=== PATIENT | male | born 1960 | race Caucasian/White ===

== ENCOUNTER 2017-07-28 17:59 | Inpatient (IN) ==
[2017-07-28] MEDS ORDERED: Naloxone 0.4 MG/ML INJ IVP PRN ×2 (22:04→22:10)
[2017-07-28] MEDS: 0.9 % Sodium Chloride 1,000 ML IVC SCH (22:18)
[2017-07-28] MEDS: Ondansetron 4 MG/2 ML VIAL IVP PRN (22:18)
[2017-07-28] MEDS ORDERED: OXYCODONE Oral CONC 10 MG/0.5 ML ORAL.SYG SL PRN (23:09)
[2017-07-28 23:51] LABS: Basophils # 0.1 K/mcL (0.0-0.2); Basophils % 0.4 %; Eosinophils # 0.2 K/mcL (0.0-0.6); Eosinophils % 0.8 %; Hematocrit 23.8 % (37.5-50.1); Immature Granulocytes % 0.7 % (0-4); Lymphocytes # 2.7 K/mcL (0.6-4.6); Lymphocytes % 12.7 %; Mean Corpuscular Hemoglobin 31.8 pg (28.0-33.3); Mean Corpuscular Volume 93.3 fL (83.0-100.0); Mean Platelet Volume 9.9 fL (9.4-12.4); Monocytes # 1.6 K/mcL (0.0-1.3); Monocytes % 7.7 %; Neutrophils # 16.3 K/mcL (1.6-8.9); Platelet Count 407 K/mcL (140-400); Red Blood Count 2.55 M/mcL (4.19-5.50); Red Cell Distribution Width 13.8 % (11.5-14.5); Segmented Neutrophils % 77.7 %
[2017-07-28 23:54] LABS: Hemoglobin 8.1 g/dL (12.9-16.9)
[2017-07-28 23:59] LABS: INR 1.4; Prothrombin Time 14.8 Seconds (9.4-12.1)
[2017-07-29 00:11] LABS: Alanine Aminotransferase 23 Units/L (7-52); Albumin 2.7 g/dL (3.5-5.7); Albumin/Globulin Ratio 1.1 (1.1-2.2); Alkaline Phosphatase 55 Units/L (34-104); Amylase 23 Units/L (29-103); Aspartate Amino Transferase 24 Units/L (13-39); BUN/Creatinine Ratio 38 (6-26); Bilirubin,Direct 0.1 mg/dL (0.0-0.2); Bilirubin,Indirect 0.2 mg/dL (0.0-1.2); Bilirubin,Total 0.3 mg/dL (0.3-1.0); Blood Urea Nitrogen 45 mg/dL (6-20); Calcium 7.8 mg/dL (8.6-10.3); Carbon Dioxide 24 mEq/L (23-29); Chloride 106 mEq/L (98-107); Globulin 2.4 g/dL (2.4-3.5); Glucose 114 mg/dL (70-105); Lactate Dehydrogenase 88 Units/L (140-271); Lipase 20 Units/L (11-82); Osmolality,Calculated 290 (280-300); Potassium 4.8 mEq/L (3.5-5.1); Sodium 134 mEq/L (136-145); Total Protein 5.1 g/dL (6.4-8.9); Triglycerides 51 mg/dL (< 150); eGFR For African Americans > 60 (> 60); eGFR For Non-African Americans > 60 (> 60)
[2017-07-29] MEDS ORDERED: OXYCODONE Oral CONC 10 MG/0.5 ML ORAL.SYG SL ONE (02:18)
--- NOTE | 2017-07-29 04:09 | Internal Med History&Physical ---
Date of Encounter: 07/28/17 Time of Encounter: 08:00 Assessment and Plan (1) Pancreatitis Current visit: Yes Status: Suspected Please note that there is another duplicate of this admission note that was completed on 07/28 (under the [facility] encounter) Plan: - NPO apart from meds - IVF - CBCD, BMP in AM - Phenergan 12.5 mg IV q 4 hr PRN N/V Or - Zofran (ondansetron) PRN Qualifiers: Qualified Code(s): K85.90 - Acute pancreatitis without necrosis or infection , unspecified (2) Hypertension Current visit: No Status: Chronic We will continue home medication Qualifiers: Qualified Code(s): I10 - Essential (primary) hypertension (3) COPD (chronic obstructive pulmonary disease) Current visit: Yes Status: Chronic No evidence of COPD exacerbation , We will start the patient on DuoNeb. Qualifiers: Qualified Code(s): J44.9 - Chronic obstructive pulmonary disease, unspecified (4) Hyponatremia Current visit: No Status: Acute Hypovolemic hyponatremia most likely secondary to volume depletion, will start the patient isotonic saline (5) DVT prophylaxis Current visit: Yes Status: Acute We will place the patient on SCDs Internal Medicine - H&P: HPI Chief complaint: The initial admission note was completed on 07/28 ([facility] encounter) Admitted From: Home Plans for Post Hospital Care: Home History of present illness: 57-year-old male presents to the emergency room by EMS with with PMH COPD, hyperlipidemia, hypertension, and Recurrent UTI who presented with complain severe abdominal pain at the mid epigastric area and continuous nausea. The patient was evaluated by the ER staff and a CT of abdomen and pelvis without IV contrast shows uncomplicated pancreatitis. The patient was started an IV fluid and treated with antibiotics. EKG shows a sinus tachycardic rhythm, rate of 121 otherwise no acute abnormality and white blood cells was elevated, the ER physician at [facility] has discussed the case with the linoleum installer communications clerk and decision was made that ICU is appropriate sitting for the patient admission and the patient was transferred from [facility], hospitalist group was asked to complete the admission. Reviewing the ER records indicated that several attempts to place a central line placement in the right groin area was unsuccessful. Past Med Surg Social Fam HX - Past Medical History Medical history: COPD, hyperlipidemia, hypertension, other Psychiatric history: anxiety - Past Surgical History Surgical History: appendectomy, orthopedic, other (Left arm surgery) - Social History Smoking Status: Current every day smoker Smokeless Tobacco Status: No Alcohol use: none Drug use: marijuana, other Internal Medicine - H&P: Meds Albuterol Sulfate [Proair Hfa] 1 puff IH Q4-6H PRN 09/06/16 [History] Quetiapine Fumarate [Seroquel] 200 mg PO HS 04/06/17 [History] Ondansetron [Zofran ODT] 8 mg SL Q8HR 07/18/17 [History] Fluticasone/Vilanterol [Breo Ellipta 100-25 Mcg INH] 1 puff IH DAILY 07/29/17 [ History] Ibuprofen [Ibuprofen] 800 mg PO TID 07/29/17 [History] Lisinopril [Zestril] 20 mg PO DAILY 07/29/17 [History] Sertraline [Zoloft] 50 mg PO DAILY 07/29/17 [History] Tamsulosin [Flomax] 0.4 mg PO DAILY 07/29/17 [History] 3 Allergy/AdvReac Type Severity Reaction Status Date / Time prednisone Allergy Swelling Verified 07/29/17 09:40 of the Eye All Systems PM: A 10-system review of systems was performed and is negative for pertinent findings except as documented above in the HPI. - Constitutional Constitutional: no chills, no fever(s), no night sweats - EENT Eyes: no change in vision, no discharge, no pain, no photophobia Ears: no ear discharge, no ear pain, no tinnitus Nose, mouth and throat: no dysphagia, no nasal discharge, no neck pain, no sore throat - Cardiovascular Cardiovascular ROS IM: no chest pain, no diaphoresis, no dyspnea, no lightheadedness, no palpitations, no syncope - Respiratory Respiratory: no cough, no dyspnea, no wheezing, no excessive phlegm production - Gastrointestinal Gastrointestinal: abdominal pain, nausea, no diarrhea, no hematemesis, no hematochezia, no melena, no vomiting - Musculoskeletal Musculoskeletal ROS IM: no numbness, no tingling - Neurological Neurological ROS: no confusion, no convulsions, no focal weakness, no numbness, no tingling, no tremor(s) - Constitutional Vitals: Temp Pulse Resp BP Pulse Ox 98.1 F 89 14 127/70 96 07/29/17 04:00 07/29/17 04:00 07/29/17 04:00 07/29/17 04:00 07/29/17 04:00 General appearance: Present: A&O X 3 - Head Head exam: Present: atraumatic, normocephalic - Respiratory Respiratory exam: Present: CTAB. Absent: accessory muscle use, rales, rhonchi, wheezes - Cardiovascular Cardiovascular exam: Present: RRR, +S1, +S2. Absent: diastolic murmur, gallop, rubs, systolic murmur - GI/Abdominal GI/Abdominal exam: Present: normal bowel sounds, soft, no peritoneal signs. Absent: distended, tenderness - Extremities Exam Extremities exam: Present: warm, radial pulses palpable and symmetrical. Absent : calf tenderness, cyanotic, pedal edema Internal Med - H&P Results - Labs CBC & Chem 7: 07/29/17 12:56 07/29/17 11:25 Labs: Short CBC 07/28/17 Range/Units 22:04 WBC 20.9 H (4.3-11.1) K/mcL Hgb 8.1 L D (12.9-16.9) g/dL Hct 23.8 L (37.5-50.1) % Plt Count 407 H (140-400) K/mcL Neutrophils # 16.3 H (1.6-8.9) K/mcL BMP 07/28/17 22:04 Sodium 134 L Potassium 4.8 Chloride 106 Carbon Dioxide 24 BUN 45 H Creatinine 1.17 Glucose 114 H Calcium 7.8 L Liver Function 07/28/17 Range/Units 22:04 Total Bilirubin 0.3 (0.3-1.0) mg/dL Direct Bilirubin 0.1 (0.0-0.2) mg/dL AST 24 (13-39) Units/L ALT 23 (7-52) Units/L Alkaline Phosphatase 55 (34-104) Units/L Albumin 2.7 L (3.5-5.7) g/dL
[2017-07-29] MEDS: 0.9 % Sodium Chloride 1,000 ML IVC SCH (06:23)
[2017-07-29] MEDS: OXYCODONE Oral CONC 10 MG/0.5 ML ORAL.SYG SL PRN ×3 (06:27→22:20)
[2017-07-29] MEDS ORDERED: [UNRECOGNIZED DRUG - OTHER] IH SCH (09:00)
[2017-07-29] MEDS ORDERED: IPRATROPIUM IH SCH (09:00)
[2017-07-29] MEDS ORDERED: ALBUTEROL IH SCH (09:00)
[2017-07-29] MEDS: Ondansetron 4 MG/2 ML VIAL IVP PRN (10:25)
[2017-07-29 11:09] LABS: Basophils # 0.1 K/mcL (0.0-0.2); Basophils % 0.3 %; Eosinophils # 0.2 K/mcL (0.0-0.6); Eosinophils % 1.3 %; Hematocrit 21.4 % (37.5-50.1); Hemoglobin 7.1 g/dL (12.9-16.9); Immature Granulocytes % 0.5 % (0-4); Lymphocytes # 2.4 K/mcL (0.6-4.6); Lymphocytes % 13.2 %; Mean Corpuscular HGB Conc 33.2 g/dL (31.6-35.5); Mean Corpuscular Hemoglobin 31.3 pg (28.0-33.3); Mean Corpuscular Volume 94.3 fL (83.0-100.0); Mean Platelet Volume 9.9 fL (9.4-12.4); Monocytes # 1.3 K/mcL (0.0-1.3); Monocytes % 7.3 %; Neutrophils # 13.8 K/mcL (1.6-8.9); Platelet Count 403 K/mcL (140-400); Red Blood Count 2.27 M/mcL (4.19-5.50); Segmented Neutrophils % 77.4 %
[2017-07-29 11:23] LABS: ABG Base Excess -11 mEq/L (-2 to 3); ABG HCO3 14 mEq/L (21-27); ABG Oxygen Saturation 96 % (95-98); ABG PCO2 28 mmHg (35-45); ABG PH 7.31 pH Units (7.32-7.45); ABG PO2 86 mmHg (85-104); ABG TCO2 15 mEq/L (20-26)
[2017-07-29 11:42] LABS: Hematocrit 17.7 % (37.5-50.1); Mean Corpuscular HGB Conc 32.2 g/dL (31.6-35.5); Mean Corpuscular Hemoglobin 31.1 pg (28.0-33.3); Mean Corpuscular Volume 96.7 fL (83.0-100.0); Mean Platelet Volume 10.2 fL (9.4-12.4); Platelet Count 423 K/mcL (140-400); Red Blood Count 1.83 M/mcL (4.19-5.50); Red Cell Distribution Width 14.3 % (11.5-14.5)
[2017-07-29] MEDS ORDERED: Dextrose Gel 15 GM/37.5 ML TUBE PO PRN ×4 (11:43→11:54)
[2017-07-29] MEDS ORDERED: *HR* Dextrose 50 % in Water (Syg) 50 ML SYRINGE IVP PRN ×2 (11:43→11:54)
[2017-07-29] MEDS ORDERED: D5% in Water 1,000 ML IVC PRN ×2 (11:43→11:54)
[2017-07-29 11:44] LABS: Hemoglobin 5.7 g/dL (12.9-16.9)
--- NOTE | 2017-07-29 11:44 | Pulmonology Consult Note ---
Date of Encounter: 07/29/17 Time of Encounter: 11:44 Past Med Surg Social Fam HX - Past Medical History Medical history: COPD, hyperlipidemia, hypertension, other Psychiatric history: anxiety - Past Surgical History Surgical History: appendectomy, orthopedic, other (Left arm surgery) - Social History Smoking Status: Current every day smoker Smokeless Tobacco Status: No Alcohol use: none Drug use: marijuana, other Medications and Allergies Albuterol Sulfate [Proair Hfa] 1 puff IH Q4-6H PRN 09/06/16 [History] Quetiapine Fumarate [Seroquel] 200 mg PO HS 04/06/17 [History] Ondansetron [Zofran ODT] 8 mg SL Q8HR 07/18/17 [History] Fluticasone/Vilanterol [Breo Ellipta 100-25 Mcg INH] 1 puff IH DAILY 07/29/17 [ History] Ibuprofen [Ibuprofen] 800 mg PO TID 07/29/17 [History] Lisinopril [Zestril] 20 mg PO DAILY 07/29/17 [History] Sertraline [Zoloft] 50 mg PO DAILY 07/29/17 [History] Tamsulosin [Flomax] 0.4 mg PO DAILY 07/29/17 [History] 3 Allergy/AdvReac Type Severity Reaction Status Date / Time prednisone Allergy Swelling Verified 07/29/17 09:40 of the Eye All Systems: The remainder of the systems were reviewed and are negative Physical Examination Vital Signs: Vital Signs, Last 4 Hours Pulse Resp BP Pulse Ox 07/29/17 09:00 101 12 136/85 100 07/29/17 08:00 101 12 138/79 98 Results - Laboratory Findings CBC and BMP: 07/29/17 10:03 07/28/17 22:04 ABG ABG pH 7.31 pH Units (7.32-7.45) L 07/29/17 11:19 ABG pCO2 28 mmHg (35-45) L 07/29/17 11:19 ABG pO2 86 mmHg (85-104) 07/29/17 11:19 ABG O2 Saturation 96 % (95-98) 07/29/17 11:19 PT/INR, D-dimer PT 14.8 Seconds (9.4-12.1) H 07/28/17 22:04 Abnormal lab findings: Abnormal lab results WBC 17.9 K/mcL (4.3-11.1) H 07/29/17 10:03 RBC 2.27 M/mcL (4.19-5.50) L 07/29/17 10:03 Hgb 7.1 g/dL (12.9-16.9) L 07/29/17 10:03 Hct 21.4 % (37.5-50.1) L 07/29/17 10:03 Plt Count 403 K/mcL (140-400) H 07/29/17 10:03 Neutrophils # 13.8 K/mcL (1.6-8.9) H 07/29/17 10:03 PT 14.8 Seconds (9.4-12.1) H 07/28/17 22:04 ABG pH 7.31 pH Units (7.32-7.45) L 07/29/17 11:19 ABG pCO2 28 mmHg (35-45) L 07/29/17 11:19 ABG HCO3 14 mEq/L (21-27) L 07/29/17 11:19 ABG Total CO2 15 mEq/L (20-26) L 07/29/17 11:19 ABG Base Excess -11 mEq/L (-2 to 3) L 07/29/17 11:19 Lactate 7.0 mmol/L (0.7-2.1) H* 07/29/17 11:19 Sodium 134 mEq/L (136-145) L 07/28/17 22:04 BUN 45 mg/dL (6-20) H 07/28/17 22:04 BUN/Creatinine Ratio 38 (6-26) H 07/28/17 22:04 Glucose 114 mg/dL (70-105) H 07/28/17 22:04 POC Glucose 118 mg/dL (68-89) H 07/28/17 21:06 Calcium 7.8 mg/dL (8.6-10.3) L 07/28/17 22:04 Lactate Dehydrogenase 88 Units/L (140-271) L 07/28/17 22:04 Serum Total Protein 5.1 g/dL (6.4-8.9) L 07/28/17 22:04 Albumin 2.7 g/dL (3.5-5.7) L 07/28/17 22:04 Amylase 23 Units/L (29-103) L 07/28/17 22:04 - Clinical Findings Intake & Output: Intake & Output 07/28/17 07/29/17 07/29/17 23:59 07:59 15:59 Intake Total 0 / 0 1150 / 1150 Output Total 400 / 400 Balance 0 / 0 750 / 750 Weight 68.9 kg 68.9 kg 68 kg Consult Discharge Plan - Plan Referrals: Kyler Loyd, TECHNICAL TRAINING MANAGER [Primary Care Provider] -
[2017-07-29] MEDS ORDERED: Ringers Solution, Lactated 1,000 ML ONE (11:49)
[2017-07-29] MEDS ORDERED: RINGERS LACTATED IVC ONE (11:53)
[2017-07-29] MEDS ORDERED: Fluticasone/Vilanterol [Breo Ellipta 100-25 Mcg Inh IH SCH (11:54)
[2017-07-29] MEDS ORDERED: Ondansetron 4 MG/2 ML VIAL IVP PRN (11:54)
[2017-07-29] MEDS ORDERED: OXYCODONE Oral CONC 10 MG/0.5 ML ORAL.SYG SL PRN (11:54)
[2017-07-29] MEDS ORDERED: Naloxone 0.4 MG/ML INJ IVP PRN (11:54)
[2017-07-29] MEDS ORDERED: 0.9 % Sodium Chloride 1,000 ML IVC SCH (11:54)
[2017-07-29 11:55] LABS: Alanine Aminotransferase 19 Units/L (7-52); Albumin 2.2 g/dL (3.5-5.7); Alkaline Phosphatase 43 Units/L (34-104); Aspartate Amino Transferase 21 Units/L (13-39); BUN/Creatinine Ratio 45 (6-26); Bilirubin,Total 0.2 mg/dL (0.3-1.0); Blood Urea Nitrogen 51 mg/dL (6-20); Calcium 7.4 mg/dL (8.6-10.3); Carbon Dioxide 18 mEq/L (23-29); Chloride 110 mEq/L (98-107); Globulin 2.1 g/dL (2.4-3.5); Glucose 201 mg/dL (70-105); Osmolality,Calculated 305 (280-300); Potassium 4.1 mEq/L (3.5-5.1); Sodium 138 mEq/L (136-145); Total Protein 4.3 g/dL (6.4-8.9); eGFR For African Americans > 60 (> 60); eGFR For Non-African Americans > 60 (> 60)
[2017-07-29] MEDS ORDERED: *HR* Water for inj. (sterile) 10 ML VIAL IV ONE (12:14)
[2017-07-29] MEDS ORDERED: *HR* LORazepam 2 MG/ML VIAL IVP ONE (12:14)
[2017-07-29] MEDS ORDERED: cefTRIAXone 2,000 MG in Water for inj. (sterile) 20 ML 20 ML IVP ONE (12:14)
--- NOTE | 2017-07-29 12:17 | Internal Med Progress Note ---
Date of Encounter: 07/29/17 Time of Encounter: 12:05 - Assessment and plan (1) Septic shock Current Visit: Yes Status: Acute Assessment and plan: Patient was tachycardic, tachypneic, WBC of 20,900 and lactic acid drawn during rapid response was 7.0. Source of infection appears to be UTI as the patient has been having recurrent UTIs with Escherichia coli per medical records. UA from [place] shows moderate leukocyte esterase, many WBC and bacteria. We will initiate sepsis protocol. Blood cultures were ordered during rapid response. Start 30 mL per KG IV fluids. Recheck lactic acid in 3 hours. Sepsis reassessment with an 6 hours. Ceftriaxone 2 g IV ordered once to cover Escherichia coli. The high probability of emergent and significant clinical decompensation with potential impairment of cardiovascular and respiratory function required my full attention and presence at the bedside. I spent 40 minutes of critical care time which involved decision making of high complexity to assess, manipulate, and support vital organ system, in order to prevent further life threatening deterioration of the patient's condition. The critical care time was spent in the patient's room and involved obtaining updated history from the patient and nursing staff, examining the patient, reviewing EKGs, imaging studies and laboratory data, ordering medications and laboratory studies, and reevaluating for clinical response. The time spent teaching or performing any procedures was not included in the critical care time stated above. Patient was transferred to the intensive care unit and carries was handed over to Dr. Lucero. (2) UTI (urinary tract infection) Current Visit: Yes Status: Acute Assessment and plan: IV ceftriaxone 2 g given once. Qualifiers: Urinary tract infection type: acute cystitis Hematuria presence: without hematuria Qualified Code(s): N30.00 - Acute cystitis without hematuria (3) Seizure Current Visit: Yes Status: Acute Assessment and plan: Patient received 2 mg Ativan IV during rapid response. There was no recurrence of seizure. Plan for head CT, EEG and possible neurology consultation. (4) Anemia Current Visit: Yes Status: Acute Assessment and plan: Hemoglobin dropped from 11.1 yesterday at [place] to 7.1 this morning and further dropped to 5.7 drawn during the rapid response. Hemoglobin on 07/18/2017 was normal at 14.3, baseline is around 14. He has no history of anemia. I suspect acute bleed. There is the possibility of a dilutional component however to drop is very significant. We will evaluate for acute blood loss. Qualifiers: Anemia type: unspecified type Qualified Code(s): D64.9 - Anemia, unspecified (5) Lactic acidosis Current Visit: Yes Status: Acute Assessment and plan: Likely in the context of septic shock. We will treat with IV fluids. Check lactate clearance at 3 hours after administration of 30 mL per KG IV fluids. (6) COPD (chronic obstructive pulmonary disease) Current Visit: Yes Status: Acute Assessment and plan: Inhaled bronchodilators. Oxygen by nasal cannula. Qualifiers: COPD type: unspecified COPD Qualified Code(s): J44.9 - Chronic obstructive pulmonary disease, unspecified - Subjective Interval history: A rapid response was called at 1158. Upon arrival the patient was unconscious, posturing, nursing staff reported that he had an episode of generalized tonic-clonic seizure that lasted for 2 minutes. During this he lost bladder continence and was unresponsive. Soon after my arrival he continued to have posturing and right upper extremity clonic movements for about 1 minute. Subsequently he regained consciousness. He appeared extremely anxious and was complaining of shortness of breath. He denied chest pain. - Constitutional Vitals: Temp Pulse Resp BP Pulse Ox 98.0 F 101 22 136/85 91 07/29/17 07:15 07/29/17 09:00 07/29/17 11:46 07/29/17 09:00 07/29/17 11:46 General appearance: Present: A&O X 3, severe distress - Eye Eye exam: Present: PERRL, conjuntiva pink, sclera anicteric Pupils: Present: PERRL - Neck Neck exam general surgery: Present: supple, trachea midline. Absent: lymphadenopathy - Respiratory Respiratory exam: Present: decreased breath sounds, respiratory distress, tachypnea. Absent: accessory muscle use, rales, rhonchi, wheezes - Cardiovascular Cardiovascular exam: Present: +S1, +S2, tachycardia (Regular, tachycardic). Absent: diastolic murmur, gallop, rubs, systolic murmur - GI/Abdominal GI/Abdominal exam: Present: normal bowel sounds, soft, no peritoneal signs. Absent: distended, tenderness - Extremities Exam Extremities exam: Present: warm, radial pulses palpable and symmetrical. Absent : calf tenderness, cyanotic, pedal edema - Neurological Exam Neurological exam: Present: oriented X3. Absent: facial droop, speech deficit Additional comments: Upon arrival he had clonic movements of the right upper and lower extremities that lasted for less than a minute. Subsequently upon regaining consciousness he was moving all 4 extremities. A full neurological assessment could not be completed due to respiratory distress. - Psychiatric Psychiatric exam: Present: agitated, anxious - Skin Skin exam: Present: dry, intact Additional comments: Pale and diaphoretic. Internal Medicine: Result - Labs CBC & Chem 7: 07/29/17 11:25 07/29/17 11:25 Labs: Short CBC 07/28/17 07/29/17 07/29/17 Range/Units 22:04 10:03 11:25 WBC 20.9 H 17.9 H 20.9 H (4.3-11.1) K/mcL Hgb 8.1 L D 7.1 L 5.7 L* (12.9-16.9) g/dL Hct 23.8 L 21.4 L 17.7 L (37.5-50.1) % Plt Count 407 H 403 H 423 H (140-400) K/mcL Neutrophils # 16.3 H 13.8 H (1.6-8.9) K/mcL BMP 07/28/17 07/29/17 22:04 11:25 Sodium 134 L 138 Potassium 4.8 4.1 Chloride 106 110 H Carbon Dioxide 24 18 L BUN 45 H 51 H Creatinine 1.17 1.13 Glucose 114 H 201 H Calcium 7.8 L 7.4 L Cardiac Enzymes 07/29/17 Range/Units 11:25 Troponin I < 0.03 (< 0.04) ng/mL Liver Function 07/28/17 07/29/17 Range/Units 22:04 11:25 Total Bilirubin 0.3 0.2 L (0.3-1.0) mg/dL Direct Bilirubin 0.1 (0.0-0.2) mg/dL AST 24 21 (13-39) Units/L ALT 23 19 (7-52) Units/L Alkaline Phosphatase 55 43 (34-104) Units/L Albumin 2.7 L 2.2 L (3.5-5.7) g/dL According to medical record review his story recall urine cultures reveal Escherichia coli and March 21 04/17/2017, June 2017 in July 18 2017. All isolates are sensitive to cephalosporins and resistant to ampicillin. - ABG Interpretation Interpretation: ABG interpreted by me ABG results: ABG ABG pH 7.31 pH Units (7.32-7.45) L 07/29/17 11:19 ABG pCO2 28 mmHg (35-45) L 07/29/17 11:19 ABG pO2 86 mmHg (85-104) 07/29/17 11:19 ABG O2 Saturation 96 % (95-98) 07/29/17 11:19 PT/INR, D-dimer PT 14.8 Seconds (9.4-12.1) H 07/28/17 22:04 Interpretation: metabolic acidosis (Metabolic acidosis with respiratory compensation) - EKG Interpretation EKG Interpreted by Myself: Yes EKG shows normal: sinus rhythm (Sinus tachycardia 130 bpm, ST depressions in lateral leads.) Rate: tachycardia - Impressions Impressions CT abdomen and pelvis from [facility] revealed in the medical records shows findings suggestive of duodenitis versus pancreatitis versus peptic ulcer. Chest X-Ray 07/29/17 11:13 IMPRESSION: No acute findings. No change. D/ / 07/29/2017 11:48:46 Milton Chambers MD / Susan Mansfield Interpreting Provider: Milton Chambers MD Consult Discharge Plan - Plan Referrals: Kyler Loyd, MOBILE MECHANIC [Primary Care Provider] -
--- NOTE | 2017-07-29 12:57 | Procedure Note ---
<Tk Barfield - Last Filed: 07/29/17 12:55> Date of procedure: 07/29/17 Pre-op diagnosis: hypotension Post-op diagnosis: same Procedure: Right Femoral Central Venous Catheterization Anesthesia: local Was there an distribution center assistant present: No Estimated blood loss (cc): 1 Specimen: none Pathology: none sent Condition: stable Disposition: ICU Procedures - Central Line Placement Right Femoral Central Line Inserted*: Yes Central Line Catheter Replacement*: No Central Line Insertion: emergent Consent Obtained: verbal consent Procedural Pause: verify patient name and date of , timeout performed per policy, checo and assess the site, assemble equipment and verify supplies, perform hand hygiene Patient Placed on Monitor/Pulse Ox: Yes During the Procedure: clinician is wearing sterile gloves, cap, mask,& gown during insertion, sterile field and sterile technique are maintained, patient's face is covered with drape or mask and wearing a cap, everyone in room is wearing a mask Central Line Prep: Chlorhexidine scrub Prep the Procedure Site: apply chloraprep to the skin using a back and forth scrubbing motion, apply chloraprep for 30 seconds (upper body), 1-2 min ( femoral sites), allow prep to dry, drape the patient with a full body drape Local Anesthetic: lidocaine 1% Amount of anesthesia used (mL): 3 Ultrasound Used for Placement: Yes Central Line Lumen Inserted: triple Post Procedure: sutured in place, good blood return, all ports aspirated, flushed, capped, sterile dressing applied, guide wire removed and visualized, dressing is dated Patient Tolerated Procedure: well, no complications Name of Clinician Inserting Central Line: tk barfield Date: 07/29/17 Time: 12:58 Additional Comments: Done under direct supervision of Dr. Mcclain. <Dora Mcclain - Last Filed: 07/29/17 22:34> Procedure: I was present for the entire procedure assisted in the critical portions of the procedure
[2017-07-29] MEDS ORDERED: Ringers Solution, Lactated 1,000 ML IVC ONE (12:59)
[2017-07-29] MEDS ORDERED: Pantoprazole 40 MG VIAL IVP SCH (13:30)
[2017-07-29 13:58] LABS: Hematocrit 16.9 % (37.5-50.1)
--- NOTE | 2017-07-29 14:02 | Pulmonology Consult Note ---
<Tk Barfield - Last Filed: 07/29/17 16:09> Date of Encounter: 07/29/17 Time of Encounter: 14:01 Assessment and Plan (1) Acute upper GI bleed Current Visit: Yes Status: Acute CT demonstrates duodenitis with pneumatosis and NG tube placed recovering grossly bloody gastric contents (~150mL per RN) -- Acute anemia with baseline normally around 14g -- normal 2-3 weeks ago; first noted to be low on 07/28/17 at 11.1g/dL -- dropped to 5.7 today -- supported by character/history of abdominal pain / current clinical course and CT findings (noted below) -- Dr. Chavez consulted on case; appreciate his input -- Pt given 2L IVF boluses and is receiving pRBC infusion -- monitoring Hgb levels vigilantly -- On IV Protonix BID -- Pt did have 2 convulsive episodes, once yesterday and once today, which I suspect are primarily due to acute anemia -- Placed Right Femoral CVC successfully around 1245 for resuscitation needs -- BPs have been soft, but adequate and stable thus far in ICU; continues to be mildly tachycardic CT Abd/Pelvis -- 07/29/[address] Moustapha Springer "1. Progression of inflammatory changes primarily surrounding the duodenum with wall thickening pneumatosis. The findings are either related to a duodenitis or peptic ulcer disease. 2. Mild infiltration of the head and uncinate process of the pancreas, likely secondary to the duodenal inflammation. 3. Moderate gastric distention suggesting either gastroparesis or relative gastric outlet obstruction." (2) Anemia Current Visit: Yes Status: Acute Qualifiers: Anemia type: unspecified type Qualified Code(s): D64.9 - Anemia, unspecified (3) Convulsions Current Visit: Yes Status: Acute Two episodes, once 07/28/17 and once 07/29/17 -- today's episode resolved after administration of Ativan; episode was without clear postictal period -- no history of epilepsy or any known convulsive disorder per patient -- I suspect this is due to anemia and cerebral hypoperfusion -- Dr. Max (neurology) consulted; will obtain MRI-Head and EEG -- await and appreciate input by Dr. Max Qualifiers: Convulsion type: unspecified Qualified Code(s): R56.9 - Unspecified convulsions (4) Caloric malnutrition Current Visit: Yes Status: Acute Apprehensive/scant PO intake due to ongoing pain provoked by eating (5) Septic shock Current Visit: Yes Status: Suspected Pt has UTI and was initially admitted for suspected pancreatitis -- cont Abx for time being including Flagyl, Zosyn, and Vanco -- BP presently adequate and repeat LA was normal -- cont to monitor vitals and WBC Ct qAM -- overall shock picture may be partially or predominantly due to acute hemorrhagic process as above (6) UTI (urinary tract infection) Current Visit: Yes Status: Acute cont Abx as above [septic shock] Qualifiers: Urinary tract infection type: acute cystitis Hematuria presence: without hematuria Qualified Code(s): N30.00 - Acute cystitis without hematuria (7) Pancreatitis Current Visit: Yes Status: Suspected Has had epigastric pain and findings on CT consistent with pancreatitis, but ddx also includes local inflammatory change secondary to PUD -- normal lipase -- Repeat CT supports more likely a primarily a duodenal process with local inflammation -- doubt primary pancreatitis at this point Qualifiers: Chronicity: acute Pancreatitis type: unspecified pancreatitis type Acute pancreatitis complication: unspecified Qualified Code(s): K85.90 - Acute pancreatitis without necrosis or infection, unspecified (8) Azotemia Current Visit: No Status: Resolved Suspect related to peptic ulcer disease which is a possible contributor to acute anemia (9) COPD (chronic obstructive pulmonary disease) Current Visit: Yes Status: Chronic does not appear to have any acute respiratory compromise -- supplement O2 to maintain SpO2 > 88% -- alb nebs as needed Qualifiers: COPD type: unspecified COPD Qualified Code(s): J44.9 - Chronic obstructive pulmonary disease, unspecified (10) DVT prophylaxis Current Visit: Yes Status: Acute SCDs as pharmacologic prophylaxis contraindicated due to high suspicion of acute bleed History of Present Illness Consult date: 07/29/17 Reason for consult: other (Anemia (suspected acute loss), hypotension, possible septic shock, convulsive episodes) Chief complaint: Weakness, seizures History of present illness: Per record review, patient has been feeling generally unwell, weak, fatigued, and has had some epigastric abdominal pain. Has been seen in [facility] ED twice within last 2 months for uncomplicated UTI. Patient admitted to [facility] for pancreatitis, hypotension, UTI. Rapid response was called for convulsive episode which resolved with Ativan. Lactate drawn and elevated at that time. There did not appear to be a post-ictal state per hospitalist. Of note, patient has normal baseline Hgb, but has rapidly downtrended over past 24 hours (11.1 --> 5.7). Lipase was wnl; recent CT showed inflammation around duodenum and pancreatic head. CT repeated today showed worsening duodenal inflammation with pneumatosis, but no overt signs of rupture. Results were called by [facility] radiologist. Per patient, has been having ongoing abdominal pain for 1-2 months. Has been diagnosed with UTI twice and treated with antibiotics. Has had worsening of abdominal pain over last several days describing it as sharp and "all over". Pain is worse after eating, thus, he has avoided adequate PO intake. Pain is severe today and patient feels that he cannot move without making it worse. Pain poorly localizes. States he has felt febrile, has had myalgias, weakness/fatigue, nausea, and vomiting. Denies diarrhea, constipation, dysuria , "coffee ground emesis", hematemesis, melena, hematochezia, and hematuria. Medical history positive only for COPD. Denies history of anemia, PUD, gastritis, GERD, pancreatitis, cholelithiasis/cholecystitis. Has had appendicitis, but no other intra-abdominal surgeries; none recent. Does not take any acid-reducing medications. Past Med Surg Social Fam HX - Past Medical History Source: patient Medical history: COPD, hyperlipidemia, hypertension, other Psychiatric history: anxiety - Past Surgical History Surgical History: appendectomy, orthopedic, other (Left arm surgery) - Social History Smoking Status: Current every day smoker Smokeless Tobacco Status: No Alcohol use: none Drug use: marijuana, other Medications and Allergies Albuterol Sulfate [Proair Hfa] 1 puff IH Q4-6H PRN 09/06/16 [History] Quetiapine Fumarate [Seroquel] 200 mg PO HS 04/06/17 [History] Ondansetron [Zofran ODT] 8 mg SL Q8HR 07/18/17 [History] Fluticasone/Vilanterol [Breo Ellipta 100-25 Mcg INH] 1 puff IH DAILY 07/29/17 [ History] Ibuprofen [Ibuprofen] 800 mg PO TID 07/29/17 [History] Lisinopril [Zestril] 20 mg PO DAILY 07/29/17 [History] Sertraline [Zoloft] 50 mg PO DAILY 07/29/17 [History] Tamsulosin [Flomax] 0.4 mg PO DAILY 07/29/17 [History] 3 Allergy/AdvReac Type Severity Reaction Status Date / Time prednisone Allergy Swelling Verified 07/29/17 09:40 of the Eye All Systems: The remainder of the systems were reviewed and are negative Physical Examination Vital Signs: Vital Signs, Last 4 Hours Pulse Resp BP Pulse Ox 07/29/17 13:00 107 18 105/62 100 07/29/17 12:00 105 18 91/56 100 07/29/17 11:46 22 91 07/29/17 11:30 130 18 96/56 99 General appearance: appears uncomfortable (somnolent, but tearful on abdominal exam and guards throughout; rigid/guarded posturing) Eyes: nonicteric ENT: oropharynx dry, oropharynx pale Neck: supple Effort: normal Inspection: normal Auscultation: bilateral: clear Cardiovascular: other (mildly tachycardic with regular rhythm and no murmurs/ gallops heard) Gastrointestinal: tender, non-distended, guarding, other (exquisitely tender throughout abdomen, guarding throughout with light palpation, tearful on exam, positive heel-jar test, no distention) Integumentary: other (general pallor) Extremities: no cyanosis, no edema, pulses normal, no ischemia or petechiae Musculoskeletal: no deformities Results - Laboratory Findings CBC and BMP: 07/29/17 12:56 07/29/17 11:25 ABG ABG pH 7.31 pH Units (7.32-7.45) L 07/29/17 11:19 ABG pCO2 28 mmHg (35-45) L 07/29/17 11:19 ABG pO2 86 mmHg (85-104) 07/29/17 11:19 ABG O2 Saturation 96 % (95-98) 07/29/17 11:19 PT/INR, D-dimer PT 14.8 Seconds (9.4-12.1) H 07/28/17 22:04 Abnormal lab findings: Abnormal lab results WBC 20.9 K/mcL (4.3-11.1) H 07/29/17 11:25 RBC 1.83 M/mcL (4.19-5.50) L 07/29/17 11:25 Hgb 5.7 g/dL (12.9-16.9) L* 07/29/17 11:25 Hct 17.7 % (37.5-50.1) L 07/29/17 11:25 Plt Count 423 K/mcL (140-400) H 07/29/17 11:25 Neutrophils # 13.8 K/mcL (1.6-8.9) H 07/29/17 10:03 PT 14.8 Seconds (9.4-12.1) H 07/28/17 22:04 ABG pH 7.31 pH Units (7.32-7.45) L 07/29/17 11:19 ABG pCO2 28 mmHg (35-45) L 07/29/17 11:19 ABG HCO3 14 mEq/L (21-27) L 07/29/17 11:19 ABG Total CO2 15 mEq/L (20-26) L 07/29/17 11:19 ABG Base Excess -11 mEq/L (-2 to 3) L 07/29/17 11:19 Lactate 7.0 mmol/L (0.7-2.1) H* 07/29/17 11:19 Chloride 110 mEq/L (98-107) H 07/29/17 11:25 Carbon Dioxide 18 mEq/L (23-29) L 07/29/17 11:25 BUN 51 mg/dL (6-20) H 07/29/17 11:25 BUN/Creatinine Ratio 45 (6-26) H 07/29/17 11:25 Glucose 201 mg/dL (70-105) H 07/29/17 11:25 POC Glucose 118 mg/dL (68-89) H 07/28/17 21:06 Calculated Osmolality 305 (280-300) H 07/29/17 11:25 Calcium 7.4 mg/dL (8.6-10.3) L 07/29/17 11:25 Total Bilirubin 0.2 mg/dL (0.3-1.0) L 07/29/17 11:25 Lactate Dehydrogenase 88 Units/L (140-271) L 07/28/17 22:04 Serum Total Protein 4.3 g/dL (6.4-8.9) L 07/29/17 11:25 Albumin 2.2 g/dL (3.5-5.7) L 07/29/17 11:25 Globulin 2.1 g/dL (2.4-3.5) L 07/29/17 11:25 Albumin/Globulin Ratio 1.0 (1.1-2.2) L 07/29/17 11:25 Amylase 23 Units/L (29-103) L 07/28/17 22:04 - Clinical Findings Intake & Output: Intake & Output 07/28/17 07/29/17 07/29/17 23:59 07:59 15:59 Intake Total 0 / 0 1150 / 1150 Output Total 400 / 400 300 / 300 Balance 0 / 0 750 / 750 -300 / -300 Weight 68.9 kg 68.9 kg 68 kg Consult Discharge Plan - Plan Referrals: Kyler Loyd, VENTILATION WORKER [Primary Care Provider] - <Dora Mcclain - Last Filed: 07/29/17 23:02> Date of Encounter: 07/29/17 All Systems: The remainder of the systems were reviewed and are negative Physical Examination Vital Signs: Vital Signs, Last 4 Hours Temp Pulse Resp BP Pulse Ox 07/29/17 22:00 98 17 109/58 98 07/29/17 21:58 98.4 F 103 17 109/58 97 07/29/17 21:43 98.6 F 98 17 99/65 99 07/29/17 21:00 98 16 120/84 94 07/29/17 20:00 94 16 125/69 99 07/29/17 19:00 98.4 F 94 16 109/69 99 Results - Laboratory Findings CBC and BMP: 07/29/17 18:33 07/29/17 11:25 ABG ABG pH 7.31 pH Units (7.32-7.45) L 07/29/17 11:19 ABG pCO2 28 mmHg (35-45) L 07/29/17 11:19 ABG pO2 86 mmHg (85-104) 07/29/17 11:19 ABG O2 Saturation 96 % (95-98) 07/29/17 11:19 PT/INR, D-dimer PT 14.8 Seconds (9.4-12.1) H 07/28/17 22:04 Abnormal lab findings: Abnormal lab results WBC 20.9 K/mcL (4.3-11.1) H 07/29/17 11:25 RBC 1.83 M/mcL (4.19-5.50) L 07/29/17 11:25 Hgb 6.4 g/dL (12.9-16.9) L 07/29/17 18:33 Hct 19.2 % (37.5-50.1) L 07/29/17 18:33 Plt Count 423 K/mcL (140-400) H 07/29/17 11:25 Neutrophils # 13.8 K/mcL (1.6-8.9) H 07/29/17 10:03 PT 14.8 Seconds (9.4-12.1) H 07/28/17 22:04 ABG pH 7.31 pH Units (7.32-7.45) L 07/29/17 11:19 ABG pCO2 28 mmHg (35-45) L 07/29/17 11:19 ABG HCO3 14 mEq/L (21-27) L 07/29/17 11:19 ABG Total CO2 15 mEq/L (20-26) L 07/29/17 11:19 ABG Base Excess -11 mEq/L (-2 to 3) L 07/29/17 11:19 Lactate 7.0 mmol/L (0.7-2.1) H* 07/29/17 11:19 Chloride 110 mEq/L (98-107) H 07/29/17 11:25 Carbon Dioxide 18 mEq/L (23-29) L 07/29/17 11:25 BUN 51 mg/dL (6-20) H 07/29/17 11:25 BUN/Creatinine Ratio 45 (6-26) H 07/29/17 11:25 Glucose 201 mg/dL (70-105) H 07/29/17 11:25 POC Glucose 108 mg/dL (68-89) H 07/29/17 11:09 Calculated Osmolality 305 (280-300) H 07/29/17 11:25 Calcium 7.4 mg/dL (8.6-10.3) L 07/29/17 11:25 Total Bilirubin 0.2 mg/dL (0.3-1.0) L 07/29/17 11:25 Lactate Dehydrogenase 95 Units/L (140-271) L 07/29/17 13:01 Serum Total Protein 4.3 g/dL (6.4-8.9) L 07/29/17 11:25 Albumin 2.2 g/dL (3.5-5.7) L 07/29/17 11:25 Globulin 2.1 g/dL (2.4-3.5) L 07/29/17 11:25 Albumin/Globulin Ratio 1.0 (1.1-2.2) L 07/29/17 11:25 Amylase 23 Units/L (29-103) L 07/28/17 22:04 Urine Clarity Cloudy (Clear) A 07/29/17 18:22 Urine Nitrite Positive (Negative) A 07/29/17 18:22 Ur Leukocyte Esterase Large (Negative) H 07/29/17 18:22 Urine Microscopic RBC 3-5 per hpf (0-3) H 07/29/17 18:22 Urine Microscopic WBC TNTC per hpf (0-3) H 07/29/17 18:22 Ur Culture Indicated? YES (NO) A 07/29/17 18:22 Urine Opiates Screen Positive ng/mL (Sesmqp=133) H 07/29/17 13:07 U Marijuana (THC) Screen Positive ng/mL (Cutoff = 50) H 07/29/17 13:07 - Clinical Findings Intake & Output: Intake & Output 07/29/17 07/29/17 07/29/17 07:59 15:59 23:59 Intake Total 1150 / 1150 4385 / 4385 880 / 880 Output Total 400 / 400 1600 / 1600 850 / 850 Balance 750 / 750 2785 / 2785 Weight 68.9 kg 68 kg - Attending Attestation I saw and evaluated this patient and my medical decision-making was reviewed with the Resident Physician. I agree with the documented findings, disposition and treatment plan as described except to the extent set forth below. We independently had [id number] contact with the patient. Except the patient is not in septic shock I spent 33 minutes of Critical Care time with this patient. It involved decision making of high complexity to assess, manipulate, and support vital organ system failure and/or to prevent further life threatening deterioration of the patient's condition. The time involved in the performance of separately reportable procedures was not counted toward critical care time. Patient seen and examined at bedside Labs, radiology, chart personally reviewed. HEAT REGULATOR:Patient is conscious oriented little bit sleepy had two episodes of convulsions . CT scan and MRI Head was unremarkable . EEG didnt show any evidence of seizures . Appreciate Neurology recs Pulm: Patient has acceptable oxygenation and adequate gas exchange Cards: Patient blood pressure is borderline most likely due to hypovolemia , no evidence of ST-T changes , no evidence of ischemia FEN-GI: NPO , OG drainage patient is bleeding most likely NSAID induced ulcer bleeding . To continue PPI . CT abdomen shows duodenitis and pneumatosis , surgery was consulted for CT abdomen and findings and GI bleed. Renal: Labs and output reviewed non gap acidosis will give 1000 ml of sodium bicarbonate then reassess with BMP ID:Low suspicion for infection for sepsis like picture , patient is not in shock as MAP > 65 Heme/Onc: Acute blood loss anemia secondary to NSAID ulcer bleed , transfusion trigger should be Hb < 6.4 Endo: Glucose Monitored Integ/MSK: Skin Care per routine ICU Nursing Protocol to prevent ulcers. Lines: All lines examined without evidence of infection : Dispo: Critically ill CODE:Full Code
[2017-07-29 14:06] LABS: Hemoglobin 5.7 g/dL (12.9-16.9)
[2017-07-29] MEDS ORDERED: 0.9 % Sodium Chloride 250 ML ONE ×2 (14:43→21:34)
[2017-07-29] MEDS ORDERED: levETIRAcetam 1,000 MG in 0.9 % Sodium Chloride 100 ML IVPB ONE (16:06)
[2017-07-29] MEDS ORDERED: Sodium Bicarbonate 150 MEQ in D5% in Water 1,000 ML IVC SCH (16:15)
--- NOTE | 2017-07-29 16:27 | General Surgery Consult Note ---
Date of Encounter: 07/29/17 Time of Encounter: 16:27 Assessment and Plan (1) Upper abdominal pain Current Visit: Yes Status: Acute Requested that the patient had a NG tube placed and a Rubio catheter placed. The concern is that this patient may have duodenitis particularly due to his use of NSAIDs for the past 4+ weeks. There has been no reported evidence of hematemesis or rectal bleeding, however he has not had an NG tube placed to identify the material within his distended stomach (the stomach appears to be large and dilated concerning for gastroparesis). Agree with Protonix IV antibiotics at this time. Serial abdominal exam. Will follow with you. Of note; NG tube was placed and dark colored blood was obtained. Continue with NG tube decompression. History of Present Illness Consult date: 07/29/17 Reason for consult: abdominal pain History of present illness: 57 year old male with a past medical history significant for hypertension and anxiety as well as urinary retention presented to [facility] emergency room due to abdominal pain that has been present for approximately several weeks. The patient states that he has been having some upper abdominal pain for about 3-4 weeks. After further questioning he does admit to taking Motrin 800 mg 3 times a day for about 4+ weeks. He has had some nausea and vomiting but denies any hematemesis. He denies any diarrhea or constipation and states that he has a bowel movement once per day. Because of his progressing symptoms he presented to the emergency room and was subsequently transferred to ICU. Workup has included laboratory studies and a CT scan showing a dilated stomach and mild stranding around the head of the fingers approximate duodenum with possible mild proximal duodenal wall thickening. The differential diagnoses included acute uncomplicated pancreatitis with secondary inflammation of the duodenum versus peptic ulcer disease, the latter which I think is the likely diagnosis (the patient has an amylase and lipase value that was normal). The patient was being transferred from the ICU up to the floor when he experienced some lightheadedness/dizziness and the subsequent had a seizure. He was transported back down to the ICU. Repeat CT scan today did show progressive worsening of inflammatory process 101. The patient currently does not into some abdominal pain but no nausea. He has not had an episode of vomiting and has not had any recent bowel movements. Past Med Surg Social Fam HX - Past Medical History Medical history: COPD, hyperlipidemia, hypertension, other Psychiatric history: anxiety - Past Surgical History Surgical History: appendectomy, orthopedic, other (Left arm surgery) - Social History Smoking Status: Current every day smoker Smokeless Tobacco Status: No Alcohol use: none Drug use: marijuana, other Medications and Allergies Albuterol Sulfate [Proair Hfa] 1 puff IH Q4-6H PRN 09/06/16 [History] Quetiapine Fumarate [Seroquel] 200 mg PO HS 04/06/17 [History] Ondansetron [Zofran ODT] 8 mg SL Q8HR 07/18/17 [History] Fluticasone/Vilanterol [Breo Ellipta 100-25 Mcg INH] 1 puff IH DAILY 07/29/17 [ History] Ibuprofen [Ibuprofen] 800 mg PO TID 07/29/17 [History] Lisinopril [Zestril] 20 mg PO DAILY 07/29/17 [History] Sertraline [Zoloft] 50 mg PO DAILY 07/29/17 [History] Tamsulosin [Flomax] 0.4 mg PO DAILY 07/29/17 [History] 3 Allergy/AdvReac Type Severity Reaction Status Date / Time prednisone Allergy Swelling Verified 07/29/17 09:40 of the Eye Review of Systems All systems PM: reviewed and no additional remarkable complaints except as stated All systems PM: The remainder of the systems were reviewed and are negative General Surgery Exam Initial Vital Signs Temp Pulse Resp BP Pulse Ox 98.5 F 97 19 122/78 98 07/28/17 21:07 07/28/17 21:07 07/28/17 21:07 07/28/17 21:07 07/28/17 21:07 - General physical appearance moderate distress - Eyes PERRL, normal ocular movement - Neck no masses, trachea midline, no lymphadectomy - Respiratory normal expansion, normal respiratory effort, clear to auscultation - Cardiovascular Cardiovascular exam: Present: RRR, no murmurs/rubs/gallops - Abdomen Abdomen general surgery: Present: bowel sounds present, soft, tender (upper abdominal pain to palpation, mainly at the epigastrum) - Neurologic Present: CN 2-12 grossly intact - Musculoskeletal Present: other (no clubbing, cyanosis, or edema) - Psychiatric Psychiatric general surgery: Present: oriented to person Exam Initial Vital Signs Temp Pulse Resp BP Pulse Ox 98.5 F 97 19 122/78 98 07/28/17 21:07 07/28/17 21:07 07/28/17 21:07 07/28/17 21:07 07/28/17 21:07 Results - Labs 07/30/17 03:05 07/30/17 03:05 Abnormal lab results WBC 20.9 K/mcL (4.3-11.1) H 07/29/17 11:25 RBC 1.83 M/mcL (4.19-5.50) L 07/29/17 11:25 Hgb 5.7 g/dL (12.9-16.9) L* 07/29/17 12:56 Hct 16.9 % (37.5-50.1) L 07/29/17 12:56 Plt Count 423 K/mcL (140-400) H 07/29/17 11:25 Neutrophils # 13.8 K/mcL (1.6-8.9) H 07/29/17 10:03 PT 14.8 Seconds (9.4-12.1) H 07/28/17 22:04 ABG pH 7.31 pH Units (7.32-7.45) L 07/29/17 11:19 ABG pCO2 28 mmHg (35-45) L 07/29/17 11:19 ABG HCO3 14 mEq/L (21-27) L 07/29/17 11:19 ABG Total CO2 15 mEq/L (20-26) L 07/29/17 11:19 ABG Base Excess -11 mEq/L (-2 to 3) L 07/29/17 11:19 Lactate 7.0 mmol/L (0.7-2.1) H* 07/29/17 11:19 Chloride 110 mEq/L (98-107) H 07/29/17 11:25 Carbon Dioxide 18 mEq/L (23-29) L 07/29/17 11:25 BUN 51 mg/dL (6-20) H 07/29/17 11:25 BUN/Creatinine Ratio 45 (6-26) H 07/29/17 11:25 Glucose 201 mg/dL (70-105) H 07/29/17 11:25 POC Glucose 118 mg/dL (68-89) H 07/28/17 21:06 Calculated Osmolality 305 (280-300) H 07/29/17 11:25 Calcium 7.4 mg/dL (8.6-10.3) L 07/29/17 11:25 Total Bilirubin 0.2 mg/dL (0.3-1.0) L 07/29/17 11:25 Lactate Dehydrogenase 95 Units/L (140-271) L 07/29/17 13:01 Serum Total Protein 4.3 g/dL (6.4-8.9) L 07/29/17 11:25 Albumin 2.2 g/dL (3.5-5.7) L 07/29/17 11:25 Globulin 2.1 g/dL (2.4-3.5) L 07/29/17 11:25 Albumin/Globulin Ratio 1.0 (1.1-2.2) L 07/29/17 11:25 Amylase 23 Units/L (29-103) L 07/28/17 22:04 Diabetes panel 07/28/17 07/29/17 Range/Units 22:04 11:25 Sodium 134 L 138 (136-145) mEq/L Potassium 4.8 4.1 (3.5-5.1) mEq/L Chloride 106 110 H (98-107) mEq/L Carbon Dioxide 24 18 L (23-29) mEq/L BUN 45 H 51 H (6-20) mg/dL Creatinine 1.17 1.13 (0.70-1.30) mg/dL Glucose 114 H 201 H (70-105) mg/dL Calcium 7.8 L 7.4 L (8.6-10.3) mg/dL AST 24 21 (13-39) Units/L ALT 23 19 (7-52) Units/L Alkaline Phosphatase 55 43 (34-104) Units/L Albumin 2.7 L 2.2 L (3.5-5.7) g/dL Triglycerides 51 (< 150) mg/dL Calcium panel 07/28/17 07/29/17 Range/Units 22:04 11:25 Calcium 7.8 L 7.4 L (8.6-10.3) mg/dL Albumin 2.7 L 2.2 L (3.5-5.7) g/dL Pituitary panel 07/28/17 07/29/17 Range/Units 22:04 11:25 Sodium 134 L 138 (136-145) mEq/L Potassium 4.8 4.1 (3.5-5.1) mEq/L Chloride 106 110 H (98-107) mEq/L Carbon Dioxide 24 18 L (23-29) mEq/L BUN 45 H 51 H (6-20) mg/dL Creatinine 1.17 1.13 (0.70-1.30) mg/dL Glucose 114 H 201 H (70-105) mg/dL Calcium 7.8 L 7.4 L (8.6-10.3) mg/dL Adrenal panel 07/28/17 07/29/17 Range/Units 22:04 11:25 Sodium 134 L 138 (136-145) mEq/L Potassium 4.8 4.1 (3.5-5.1) mEq/L Chloride 106 110 H (98-107) mEq/L Carbon Dioxide 24 18 L (23-29) mEq/L BUN 45 H 51 H (6-20) mg/dL Creatinine 1.17 1.13 (0.70-1.30) mg/dL Glucose 114 H 201 H (70-105) mg/dL Calcium 7.8 L 7.4 L (8.6-10.3) mg/dL Total Bilirubin 0.3 0.2 L (0.3-1.0) mg/dL AST 24 21 (13-39) Units/L ALT 23 19 (7-52) Units/L Alkaline Phosphatase 55 43 (34-104) Units/L Albumin 2.7 L 2.2 L (3.5-5.7) g/dL All other labs normal. - Imaging CT scan - abdomen: report reviewed, image reviewed (He does not report reviewed by me both from yesterday and today. Shows worsening of the inflammatory process around the head of the pancreas/duodenum. No free air or free fluid.) Consult Discharge Plan - Plan Referrals: Kyler Loyd, CHRONIC CARE NURSE [Primary Care Provider] -
[2017-07-29] MEDS: Piperacillin/Tazobactam 3.375 GM in 0.9 % Sodium Chloride Mini Bag 100 ML IVPB SCH (17:00)
[2017-07-29] MEDS: MetroNIDAZOLE 500 MG/100 ML 500 MG/100 ML BAG IVPB SCH (17:51)
[2017-07-29] MEDS: Pantoprazole 40 MG in 0.9 % Sodium Chloride Mini Bag 100 ML IVC SCH ×2 (18:10→23:19)
--- NOTE | 2017-07-29 18:18 | EEG/EMG/Oth Biometrics Report ---
EEG Procedure Report Date of procedure: 07/29/17 EEG Procedure: Routine EEG Procedure Note: This is a report of a 21 channel bipolar and referential montage EEG. A posterior dominant rhythm of 8 Hz moderate voltage alpha frequencies identified symmetrically in the posterior head regions. This rhythm attenuates symmetrically with eye opening. Hyperventilation is not performed during the recording. Periods of drowsiness and stage II sleep are identified as referenced by dropout of the posterior dominant rhythm and emergence of vertex activity, K complexes, and sleep spindles. Photic stimulation is performed and does not produce a driving response. The EKG rhythm strip reveals sinus tachycardia at 109 bpm. Impressions: This EEG recording is within normal limits. There is no evidence of epileptiform activity identified during the study. Comment: A normal EEG does not preclude a diagnosis of seizure or epilepsy. If the clinical suspicion for seizure activity is high, serial EEGs or perhaps a prolonged recording may increase the yield. Please correlate clinically.
--- NOTE | 2017-07-29 18:24 | Neurology - Consult Note ---
Date of Encounter: 07/29/17 Time of Encounter: 18:21 Assessment and Plan (1) Rigors Current Visit: Yes Status: Acute I suspect that the intense tremulousness that he experienced earlier was likely secondary to rigors perhaps due to the underlying infectious process. Even now he complains that he is "chilling". I am able to identify some mild shivering. However I believe that the somnolence that he experienced after the event was probably due to the Ativan given. His EEG was normal and did not identify any evidence of seizure activity. I did review the CT scan of the brain which does reveal some cortical atrophy. The radiologist interpretation is not available. His neurologic examination is nonfocal. MRI scan of the brain is yet pending. We will reevaluate him tomorrow. Critical care time spent evaluating this patient reviewing the medical record was 50 minutes. History of Present Illness HPI: Mr. Barrett is a 57 year old male who is being seen for neurologic consultation in the intensive care unit secondary to an intense episode of tremors or today with altered sensorium. This patient was transferred to our facility from [facility] where was suspected that he may have had pancreatitis. His WBCs were elevated and he has been complaining of chills. Apparently he experienced an intense episode of tremors with associated altered sensorium. Initiate was felt that this may have been a seizure and he was given Ativan. He remained unconscious for several hours or so after that. He did lose urinary continence. He did not bite his tongue. Currently he is it is suspected that he may be septic. He is arousable now although somewhat somnolent. However he knows that he is in [facility] he knows that he was having some stomach difficulty today. He currently has an NG tube and is suspected of having a GI bleed. Currently he does feel that he has chills. He denies headache denies nuchal rigidity. He denies any prior history of seizure. It is my suspicion that he experienced rigors as a result of the underlying infectious process. This may have been mistaken for seizure and was subsequently given Ativan which further altered his mental status. Past Med Surg Social Fam HX - Past Medical History Medical history: COPD, hyperlipidemia, hypertension, other Psychiatric history: anxiety - Past Surgical History Surgical History: appendectomy, orthopedic, other (Left arm surgery) - Social History Smoking Status: Current every day smoker Smokeless Tobacco Status: No Alcohol use: none Drug use: marijuana, other Medications and Allergies Albuterol Sulfate [Proair Hfa] 1 puff IH Q4-6H PRN 09/06/16 [History] Quetiapine Fumarate [Seroquel] 200 mg PO HS 04/06/17 [History] Ondansetron [Zofran ODT] 8 mg SL Q8HR 07/18/17 [History] Fluticasone/Vilanterol [Breo Ellipta 100-25 Mcg INH] 1 puff IH DAILY 07/29/17 [ History] Ibuprofen [Ibuprofen] 800 mg PO TID 07/29/17 [History] Lisinopril [Zestril] 20 mg PO DAILY 07/29/17 [History] Sertraline [Zoloft] 50 mg PO DAILY 07/29/17 [History] Tamsulosin [Flomax] 0.4 mg PO DAILY 07/29/17 [History] 3 Allergy/AdvReac Type Severity Reaction Status Date / Time prednisone Allergy Swelling Verified 07/29/17 09:40 of the Eye All Systems: The remainder of the systems were reviewed and are negative Review of Systems: 10 point review of systems is consistent with a history of present illness and otherwise negative. Physical Examination - Vital Signs Vital Signs: Initial Vital Signs Temp Pulse Resp BP Pulse Ox 98.5 F 97 19 122/78 98 07/28/17 21:07 07/28/17 21:07 07/28/17 21:07 07/28/17 21:07 07/28/17 21:07 - Neurologic Detailed motor examination: grossly full strength in all extremities Detailed sensory examination: intact Reflex and gait examination: intact (No long tract signs, no clonus.) Mental Status Examination: awake, oriented to person, oriented to place, oriented to time, follows commands appropriately, answers questions appropriately, no agnosia, no aphasia, no aproxia, drowsy Cranial nerve examination: PERRL, EOMI, visual malagon intact, corneal reflexes brisk symmetrically, sensory to face intact, mastication intact, no facial asymmetry is present, no dysarthria, hearing is intact symmetrically, soft palate elevates bilaterally upon phonation, gag reflex intact, flexes SCM and trapezius muscles symmetrically with full power, tongue protrudes midline, no atrophy or facial fasiculations present Results - Laboratory Findings CBC and BMP: 07/29/17 12:56 07/29/17 11:25 Abnormal lab findings: Abnormal lab results WBC 20.9 K/mcL (4.3-11.1) H 07/29/17 11:25 RBC 1.83 M/mcL (4.19-5.50) L 07/29/17 11:25 Hgb 5.7 g/dL (12.9-16.9) L* 07/29/17 12:56 Hct 16.9 % (37.5-50.1) L 07/29/17 12:56 Plt Count 423 K/mcL (140-400) H 07/29/17 11:25 Neutrophils # 13.8 K/mcL (1.6-8.9) H 07/29/17 10:03 PT 14.8 Seconds (9.4-12.1) H 07/28/17 22:04 ABG pH 7.31 pH Units (7.32-7.45) L 07/29/17 11:19 ABG pCO2 28 mmHg (35-45) L 07/29/17 11:19 ABG HCO3 14 mEq/L (21-27) L 07/29/17 11:19 ABG Total CO2 15 mEq/L (20-26) L 07/29/17 11:19 ABG Base Excess -11 mEq/L (-2 to 3) L 07/29/17 11:19 Lactate 7.0 mmol/L (0.7-2.1) H* 07/29/17 11:19 Chloride 110 mEq/L (98-107) H 07/29/17 11:25 Carbon Dioxide 18 mEq/L (23-29) L 07/29/17 11:25 BUN 51 mg/dL (6-20) H 07/29/17 11:25 BUN/Creatinine Ratio 45 (6-26) H 07/29/17 11:25 Glucose 201 mg/dL (70-105) H 07/29/17 11:25 POC Glucose 118 mg/dL (68-89) H 07/28/17 21:06 Calculated Osmolality 305 (280-300) H 07/29/17 11:25 Calcium 7.4 mg/dL (8.6-10.3) L 07/29/17 11:25 Total Bilirubin 0.2 mg/dL (0.3-1.0) L 07/29/17 11:25 Lactate Dehydrogenase 95 Units/L (140-271) L 07/29/17 13:01 Serum Total Protein 4.3 g/dL (6.4-8.9) L 07/29/17 11:25 Albumin 2.2 g/dL (3.5-5.7) L 07/29/17 11:25 Globulin 2.1 g/dL (2.4-3.5) L 07/29/17 11:25 Albumin/Globulin Ratio 1.0 (1.1-2.2) L 07/29/17 11:25 Amylase 23 Units/L (29-103) L 07/28/17 22:04 Consult Discharge Plan - Plan Referrals: Kyler Loyd, AIRLINE LOUNGE RECEPTIONIST [Primary Care Provider] -
[2017-07-29 18:33] LABS: Bilirubin,Urine Negative (Negative); Blood,Urine Negative (Negative); Clarity,Urine Cloudy (Clear); Color,Urine Yellow (Yellow); Glucose,Urine (UA) Normal (Normal); Ketones,Urine Negative (Negative); Leukocyte Esterase,Urine Large (Negative); Nitrite,Urine Positive (Negative); Protein,Urine Trace mg/dL (Neg-Trace); Specific Gravity,Urine 1.019 (1.010-1.025); Urobilinogen,Urine Normal (Normal)
[2017-07-29 18:37] LABS: Bacteria,Urine None Seen per hpf (None-Few); Hyaline Casts,Urine None Seen per lpf (None-Few); Squamous Epithelial Cell,Urine None Seen per lpf (None-Few); WBC,Urine TNTC per hpf (0-3)
[2017-07-29 18:47] LABS: Hematocrit 19.2 % (37.5-50.1); Hemoglobin 6.4 g/dL (12.9-16.9)
[2017-07-29 18:59] LABS: Amphetamine Screen,Urine Negative ng/mL (Cutoff=1000); Barbiturate Screen,Urine Negative ng/mL (Cutoff=200); Benzodiazepines Screen,Urine Negative ng/mL (Cutoff=200); Cannabinoid Screen,Urine Positive ng/mL (Cutoff = 50); Cocaine Screen,Urine Negative ng/mL (Cutoff= 300); Opiate Screen,Urine Positive ng/mL (Cutoff=300); Phencyclidine Screen,Urine Negative ng/mL (Cutoff=25)
[2017-07-29 22:57] LABS: BUN/Creatinine Ratio 48 (6-26); Blood Urea Nitrogen 45 mg/dL (6-20); Calcium 7.1 mg/dL (8.6-10.3); Carbon Dioxide 26 mEq/L (23-29); Chloride 108 mEq/L (98-107); Glucose 124 mg/dL (70-105); Osmolality,Calculated 301 (280-300); Potassium 3.6 mEq/L (3.5-5.1); Sodium 139 mEq/L (136-145); eGFR For African Americans > 60 (> 60); eGFR For Non-African Americans > 60 (> 60)
[2017-07-30] MEDS: MetroNIDAZOLE 500 MG/100 ML 500 MG/100 ML BAG IVPB SCH ×3 (00:30→16:14)
[2017-07-30] MEDS: Piperacillin/Tazobactam 3.375 GM in 0.9 % Sodium Chloride Mini Bag 100 ML IVPB SCH ×4 (00:31→23:29)
[2017-07-30 03:26] LABS: Basophils # 0.1 K/mcL (0.0-0.2); Basophils % 0.4 %; Eosinophils # 0.2 K/mcL (0.0-0.6); Eosinophils % 1.6 %; Hematocrit 21.2 % (37.5-50.1); Hemoglobin 7.1 g/dL (12.9-16.9); Immature Granulocytes % 0.6 % (0-4); Immature Platelets 1.9 % (1.1-6.1); Lymphocytes # 2.6 K/mcL (0.6-4.6); Lymphocytes % 20.4 %; Mean Corpuscular HGB Conc 33.5 g/dL (31.6-35.5); Mean Corpuscular Hemoglobin 30.3 pg (28.0-33.3); Mean Corpuscular Volume 90.6 fL (83.0-100.0); Mean Platelet Volume 10.2 fL (9.4-12.4); Monocytes # 0.8 K/mcL (0.0-1.3); Monocytes % 6.6 %; Neutrophils # 8.8 K/mcL (1.6-8.9); Platelet Count 228 K/mcL (140-400); Red Blood Count 2.34 M/mcL (4.19-5.50); Red Cell Distribution Width 14.4 % (11.5-14.5); Segmented Neutrophils % 70.4 %
[2017-07-30] MEDS: OXYCODONE Oral CONC 10 MG/0.5 ML ORAL.SYG SL PRN ×3 (05:08→23:28)
[2017-07-30] MEDS: Pantoprazole 40 MG in 0.9 % Sodium Chloride Mini Bag 100 ML IVC SCH ×5 (05:09→21:48)
[2017-07-30 06:06] LABS: BUN/Creatinine Ratio 44 (6-26); Blood Urea Nitrogen 43 mg/dL (6-20); Calcium 7.3 mg/dL (8.6-10.3); Carbon Dioxide 26 mEq/L (23-29); Chloride 111 mEq/L (98-107); Glucose 87 mg/dL (70-105); Osmolality,Calculated 300 (280-300); Potassium 3.8 mEq/L (3.5-5.1); Sodium 140 mEq/L (136-145); eGFR For African Americans > 60 (> 60); eGFR For Non-African Americans > 60 (> 60)
--- NOTE | 2017-07-30 08:46 | Pulmonology Progress Note ---
Date of Encounter: 07/30/17 Time of Encounter: 08:30 Assessment and Plan (1) Acute upper GI bleed Current Visit: Yes Status: Acute Patient had upper GI endoscopy which showed duodenal ulcer with some erythema there was no active bleeding . The bleeding stopped as there is no output form NG . To continue IV PPI and Sucralfate (2) Anemia Current Visit: Yes Status: Acute Hb is stable . Transfusion trigger around Hb of 7 gm/dl Qualifiers: Anemia type: other cause Other causes of anemia: acute posthemorrhagic Qualified Code(s): D62 - Acute posthemorrhagic anemia (3) COPD (chronic obstructive pulmonary disease) Current Visit: Yes Status: Chronic To continue bronchodilators Qualifiers: COPD type: unspecified COPD Qualified Code(s): J44.9 - Chronic obstructive pulmonary disease, unspecified (4) UTI (urinary tract infection) Current Visit: Yes Status: Acute TO continue antibiotics will stop vancomycin tomorrow no signs of sepsis the initial shock like presentation most likely due to hemorrhagic shock . Qualifiers: Urinary tract infection type: acute cystitis Hematuria presence: without hematuria Qualified Code(s): N30.00 - Acute cystitis without hematuria (5) DVT prophylaxis Current Visit: Yes Status: Acute To continue SCD Subjective Principal diagnosis: Acute Upper GI bleed Interval history: Patient doesnt have any active symptoms except for on and off mid abdominal and epigastric pain . Patient might get Upper EGD today , bleeding stopped overnight . Objective PUL Vital signs: Last Vital Signs Temp 98.1 F 07/30/17 07:00 Pulse 100 07/30/17 07:57 Resp 19 07/30/17 07:34 BP 120/69 07/30/17 07:34 Pulse Ox 99 07/30/17 07:34 Auscultation: bilateral: diminished breath sounds (basilar diminished breadth sounds ) Gastrointestinal: tender (mid epigastric tenderness ) Results - Laboratory Findings CBC and BMP: 07/30/17 12:36 07/30/17 03:05 ABG ABG pH 7.31 pH Units (7.32-7.45) L 07/29/17 11:19 ABG pCO2 28 mmHg (35-45) L 07/29/17 11:19 ABG pO2 86 mmHg (85-104) 07/29/17 11:19 ABG O2 Saturation 96 % (95-98) 07/29/17 11:19 PT/INR, D-dimer PT 14.8 Seconds (9.4-12.1) H 07/28/17 22:04 Abnormal lab findings: Abnormal lab results WBC 12.5 K/mcL (4.3-11.1) H 07/30/17 03:05 RBC 2.34 M/mcL (4.19-5.50) L 07/30/17 03:05 Hgb 7.1 g/dL (12.9-16.9) L 07/30/17 03:05 Hct 21.2 % (37.5-50.1) L 07/30/17 03:05 PT 14.8 Seconds (9.4-12.1) H 07/28/17 22:04 ABG pH 7.31 pH Units (7.32-7.45) L 07/29/17 11:19 ABG pCO2 28 mmHg (35-45) L 07/29/17 11:19 ABG HCO3 14 mEq/L (21-27) L 07/29/17 11:19 ABG Total CO2 15 mEq/L (20-26) L 07/29/17 11:19 ABG Base Excess -11 mEq/L (-2 to 3) L 07/29/17 11:19 Lactate 7.0 mmol/L (0.7-2.1) H* 07/29/17 11:19 Chloride 111 mEq/L (98-107) H 07/30/17 03:05 BUN 43 mg/dL (6-20) H 07/30/17 03:05 BUN/Creatinine Ratio 44 (6-26) H 07/30/17 03:05 POC Glucose 93 mg/dL (68-89) H 07/29/17 23:28 Calcium 7.3 mg/dL (8.6-10.3) L 07/30/17 03:05 Total Bilirubin 0.2 mg/dL (0.3-1.0) L 07/29/17 11:25 Lactate Dehydrogenase 95 Units/L (140-271) L 07/29/17 13:01 Serum Total Protein 4.3 g/dL (6.4-8.9) L 07/29/17 11:25 Albumin 2.2 g/dL (3.5-5.7) L 07/29/17 11:25 Globulin 2.1 g/dL (2.4-3.5) L 07/29/17 11:25 Albumin/Globulin Ratio 1.0 (1.1-2.2) L 07/29/17 11:25 Amylase 23 Units/L (29-103) L 07/28/17 22:04 Urine Clarity Cloudy (Clear) A 07/29/17 18:22 Urine Nitrite Positive (Negative) A 07/29/17 18:22 Ur Leukocyte Esterase Large (Negative) H 07/29/17 18:22 Urine Microscopic RBC 3-5 per hpf (0-3) H 07/29/17 18:22 Urine Microscopic WBC TNTC per hpf (0-3) H 07/29/17 18:22 Ur Culture Indicated? YES (NO) A 07/29/17 18:22 Urine Opiates Screen Positive ng/mL (Cyninx=834) H 07/29/17 13:07 U Marijuana (THC) Screen Positive ng/mL (Cutoff = 50) H 07/29/17 13:07 - Clinical Findings Intake & Output: Intake & Output 07/29/17 07/30/17 07/30/17 23:59 07:59 15:59 Intake Total 2130 / 2130 900 / 900 100 / 100 Output Total 1050 / 1050 975 / 975 Balance 1080 / 1080 -75 / -75 100 / 100 Weight 72.6 kg - VTE Documentation of Mechanical Device: Intermittent pneumatic compression device Consult Discharge Plan - Plan Referrals: Kyler Loyd, CARBONATING STONE CLEANER [Primary Care Provider] -
[2017-07-30] MEDS ORDERED: COMBIVENT RESPIMAT IH SCH (09:00)
--- NOTE | 2017-07-30 12:45 | Neurology Progress Note ---
Date of Encounter: 07/30/17 Time of Encounter: 12:42 Assessment and Plan (1) Rigors Current Visit: Yes Status: Acute Patient now seems to be back to his normal neurologic baseline. I see no evidence to suspect a central nervous system vascular, infectious, inflammatory process. No evidence of seizures. Hence, we can discontinue any antiepileptic medications. I will reevaluate him at your request. Subjective Interval history: The chart was reviewed, the patient was seen and examined. Case was discussed with nursing. No further episodes of tremors overnight. Patient is now sitting up in bed alert and oriented talking with his sisters. MRI scan the brain revealed no evidence of acute infarct or other central nervous system process. EEG was normal. He does seem a bit fatigued. Objective - Constitutional Vitals: Temp Pulse Resp BP Pulse Ox 97.9 F 87 12 112/65 100 07/30/17 11:00 07/30/17 12:00 07/30/17 12:00 07/30/17 12:00 07/30/17 12:00 - Neurological Exam Motor Examination: Present: grossly full strength in all extremities Sensation intact: Present: intact Reflex and gait examination: intact (No long tract signs, no clonus.) Mental Status Examination: Present: awake, alert, oriented to person, oriented to place, oriented to time, follows commands appropriately, answers questions appropriately, no agnosia, no aphasia, no aproxia Cranial nerve examination: Present: PERRL, EOMI, visual malagon intact, corneal reflexes brisk symmetrically, sensory to face intact, mastication intact, no facial asymmetry is present, no dysarthria, hearing is intact symmetrically, soft palate elevates bilaterally upon phonation, gag reflex intact, flexes SCM and trapezius muscles symmetrically with full power, tongue protrudes midline, no atrophy or facial fasiculations present - VTE Documentation of Mechanical Device: Intermittent pneumatic compression device Results - Laboratory Findings CBC and BMP: 07/30/17 03:05 07/30/17 03:05 Abnormal lab findings: Abnormal lab results WBC 12.5 K/mcL (4.3-11.1) H 07/30/17 03:05 RBC 2.34 M/mcL (4.19-5.50) L 07/30/17 03:05 Hgb 7.1 g/dL (12.9-16.9) L 07/30/17 03:05 Hct 21.2 % (37.5-50.1) L 07/30/17 03:05 PT 14.8 Seconds (9.4-12.1) H 07/28/17 22:04 ABG pH 7.31 pH Units (7.32-7.45) L 07/29/17 11:19 ABG pCO2 28 mmHg (35-45) L 07/29/17 11:19 ABG HCO3 14 mEq/L (21-27) L 07/29/17 11:19 ABG Total CO2 15 mEq/L (20-26) L 07/29/17 11:19 ABG Base Excess -11 mEq/L (-2 to 3) L 07/29/17 11:19 Lactate 7.0 mmol/L (0.7-2.1) H* 07/29/17 11:19 Chloride 111 mEq/L (98-107) H 07/30/17 03:05 BUN 43 mg/dL (6-20) H 07/30/17 03:05 BUN/Creatinine Ratio 44 (6-26) H 07/30/17 03:05 POC Glucose 93 mg/dL (68-89) H 07/29/17 23:28 Calcium 7.3 mg/dL (8.6-10.3) L 07/30/17 03:05 Total Bilirubin 0.2 mg/dL (0.3-1.0) L 07/29/17 11:25 Lactate Dehydrogenase 95 Units/L (140-271) L 07/29/17 13:01 Serum Total Protein 4.3 g/dL (6.4-8.9) L 07/29/17 11:25 Albumin 2.2 g/dL (3.5-5.7) L 07/29/17 11:25 Globulin 2.1 g/dL (2.4-3.5) L 07/29/17 11:25 Albumin/Globulin Ratio 1.0 (1.1-2.2) L 07/29/17 11:25 Amylase 23 Units/L (29-103) L 07/28/17 22:04 Urine Clarity Cloudy (Clear) A 07/29/17 18:22 Urine Nitrite Positive (Negative) A 07/29/17 18:22 Ur Leukocyte Esterase Large (Negative) H 07/29/17 18:22 Urine Microscopic RBC 3-5 per hpf (0-3) H 07/29/17 18:22 Urine Microscopic WBC TNTC per hpf (0-3) H 07/29/17 18:22 Ur Culture Indicated? YES (NO) A 07/29/17 18:22 Urine Opiates Screen Positive ng/mL (Intmut=009) H 07/29/17 13:07 U Marijuana (THC) Screen Positive ng/mL (Cutoff = 50) H 07/29/17 13:07 Consult Discharge Plan - Plan Referrals: Kyler Loyd, LEAD ENTERPRISE ARCHITECT [Primary Care Provider] -
--- NOTE | 2017-07-30 12:48 | General Surgery Progress Note ---
Date of Encounter: 07/30/17 Time of Encounter: 12:47 - Assessment and Plan (1) Upper abdominal pain Current Visit: Yes Status: Acute On IV pain control. Pain likely due to duodenitis and use of NSAIDs. We will plan for an EGD for assessment and evaluation today. (2) Acute upper GI bleed Current Visit: Yes Status: Acute Noted dark blood after NG tube was placed yesterday. Patient's overall pain seems to have decreased compared to yesterday I think that the GI bleed or blood in the stomach and the CT scan findings are related to possible duodenitis or ulcer. On Protonix. His WBC has also decreased. We will plan for an EGD today. Subjective Patient reports: no new complaints, other (THe patient states that his pain has decreased and he does feel better. NG tube is in place. Drainage is noted to be dark in color.) Objective Vital Signs - Last 8 Hours Temp Pulse Resp BP Pulse Ox 07/30/17 12:00 87 12 112/65 100 07/30/17 11:00 97.9 F 97 14 106/72 99 07/30/17 10:23 101 12 114/70 99 07/30/17 09:00 98 13 114/70 97 07/30/17 07:57 100 07/30/17 07:34 104 19 120/69 99 07/30/17 07:00 98.1 F 07/30/17 06:00 98 16 97/46 99 07/30/17 05:00 105 16 95/53 96 Intake and Output 07/29/17 07/30/17 07/30/17 23:59 07:59 15:59 Intake Total 2130 / 2130 900 / 900 100 / 100 Output Total 1050 / 1050 975 / 975 625 / 625 Balance 1080 / 1080 -75 / -75 -525 / -525 Intake: IV Fluids 1810 / 1810 550 / 550 100 / 100 Protonix 40 MG In 0.9 % Sodium 100 / 100 100 / 100 100 / 100 Chloride (Mini-Bag +) 100 ML @ 20 mls/hr IVC .Q5H [facility] Rx#: [id number] Sodium Bicarbonate 150 MEQ In 1150 / 1150 Dextrose 5% 1,000 ML @ 250 mls/ hr IVC .Q4H36M [facility] Rx#: [id number] Flagyl Premix 500 MG/100 ML 500 100 / 100 100 / 100 mg In 100 ml @ 100 mls/hr IVPB Q8H [facility] Rx#:[id number] Zosyn 3.375 GM In 0.9 % Sodium 100 / 100 100 / 100 Chloride (Mini-Bag +) 100 ML @ 25 mls/hr IVPB Q8HR [facility] Rx#: [id number] Vancocin 1,000 MG In 0.9 % 250 / 250 250 / 250 Sodium Chloride 250 ML @ 167 mls/hr IVPB Q12H [facility] Rx#: [id number] Keppra 1,000 MG In 0.9 % Sodium 110 / 110 Chloride 100 ML @ 400 mls/hr IVPB ONCE ONE Rx#:[id number] Blood Product 320 / 320 350 / 350 Rbcs Leuko Poor As-1 Unit 320 / 320 [id number] Rbcs Leuko Poor As-1 Unit 0 / 0 350 / 350 [id number] Output: Catheter 600 / 600 975 / 975 625 / 625 Gastric Drainage 450 / 450 0 / 0 Other: Weight 72.6 kg 75 kg Blood Glucose* 93 95 91 Patient Weight 07/30/17 23:59 Weight 75 kg - General physical appearance no distress - Abdomen Abdomen: Present: soft (Scant bowel sounds noted), tender (Mild upper abdominal pain noted on exam. Decreased compared to yesterday's exam) - Labs 07/31/17 07:46 07/30/17 03:05 Diabetes panel 07/29/17 07/30/17 Range/Units 22:00 03:05 Sodium 139 140 (136-145) mEq/L Potassium 3.6 3.8 (3.5-5.1) mEq/L Chloride 108 H 111 H (98-107) mEq/L Carbon Dioxide 26 26 (23-29) mEq/L BUN 45 H 43 H (6-20) mg/dL Creatinine 0.94 0.98 (0.70-1.30) mg/dL Glucose 124 H 87 (70-105) mg/dL Calcium 7.1 L 7.3 L (8.6-10.3) mg/dL Calcium panel 07/29/17 07/30/17 Range/Units 22:00 03:05 Calcium 7.1 L 7.3 L (8.6-10.3) mg/dL Pituitary panel 07/29/17 07/30/17 Range/Units 22:00 03:05 Sodium 139 140 (136-145) mEq/L Potassium 3.6 3.8 (3.5-5.1) mEq/L Chloride 108 H 111 H (98-107) mEq/L Carbon Dioxide 26 26 (23-29) mEq/L BUN 45 H 43 H (6-20) mg/dL Creatinine 0.94 0.98 (0.70-1.30) mg/dL Glucose 124 H 87 (70-105) mg/dL Calcium 7.1 L 7.3 L (8.6-10.3) mg/dL Adrenal panel 07/29/17 07/30/17 Range/Units 22:00 03:05 Sodium 139 140 (136-145) mEq/L Potassium 3.6 3.8 (3.5-5.1) mEq/L Chloride 108 H 111 H (98-107) mEq/L Carbon Dioxide 26 26 (23-29) mEq/L BUN 45 H 43 H (6-20) mg/dL Creatinine 0.94 0.98 (0.70-1.30) mg/dL Glucose 124 H 87 (70-105) mg/dL Calcium 7.1 L 7.3 L (8.6-10.3) mg/dL - VTE Documentation of Mechanical Device: Intermittent pneumatic compression device Consult Discharge Plan - Plan Referrals: Kyler Loyd, BAG GRADER [Primary Care Provider] -
[2017-07-30 12:56] LABS: Hemoglobin 7.1 g/dL (12.9-16.9); Mean Corpuscular HGB Conc 33.8 g/dL (31.6-35.5); Mean Corpuscular Hemoglobin 30.7 pg (28.0-33.3); Mean Corpuscular Volume 90.9 fL (83.0-100.0); Platelet Count 210 K/mcL (140-400); Red Blood Count 2.31 M/mcL (4.19-5.50); Red Cell Distribution Width 14.5 % (11.5-14.5)
[2017-07-30] MEDS ORDERED: *HR* FentaNYL (PF) 100 MCG/2 ML VIAL ONE (13:35)
[2017-07-30] MEDS ORDERED: *HR* Midazolam HCl 5 MG/5 ML VIAL IVP ONE (13:36)
--- NOTE | 2017-07-30 14:02 | Event Note ---
Date of Encounter: 07/30/17 Time of Encounter: 14:01 EGD: Noted dark blood within the fundus. No active bleeding. Large duodenal bulb ulcer with erythema. Biopsies obtained. Recommend continue with Protonix IV and start carafate. OK to start sips of clears.
--- NOTE | 2017-07-30 14:03 | Pre-Sedation Evaluation ---
Pre-sedation evaluation - Pre-sedation checklist Date of procedure: 07/29/17 Recent Vitals: Last Vital Signs Temp 97.9 F 07/30/17 11:00 Pulse 87 07/30/17 12:00 Resp 12 07/30/17 12:00 BP 112/65 07/30/17 12:00 Pulse Ox 100 07/30/17 12:00 Airway Assessment: Patient can open mouth completely, TMJ function normal Possible difficult airway: No ASA Classification *see protocol: CLASS III-Severe systemic disease Plan of Care: Pt appropriate candidate for procedure/moderate/conscious sedation
--- NOTE | 2017-07-30 15:50 | Electrocardiograph Report ---
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
[2017-07-30] MEDS: Sucralfate 1 GM TABLET PO SCH ×2 (16:12→21:47)
[2017-07-31] MEDS: Pantoprazole 40 MG in 0.9 % Sodium Chloride Mini Bag 100 ML IVC SCH ×5 (01:39→23:02)
[2017-07-31] MEDS: MetroNIDAZOLE 500 MG/100 ML 500 MG/100 ML BAG IVPB SCH ×3 (01:40→16:35)
[2017-07-31] MEDS: Sucralfate 1 GM TABLET PO SCH ×4 (07:51→23:02)
[2017-07-31 07:54] LABS: Basophils % 0.6 %; Eosinophils # 0.2 K/mcL (0.0-0.6); Hematocrit 19.3 % (37.5-50.1); Hemoglobin 6.3 g/dL (12.9-16.9); Immature Granulocytes % 0.4 % (0-4); Lymphocytes % 28.1 %; Mean Corpuscular HGB Conc 32.6 g/dL (31.6-35.5); Mean Corpuscular Hemoglobin 30.3 pg (28.0-33.3); Mean Corpuscular Volume 92.8 fL (83.0-100.0); Mean Platelet Volume 9.9 fL (9.4-12.4); Monocytes # 0.6 K/mcL (0.0-1.3); Monocytes % 8.3 %; Neutrophils # 4.2 K/mcL (1.6-8.9); Platelet Count 184 K/mcL (140-400); Red Blood Count 2.08 M/mcL (4.19-5.50); Red Cell Distribution Width 14.3 % (11.5-14.5); Segmented Neutrophils % 59.6 %
[2017-07-31 08:10] LABS: BUN/Creatinine Ratio 25 (6-26); Blood Urea Nitrogen 24 mg/dL (6-20); Calcium 7.3 mg/dL (8.6-10.3); Carbon Dioxide 27 mEq/L (23-29); Chloride 109 mEq/L (98-107); Glucose 97 mg/dL (70-105); Osmolality,Calculated 292 (280-300); Potassium 3.6 mEq/L (3.5-5.1); Sodium 139 mEq/L (136-145); eGFR For African Americans > 60 (> 60); eGFR For Non-African Americans > 60 (> 60)
--- NOTE | 2017-07-31 08:28 | Pulmonology Progress Note ---
Date of Encounter: 07/31/17 Time of Encounter: 08:15 Assessment and Plan (1) Acute upper GI bleed Current Visit: Yes Status: Acute Patient had upper GI endoscopy which showed duodenal ulcer with some erythema there was no active bleeding . The bleeding stopped as there is no output form NG . NG was removed after yesterday's endoscopy To continue IV PPI infusion and Sucralfate . (2) Anemia Current Visit: Yes Status: Acute Hb dropped to 6.3 will give 1 unit of blood . Transfusion trigger around Hb of 7 gm/dl Qualifiers: Anemia type: other cause Other causes of anemia: acute posthemorrhagic Qualified Code(s): D62 - Acute posthemorrhagic anemia (3) COPD (chronic obstructive pulmonary disease) Current Visit: Yes Status: Chronic To continue bronchodilators Qualifiers: COPD type: unspecified COPD Qualified Code(s): J44.9 - Chronic obstructive pulmonary disease, unspecified (4) UTI (urinary tract infection) Current Visit: Yes Status: Acute TO continue antibiotics will stop vancomycin tomorrow no signs of sepsis the initial shock like presentation most likely due to hemorrhagic shock . Qualifiers: Urinary tract infection type: acute cystitis Hematuria presence: without hematuria Qualified Code(s): N30.00 - Acute cystitis without hematuria (5) DVT prophylaxis Current Visit: Yes Status: Acute To continue SCD Subjective Principal diagnosis: Acute Upper GI bleed Interval history: Patient doesnt have any active symptoms except for on and off mid abdominal and epigastric pain . Patient might get Upper EGD today , bleeding stopped overnight . 07/31 Patient had EGD yesterday which showed duodenal bulb ulcer denies any abdominal pain no nausea or vomitting Objective PUL Vital signs: Last Vital Signs Temp 98.3 F 07/31/17 07:00 Pulse 75 07/31/17 07:00 Resp 12 07/31/17 07:00 BP 108/63 07/31/17 07:00 Pulse Ox 98 07/31/17 07:00 Auscultation: bilateral: diminished breath sounds (basilar diminished breadth sounds ) Results - Laboratory Findings CBC and BMP: 07/31/17 07:46 07/31/17 07:46 ABG ABG pH 7.31 pH Units (7.32-7.45) L 07/29/17 11:19 ABG pCO2 28 mmHg (35-45) L 07/29/17 11:19 ABG pO2 86 mmHg (85-104) 07/29/17 11:19 ABG O2 Saturation 96 % (95-98) 07/29/17 11:19 PT/INR, D-dimer PT 14.8 Seconds (9.4-12.1) H 07/28/17 22:04 Abnormal lab findings: Abnormal lab results RBC 2.08 M/mcL (4.19-5.50) L 07/31/17 07:46 Hgb 6.3 g/dL (12.9-16.9) L 07/31/17 07:46 Hct 19.3 % (37.5-50.1) L 07/31/17 07:46 PT 14.8 Seconds (9.4-12.1) H 07/28/17 22:04 ABG pH 7.31 pH Units (7.32-7.45) L 07/29/17 11:19 ABG pCO2 28 mmHg (35-45) L 07/29/17 11:19 ABG HCO3 14 mEq/L (21-27) L 07/29/17 11:19 ABG Total CO2 15 mEq/L (20-26) L 07/29/17 11:19 ABG Base Excess -11 mEq/L (-2 to 3) L 07/29/17 11:19 Lactate 7.0 mmol/L (0.7-2.1) H* 07/29/17 11:19 Chloride 109 mEq/L (98-107) H 07/31/17 07:46 BUN 24 mg/dL (6-20) H 07/31/17 07:46 POC Glucose 91 mg/dL (68-89) H 07/30/17 11:13 Calcium 7.3 mg/dL (8.6-10.3) L 07/31/17 07:46 Total Bilirubin 0.2 mg/dL (0.3-1.0) L 07/29/17 11:25 Lactate Dehydrogenase 95 Units/L (140-271) L 07/29/17 13:01 Serum Total Protein 4.3 g/dL (6.4-8.9) L 07/29/17 11:25 Albumin 2.2 g/dL (3.5-5.7) L 07/29/17 11:25 Globulin 2.1 g/dL (2.4-3.5) L 07/29/17 11:25 Albumin/Globulin Ratio 1.0 (1.1-2.2) L 07/29/17 11:25 Amylase 23 Units/L (29-103) L 07/28/17 22:04 Urine Clarity Cloudy (Clear) A 07/29/17 18:22 Urine Nitrite Positive (Negative) A 07/29/17 18:22 Ur Leukocyte Esterase Large (Negative) H 07/29/17 18:22 Urine Microscopic RBC 3-5 per hpf (0-3) H 07/29/17 18:22 Urine Microscopic WBC TNTC per hpf (0-3) H 07/29/17 18:22 Ur Culture Indicated? YES (NO) A 07/29/17 18:22 Urine Opiates Screen Positive ng/mL (Ccqdal=208) H 07/29/17 13:07 U Marijuana (THC) Screen Positive ng/mL (Cutoff = 50) H 07/29/17 13:07 - Microbiology Findings Microbiology Findings: Microbiology, Last 48 Hours 07/29/17 18:22 Urine Culture - Final Urine,Clean Catch No growth. - Clinical Findings Intake & Output: Intake & Output 07/30/17 07/31/17 07/31/17 23:59 07:59 15:59 Intake Total 1310 / 1310 400 / 400 Output Total 600 / 600 1150 / 1150 Balance 710 / 710 -750 / -750 Weight 74.5 kg - VTE Documentation of Mechanical Device: Intermittent pneumatic compression device Consult Discharge Plan - Plan Referrals: Kyler Loyd, WELDER [Primary Care Provider] -
[2017-07-31] MEDS: Piperacillin/Tazobactam 3.375 GM in 0.9 % Sodium Chloride Mini Bag 100 ML IVPB SCH ×2 (09:04→16:33)
--- NOTE | 2017-07-31 14:01 | General Surgery Progress Note ---
Date of Encounter: 07/31/17 Time of Encounter: 08:00 - Assessment and Plan (1) Upper abdominal pain Current Visit: Yes Status: Acute I splayed to the patient that the EGD did show evidence of a duodenal bulb ulcer. Biopsies were obtained. Agree with the continued PPI and Carafate. Okay to further advance his diet. Awaiting results of pathology report. Overall think that his symptoms of abdominal pain in the upper GI bleed related to duodenitis in the duodenal ulcer and not pancreatitis. We will sign off; dplease contact is fair any questions or concerns. Subjective Patient reports: no new complaints (Patient states his abdomen is less painful. No nausea.) Objective Vital Signs - Last 8 Hours Temp Pulse Resp BP Pulse Ox 07/31/17 12:00 80 13 124/69 99 07/31/17 11:14 98.9 F 79 18 87/50 07/31/17 11:00 98.9 F 93 12 113/74 100 07/31/17 10:59 99 F 95 14 97 07/31/17 10:00 74 19 100/62 97 07/31/17 09:00 92 13 105/64 99 07/31/17 08:00 80 17 127/67 97 07/31/17 07:00 98.3 F 75 12 108/63 98 07/31/17 06:00 88 14 106/66 96 Intake and Output 07/30/17 07/31/17 07/31/17 23:59 07:59 15:59 Intake Total 1310 / 1310 400 / 400 460 / 460 Output Total 600 / 600 1150 / 1150 Balance 710 / 710 -750 / -750 460 / 460 Intake: IV Fluids 650 / 650 400 / 400 100 / 100 Protonix 40 MG In 0.9 % Sodium 200 / 200 200 / 200 100 / 100 Chloride (Mini-Bag +) 100 ML @ 20 mls/hr IVC .Q5H [facility] Rx#: [id number] Flagyl Premix 500 MG/100 ML 500 100 / 100 100 / 100 mg In 100 ml @ 100 mls/hr IVPB Q8H [facility] Rx#:[id number] Zosyn 3.375 GM In 0.9 % Sodium 100 / 100 100 / 100 Chloride (Mini-Bag +) 100 ML @ 25 mls/hr IVPB Q8HR [facility] Rx#: [id number] Vancocin 1,000 MG In 0.9 % 250 / 250 Sodium Chloride 250 ML @ 167 mls/hr IVPB Q12H [facility], [facility] Rx#: [id number] Oral 660 / 660 360 / 360 Blood Product 0 / 0 Rbcs Leuko Poor As-1 Unit 0 / 0 [id number] Output: Catheter 600 / 600 1150 / 1150 Other: Meal Breakfast Percent of Meal Consumed 25% Weight 74.5 kg 78.7 kg Patient Weight 07/31/17 23:59 Weight 78.7 kg - General physical appearance no distress - Abdomen Abdomen: Present: bowel sounds present, soft, tender ( mild upper abdominal pain to palpation.) - Labs 07/31/17 07:46 07/31/17 07:46 Diabetes panel 07/31/17 Range/Units 07:46 Sodium 139 (136-145) mEq/L Potassium 3.6 (3.5-5.1) mEq/L Chloride 109 H (98-107) mEq/L Carbon Dioxide 27 (23-29) mEq/L BUN 24 H (6-20) mg/dL Creatinine 0.95 (0.70-1.30) mg/dL Glucose 97 (70-105) mg/dL Calcium 7.3 L (8.6-10.3) mg/dL Calcium panel 07/31/17 Range/Units 07:46 Calcium 7.3 L (8.6-10.3) mg/dL Pituitary panel 07/31/17 Range/Units 07:46 Sodium 139 (136-145) mEq/L Potassium 3.6 (3.5-5.1) mEq/L Chloride 109 H (98-107) mEq/L Carbon Dioxide 27 (23-29) mEq/L BUN 24 H (6-20) mg/dL Creatinine 0.95 (0.70-1.30) mg/dL Glucose 97 (70-105) mg/dL Calcium 7.3 L (8.6-10.3) mg/dL Adrenal panel 07/31/17 Range/Units 07:46 Sodium 139 (136-145) mEq/L Potassium 3.6 (3.5-5.1) mEq/L Chloride 109 H (98-107) mEq/L Carbon Dioxide 27 (23-29) mEq/L BUN 24 H (6-20) mg/dL Creatinine 0.95 (0.70-1.30) mg/dL Glucose 97 (70-105) mg/dL Calcium 7.3 L (8.6-10.3) mg/dL - VTE Documentation of Mechanical Device: Intermittent pneumatic compression device Consult Discharge Plan - Plan Referrals: Kyler Loyd, VIDEO EDITING INTERN [Primary Care Provider] -
[2017-07-31] MEDS: OXYCODONE Oral CONC 10 MG/0.5 ML ORAL.SYG SL PRN ×2 (14:03→19:35)
[2017-07-31 23:19] LABS: Hematocrit 23.4 % (37.5-50.1); Hemoglobin 7.8 g/dL (12.9-16.9)
[2017-08-01] MEDS: Piperacillin/Tazobactam 3.375 GM in 0.9 % Sodium Chloride Mini Bag 100 ML IVPB SCH ×3 (00:23→16:28)
[2017-08-01] MEDS: MetroNIDAZOLE 500 MG/100 ML 500 MG/100 ML BAG IVPB SCH ×2 (00:23→07:43)
--- NOTE | 2017-08-01 00:29 | Event Note ---
Date of Encounter: 07/31/17 Time of Encounter: 22:20 Paged by Bed Management about transferring this pt. from ICU to 3A. Reviewed pts. information and chart and discussed situation w/Dr. Urban. Both of us concurred that pt. should not be moved from ICU at this time.
[2017-08-01] MEDS: OXYCODONE Oral CONC 10 MG/0.5 ML ORAL.SYG SL PRN ×4 (01:29→20:42)
[2017-08-01] MEDS: Pantoprazole 40 MG in 0.9 % Sodium Chloride Mini Bag 100 ML IVC SCH ×2 (03:00→08:47)
[2017-08-01 05:11] LABS: Basophils # 0.1 K/mcL (0.0-0.2); Basophils % 0.9 %; Eosinophils # 0.2 K/mcL (0.0-0.6); Eosinophils % 2.7 %; Hematocrit 24.6 % (37.5-50.1); Hemoglobin 8.1 g/dL (12.9-16.9); Immature Granulocytes % 0.5 % (0-4); Mean Corpuscular HGB Conc 32.9 g/dL (31.6-35.5); Mean Corpuscular Volume 91.1 fL (83.0-100.0); Mean Platelet Volume 9.9 fL (9.4-12.4); Monocytes # 0.7 K/mcL (0.0-1.3); Monocytes % 8.5 %; Neutrophils # 4.7 K/mcL (1.6-8.9); Platelet Count 186 K/mcL (140-400); Red Cell Distribution Width 14.7 % (11.5-14.5); Segmented Neutrophils % 61.4 %
[2017-08-01 05:29] LABS: BUN/Creatinine Ratio 15 (6-26); Blood Urea Nitrogen 13 mg/dL (6-20); Calcium 7.6 mg/dL (8.6-10.3); Carbon Dioxide 25 mEq/L (23-29); Chloride 109 mEq/L (98-107); Glucose 94 mg/dL (70-105); Osmolality,Calculated 286 (280-300); Potassium 3.5 mEq/L (3.5-5.1); Sodium 138 mEq/L (136-145); eGFR For African Americans > 60 (> 60); eGFR For Non-African Americans > 60 (> 60)
--- NOTE | 2017-08-01 07:13 | Pulmonology Progress Note ---
Date of Encounter: 08/01/17 Time of Encounter: 07:13 Assessment and Plan (1) Acute upper GI bleed Current Visit: Yes Status: Acute Patient presented with duodenal ulcer without active bleeding. He is on sucralfate and IV PPI which can be transitioned to twice a day dosing pain is much better controlled surgery has evaluated the patient and signed off (2) Pancreatitis Current Visit: Yes Status: Suspected This is likely mischaracterized abdominal pain as it was more related to duodenal ulcer as opposed to true pancreatitis and inflammation at the head of the pancreas was related to the duodenum not the pancreas Qualifiers: Chronicity: acute Pancreatitis type: unspecified pancreatitis type Acute pancreatitis complication: unspecified Qualified Code(s): K85.90 - Acute pancreatitis without necrosis or infection, unspecified (3) DVT prophylaxis Current Visit: Yes Status: Acute Continue mechanical DVT prophylaxis (4) COPD (chronic obstructive pulmonary disease) Current Visit: Yes Status: Chronic No evidence of exacerbation continue bronchodilators Qualifiers: COPD type: unspecified COPD Qualified Code(s): J44.9 - Chronic obstructive pulmonary disease, unspecified (5) UTI (urinary tract infection) Current Visit: Yes Status: Acute Patient has a elevated white count on admission and was hypotensive which was more likely related to hemorrhage and blood loss then 2 infection he was being treated with a UTI but culture is negative thus far I will de-escalate antibiotic stopping vancomycin and Flagyl I think that is much more likely an intra-abdominal infection if anything and likely can stop all antibiotics with the next 24 hours Qualifiers: Urinary tract infection type: acute cystitis Hematuria presence: without hematuria Qualified Code(s): N30.00 - Acute cystitis without hematuria (6) Anemia Current Visit: Yes Status: Acute Stable hemoglobin over the last 24 hours coal transfusion greater than 7 Qualifiers: Anemia type: other cause Other causes of anemia: acute posthemorrhagic Qualified Code(s): D62 - Acute posthemorrhagic anemia (7) Caloric malnutrition Current Visit: Yes Status: Acute Nutrition has seen the patient and made recommendations which we will follow Patient is stable for transfer to [facility] for ongoing care Subjective Principal diagnosis: Acute Upper GI bleed Interval history: She was hemodynamically stable overnight. States that abdominal pain is decreasing in intensity. He is able to tolerate diet now without issue. No evidence of GI tract bleeding at this time Objective PUL Vital signs: Last Vital Signs Temp 98.7 F 08/01/17 04:59 Pulse 72 08/01/17 06:00 Resp 14 08/01/17 06:00 BP 106/58 08/01/17 06:00 Pulse Ox 94 08/01/17 06:00 General appearance: no acute distress Eyes: nonicteric ENT: other (Poor dentition) Auscultation: bilateral: diminished breath sounds Cardiovascular: regular rate and rhythm Gastrointestinal: normoactive bowel sounds, soft, other (Mild tenderness to deep palpation in the epigastrium) Integumentary: normal Extremities: no edema non-focal exam, pupils equal and round mood appropriate Results - Laboratory Findings CBC and BMP: 08/01/17 04:00 08/01/17 04:00 ABG ABG pH 7.31 pH Units (7.32-7.45) L 07/29/17 11:19 ABG pCO2 28 mmHg (35-45) L 07/29/17 11:19 ABG pO2 86 mmHg (85-104) 07/29/17 11:19 ABG O2 Saturation 96 % (95-98) 07/29/17 11:19 PT/INR, D-dimer PT 14.8 Seconds (9.4-12.1) H 07/28/17 22:04 Abnormal lab findings: Abnormal lab results RBC 2.70 M/mcL (4.19-5.50) L 08/01/17 04:00 Hgb 8.1 g/dL (12.9-16.9) L 08/01/17 04:00 Hct 24.6 % (37.5-50.1) L 08/01/17 04:00 RDW 14.7 % (11.5-14.5) H 08/01/17 04:00 PT 14.8 Seconds (9.4-12.1) H 07/28/17 22:04 ABG pH 7.31 pH Units (7.32-7.45) L 07/29/17 11:19 ABG pCO2 28 mmHg (35-45) L 07/29/17 11:19 ABG HCO3 14 mEq/L (21-27) L 07/29/17 11:19 ABG Total CO2 15 mEq/L (20-26) L 07/29/17 11:19 ABG Base Excess -11 mEq/L (-2 to 3) L 07/29/17 11:19 Lactate 7.0 mmol/L (0.7-2.1) H* 07/29/17 11:19 Chloride 109 mEq/L (98-107) H 08/01/17 04:00 POC Glucose 91 mg/dL (68-89) H 07/30/17 11:13 Calcium 7.6 mg/dL (8.6-10.3) L 08/01/17 04:00 Total Bilirubin 0.2 mg/dL (0.3-1.0) L 07/29/17 11:25 Lactate Dehydrogenase 95 Units/L (140-271) L 07/29/17 13:01 Serum Total Protein 4.3 g/dL (6.4-8.9) L 07/29/17 11:25 Albumin 2.2 g/dL (3.5-5.7) L 07/29/17 11:25 Globulin 2.1 g/dL (2.4-3.5) L 07/29/17 11:25 Albumin/Globulin Ratio 1.0 (1.1-2.2) L 07/29/17 11:25 Amylase 23 Units/L (29-103) L 07/28/17 22:04 Urine Clarity Cloudy (Clear) A 07/29/17 18:22 Urine Nitrite Positive (Negative) A 07/29/17 18:22 Ur Leukocyte Esterase Large (Negative) H 07/29/17 18:22 Urine Microscopic RBC 3-5 per hpf (0-3) H 07/29/17 18:22 Urine Microscopic WBC TNTC per hpf (0-3) H 07/29/17 18:22 Ur Culture Indicated? YES (NO) A 07/29/17 18:22 Vancomycin Trough 24 mcg/mL (5-10) H 08/01/17 04:35 Urine Opiates Screen Positive ng/mL (Ahuhqa=773) H 07/29/17 13:07 U Marijuana (THC) Screen Positive ng/mL (Cutoff = 50) H 07/29/17 13:07 - Microbiology Findings Microbiology Findings: Microbiology, Last 48 Hours 07/29/17 13:43 Blood Culture - Preliminary Peripheral Venipuncture No growth. 07/29/17 13:43 Blood Culture - Preliminary Peripheral Venipuncture No growth. 07/29/17 00:04 Blood Culture - Preliminary Central Venous Catheter No growth. 07/29/17 18:22 Urine Culture - Final Urine,Clean Catch No growth. - Clinical Findings Intake & Output: Intake & Output 07/31/17 07/31/17 08/01/17 15:59 23:59 07:59 Intake Total 1130 / 1130 550 / 550 300 / 300 Output Total 350 / 350 1275 / 1275 600 / 600 Balance 780 / 780 -725 / -725 -300 / -300 Weight 78.7 kg 78.2 kg - VTE Documentation of Mechanical Device: Intermittent pneumatic compression device Consult Discharge Plan - Plan Referrals: Kyler Loyd, PATIENT ACCESS REGISTRAR [Primary Care Provider] -
[2017-08-01] MEDS: Sucralfate 1 GM TABLET PO SCH ×4 (07:42→20:42)
[2017-08-01] MEDS ORDERED: Aminoglycoside Consult 1 EACH MC ONE (07:57)
--- NOTE | 2017-08-01 15:08 | Event Note ---
Date of Encounter: 08/01/17 Time of Encounter: 15:08 Patient accepted for transfer out of intensive care unit by admitting hospitalist, Dr. Dey. Patient assigned to [id number]. Discussed the case, no further questions. Patient remains in stable condition.
[2017-08-01] MEDS ORDERED: Naloxone 0.4 MG/ML INJ IVP PRN (16:02)
[2017-08-01] MEDS ORDERED: Dextrose Gel 15 GM/37.5 ML TUBE PO PRN ×2 (16:02)
[2017-08-01] MEDS ORDERED: D5% in Water 1,000 ML IVC PRN (16:02)
[2017-08-01] MEDS ORDERED: Ondansetron 4 MG/2 ML VIAL IVP PRN (16:02)
[2017-08-01] MEDS ORDERED: *HR* Dextrose 50 % in Water (Syg) 50 ML SYRINGE IVP PRN (16:02)
[2017-08-01] MEDS: Pantoprazole 40 MG VIAL IVP SCH (16:29)
[2017-08-01] MEDS ORDERED: Pantoprazole 40 MG VIAL IVP SCH (18:00)
[2017-08-02] MEDS: Piperacillin/Tazobactam 3.375 GM in 0.9 % Sodium Chloride Mini Bag 100 ML IVPB SCH ×2 (00:37→08:38)
[2017-08-02 05:58] LABS: Basophils % 0.5 %; Eosinophils # 0.2 K/mcL (0.0-0.6); Eosinophils % 5.1 %; Hematocrit 24.2 % (37.5-50.1); Hemoglobin 7.9 g/dL (12.9-16.9); Immature Granulocytes % 0.3 % (0-4); Lymphocytes # 1.5 K/mcL (0.6-4.6); Lymphocytes % 39.7 %; Mean Corpuscular HGB Conc 32.6 g/dL (31.6-35.5); Mean Corpuscular Hemoglobin 29.9 pg (28.0-33.3); Mean Corpuscular Volume 91.7 fL (83.0-100.0); Mean Platelet Volume 10.1 fL (9.4-12.4); Monocytes # 0.5 K/mcL (0.0-1.3); Monocytes % 12.1 %; Neutrophils # 1.6 K/mcL (1.6-8.9); Platelet Count 207 K/mcL (140-400); Red Blood Count 2.64 M/mcL (4.19-5.50); Segmented Neutrophils % 42.3 %
[2017-08-02] MEDS: Pantoprazole 40 MG VIAL IVP SCH ×2 (05:59→16:41)
[2017-08-02] MEDS: OXYCODONE Oral CONC 10 MG/0.5 ML ORAL.SYG SL PRN ×4 (06:04→21:02)
[2017-08-02] MEDS: Sucralfate 1 GM TABLET PO SCH ×4 (06:05→21:01)
[2017-08-02 06:08] LABS: BUN/Creatinine Ratio 12 (6-26); Blood Urea Nitrogen 11 mg/dL (6-20); Calcium 7.8 mg/dL (8.6-10.3); Carbon Dioxide 28 mEq/L (23-29); Chloride 110 mEq/L (98-107); Glucose 91 mg/dL (70-105); Osmolality,Calculated 291 (280-300); Potassium 3.5 mEq/L (3.5-5.1); Sodium 141 mEq/L (136-145); eGFR For African Americans > 60 (> 60); eGFR For Non-African Americans > 60 (> 60)
--- NOTE | 2017-08-02 13:54 | Internal Med Progress Note ---
Date of Encounter: 08/02/17 Time of Encounter: 13:52 - Assessment and plan (1) Hypertension Current Visit: Yes Status: Chronic Assessment and plan: continue current meds Qualifiers: Hypertension type: essential hypertension Qualified Code(s): I10 - Essential (primary) hypertension (2) Pancreatitis Current Visit: Yes Status: Ruled-out Assessment and plan: ruled out Qualifiers: Chronicity: acute Pancreatitis type: unspecified pancreatitis type Acute pancreatitis complication: unspecified Qualified Code(s): K85.90 - Acute pancreatitis without necrosis or infection, unspecified (3) DVT prophylaxis Current Visit: Yes Status: Acute Assessment and plan: SCDs (4) COPD (chronic obstructive pulmonary disease) Current Visit: Yes Status: Chronic Assessment and plan: No evidence of exacerbation continue bronchodilators Qualifiers: COPD type: unspecified COPD Qualified Code(s): J44.9 - Chronic obstructive pulmonary disease, unspecified (5) Hyponatremia Current Visit: Yes Status: Resolved Assessment and plan: resolved (6) Acute upper GI bleed Current Visit: Yes Status: Acute Assessment and plan: Patient presented with duodenal ulcer without active bleeding. He is on sucralfate and IV PPI, continue same (7) Anemia Current Visit: Yes Status: Acute Assessment and plan: acute on chronic due to GIB s/p 3 units RBC H stable between 7.9-8.0 Qualifiers: Anemia type: other cause Other causes of anemia: acute posthemorrhagic Qualified Code(s): D62 - Acute posthemorrhagic anemia (8) Caloric malnutrition Current Visit: Yes Status: Acute Assessment and plan: follow ice carver abdoulaye (9) UTI (urinary tract infection) Current Visit: Yes Status: Acute Assessment and plan: Due to e.coli Discontinue Zosyn, change to augmentin po, for total of 14 days Qualifiers: Urinary tract infection type: acute cystitis Hematuria presence: without hematuria Qualified Code(s): N30.00 - Acute cystitis without hematuria (10) Lactic acidosis Current Visit: Yes Status: Resolved Assessment and plan: resolved due to GIB (11) Seizure Current Visit: Yes Status: Acute Assessment and plan: Two episodes, once 07/28/17 and once 07/29/17 His EEG was normal MRI normal per neurology thought to be rigors and not seizures continue to monitor (12) Septic shock Current Visit: Yes Status: Suspected Assessment and plan: suspected vs hemorrhagic resolved, (13) Duodenal ulcer Current Visit: Yes Status: Acute Assessment and plan: EGD done 07/30 showed duodenal bulb ulcer with evidence of prior bleed possibly due to NSAIDS Continue PPI and carafate Change PPI to po upon discharge follow biopsy report - Time Spent With Patient Total time spent is greater than 50% in coordination of care (as documented) at patient's floor/unit and/or counseling patient: - Subjective Interval history: Seen and evaluated at the bedside No new complains He was admitted to the ICU for management of shock-hemorrhagic/septic, GI bleed , Acute blood loss anemia secondary to GIB from duodenal ulcer he also has a UTI due to E.coli which is blankenship-sensitive He is ambulatory and not deconditioned, no indication for PT as at now - Constitutional Vitals: Temp Pulse Resp BP Pulse Ox 97.9 F 78 16 103/65 97 08/02/17 11:12 08/02/17 11:12 08/02/17 11:12 08/02/17 11:12 08/02/17 11:12 General appearance: Present: A&O X 3, pleasant, no acute distress - Head Head exam: Present: atraumatic, normocephalic - Eye Eye exam: Present: PERRL, conjuntiva pink, sclera anicteric Pupils: Present: PERRL - Neck Neck exam general surgery: Present: supple, trachea midline. Absent: lymphadenopathy - Respiratory Respiratory exam: Present: CTAB. Absent: accessory muscle use, rales, rhonchi, wheezes - Cardiovascular Cardiovascular exam: Present: RRR, +S1, +S2. Absent: diastolic murmur, gallop, rubs, systolic murmur - GI/Abdominal GI/Abdominal exam: Present: normal bowel sounds, soft, no peritoneal signs. Absent: distended, tenderness - Extremities Exam Extremities exam: Present: warm, radial pulses palpable and symmetrical. Absent : calf tenderness, cyanotic, pedal edema - Neurological Exam Neurological exam: Present: alert, CN II-XII intact, oriented X3, no focal deficits. Absent: pronater drift, facial droop, speech deficit - Skin Skin exam: Present: dry, intact Internal Medicine: Result - Labs CBC & Chem 7: 08/02/17 05:14 08/02/17 05:14 Labs: Short CBC 08/02/17 Range/Units 05:14 WBC 3.7 L D (4.3-11.1) K/mcL Hgb 7.9 L (12.9-16.9) g/dL Hct 24.2 L (37.5-50.1) % Plt Count 207 (140-400) K/mcL Neutrophils # 1.6 (1.6-8.9) K/mcL BMP 08/02/17 05:14 Sodium 141 Potassium 3.5 Chloride 110 H Carbon Dioxide 28 BUN 11 Creatinine 0.95 Glucose 91 Calcium 7.8 L - ABG Interpretation ABG results: ABG ABG pH 7.31 pH Units (7.32-7.45) L 07/29/17 11:19 ABG pCO2 28 mmHg (35-45) L 07/29/17 11:19 ABG pO2 86 mmHg (85-104) 07/29/17 11:19 ABG O2 Saturation 96 % (95-98) 07/29/17 11:19 PT/INR, D-dimer PT 14.8 Seconds (9.4-12.1) H 07/28/17 22:04 - VTE Documentation of Mechanical Device: Intermittent pneumatic compression device Consult Discharge Plan - Plan Referrals: Kyler Loyd, MAIL AGENT [Primary Care Provider] -
[2017-08-02] MEDS: Budesonide/Formoterol 80/4.5 MDI IH SCH (19:43)
[2017-08-03] MEDS: Pantoprazole 40 MG VIAL IVP SCH (06:09)
[2017-08-03] MEDS: Sucralfate 1 GM TABLET PO SCH ×2 (06:09→11:55)
[2017-08-03 06:31] LABS: Eosinophils # 0.2 K/mcL (0.0-0.6); Eosinophils % 5.2 %; Hematocrit 23.8 % (37.5-50.1); Hemoglobin 7.8 g/dL (12.9-16.9); Immature Granulocytes % 0.2 % (0-4); Lymphocytes # 1.6 K/mcL (0.6-4.6); Lymphocytes % 37.8 %; Mean Corpuscular HGB Conc 32.8 g/dL (31.6-35.5); Mean Corpuscular Hemoglobin 30.1 pg (28.0-33.3); Mean Corpuscular Volume 91.9 fL (83.0-100.0); Mean Platelet Volume 10.3 fL (9.4-12.4); Monocytes # 0.5 K/mcL (0.0-1.3); Monocytes % 10.7 %; Neutrophils # 1.9 K/mcL (1.6-8.9); Platelet Count 198 K/mcL (140-400); Red Blood Count 2.59 M/mcL (4.19-5.50); Red Cell Distribution Width 15.4 % (11.5-14.5); Segmented Neutrophils % 45.1 %
[2017-08-03 06:52] LABS: BUN/Creatinine Ratio 11 (6-26); Blood Urea Nitrogen 10 mg/dL (6-20); Calcium 7.8 mg/dL (8.6-10.3); Carbon Dioxide 30 mEq/L (23-29); Chloride 110 mEq/L (98-107); Glucose 95 mg/dL (70-105); Osmolality,Calculated 293 (280-300); Potassium 3.8 mEq/L (3.5-5.1); Sodium 142 mEq/L (136-145); eGFR For African Americans > 60 (> 60); eGFR For Non-African Americans > 60 (> 60)
[2017-08-03] MEDS: Budesonide/Formoterol 80/4.5 MDI IH SCH (08:16)
[2017-08-03] MEDS: OXYCODONE Oral CONC 10 MG/0.5 ML ORAL.SYG SL PRN (09:45)
--- NOTE | 2017-08-03 10:28 | Discharge Summary ---
- NOTES TO OUTPATIENT PROVIDER Notes to Outpatient Provider: The patient was admitted to the medical ICU for shock secondary to hemorrhage from a bleeding duodenal ulcer. This is possibly due to use of NSAIDs. The patient has been encouraged to stop NSIADs. He is also discharged on omeprazole 40 mg twice a day and sucralfate. The patient also developed Escherichia coli UTI in the hospital and is discharged on oral antibiotics. Orders not resulted at time of discharge: Pending orders 07/29/17 00:04 Culture,Blood [BC] Stat 07/29/17 13:43 Culture,Blood,Additional [BC] Stat Date of Encounter: 08/03/17 Time of Encounter: 10:27 - Discharge Diagnosis (1) Hypertension Priority: Secondary Status: Chronic Qualifiers: Hypertension type: essential hypertension Qualified Code(s): I10 - Essential (primary) hypertension (2) Pancreatitis Priority: Primary Status: Ruled-out Qualifiers: Chronicity: acute Pancreatitis type: unspecified pancreatitis type Acute pancreatitis complication: unspecified Qualified Code(s): K85.90 - Acute pancreatitis without necrosis or infection, unspecified (3) DVT prophylaxis Priority: Primary Status: Resolved (4) COPD (chronic obstructive pulmonary disease) Priority: Secondary Status: Chronic Qualifiers: COPD type: unspecified COPD Qualified Code(s): J44.9 - Chronic obstructive pulmonary disease, unspecified (5) Hyponatremia Priority: Primary Status: Resolved (6) Acute upper GI bleed Priority: Primary Status: Resolved (7) Anemia Priority: Primary Status: Acute Qualifiers: Anemia type: other cause Other causes of anemia: acute posthemorrhagic Qualified Code(s): D62 - Acute posthemorrhagic anemia (8) Caloric malnutrition Priority: Secondary Status: Chronic (9) UTI (urinary tract infection) Priority: Primary Status: Acute Qualifiers: Urinary tract infection type: acute cystitis Hematuria presence: without hematuria Qualified Code(s): N30.00 - Acute cystitis without hematuria (10) Lactic acidosis Priority: Primary Status: Resolved (11) Seizure Priority: Primary Status: Resolved (12) Septic shock Priority: Primary Status: Resolved (13) Duodenal ulcer Priority: Primary Status: Acute Hospital course: Mr. Barrett is a 57 year old male with medical history of COPD and tobacco abuse, hypertension, chronic pain using NSAIDs at home was admitted to the medical ICU following a presentation seizure-like episodes, shock, urinary tract infection, and acute on chronic anemia suspected to be due to acute upper GI bleeding. The patient also developed urinary tract infection secondary to Escherichia coli. He is seen and examined at the bedside this morning, his hemoglobin has been stable, he is ambulatory and able to without any distress, septic shock since his transfer from the medical ICU, his EEG was normal and MRI was normal. neurology evaluation recommendation stated no indication for antiepileptic medications. Lactic acidosis resolved. The patient received Zosyn in the hospital and is discharged on Augmentin by mouth for a total of 14 days. He is also discharged on PPI BID and Carafate. EGD done 07/30 showed duodenal bulb ulcer with evidence of prior bleed, biopsied and pending Patient received 3 units of RBCs inpatient and is strongly encouraged to not use NSAIDs, and to represent to the hospital with any signs or symptoms of GI bleed 3 mins spent on tobacco cessation counselling Follow up with PCP Discharge discussed with: patient, nurse, case management Time spent discussing smoking cessation with patient: 3 to 10 minutes - Time Spent with Patient Total time spent providing and/or coordinating discharge services: Greater than 30 minutes - Discharge Medications Prescriptions: Amoxicillin/Clavulanate [Augmentin] 875 mg PO BIDWM #16 tablet Omeprazole [PriLOSEC] 40 mg PO BID #60 cap Sucralfate [Carafate] 1 gm PO QIDAC #60 tablet Home Medications: Albuterol Sulfate [Proair Hfa] 1 puff IH Q4-6H PRN 09/06/16 [History] Quetiapine Fumarate [Seroquel] 200 mg PO HS 04/06/17 [History] Ondansetron [Zofran ODT] 8 mg SL Q8HR 07/18/17 [History] Fluticasone/Vilanterol [Breo Ellipta 100-25 Mcg INH] 1 puff IH DAILY 07/29/17 [ History] Lisinopril [Zestril] 20 mg PO DAILY 07/29/17 [History] Sertraline [Zoloft] 50 mg PO DAILY 07/29/17 [History] Tamsulosin [Flomax] 0.4 mg PO DAILY 07/29/17 [History] Amoxicillin/Clavulanate [Augmentin] 875 mg PO BIDWM #16 tablet 08/03/17 [Rx] Omeprazole [PriLOSEC] 40 mg PO BID #60 cap 08/03/17 [Rx] Sucralfate [Carafate] 1 gm PO QIDAC #60 tablet 08/03/17 [Rx] Allergies/Adverse Reactions: 3 Allergy/AdvReac Type Severity Reaction Status Date / Time prednisone Allergy Swelling Verified 07/29/17 09:40 of the Eye Date of admission: 07/29/17 05:53 Primary care physician: Kyler Loyd CNP Consults: 07/29/17 12:11 Consult to Pulmonology [CONS] Routine Consulting Provider: [facility] Reason for Consult: Respiratory distress and seizure, septic shock, hypotensive. Time Notified: 12:11 Call Completed: Yes 07/29/17 15:55 Consult to Neurology [CONS] Stat Consulting Provider: [facility] Reason for Consult: new onset adult seizure Call Completed: Yes 07/29/17 16:07 Consult to Surgery [CONS] Stat Consulting Provider: Kane Chavez Reason for Consult: Clinically acute abdomen with peritoneal signs. CT evidence of gastric obstruction, duodenal inflammation with pneumatosis, but no evidence of perforation Time Notified: 16:08 Call Completed: Yes 07/29/17 17:30 Consult to Interpret Exam [CONS] Routine Consulting Provider: Kenneth Max Consult to Interpret Exam: Interpret EEG Discharging clinician: Ck Kay Anticipated date of discharge: 08/03/17 - Constitutional Vitals: Temp Pulse Resp BP Pulse Ox 97.5 F L 76 17 114/64 97 08/03/17 07:08 08/03/17 07:08 08/03/17 07:08 08/03/17 07:08 08/03/17 07:08 General appearance: Present: disheveled, A&O X 3, pleasant, no acute distress - Head Head exam: Present: atraumatic, normocephalic - Eye Eye exam: Present: PERRL, conjuntiva pink, sclera anicteric Pupils: Present: PERRL - Neck Neck exam general surgery: Present: supple, trachea midline. Absent: lymphadenopathy - Respiratory Respiratory exam: Present: CTAB. Absent: accessory muscle use, rales, rhonchi, wheezes - Cardiovascular Cardiovascular exam: Present: RRR, +S1, +S2. Absent: diastolic murmur, gallop, rubs, systolic murmur - GI/Abdominal GI/Abdominal exam: Present: normal bowel sounds, soft, no peritoneal signs. Absent: distended, tenderness - Extremities Exam Extremities exam: Present: warm, radial pulses palpable and symmetrical. Absent : calf tenderness, cyanotic, pedal edema - Neurological Exam Neurological exam: Present: alert, CN II-XII intact, oriented X3, no focal deficits. Absent: pronater drift, facial droop, speech deficit - Skin Skin exam: Present: dry, intact - Patient Status Disposition: Home, Self-Care Condition: Good Functional capacity at discharge: independent ambulation Overall status at discharge: patient is progressing back to baseline - Discharge Instructions Instructions: Peptic Ulcer (DC) Follow Up With: Kyler Loyd ASSOCIATE MATERIAL HANDLER [Primary Care Provider] - - Diet and Activity Activity: resume usual activities as tolerated Diet: low salt diet - VTE Documentation of Mechanical Device: Intermittent pneumatic compression device
[2017-08-03 10:31] VITALS: BP 106/67
== END 2017-08-03 12:18 | disposition home or self-care (01) | DRG 720 ==
LOC: ICNU → SUATTDRO 07-29 05:53 → 3ANU 08-01 12:29
PROVIDERS: ADMIT Internal Medicine Nephrology; ATTEND Internal Medicine
PROC: ENDOEBX (2017-07-30 14:00)

== ENCOUNTER 2017-08-14 02:45 | Inpatient (IN) ==
[2017-08-14] MEDS ORDERED: Calcium Gluconate 2,000 MG in 0.9 % Sodium Chloride 100 ML IVPB ONE ×2 (05:54→15:59)
[2017-08-14] MEDS ORDERED: Naloxone 0.4 MG/ML INJ IVP PRN ×2 (05:54→13:28)
[2017-08-14] MEDS ORDERED: 0.9 % Sodium Chloride w KCl 20 MEQ/1,000 ML MLS IVC SCH (06:00)
[2017-08-14] MEDS ORDERED: Albuterol 2.5 MG/3 ML NEBULIZER IH PRN (06:01)
--- NOTE | 2017-08-14 06:11 | Internal Med History&Physical ---
Date of Encounter: 08/14/17 Time of Encounter: 05:45 Internal Medicine - H&P: HPI Chief complaint: GI bleed Admitted From: Hospital to Hospital Transfer Plans for Post Hospital Care: Home History of present illness: Mr. Barrett is a 57 year old male who presents in transfer from [facility] emergency department for hemorrhagic shock. He presented to the ER there with significant GI bleeding, hypotension, and lactic acidosis secondary to hemorrhagic shock. He was fluid resuscitated and then he started receiving blood products. I received a call from [facility] about 2:30 this morning requesting transfer to our ICU. I reviewed his recent records and recent EGD just roughly 12 days ago noting that he had a cratered duodenal ulcer. I spoke with Dr. Tanja Baca in the ER and requested STAT imaging to rule out free air in the diaphragm and a perforated viscus. I also asked bed management to contact surgery correspondence analyst as this patient may need emergency surgery. Dr. Smallwood was ready and available should there be a need for emergency surgery. I then received a call back from [facility] stating the CT scan did not show any free air or any blood in the peritoneum. Blood transfusion was initiated and then patient was transferred to our ICU. Upon arrival to the ICU, I was present at bedside and assessed the patient right away along with nursing staff. He is quite pale, weak, and short of breath. Presently, his blood pressure has stabilized and remains over 100 systolic. Heart rate is borderline tachycardic in the 90s and low 100s. He is alert, oriented, and mentating well and able to protect his airway. Patient states that he has had profound hematemesis since yesterday. He also developed significant epigastric pain since yesterday. All the symptoms worsened immensely tonight, prompting him to come to the ER. He denies any fevers, but he's had some chills and night sweats. He denies any alcohol intake or excessive NSAID use. He used to use NSAIDs frequently up until 2 weeks ago when he had his initial GI bleed and the finding of duodenal ulcer. Since then , he has not used any NSAIDs whatsoever. He does not take blood thinners. Compared to his presentation in the ER in [facility] 3 hours ago, he feels much better. He has had no further hematemesis since about 11:30 this evening. I informed patient that Dr. Smallwood and the endoscopy team will be at the bedside within the next couple hours and perform EGD early this morning. Past Med Surg Social Fam HX - Past Medical History Attestation: Yes The following information was validated with the patient. Source: patient, old records reviewed, other (discussions with [facility] staff) Medical history: COPD, GERD, GI bleed (12 days ago), hyperlipidemia, hypertension Psychiatric history: anxiety - Past Surgical History Surgical History: appendectomy, orthopedic, other - Social History Smoking Status: Current every day smoker Smokeless Tobacco Status: No Alcohol use: none Drug use: marijuana Current living situation: Home Activity Level: Independent ambulation Recent Out of Country Travel Within the Last 8 Weeks: No - Family History Mother Hx Family GI Disorders: No Father Hx Family GI Disorders: No Internal Medicine - H&P: Meds Albuterol Sulfate [Proair Hfa] 1 puff IH Q4-6H PRN 09/06/16 [History] Quetiapine Fumarate [Seroquel] 200 mg PO HS 04/06/17 [History] Ondansetron [Zofran ODT] 8 mg SL Q8HR 07/18/17 [History] Fluticasone/Vilanterol [Breo Ellipta 100-25 Mcg INH] 1 puff IH DAILY 07/29/17 [ History] Lisinopril [Zestril] 20 mg PO DAILY 07/29/17 [History] Sertraline [Zoloft] 50 mg PO DAILY 07/29/17 [History] Tamsulosin [Flomax] 0.4 mg PO DAILY 07/29/17 [History] Amoxicillin/Clavulanate [Augmentin] 875 mg PO BIDWM #16 tablet 08/03/17 [Rx] Omeprazole [PriLOSEC] 40 mg PO BID #60 cap 08/03/17 [Rx] Sucralfate [Carafate] 1 gm PO QIDAC #60 tablet 08/03/17 [Rx] 3 Allergy/AdvReac Type Severity Reaction Status Date / Time prednisone Allergy Swelling Verified 07/29/17 09:40 of the Eye - Constitutional Constitutional: chills, malaise, weakness, no fever(s), no night sweats - EENT Eyes: no blurry vision, no change in vision Ears: no ear pain, no tinnitus Nose, mouth and throat: no nasal congestion, no sinus pain, no sinus pressure, no sore throat - Cardiovascular Cardiovascular ROS IM: dyspnea, dyspnea on exertion, no chest pain, no edema, no orthopnea, no palpitations, no paroxysmal nocturnal dyspnea - Respiratory Respiratory: dyspnea, dyspnea on exertion, no cough, no hemoptysis, no wheezing , no chest congestion, no excessive phlegm production, no change in phlegm color , no pain with cough - Gastrointestinal Gastrointestinal: abdominal pain (epigastric), hematemesis, melena, nausea, vomiting, no constipation, no diarrhea, no hematochezia - Genitourinary Genitourinary ROS male: no dysuria, no flank pain, no hematuria - Musculoskeletal Musculoskeletal ROS IM: muscle weakness, no arthralgias, no muscle cramps - Integumentary Integumentary IM: no rash, no jaundice - Neurological Neurological ROS: no dizziness, no focal weakness, no frequent falls, no headache(s) - Psychiatric Psychiatric: no anxiety, no depression - Endocrine Endocrine IM: no polydipsia, no polyuria - Hematologic/Lymphatic Hematologic/Lymphatic: easy bruising, no lymphadenopathy - Allergic/Immunologic Allergic/Immunologic: GI upset with certain foods, no wheezing - Constitutional Vitals: Temp Pulse Resp BP Pulse Ox 97.7 F 87 18 113/76 99 08/14/17 05:49 08/14/17 05:49 08/14/17 05:49 08/14/17 05:49 08/14/17 05:49 General appearance: Present: cooperative, mild distress, A&O X 3, pleasant, answers questions appropriately Exam: pale, weak, SOB mildly - Head Head exam: Present: atraumatic, normal inspection - Eye Eye exam: Present: EOMI, normal appearance, PERRL. Absent: scleral icterus Pupils: Present: normal accommodation - ENT ENT exam: Present: mucous membranes dry, normal exam, normal oropharynx - Neck Neck exam general surgery: Present: full ROM, supple. Absent: lymphadenopathy, tenderness, nuchal rigidity, thyromegaly - Respiratory Respiratory exam: Present: CTAB. Absent: chest wall tenderness, rales, rhonchi , wheezes - Cardiovascular Cardiovascular exam: Present: RRR, +S1, +S2, tachycardia. Absent: diastolic murmur, JVD, systolic murmur - GI/Abdominal GI/Abdominal exam: Present: soft, tenderness (epigastric), no peritoneal signs. Absent: guarding, hepatomegaly, mass, rebound, splenomegaly - Extremities Exam Extremities exam: Present: full ROM, warm, radial pulses palpable and symmetrical. Absent: calf tenderness, normal capillary refill (delayed, roughly 5 seconds), pedal edema, tenderness - Back Exam Back exam: Present: normal inspection. Absent: CVA tenderness (L), CVA tenderness (R) - Neurological Exam Neurological exam: Present: alert, CN II-XII intact, oriented X3, no focal deficits - Psychiatric Psychiatric exam: Present: normal affect, normal mood - Skin Skin exam: Present: dry, rash, warm Internal Med - H&P Results - Labs Labs: I reviewed labs from [facility] and they include the following: WBC 12.2 Hemoglobin 5.0 Hematocrit 16.2 Platelet 352 PT 13.4 INR 1.2 PTT 27.7 Sodium 140 Potassium 3.9 Chloride 110 Carbon dioxide 21 BUN 39 Creatinine 1.[address] scan of abdomen and pelvis was read as no acute findings, specifically no free air - Assessment and plan (1) Hemorrhagic shock Current Visit: Yes Status: Acute Assessment and plan: 1. S/P fluid resuscitation at [facility]. 2. Pt received one unit PRBC en route to [place]. 3. Will proceed with further PRBC transfusion and follow serial H/H. 4. Continue IVF for hemodynamic support. 5. If he becomes hemodynamically unstable, he will need CVC and pressor support. Thus far, however, he is maintaining hemodynamic stability. 6. Consult [employer] for ICU management. 7. Monitor and correct coags as needed. 45 minutes critical care time thus far with patient since his arrival. (2) Acute blood loss anemia Current Visit: Yes Status: Acute Assessment and plan: 1. Will transfuse 2 units now, in addition to initial unit PRBC from [facility]. 2. Monitor H/H closely and clinically. 3. Source is most likely cratered ulcer in duodenum as noted by Dr. Chavez on last EGD 12 days ago. 4. Protonix drip. (3) Lactic acidosis Current Visit: No Status: Resolved Assessment and plan: 1. Likely from hemorrhagic shock. 2. Blood cultures drawn at [facility]. 3. Continue IV antibiotics for GI source (Flagyl and Cipro). 4. Trend lactate levels. 5. Fluid resuscitation done at [facility]. 6. Continue MIV and PRBC transfusion. (4) DVT prophylaxis Current Visit: Yes Status: Acute Assessment and plan: 1. EPCD's. 2. No anticoagulation due hemorrhagic shock.
[2017-08-14 06:23] LABS: Basophils % 0.2 %; Eosinophils % 0.3 %; Hematocrit 16.8 % (37.5-50.1); Immature Granulocytes % 0.4 % (0-4); Immature Platelets 1.8 % (1.1-6.1); Lymphocytes # 3.1 K/mcL (0.6-4.6); Mean Corpuscular HGB Conc 32.7 g/dL (31.6-35.5); Mean Corpuscular Hemoglobin 30.6 pg (28.0-33.3); Mean Corpuscular Volume 93.3 fL (83.0-100.0); Mean Platelet Volume 10.5 fL (9.4-12.4); Monocytes # 0.7 K/mcL (0.0-1.3); Monocytes % 7.6 %; Neutrophils # 5.7 K/mcL (1.6-8.9); Platelet Count 240 K/mcL (140-400); Red Cell Distribution Width 14.5 % (11.5-14.5); Segmented Neutrophils % 59.5 %
[2017-08-14 06:27] LABS: Hemoglobin 5.5 g/dL (12.9-16.9)
[2017-08-14 06:29] LABS: INR 1.3; Prothrombin Time 13.8 Seconds (9.4-12.1)
[2017-08-14] MEDS ORDERED: Ondansetron 4 MG/2 ML VIAL IVP PRN ×2 (06:39→13:28)
[2017-08-14 06:45] LABS: Alanine Aminotransferase 12 Units/L (7-52); Albumin 2.2 g/dL (3.5-5.7); Albumin/Globulin Ratio 1.2 (1.1-2.2); Alkaline Phosphatase 51 Units/L (34-104); Aspartate Amino Transferase 14 Units/L (13-39); BUN/Creatinine Ratio 40 (6-26); Bilirubin,Direct 0.1 mg/dL (0.0-0.2); Bilirubin,Indirect 0.2 mg/dL (0.0-1.2); Bilirubin,Total 0.3 mg/dL (0.3-1.0); Blood Urea Nitrogen 36 mg/dL (6-20); Calcium 6.8 mg/dL (8.6-10.3); Carbon Dioxide 21 mEq/L (23-29); Chloride 116 mEq/L (98-107); Globulin 1.9 g/dL (2.4-3.5); Glucose 108 mg/dL (70-105); Magnesium 1.6 mg/dL (1.6-2.6); Osmolality,Calculated 299 (280-300); Potassium 4.2 mEq/L (3.5-5.1); Sodium 140 mEq/L (136-145); Total Protein 4.1 g/dL (6.4-8.9); eGFR For African Americans > 60 (> 60); eGFR For Non-African Americans > 60 (> 60)
[2017-08-14 06:46] LABS: Platelet Estimate Normal (Normal)
[2017-08-14] MEDS: Pantoprazole 40 MG in 0.9 % Sodium Chloride Mini Bag 100 ML IVC SCH ×4 (06:46→20:08)
[2017-08-14 06:47] LABS: Anisocytosis 1+ (Not Present)
--- NOTE | 2017-08-14 07:06 | Pulmonology Consult Note ---
<Cali Johnson - Last Filed: 08/14/17 09:26> Date of Encounter: 08/14/17 Time of Encounter: 09:26 Assessment and Plan (1) Acute upper GI bleed Current Visit: No Status: Acute History of duodenal ulcer as per EGD on 08/01/17. Presented on 08/14/17 with 2 episodes of hematemesis. Initial hemoglobin of 5.0. No anticoagulant use. CT scan abdomen and pelvis: No acute findings Transfused 1 unit prior to arrival with an additional 2 units ordered. Surgery consulted, anticipate EGD today. Continue Protonix infusion. Add octreotide infusion. Remain NPO at this time. Serial H&H every 6 hours. (2) Acute blood loss anemia Current Visit: Yes Status: Acute Presenting hemoglobin of 5.0 with comparison roughly 2 weeks ago of 7.8. Suspect secondary to prior history of duodenal ulcer. Multiple episodes of hematemesis prior to arrival. Anticipate EGD today. Continue serial H&H every 6 hours. (3) Duodenal ulcer Current Visit: No Status: Acute EGD 08/01/17 with evidence of a cratered duodenal ulcer in the duodenal bulb. General surgery consultation. Plan to perform EGD today. CT abdomen and pelvis: No acute findings. Continue PPI infusion. (4) Hypertension Current Visit: No Status: Chronic Hold antihypertensives in the setting of acute GI bleed Qualifiers: Hypertension type: essential hypertension Qualified Code(s): I10 - Essential (primary) hypertension (5) COPD (chronic obstructive pulmonary disease) Current Visit: No Status: Chronic Mental/DuoNeb treatments as needed Qualifiers: COPD type: unspecified COPD Qualified Code(s): J44.9 - Chronic obstructive pulmonary disease, unspecified (6) DVT prophylaxis Current Visit: No Status: Resolved SCDs. Hold heparin in the setting of GI bleed History of Present Illness Consult date: 08/14/17 Requesting physician: Shawn Monzon Reason for consult: other (GI bleed) Chief complaint: GI bleed History of present illness: Gopal Barrett is a 57-year-old male with a past medical history of hypertension, COPD, GI bleed, duodenal ulcer who initially presented to [facility] emergency department with a chief complaint of hematemesis. Reports this patient had one episode of hematemesis the day prior to evaluation and then one episode just prior to showing up to the emergency department. There the patient was noted to be anemic with a hemoglobin of 5.0. No anticoagulant use. Previously was using NSAIDs but stopped a few weeks ago. Of note he was admitted in the ICU for duodenal ulcer found on EGD on 08/01/17. He was started on a PPI and Carafate at that time. No surgical intervention necessary. The patient was IV fluid resuscitated at the outside facility and transfusion was started with 1 unit. He had a [address] scan of the abdomen and pelvis to rule out perforated ulcer which was reported as no acute findings. As per documentation surgery was consulted with plans to do an endoscopy this morning. Repeat hemoglobin here of 5.5. An additional 2 units of red blood cells were ordered with plans to transfuse. The patient remarks some upper abdominal/epigastric pain. No melena or hematochezia or diarrhea. No other complaints. Past Med Surg Social Fam HX - Past Medical History Attestation: Yes The following information was validated with the patient. Source: patient Medical history: COPD, GERD, GI bleed (12 days ago), hyperlipidemia, hypertension Psychiatric history: anxiety - Past Surgical History Surgical History: appendectomy, orthopedic, other - Social History Smoking Status: Current every day smoker Smokeless Tobacco Status: No Alcohol use: none Drug use: marijuana - Family History Mother Hx Family GI Disorders: No Father Hx Family GI Disorders: No Medications and Allergies Albuterol Sulfate [Proair Hfa] 1 puff IH Q4-6H PRN 09/06/16 [History] Quetiapine Fumarate [Seroquel] 200 mg PO HS 04/06/17 [History] Ondansetron [Zofran ODT] 8 mg SL Q8HR PRN 07/18/17 [History] Fluticasone/Vilanterol [Breo Ellipta 100-25 Mcg INH] 1 puff IH DAILY 07/29/17 [ History] Lisinopril [Zestril] 20 mg PO DAILY 07/29/17 [History] Sertraline [Zoloft] 50 mg PO DAILY 07/29/17 [History] Tamsulosin [Flomax] 0.4 mg PO DAILY 07/29/17 [History] Omeprazole [PriLOSEC] 40 mg PO BID #60 cap 08/03/17 [Rx] Sucralfate [Carafate] 1 gm PO QIDAC #60 tablet 08/03/17 [Rx] Ferrous Sulfate [Iron] 325 mg PO DAILY 08/14/17 [History] 3 Allergy/AdvReac Type Severity Reaction Status Date / Time prednisone Allergy Swelling Verified 07/29/17 09:40 of the Eye All Systems: The remainder of the systems were reviewed and are negative - Constitutional Constitutional: as per HPI - EENT Eyes: as per HPI Ears: as per HPI Nose, mouth and throat: as per HPI - Cardiovascular Cardiovascular: as per HPI - Respiratory Respiratory: as per HPI - Gastrointestinal Gastrointestinal: as per HPI, abdominal pain, hematemesis, vomiting, no diarrhea , no hematochezia, no melena - Genitourinary Genitourinary: as per HPI - Integumentary Integumentary: as per HPI - Psychiatric Psychiatric: as per HPI - Endocrine Endocrine: as per HPI - Hematologic/Lymphatic Hematologic/Lymphatic: as per HPI - Allergic/Immunologic Allergic/Immunologic: as per HPI Physical Examination Vital Signs: Vital Signs, Last 4 Hours Temp Pulse Resp BP Pulse Ox 08/14/17 06:19 112 24 101/56 100 08/14/17 05:49 97.7 F 87 18 113/76 99 General appearance: no acute distress, other (Pale) Eyes: nonicteric Effort: normal Inspection: normal Auscultation: bilateral: clear Cardiovascular: regular rate and rhythm Gastrointestinal: soft, tender (Epigastric tenderness), non-distended Integumentary: normal Extremities: no cyanosis, no edema Musculoskeletal: no deformities normal mental status Results - Laboratory Findings CBC and BMP: 08/14/17 08:45 08/14/17 06:12 PT/INR, D-dimer PT 13.8 Seconds (9.4-12.1) H 08/14/17 06:12 Abnormal lab findings: Abnormal lab results RBC 1.80 M/mcL (4.19-5.50) L 08/14/17 06:12 Hgb 5.5 g/dL (12.9-16.9) L* 08/14/17 06:12 Hct 16.8 % (37.5-50.1) L 08/14/17 06:12 Anisocytosis 1+ (Not Present) A 08/14/17 06:12 PT 13.8 Seconds (9.4-12.1) H 08/14/17 06:12 Chloride 116 mEq/L (98-107) H 08/14/17 06:12 Carbon Dioxide 21 mEq/L (23-29) L 08/14/17 06:12 BUN 36 mg/dL (6-20) H 08/14/17 06:12 BUN/Creatinine Ratio 40 (6-26) H 08/14/17 06:12 Glucose 108 mg/dL (70-105) H 08/14/17 06:12 Calcium 6.8 mg/dL (8.6-10.3) L 08/14/17 06:12 Serum Total Protein 4.1 g/dL (6.4-8.9) L 08/14/17 06:12 Albumin 2.2 g/dL (3.5-5.7) L 08/14/17 06:12 Globulin 1.9 g/dL (2.4-3.5) L 08/14/17 06:12 - Diagnostic Findings CT scan - chest: report reviewed - Clinical Findings Intake & Output: Intake & Output 08/13/17 08/13/17 08/14/17 15:59 23:59 07:59 Intake Total 0 / 0 Balance 0 / 0 Weight 68.7 kg Pulmonary Procedures - Arterial Line Consent obtained: written consent Time out performed: Yes Technique used: guide wire technique Post-Procedure: line sutured into place Patient tolerated procedure: well Complications: none Site: right, femoral Additional comments: Attending Dr. Davis present throughout the procedure - Central Line Placement Right Femoral Consent obtained: written consent Time out performed: Yes Patient placed on monitor/pulse ox: Yes MD prep: mask, gown, gloves Central line prep: Chlorhexidine scrub Ultrasound used for placement: Yes Central line lumen inserted: single Post procedure: sutured in place, good blood return, all ports aspirated, flushed, capped, sterile dressing applied Patient tolerated procedure: well Complications: none Additional comments: Single-lumen Cordis placed in the right femoral vein. Attending Dr. Davis present throughout the procedure Consult Discharge Plan - Plan Referrals: Kyler Loyd, ENGRAVER SET UP OPERATOR [Primary Care Provider] - <Griffin Davis - Last Filed: 08/14/17 11:31> Date of Encounter: 08/14/17 All Systems: The remainder of the systems were reviewed and are negative Physical Examination Vital Signs: Vital Signs, Last 4 Hours Temp Pulse Resp BP Pulse Ox 08/14/17 10:00 113 18 134/66 100 08/14/17 09:19 18 101/56 100 08/14/17 09:15 111 20 113/62 100 08/14/17 08:15 111 20 99/70 100 08/14/17 07:58 97.9 F Results - Laboratory Findings CBC and BMP: 08/14/17 08:45 08/14/17 06:12 PT/INR, D-dimer PT 13.8 Seconds (9.4-12.1) H 08/14/17 06:12 Abnormal lab findings: Abnormal lab results RBC 1.80 M/mcL (4.19-5.50) L 08/14/17 06:12 Hgb 6.1 g/dL (12.9-16.9) L 08/14/17 08:45 Hct 19.1 % (37.5-50.1) L 08/14/17 08:45 Anisocytosis 1+ (Not Present) A 08/14/17 06:12 PT 13.8 Seconds (9.4-12.1) H 08/14/17 06:12 Chloride 116 mEq/L (98-107) H 08/14/17 06:12 Carbon Dioxide 21 mEq/L (23-29) L 08/14/17 06:12 BUN 36 mg/dL (6-20) H 08/14/17 06:12 BUN/Creatinine Ratio 40 (6-26) H 08/14/17 06:12 Glucose 108 mg/dL (70-105) H 08/14/17 06:12 Calcium 6.8 mg/dL (8.6-10.3) L 08/14/17 06:12 Serum Total Protein 4.1 g/dL (6.4-8.9) L 08/14/17 06:12 Albumin 2.2 g/dL (3.5-5.7) L 08/14/17 06:12 Globulin 1.9 g/dL (2.4-3.5) L 08/14/17 06:12 - Clinical Findings Intake & Output: Intake & Output 08/13/17 08/14/17 08/14/17 23:59 07:59 15:59 Intake Total 0 / 0 1052 / 1052 Balance 0 / 0 1052 / 1052 Weight 68.7 kg - Attending Attestation I examined this patient and my medical decision-making was reviewed with the Resident Physician. I agree with the documented findings, disposition and treatment plan as described except to the extent set forth below. Patient seen and examined. Labs, radiology, chart personally reviewed. Agree with resident's history and physical, assessment, plan with following comments: [employer]AL: Patient follows commands, patient has episode of change in mental status and questionable seizure but rapidly patient recovered and they suspect Pulmonary: Acceptable oxygenation and ventilation Cardiovascular: Patient with hemorrhagic shock and have significant blood loss. Patient clinically not stable with hypertensive and actively resuscitated with blood product and also had to transfuse him with crystalloid as well as albumin to help his hypotension. I discussed with Dr. Smallwood at the bedside that possibly patient will need a surgical evaluation and possibly surgery in patient with have endoscopy and operating chrome and we discussed with patient possible need for surgery and he agreed. We had to place a large bore trauma for rapid transfusion and arterial line to monitor his blood pressure. I have discussed the case with the hospitalist as well. Another line was placed preferably for more transfusion. GI: Nutrition per dietary and GI prophylaxis per routine. Start patient on octreotide. Continue PPI Heme: DVT prophylaxis per routine ID: Continue antibiotics and plan to de-escalation Renal; urine out put and renal funtion reviewed Endorcine: blood glucose is monitored Lines: all lines checked and no evidence of infections Skin: skin care to prevent pressure ulcers per nursing routine care Patient is critically ill with significant blood loss and surgery is arranging operating chrome availability for patient to go to have endoscopy and possibly surgery due to significant amount of blood loss. I spent 100 min of Critical Care time with this patient. It involved decision making of high complexity to assess, manipulate, and support vital organ system failure and/or to prevent further life threatening deterioration of the patient' s condition. The time involved in the performance of separately reportable procedures was not counted toward critical care time.
[2017-08-14] MEDS ORDERED: 0.9 % Sodium Chloride 1,000 ML ONE (07:40)
[2017-08-14] MEDS ORDERED: Albumin Human 5% 25.0 GM/500 ML VIAL ONE (07:40)
[2017-08-14] MEDS ORDERED: MetroNIDAZOLE 500 MG/100 ML 500 MG/100 ML BAG IVPB SCH (08:00)
[2017-08-14] MEDS ORDERED: Octreotide 50 MCG/ML SYRINGE IVP ONE (08:02)
[2017-08-14] MEDS ORDERED: Octreotide 400 MCG in 0.9 % Sodium Chloride 100 ML IVC SCH (08:15)
[2017-08-14] MEDS ORDERED: *HR* LORazepam 2 MG/ML VIAL ONE (08:18)
[2017-08-14] MEDS ORDERED: 0.9 % Sodium Chloride 2,000 ML ONE (08:19)
[2017-08-14] MEDS ORDERED: 0.9 % Sodium Chloride 500 ML ONE (08:36)
--- NOTE | 2017-08-14 08:57 | Anesthesia Evaluation PreOp ---
Date of Encounter: 08/14/17 Time of Encounter: 09:27 - Past History Planned Operation: EGD Cardiac History: HTN, Hyperlipidemia Pulmonary History: Smoker, COPD [employer] History: Denies Any Significant HX Other Medical History: Other (anxiety, GI bleed transfused with 2 Unints RBC over past 24) Anesthesia History: No Prior Anesthetic Complications, Past Anesthesia ( appendectomy, orthopedic, Left arm surgery) Alcohol Use: none Drug use: marijuana Medications and Allergies Albuterol Sulfate [Proair Hfa] 1 puff IH Q4-6H PRN 09/06/16 [History] Quetiapine Fumarate [Seroquel] 200 mg PO HS 04/06/17 [History] Ondansetron [Zofran ODT] 8 mg SL Q8HR 07/18/17 [History] Fluticasone/Vilanterol [Breo Ellipta 100-25 Mcg INH] 1 puff IH DAILY 07/29/17 [ History] Lisinopril [Zestril] 20 mg PO DAILY 07/29/17 [History] Sertraline [Zoloft] 50 mg PO DAILY 07/29/17 [History] Tamsulosin [Flomax] 0.4 mg PO DAILY 07/29/17 [History] Amoxicillin/Clavulanate [Augmentin] 875 mg PO BIDWM #16 tablet 08/03/17 [Rx] Omeprazole [PriLOSEC] 40 mg PO BID #60 cap 08/03/17 [Rx] Sucralfate [Carafate] 1 gm PO QIDAC #60 tablet 08/03/17 [Rx] 3 Allergy/AdvReac Type Severity Reaction Status Date / Time prednisone Allergy Swelling Verified 07/29/17 09:40 of the Eye - Meds/Allergy Pre-op Review Medications Reviewed: Yes Allergies Reviewed: Yes Beta Blockers on Current Med List: No Anesthesia Results - Labs 08/14/17 08:45 08/14/17 06:12 - Imaging EKG: report reviewed (SINUS TACHYCARDIA MODERATE DIFFUSE ST DEPRESSION) Anesthesia Exam Vital Signs/O2 Sat, Most Current Temp Pulse Resp BP Pulse Ox 97.9 F 112 24 101/56 100 08/14/17 07:58 08/14/17 06:19 08/14/17 06:19 08/14/17 06:19 08/14/17 06:19 - HEENT Pupil (Motor): Pupils equal, EOMI Mallampati: II Teeth: Normal Oral Opening: Greater than 3 - [employer] LOC: Oriented [employer] Motor: Normal RUE, Normal LUE, Normal RLE, Normal LLE, Normal Face [employer] Sensory: Normal: RUE, LUE, RLE, LLE, Face - Cardiac Rhythm: Regular Murmur: None JVD: No Carotid Bruit: No - Pulmonary Breath Sounds: bilateral Clear Respiratory Effort: Symmetrical Anesthesia Assess/Plan ASA Score: 4 Modified Roscoe Scale for Level of Consciousness: Cooperative, oriented, and tranquil Anesthetic Plan: General Autologous Blood: Yes Monitoring Plan: Standard Monitors Recovery Plan: PACU
[2017-08-14 09:04] LABS: Hematocrit 19.1 % (37.5-50.1); Hemoglobin 6.1 g/dL (12.9-16.9)
--- NOTE | 2017-08-14 09:05 | General Surgery Consult Note ---
Date of Encounter: 08/14/17 Time of Encounter: 09:03 Assessment and Plan (1) Acute upper GI bleed Current Visit: No Status: Acute discussed with patient going to OR and performing an EGD to see if we can get the bleeding under control, if unable will need to perform and exploratory laparotomy to stop the bleeding, risks and benefits including , discussed with the patient and he wishes to proceed. npo continue tranfusing trauma blood (will have gotten a total of 4 units), 3 units prbc to hold for OR continue IVF icu placing arterial and central line (2) Upper abdominal pain Current Visit: No Status: Acute (3) Hemorrhagic shock Current Visit: Yes Status: Acute see #1 History of Present Illness Consult date: 08/14/17 Reason for consult: endoscopy Requesting physician: Griffin Davis History of present illness: Patient is a 57-year-old male who was recently scoped and found to have a duodenal bulb ulcer that was not bleeding. He was treated with PPI therapy and Carafate and discharge. Yesterday morning he started having hematemesis which is continued. He complains of having epigastric abdominal pain and has since his first scope. The pain has been getting worse. Patient presented to [place] ED with hematemesis. He received 1 unit of blood and was transferred here to the ICU. He has since become unstable, hypotensive and tachycardic. He is currently receiving 3 units of trauma blood. ICU is placing an art line and a central line. Patient previously had a CT scan within the last 12 hours which demonstrates no free air Past Med Surg Social Fam HX - Past Medical History Source: patient Medical history: COPD, GERD, GI bleed (12 days ago), hyperlipidemia, hypertension, other (duodenal bulb ulcer) Psychiatric history: anxiety - Past Surgical History Surgical History: appendectomy, orthopedic, other, other (EGD) - Social History Smoking Status: Current every day smoker Smokeless Tobacco Status: No Alcohol use: none Drug use: marijuana - Family History Mother Hx Family GI Disorders: No Father Hx Family GI Disorders: No Medications and Allergies Albuterol Sulfate [Proair Hfa] 1 puff IH Q4-6H PRN 09/06/16 [History] Quetiapine Fumarate [Seroquel] 200 mg PO HS 04/06/17 [History] Ondansetron [Zofran ODT] 8 mg SL Q8HR 07/18/17 [History] Fluticasone/Vilanterol [Breo Ellipta 100-25 Mcg INH] 1 puff IH DAILY 07/29/17 [ History] Lisinopril [Zestril] 20 mg PO DAILY 07/29/17 [History] Sertraline [Zoloft] 50 mg PO DAILY 07/29/17 [History] Tamsulosin [Flomax] 0.4 mg PO DAILY 07/29/17 [History] Amoxicillin/Clavulanate [Augmentin] 875 mg PO BIDWM #16 tablet 08/03/17 [Rx] Omeprazole [PriLOSEC] 40 mg PO BID #60 cap 08/03/17 [Rx] Sucralfate [Carafate] 1 gm PO QIDAC #60 tablet 08/03/17 [Rx] 3 Allergy/AdvReac Type Severity Reaction Status Date / Time prednisone Allergy Swelling Verified 07/29/17 09:40 of the Eye Review of Systems All systems PM: reviewed and no additional remarkable complaints except as stated All systems PM: The remainder of the systems were reviewed and are negative General Surgery Exam Initial Vital Signs Temp Pulse Resp BP Pulse Ox 97.7 F 87 18 113/76 99 08/14/17 05:49 08/14/17 05:49 08/14/17 05:49 08/14/17 05:49 08/14/17 05:49 - General physical appearance moderate distress, moderate pain, cachectic, chronically ill - Eyes PERRL, normal ocular movement - ENT normal mucosa - Neck trachea midline - Respiratory normal expansion, clear to auscultation - Cardiovascular Cardiovascular exam: Present: tachycardia - Abdomen Abdomen general surgery: Present: soft, tender. Absent: distended, guarding, rebound Abdominal Tenderness: Present: epigastic - Integumentary Integumentary general surgery: Present: diaphoresis, other (pale) - Neurologic Present: CN 2-12 grossly intact - Musculoskeletal Present: normal posture - Psychiatric Psychiatric general surgery: Present: A&Ox3, oriented to time, speech is normal Exam Initial Vital Signs Temp Pulse Resp BP Pulse Ox 97.7 F 87 18 113/76 99 08/14/17 05:49 08/14/17 05:49 08/14/17 05:49 08/14/17 05:49 08/14/17 05:49 Results - Labs 08/14/17 06:12 08/14/17 06:12 Abnormal lab results RBC 1.80 M/mcL (4.19-5.50) L 08/14/17 06:12 Hgb 5.5 g/dL (12.9-16.9) L* 08/14/17 06:12 Hct 16.8 % (37.5-50.1) L 08/14/17 06:12 Anisocytosis 1+ (Not Present) A 08/14/17 06:12 PT 13.8 Seconds (9.4-12.1) H 08/14/17 06:12 Chloride 116 mEq/L (98-107) H 08/14/17 06:12 Carbon Dioxide 21 mEq/L (23-29) L 08/14/17 06:12 BUN 36 mg/dL (6-20) H 08/14/17 06:12 BUN/Creatinine Ratio 40 (6-26) H 08/14/17 06:12 Glucose 108 mg/dL (70-105) H 08/14/17 06:12 Calcium 6.8 mg/dL (8.6-10.3) L 08/14/17 06:12 Serum Total Protein 4.1 g/dL (6.4-8.9) L 08/14/17 06:12 Albumin 2.2 g/dL (3.5-5.7) L 08/14/17 06:12 Globulin 1.9 g/dL (2.4-3.5) L 08/14/17 06:12 Diabetes panel 08/14/17 Range/Units 06:12 Sodium 140 (136-145) mEq/L Potassium 4.2 (3.5-5.1) mEq/L Chloride 116 H (98-107) mEq/L Carbon Dioxide 21 L (23-29) mEq/L BUN 36 H (6-20) mg/dL Creatinine 0.90 (0.70-1.30) mg/dL Glucose 108 H (70-105) mg/dL Calcium 6.8 L (8.6-10.3) mg/dL AST 14 (13-39) Units/L ALT 12 (7-52) Units/L Alkaline Phosphatase 51 (34-104) Units/L Albumin 2.2 L (3.5-5.7) g/dL Calcium panel 08/14/17 Range/Units 06:12 Calcium 6.8 L (8.6-10.3) mg/dL Albumin 2.2 L (3.5-5.7) g/dL Pituitary panel 08/14/17 Range/Units 06:12 Sodium 140 (136-145) mEq/L Potassium 4.2 (3.5-5.1) mEq/L Chloride 116 H (98-107) mEq/L Carbon Dioxide 21 L (23-29) mEq/L BUN 36 H (6-20) mg/dL Creatinine 0.90 (0.70-1.30) mg/dL Glucose 108 H (70-105) mg/dL Calcium 6.8 L (8.6-10.3) mg/dL Adrenal panel 08/14/17 Range/Units 06:12 Sodium 140 (136-145) mEq/L Potassium 4.2 (3.5-5.1) mEq/L Chloride 116 H (98-107) mEq/L Carbon Dioxide 21 L (23-29) mEq/L BUN 36 H (6-20) mg/dL Creatinine 0.90 (0.70-1.30) mg/dL Glucose 108 H (70-105) mg/dL Calcium 6.8 L (8.6-10.3) mg/dL Total Bilirubin 0.3 (0.3-1.0) mg/dL AST 14 (13-39) Units/L ALT 12 (7-52) Units/L Alkaline Phosphatase 51 (34-104) Units/L Albumin 2.2 L (3.5-5.7) g/dL All other labs normal. - Imaging CT scan - abdomen: report reviewed, image reviewed CT scan - pelvis: report reviewed, image reviewed Consult Discharge Plan - Plan Referrals: Kyler Loyd, MAT WORKER [Primary Care Provider] -
--- NOTE | 2017-08-14 09:31 | Event Note ---
<Cali Johnson - Last Filed: 08/14/17 09:29> Date of Encounter: 08/14/17 Time of Encounter: 09:00 Patient with episode of hematemesis of roughly 300 mL. He then was noted to have concern for seizure like activity. Upon exam he demonstrate purposeful movements. Blood pressure at that time with maps in the 40s and 50s. Suspect hypoperfused state. General surgery aware and at bedside promptly with plans for EGD. Given his hemodynamic instability a right femoral Cordis line and right femoral arterial line were placed prior to going to the OR. Please see procedure note for details. Additional PRBC were ordered as well as an octreotide infusion. Patient to go now for endoscopy. <Griffin Davis - Last Filed: 08/14/17 21:35> Date of Encounter: 08/14/17 I examined this patient and my medical decision-making was reviewed with the Resident Physician. I agree with the documented findings, disposition and treatment plan as described except to the extent set forth below. Patient's condition was getting unstable and general surgery aware and endoscopy /surgery is scheduled. Supervised personally placement of the central lines without immediate complications.
[2017-08-14] MEDS ORDERED: *HR* Etomidate 40 MG/20 ML VIAL IVP ONE (09:35)
[2017-08-14] MEDS ORDERED: *HR* FentaNYL (PF) 100 MCG/2 ML VIAL ONE (09:36)
[2017-08-14] MEDS ORDERED: Dexamethasone 4 MG/ML VIAL ONE (09:42)
[2017-08-14] MEDS ORDERED: *HR* Succinylcholine 200 MG/10 ML VIAL IVP ONE (09:42)
[2017-08-14] MEDS ORDERED: Lidocaine -MPF 2% 2 ML VIAL ONE (09:42)
[2017-08-14] MEDS ORDERED: *HR* Rocuronium Bromide 50 MG/5 ML VIAL ONE (09:42)
[2017-08-14] MEDS ORDERED: Ondansetron 4 MG/2 ML VIAL ONE (09:42)
[2017-08-14] MEDS ORDERED: Ipratropium/Albuterol Neb 3 ML IH SCH (10:00)
[2017-08-14] MEDS ORDERED: *HR* Phenylephrine 10 MG/ML VIAL ONE ×2 (10:27→11:11)
[2017-08-14] MEDS ORDERED: CefOXitin 2,000 MG VIAL ONE (11:00)
[2017-08-14] MEDS ORDERED: Fluconazole 200 MG/100 ML 200 MG/100 ML BAG IVPB SCH (11:15)
--- NOTE | 2017-08-14 11:38 | General Surgery Procedure Note ---
<Cali Johnson - Last Filed: 08/14/17 11:47> Date of procedure: 08/14/17 Pre-op diagnosis: gi bleed Post-op diagnosis: same Procedure: Right femoral arterial line placement: While under sterile technique from the previous trauma line placement the right femoral artery was observed under direct ultrasonography with pulsatile flow. The artery was punctured and pulsatile flow was noted from the needle hub. Guidewire was introduced into the needle and confirmed intraluminal in the femoral artery via ultrasonography. The arterial catheter was placed over the guidewire. The guidewire was removed and transducer unit connected to the arterial catheter. Appropriate waveform visible on the monitor. The arterial line was sutured in place with one 3-0 nylon suture. Sterile dressing applied. Complications: None Anesthesia: none Surgeon: Cali Johnson Estimated blood loss (cc): 10 Pathology: none sent Condition: stable Disposition: ICU (Attending Physician Dr. Davis present throughout the procedure) <Griffin Davis - Last Filed: 08/14/17 21:37> Procedure: I examined this patient and my medical decision-making was reviewed with the Resident Physician. I agree with the documented findings, disposition and treatment plan as described except to the extent set forth below. Personally supervised resident placement of the arterial line without immediate complications.
--- NOTE | 2017-08-14 11:38 | General Surgery Procedure Note ---
<Cali Johnson - Last Filed: 08/14/17 11:47> Date of procedure: 08/14/17 Pre-op diagnosis: GI bleed Post-op diagnosis: same Procedure: Right femoral trauma line procedure: Consent was obtained for femoral central an arterial line placement. A timeout was performed. The patient was prepped and draped in usual sterile fashion. Chlorhexidine was allowed to dry. The area was assessed under direct ultrasonography demonstrating anatomic landmarks of the femoral vein and femoral artery. The right femoral vein was punctured and noted to have dark red blood return under direct ultrasonography. The guidewire was placed through the needle and confirmed with ultrasonography to be intraluminal in the femoral vein. Next the needle was removed and a small cut in the skin was made at the area of insertion. The dilator/catheter unit was introduced over the guidewire and gently twisted with insertion to achieve dilation. The dilator was removed leaving in place the trauma line catheter. Dark red blood expressed from the catheter with aspiration. The catheter was capped. The catheter was sutured in place with 2-0 nylon and sterile dressing applied. Complications: None Anesthesia: none Surgeon: Cali Johnson Estimated blood loss (cc): 10 Pathology: none sent Condition: stable Disposition: ICU (Attending Physician Dr. Davis present throughout the procedure.) <Griffin Davis - Last Filed: 08/14/17 21:36> Procedure: I examined this patient and my medical decision-making was reviewed with the Resident Physician. I agree with the documented findings, disposition and treatment plan as described except to the extent set forth below. Personally supervised resident placement of the central line without immediate complications.
[2017-08-14] MEDS ORDERED: Piperacillin/Tazobactam 3.375 GM in 0.9 % Sodium Chloride Mini Bag 100 ML IVPB SCH (12:00)
--- NOTE | 2017-08-14 12:49 | Operative Note ---
Date of procedure: 08/14/17 Pre-op diagnosis: duodenal bleeding ulcer Post-op diagnosis: same Procedure: Exploratory laparotomy, oversew bleeding duodenal ulcer, Heineke Micklicz pyloroplasty with omental patch Anesthesia: ROGER Surgeon: Ally Smallwood Was there an electrician assistant present: Yes Application Development Team Lead: Dionne Mendoza Estimated blood loss (cc): 20 Specimen: none Condition: stable Disposition: ICU Procedure in Detail: Patient was brought to the operating suite on the transport cart. He is placed on the operating table in supine position. Sign in was performed and everyone was in agreement. Anesthesia was induced and patient was endotracheally intubated by anesthesia without incident. An NG tube was placed by anesthesia without incident. We began by performing an EGD which is dictated separately. EGD with control of duodenal ulcer bleeding was not successful and the decision was made to convert to an operative procedure. The abdomen was prepped and draped in the usual sterile fashion. A timeout had previously been done. A midline incision in the upper abdomen through the skin and the subcutaneous tissue was made with a 15 blade. We dissected through the subcutaneous tissue to the anterior abdominal wall fascia with the Bovie. Mcdonald's are placed on either side of the fascia for retraction and the abdomen was entered with the Bovie. Bookwalter was placed for retraction. We entered into the greater sac via dividing the omentum between the stomach and the transverse colon with the impact LigaSure and Bovie. The duodenum was kocherized with gentle blunt dissection. 2 separate 3-0 silk stay stitches were placed at the area of the palpable pylorus superiorly and inferiorly. The duodenum was opened in a longitudinal fashion with the Bovie down to the ulcer. The clip placed at the bleeding vessel during EGD was located. There continued to be bleeding from the site and it was oversewn with 2 separate 3-0 silk cezxve-ns-fecle stitches. The bleeding appeared to stop. The duodenum was then closed in a Heineke Mikulicz fashion. The proximal and distal ends of the longitudinal opening of the duodenum were reapproximated with 4-0 Vicryl stitch which was then run inferiorly in a running locked fashion taking full-thickness bites. Another 4- 0 Vicryl stitch was placed at the proximal and distal end of the longitudinal opening of the duodenum and run superiorly in a running locked fashion taking full-thickness bites of the duodenum. This was oversewn with 3-0 silk interrupted Lembert stitches. The duodenum was palpably patent. 4 of the 3-0 silk Lembert stitches were not cut, along the length of the duodenal closure. A tongue of omentum was isolated from the transverse colon with the impact LigaSure and Bovie and laid along the duodenal closure and secured with the 4, 3 -0 silk Lembert stitches that were not previously cut. The abdomen was irrigated with sterile saline. Two 19 mm Jason drains were placed through the right abdominal wall, one laying superior to the pyloroplasty closure, the other inferiorly. Both Jason drains were secured to the skin with 2-0 silk stitches. Shelby's are placed on either side of the fascia for retraction. The abdominal wall was reapproximated with 2 separate #1 PDS non-looped running stitches meeting in the middle. The subcutaneous tissue was irrigated with sterile saline. The subcutaneous tissue was reapproximated with 3-0 Vicryl interrupted stitches. The skin was closed with elisa. 4 x 4 gauze and Medipore tape were applied as a midline incision dressing and drain sponges were placed at the Jason drain sites and secured with tape. The G-tube was replaced by anesthesia with an NG tube. Rubio catheter was placed by the circulating nurse. All lap and instrument counts were correct at the end of the case. The patient tolerated the procedure well and was stable after the case without pressors. He was awoken by anesthesia without incident and extubated. He was taken back to ICU in stable condition.
[2017-08-14] MEDS ORDERED: *HR* FentaNYL (PF) 100 MCG/2 ML VIAL IVP PRN (13:23)
[2017-08-14] MEDS ORDERED: OXYCODONE Oral CONC 10 MG/0.5 ML ORAL.SYG SL PRN (13:28)
[2017-08-14] MEDS ORDERED: *HR* FentaNYL PATCH 25 MCG PATCH TD SCH (13:30)
--- NOTE | 2017-08-14 13:38 | Anesthesia Evaluation Post Op ---
Date of Encounter: 08/14/17 Time of Encounter: 13:37 - Vital Signs Vital Signs: Vital Signs/O2 Sat, Most Current Temp Pulse Resp BP Pulse Ox 96.4 F L 111 12 177/93 100 08/14/17 13:31 08/14/17 13:31 08/14/17 13:31 08/14/17 13:31 08/14/17 13:31 - Lungs Lungs: Clear Ascult./Percussion - Airway Airway: Non-obstructed - Cardiovascular Regular Rate - Mental Status Mental Status: Alert & Oriented, Answers Appropriately - Pain Pain Scale: 0 Pain Scale used: Numeric (1 - 10) - Nausea Vomiting Nausea Vomiting: Not Present - Hydration Hydration: NPO, Rubio catheter - Discharge PostOp Status: Transfer Patient to floor
[2017-08-14] MEDS: OXYCODONE Oral CONC 10 MG/0.5 ML ORAL.SYG SL PRN ×2 (13:55→23:28)
[2017-08-14 14:19] LABS: Basophils # 0.1 K/mcL (0.0-0.2); Basophils % 0.3 %; Hematocrit 30.3 % (37.5-50.1); Immature Granulocytes % 1.2 % (0-4); Lymphocytes # 1.4 K/mcL (0.6-4.6); Lymphocytes % 5.6 %; Mean Corpuscular HGB Conc 35.3 g/dL (31.6-35.5); Mean Corpuscular Hemoglobin 30.7 pg (28.0-33.3); Mean Corpuscular Volume 87.1 fL (83.0-100.0); Mean Platelet Volume 10.5 fL (9.4-12.4); Neutrophils # 22.1 K/mcL (1.6-8.9); Platelet Count 176 K/mcL (140-400); Red Blood Count 3.48 M/mcL (4.19-5.50); Red Cell Distribution Width 15.1 % (11.5-14.5); Segmented Neutrophils % 88.9 %
[2017-08-14 14:25] LABS: Hemoglobin 10.7 g/dL (12.9-16.9)
[2017-08-14 14:28] LABS: Platelet Estimate Normal (Normal)
[2017-08-14 14:44] LABS: Alanine Aminotransferase 11 Units/L (7-52); Albumin/Globulin Ratio 1.7 (1.1-2.2); Alkaline Phosphatase 35 Units/L (34-104); Aspartate Amino Transferase 17 Units/L (13-39); BUN/Creatinine Ratio 33 (6-26); Bilirubin,Direct 0.2 mg/dL (0.0-0.2); Bilirubin,Indirect 0.5 mg/dL (0.0-1.2); Bilirubin,Total 0.7 mg/dL (0.3-1.0); Blood Urea Nitrogen 39 mg/dL (6-20); Calcium 6.3 mg/dL (8.6-10.3); Carbon Dioxide 16 mEq/L (23-29); Chloride 121 mEq/L (98-107); Globulin 1.2 g/dL (2.4-3.5); Glucose 204 mg/dL (70-105); Magnesium 1.4 mg/dL (1.6-2.6); Osmolality,Calculated 307 (280-300); Phosphorous 3.4 mg/dL (2.7-4.5); Potassium 5.1 mEq/L (3.5-5.1); Sodium 141 mEq/L (136-145); Total Protein 3.2 g/dL (6.4-8.9); eGFR For African Americans > 60 (> 60); eGFR For Non-African Americans > 60 (> 60)
[2017-08-14] MEDS: Ipratropium/Albuterol Neb 3 ML IH SCH ×2 (15:33→22:21)
[2017-08-14] MEDS: Acetaminophen IV 1,000 MG/100 ML INFUS..BTL IVPB SCH (15:50)
[2017-08-14] MEDS: Piperacillin/Tazobactam 3.375 GM in 0.9 % Sodium Chloride Mini Bag 100 ML IVPB SCH (15:56)
[2017-08-14] MEDS: 0.9 % Sodium Chloride 1,000 ML IVC SCH (16:19)
[2017-08-14] MEDS ORDERED: OXYCODONE Oral CONC 10 MG/0.5 ML ORAL.SYG SL ONE (18:07)
[2017-08-14 18:28] LABS: Hematocrit 30.8 % (37.5-50.1); Hemoglobin 10.8 g/dL (12.9-16.9)
[2017-08-14] MEDS ORDERED: *HR* Labetalol 20 MG/4 ML SYRINGE IVP ONE (18:36)
[2017-08-14] MEDS ORDERED: *HR* EPINEPHrine 1 MG/10 ML SYRINGE ONE (20:52)
[2017-08-15] MEDS: Piperacillin/Tazobactam 3.375 GM in 0.9 % Sodium Chloride Mini Bag 100 ML IVPB SCH ×4 (00:14→23:47)
[2017-08-15] MEDS: Acetaminophen IV 1,000 MG/100 ML INFUS..BTL IVPB SCH ×4 (01:08→23:48)
[2017-08-15] MEDS: Pantoprazole 40 MG in 0.9 % Sodium Chloride Mini Bag 100 ML IVC SCH ×6 (01:08→21:43)
[2017-08-15] MEDS ORDERED: *HR* Metoprolol 5 MG/5 ML VIAL IVP ONE ×2 (03:00→03:03)
[2017-08-15 03:39] LABS: Hematocrit 28.8 % (37.5-50.1); Hemoglobin 9.9 g/dL (12.9-16.9)
[2017-08-15 03:46] LABS: INR 1.3; Prothrombin Time 13.8 Seconds (9.4-12.1)
[2017-08-15 03:58] LABS: Albumin 2.3 g/dL (3.5-5.7); Albumin/Globulin Ratio 1.4 (1.1-2.2); Bilirubin,Direct 0.2 mg/dL (0.0-0.2); Bilirubin,Indirect 0.2 mg/dL (0.0-1.2); Bilirubin,Total 0.4 mg/dL (0.3-1.0); Calcium 7.5 mg/dL (8.6-10.3); Globulin 1.6 g/dL (2.4-3.5); Potassium 5.5 mEq/L (3.5-5.1); Total Protein 3.9 g/dL (6.4-8.9)
[2017-08-15] MEDS: Ipratropium/Albuterol Neb 3 ML IH SCH ×4 (04:12→21:46)
[2017-08-15] MEDS: 0.9 % Sodium Chloride 1,000 ML IVC SCH (05:10)
[2017-08-15] MEDS: OXYCODONE Oral CONC 10 MG/0.5 ML ORAL.SYG SL PRN ×4 (05:31→23:49)
--- NOTE | 2017-08-15 07:07 | Pulmonology Progress Note ---
Date of Encounter: 08/15/17 Time of Encounter: 07:06 Assessment and Plan (1) Acute upper GI bleed Current Visit: No Status: Acute Patient seen and examined at bedside Labs, radiology, chart personally reviewed. Management was reviewed during multidisciplinary critical care rounds. SOLAR SALES CONSULTANT: Fully awake and alert no focal deficits continue to monitor Pulm: History of COPD but he is having excellent saturation on room air he was extubated without issue yesterday postoperatively we have scheduled bronchodilators. He is at risk for atelectasis secondary to surgery we will encourage incentive spirometry out of bed to chair and early ambulation as tolerated Cards: History of hypertension he remains hypertensive now nothing by mouth at this time so we will start IV formulations of metoprolol and hydralazine to control blood pressure FEN-GI: Nothing by mouth for now acute GI hemorrhage secondary to duodenal ulcer postop day 1 status post exploratory laparotomy with oversewing of bleeding duodenal ulcer pyeloplasty and omental patch. No further evidence of hemorrhage general surgery following this patient and managing the postoperative care Renal: Urine output monitored along with daily monitoring of electrolytes and serum creatinine no evidence of acute kidney injury at this time ID: Patient has leukocytosis with concern for infection from intra-abdominal source he is on broad-spectrum antimicrobials for this with plan for de- escalation Heme/Onc: DVT prophylaxis given in the form of SCDs continue to trend H&H over the course of the day Endo: Glucose Monitored Integ/MSK: Skin Care per routine ICU Nursing Protocol to prevent ulcers. Lines: All lines examined without evidence of infection : Dispo: Remain in ICU for monitoring postoperatively can likely be transitioned to floor care later today or tomorrow CODE: Full (2) Hypertension Current Visit: No Status: Chronic Qualifiers: Hypertension type: essential hypertension Qualified Code(s): I10 - Essential (primary) hypertension (3) DVT prophylaxis Current Visit: No Status: Resolved (4) COPD (chronic obstructive pulmonary disease) Current Visit: No Status: Chronic Qualifiers: COPD type: unspecified COPD Qualified Code(s): J44.9 - Chronic obstructive pulmonary disease, unspecified (5) Duodenal ulcer Current Visit: No Status: Acute (6) Acute blood loss anemia Current Visit: Yes Status: Acute (7) DVT prophylaxis Current Visit: Yes Status: Acute Subjective Principal diagnosis: Gastrointestinal hemorrhage Interval history: Mr. Barrett did well overnight after surgery were he had not surgical repair of duodenal ulcer. He has been hypertensive over the course of the evening and has received beta dequan for this otherwise he denies complaints at present except that he feels too hot with a bear hugger on which I have instructed nursing staff to remove Objective PUL Vital signs: Last Vital Signs Temp 96.5 F L 08/15/17 05:08 Pulse 92 08/15/17 06:00 Resp 15 08/15/17 06:00 BP 164/77 08/15/17 06:00 Pulse Ox 99 08/15/17 06:00 General appearance: no acute distress Eyes: nonicteric ENT: oropharynx dry Neck: supple Effort: normal Cardiovascular: regular rate and rhythm Gastrointestinal: hypoactive bowel sounds, soft, non-tender, other (Surgical skin incision midline scar noted to that is dressed and clean dry and intact) Integumentary: normal Extremities: no edema normal mental status, non-focal exam mood appropriate Results - Laboratory Findings CBC and BMP: 08/15/17 03:27 08/15/17 03:27 PT/INR, D-dimer PT 13.8 Seconds (9.4-12.1) H 08/15/17 03:27 Abnormal lab findings: Abnormal lab results WBC 24.9 K/mcL (4.3-11.1) H D 08/14/17 13:28 RBC 3.48 M/mcL (4.19-5.50) L 08/14/17 13:28 Hgb 9.9 g/dL (12.9-16.9) L 08/15/17 03:27 Hct 28.8 % (37.5-50.1) L 08/15/17 03:27 RDW 15.1 % (11.5-14.5) H 08/14/17 13:28 Neutrophils # 22.1 K/mcL (1.6-8.9) H 08/14/17 13:28 Anisocytosis 1+ (Not Present) A 08/14/17 06:12 PT 13.8 Seconds (9.4-12.1) H 08/15/17 03:27 Potassium 5.5 mEq/L (3.5-5.1) H 08/15/17 03:27 Chloride 118 mEq/L (98-107) H 08/15/17 03:27 Carbon Dioxide 13 mEq/L (23-29) L 08/15/17 03:27 BUN 52 mg/dL (6-20) H 08/15/17 03:27 Creatinine 1.74 mg/dL (0.70-1.30) H 08/15/17 03:27 Est GFR ( Amer) 49 (> 60) L 08/15/17 03:27 Est GFR (Non-Af Amer) 41 (> 60) L 08/15/17 03:27 BUN/Creatinine Ratio 30 (6-26) H 08/15/17 03:27 Glucose 182 mg/dL (70-105) H 08/15/17 03:27 POC Glucose 160 mg/dL (70-99) H 08/14/17 13:09 Calculated Osmolality 307 (280-300) H 08/15/17 03:27 Calcium 7.5 mg/dL (8.6-10.3) L 08/15/17 03:27 Magnesium 1.4 mg/dL (1.6-2.6) L 08/14/17 13:28 Serum Total Protein 3.9 g/dL (6.4-8.9) L 08/15/17 03:27 Albumin 2.3 g/dL (3.5-5.7) L 08/15/17 03:27 Globulin 1.6 g/dL (2.4-3.5) L 08/15/17 03:27 - Clinical Findings Intake & Output: Intake & Output 08/14/17 08/14/17 08/15/17 15:59 23:59 07:59 Intake Total 3552 / 3552 1370 / 1370 1100 / 1100 Output Total 930 / 930 345 / 345 315 / 315 Balance 2622 / 2622 1025 / 1025 785 / 785 Weight 75.3 kg - VTE Documentation of Mechanical Device: Intermittent pneumatic compression device Consult Discharge Plan - Plan Referrals: Kyler Loyd, PARAPROFESSIONAL AIDE [Primary Care Provider] -
--- NOTE | 2017-08-15 07:24 | General Surgery Progress Note ---
<SelinAlly Salinas - Last Filed: 08/15/17 10:18> Date of Encounter: 08/15/17 - Assessment and Plan (1) Acute upper GI bleed Current Visit: No Status: Resolved pod 1 ex lap, oversew duodenal bleeding vessel, Heineke Micklicz pyloroplasty and omental patch continue npo x 3 days and as long as REENA drainage serosang/serous will check UGI on day 4, if no extrav will give clears expect patient to have liquid melanotic stools as he passes on the blood that is within his bowels continue prn pain regimen - working well protonix and carafate prn antiemetics ngt to LIWS - no manipulation of tube EPCD's ok OOB to chair and ambulate continue abx lft's wnl continue npo, picc tpn (2) Upper abdominal pain Current Visit: No Status: Acute continue pain control regimen, appears to be working well for patient (3) Hemorrhagic shock Current Visit: Yes Status: Resolved resolved (4) Acute kidney injury Current Visit: Yes Status: Acute uop is inadequate, give 500cc bolus strict I/O's continue oshea monitor Cr (5) Hypertension Current Visit: No Status: Chronic started lopresser scheduled and prn hydralazine, monitor Qualifiers: Hypertension type: essential hypertension Qualified Code(s): I10 - Essential (primary) hypertension (6) DVT prophylaxis Current Visit: No Status: Acute EPCDs (7) Duodenal ulcer Current Visit: No Status: Acute continue protonix and po carafate check fecal H pylori Ag (8) Leukocytosis Current Visit: Yes Status: Acute continue antibiotics, trend Qualifiers: Leukocytosis type: unspecified Qualified Code(s): D72.829 - Elevated white blood cell count, unspecified Subjective Patient reports: feels better, still having pain, pain is less, flatus, no bowel movement, afebrile Objective Vital Signs - Last 8 Hours Temp Pulse Resp BP Pulse Ox 08/15/17 09:00 102 16 153/79 100 08/15/17 08:15 97.5 F L 08/15/17 08:00 98 18 179/88 100 08/15/17 07:00 96 16 162/77 100 08/15/17 06:00 92 15 164/77 99 08/15/17 05:08 96.5 F L 08/15/17 05:00 87 17 183/87 100 08/15/17 04:12 15 100 08/15/17 04:00 98 12 166/82 100 08/15/17 03:00 97 19 183/86 100 Intake and Output 08/14/17 08/15/17 08/15/17 23:59 07:59 15:59 Intake Total 1370 / 1370 1200 / 1200 200 / 200 Output Total 345 / 345 315 / 315 115 / 115 Balance 1025 / 1025 885 / 885 85 / 85 Intake: IV Fluids 1370 / 1370 1200 / 1200 200 / 200 0.9 % Sodium Chloride 1,000 ML 1000 / 1000 @ 80 mls/hr IVC .[id number] [facility] Rx #:[id number] KCl 20 mEq in 0.9% Sodium 1000 / 1000 Chloride 20 meq In 1,000 ml @ 100 mls/hr IVC .Q10H [facility] Rx#: [id number] SandoSTATIN 400 MCG In 0.9 % 0 / 0 Sodium Chloride 100 ML @ 50 MCG /HR 13 mls/hr IVC .Q8H [facility] Rx#: [id number] Protonix 40 MG In 0.9 % Sodium 170 / 170 100 / 100 Chloride (Mini-Bag +) 100 ML @ 20 mls/hr IVC .Q5H [facility] Rx#: [id number] Ofirmev 1,000 mg/100 ml 1,000 100 / 100 100 / 100 mg In 100 ml @ 400 mls/hr IVPB Q8HR [facility] Rx#:[id number] Diflucan Premix 200 MG/100 ML 100 / 100 200 mg In 100 ml @ 100 mls/hr IVPB DAILY [facility] Rx#:[id number] Zosyn 3.375 GM In 0.9 % Sodium 100 / 100 100 / 100 Chloride (Mini-Bag +) 100 ML @ 25 mls/hr IVPB Q8HR [facility] Rx#: [id number] Output: Catheter 45 / 45 100 / 100 50 / 50 Gastric Drainage 75 / 75 150 / 150 Wound Drainage 225 / 225 65 / 65 65 / 65 REENA drain/Jason tube #1 120 / 120 25 / 25 40 / 40 REENA drain/Jason tube #2 105 / 105 40 / 40 25 / 25 Other: Weight 75.3 kg Patient Weight 08/15/17 23:59 Weight 75.3 kg - General physical appearance well developed, well nourished, moderate pain - Eyes PERRL, normal ocular movement - ENT normal mucosa, normocephalic - Neck Neck exam: trachea midline - Respiratory normal expansion, clear to auscultation - Cardiovascular Cardiovascular exam: Present: RRR - Abdomen Abdomen: Present: soft, tender (appropriate post op tenderness). Absent: bowel sounds present, distended, guarding, rebound Additional Comments: REENA above and below duodenum both serosang - Incision Incision: Present: clean and dry, intact - Integumentary no growths - Musculoskeletal normal posture - Psychiatric oriented to time, oriented to person, oriented to place, speech is normal, memory intact - Labs 08/15/17 08:58 08/15/17 03:27 Diabetes panel 08/14/17 08/15/17 08/15/17 Range/Units 13:28 03:27 03:27 Sodium 141 139 (136-145) mEq/L Potassium 5.1 5.5 H (3.5-5.1) mEq/L Chloride 121 H 118 H (98-107) mEq/L Carbon Dioxide 16 L 13 L (23-29) mEq/L BUN 39 H 52 H (6-20) mg/dL Creatinine 1.18 1.74 H (0.70-1.30) mg/dL Glucose 204 H 182 H (70-105) mg/dL Calcium 6.3 L 7.5 L (8.6-10.3) mg/dL AST 17 17 (13-39) Units/L ALT 11 13 (7-52) Units/L Alkaline Phosphatase 35 44 (34-104) Units/L Albumin 2.0 L 2.3 L (3.5-5.7) g/dL Calcium panel 08/14/17 08/15/17 08/15/17 Range/Units 13:28 03:27 03:27 Calcium 6.3 L 7.5 L (8.6-10.3) mg/dL Phosphorus 3.4 (2.7-4.5) mg/dL Albumin 2.0 L 2.3 L (3.5-5.7) g/dL Pituitary panel 08/14/17 08/15/17 Range/Units 13:28 03:27 Sodium 141 139 (136-145) mEq/L Potassium 5.1 5.5 H (3.5-5.1) mEq/L Chloride 121 H 118 H (98-107) mEq/L Carbon Dioxide 16 L 13 L (23-29) mEq/L BUN 39 H 52 H (6-20) mg/dL Creatinine 1.18 1.74 H (0.70-1.30) mg/dL Glucose 204 H 182 H (70-105) mg/dL Calcium 6.3 L 7.5 L (8.6-10.3) mg/dL Adrenal panel 08/14/17 08/15/17 08/15/17 Range/Units 13:28 03:27 03:27 Sodium 141 139 (136-145) mEq/L Potassium 5.1 5.5 H (3.5-5.1) mEq/L Chloride 121 H 118 H (98-107) mEq/L Carbon Dioxide 16 L 13 L (23-29) mEq/L BUN 39 H 52 H (6-20) mg/dL Creatinine 1.18 1.74 H (0.70-1.30) mg/dL Glucose 204 H 182 H (70-105) mg/dL Calcium 6.3 L 7.5 L (8.6-10.3) mg/dL Total Bilirubin 0.7 0.4 (0.3-1.0) mg/dL AST 17 17 (13-39) Units/L ALT 11 13 (7-52) Units/L Alkaline Phosphatase 35 44 (34-104) Units/L Albumin 2.0 L 2.3 L (3.5-5.7) g/dL Vital Signs Temp Pulse Resp BP Pulse Ox 08/15/17 09:00 102 16 153/79 100 08/15/17 08:15 97.5 F L 08/15/17 08:00 98 18 179/88 100 08/15/17 07:00 96 16 162/77 100 08/15/17 06:00 92 15 164/77 99 08/15/17 05:08 96.5 F L 08/15/17 05:00 87 17 183/87 100 08/15/17 04:12 15 100 08/15/17 04:00 98 12 166/82 100 08/15/17 03:00 97 19 183/86 100 08/15/17 02:00 96 12 166/78 99 04/16/18 01:00 101 16 177/88 98 08/15/17 00:00 98 16 170/84 98 08/14/17 23:00 95 17 175/88 100 08/14/17 22:21 18 99 08/14/17 22:00 87 12 153/83 99 08/14/17 21:00 82 15 172/89 100 08/14/17 20:32 97.6 F 08/14/17 20:00 77 16 168/86 100 08/14/17 19:00 111 17 183/92 98 08/14/17 18:12 100 12 200/97 100 08/14/17 17:08 104 12 154/86 100 08/14/17 16:11 96.4 F L 112 12 170/90 100 08/14/17 15:33 16 170/90 100 08/14/17 15:30 96.4 F L 111 12 177/99 100 08/14/17 15:00 111 12 162/93 100 08/14/17 14:31 108 12 156/89 100 08/14/17 14:17 96.6 F L 105 12 166/90 100 08/14/17 14:00 103 12 163/86 100 08/14/17 13:45 109 12 161/88 100 08/14/17 13:33 105 12 166/90 100 08/14/17 13:31 96.4 F L 111 12 177/93 100 Intake and Output 08/14/17 08/15/17 08/15/17 23:59 07:59 15:59 Intake Total 1370 / 1370 1200 / 1200 200 / 200 Output Total 345 / 345 315 / 315 115 / 115 Balance 1025 / 1025 885 / 885 85 / 85 Intake: IV Fluids 1370 / 1370 1200 / 1200 200 / 200 0.9 % Sodium Chloride 1,000 ML 1000 / 1000 @ 80 mls/hr IVC .[id number] [facility] Rx #:[id number] KCl 20 mEq in 0.9% Sodium 1000 / 1000 Chloride 20 meq In 1,000 ml @ 100 mls/hr IVC .Q10H [facility] Rx#: [id number] SandoSTATIN 400 MCG In 0.9 % 0 / 0 Sodium Chloride 100 ML @ 50 MCG /HR 13 mls/hr IVC .Q8H [facility] Rx#: [id number] Protonix 40 MG In 0.9 % Sodium 170 / 170 100 / 100 Chloride (Mini-Bag +) 100 ML @ 20 mls/hr IVC .Q5H [facility] Rx#: [id number] Ofirmev 1,000 mg/100 ml 1,000 100 / 100 100 / 100 mg In 100 ml @ 400 mls/hr IVPB Q8HR [facility] Rx#:[id number] Diflucan Premix 200 MG/100 ML 100 / 100 200 mg In 100 ml @ 100 mls/hr IVPB DAILY [facility] Rx#:[id number] Zosyn 3.375 GM In 0.9 % Sodium 100 / 100 100 / 100 Chloride (Mini-Bag +) 100 ML @ 25 mls/hr IVPB Q8HR [facility] Rx#: [id number] Output: Catheter 45 / 45 100 / 100 50 / 50 Gastric Drainage 75 / 75 150 / 150 Wound Drainage 225 / 225 65 / 65 65 / 65 REENA drain/Jason tube #1 120 / 120 25 / 25 40 / 40 REENA drain/Jason tube #2 105 / 105 40 / 40 25 / 25 Other: Weight 75.3 kg Patient Weight 08/15/17 23:59 Weight 75.3 kg Consult Discharge Plan - Plan Referrals: Kyler Loyd, DIGITAL STRATEGY DIRECTOR [Primary Care Provider] - - Attending Attestation I examined this patient and my medical decision-making was reviewed with the Resident Physician. I agree with the documented findings, disposition and treatment plan as described except to the extent set forth below. <Jovi Meneses - Last Filed: 08/15/17 12:04> Date of Encounter: 08/15/17 Time of Encounter: 09:45 - Assessment and Plan (1) Acute upper GI bleed Current Visit: No Status: Resolved POD #1 S/P Ex Lap, with oversew of bleeding duodenal vessel, Heineke Micklicz Pyloroplasty and omental patch Pt to be kept NPO x 3 days Will check UGI on day 4. If no extravisation of contrast will advnace diet to clears Continue current PRN pain regimen Contine Protonix and Crafate Continue prn antiemetics Keep NG to LIWS continue AbX continue TPN Promote OOB to chair and ambulation (2) Upper abdominal pain Current Visit: No Status: Acute Continue Protonix, Carafate, Oxycodone oral concentrate, Ofirmev, fentanyl patch (3) Hemorrhagic shock Current Visit: Yes Status: Resolved Resolved Pt's HGB 5.5 upon admission Pt transfused 5 units PRBC Hgb today stable at 8.6 (4) Leukocytosis Current Visit: Yes Status: Acute Continue to monitor with daily labs Continue abx management per primary team Qualifiers: Leukocytosis type: unspecified Qualified Code(s): D72.829 - Elevated white blood cell count, unspecified (5) Hypertension Current Visit: No Status: Chronic Plan: Start Lopressor and prn hydralazine continue to monitor Qualifiers: Hypertension type: essential hypertension Qualified Code(s): I10 - Essential (primary) hypertension (6) Duodenal ulcer Current Visit: No Status: Acute Plan: Check Fecal H Pylori Antigen continue protonix and Carafate (7) Acute kidney injury Current Visit: Yes Status: Acute Continue Oshea and strict Is&Os Continue to monitor Cr. Patient has be having inadequate urine out put 500cc bolus LR given Appreciate help from primary in fluid management. (8) DVT prophylaxis Current Visit: No Status: Acute Continue EPCDs in light of GI bleed. Subjective Patient reports: feels better, still having pain, pain is less, flatus, no bowel movement, afebrile Narrative: 57 M POD #1 S/P Ex Lap, with oversew of bleeding duodenal vessel, Heineke Micklicz Pyloroplasty and omental patch. Patient reports improvement in pain. He denies N, V, D, Bowel Movement, Fever, Chills, Dizziness. He endorses flatus, dry mouth. Objective Vital Signs - Last 8 Hours Temp Pulse Resp BP Pulse Ox 08/15/17 06:00 92 15 164/77 99 08/15/17 05:08 96.5 F L 08/15/17 05:00 87 17 183/87 100 08/15/17 04:12 15 100 08/15/17 04:00 98 12 166/82 100 08/15/17 03:00 97 19 183/86 100 08/15/17 02:00 96 12 166/78 99 08/15/17 01:00 101 16 177/88 98 08/15/17 00:00 98 16 170/84 98 Intake and Output 08/14/17 08/14/17 08/15/17 15:59 23:59 07:59 Intake Total 3552 / 3552 1370 / 1370 1100 / 1100 Output Total 930 / 930 345 / 345 315 / 315 Balance 2622 / 2622 1025 / 1025 785 / 785 Intake: IV Fluids 1052 / 1052 1370 / 1370 1100 / 1100 0.9 % Sodium Chloride 1,000 ML 0 / 0 @ 0 mls/hr .ROUTE .STK-MED ONE Rx#:[id number] 0.9 % Sodium Chloride 500 ML @ 100 / 100 0 mls/hr .ROUTE .STK-MED ONE Rx #:[id number] ALBURX 5% 25.0 gm In 500 ml @ 0 500 / 500 mls/hr .ROUTE .STK-MED ONE Rx# :[id number] 0.9 % Sodium Chloride 1,000 ML 1000 / 1000 @ 80 mls/hr IVC .[id number] [facility] Rx #:[id number] KCl 20 mEq in 0.9% Sodium 1000 / 1000 Chloride 20 meq In 1,000 ml @ 100 mls/hr IVC .Q10H [facility] Rx#: [id number] SandoSTATIN 400 MCG In 0.9 % 2 / 2 0 / 0 Sodium Chloride 100 ML @ 50 MCG /HR 13 mls/hr IVC .Q8H [facility] Rx#: [id number] Protonix 40 MG In 0.9 % Sodium 30 / 30 170 / 170 100 / 100 Chloride (Mini-Bag +) 100 ML @ 20 mls/hr IVC .Q5H [facility] Rx#: [id number] Ofirmev 1,000 mg/100 ml 1,000 100 / 100 mg In 100 ml @ 400 mls/hr IVPB Q8HR [facility] Rx#:[id number] Calcium Gluconate 2,000 MG In 0 120 / 120 .9 % Sodium Chloride 100 ML @ 220 mls/hr IVPB ONCE ONE Rx#: [id number] Cipro Premix 400 MG/200 ML 400 200 / 200 mg In 200 ml @ 200 mls/hr IVPB Q12HR [facility] Rx#:[id number] Flagyl Premix 500 MG/100 ML 500 100 / 100 mg In 100 ml @ 100 mls/hr IVPB Q8HR [facility] Rx#:[id number] Zosyn 3.375 GM In 0.9 % Sodium 100 / 100 Chloride (Mini-Bag +) 100 ML @ 25 mls/hr IVPB Q8HR [facility] Rx#: [id number] Other 2500 / 2500 Output: Estimated Blood Loss 20 / 20 Urine Amount (Catheter) 650 / 650 Catheter 45 / 45 100 / 100 Gastric Drainage 75 / 75 150 / 150 Wound Drainage 260 / 260 225 / 225 65 / 65 REENA drain/Jason tube #1 170 / 170 120 / 120 25 / 25 REENA drain/Jason tube #2 90 / 90 105 / 105 40 / 40 Other: Weight 75.3 kg Blood Glucose* 160 Patient Weight 08/15/17 23:59 Weight 75.3 kg - General physical appearance well developed, well nourished, moderate pain - Eyes PERRL, normal ocular movement - ENT normal mucosa, normocephalic - Neck Neck exam: trachea midline - Respiratory normal expansion, clear to auscultation - Cardiovascular Cardiovascular exam: Present: RRR, no murmurs/rubs/gallops - Abdomen Abdomen: Present: soft, tender. Absent: bowel sounds present, distended, guarding, rebound - Incision Incision: Present: clean and dry, intact - Integumentary no rash, no growths - Musculoskeletal normal posture - Psychiatric oriented to time, oriented to person, oriented to place, speech is normal, memory intact - Labs 08/15/17 11:10 08/15/17 03:27 Diabetes panel 08/14/17 08/15/17 08/15/17 Range/Units 13:28 03:27 03:27 Sodium 141 139 (136-145) mEq/L Potassium 5.1 5.5 H (3.5-5.1) mEq/L Chloride 121 H 118 H (98-107) mEq/L Carbon Dioxide 16 L 13 L (23-29) mEq/L BUN 39 H 52 H (6-20) mg/dL Creatinine 1.18 1.74 H (0.70-1.30) mg/dL Glucose 204 H 182 H (70-105) mg/dL Calcium 6.3 L 7.5 L (8.6-10.3) mg/dL AST 17 17 (13-39) Units/L ALT 11 13 (7-52) Units/L Alkaline Phosphatase 35 44 (34-104) Units/L Albumin 2.0 L 2.3 L (3.5-5.7) g/dL Calcium panel 08/14/17 08/15/17 08/15/17 Range/Units 13:28 03:27 03:27 Calcium 6.3 L 7.5 L (8.6-10.3) mg/dL Phosphorus 3.4 (2.7-4.5) mg/dL Albumin 2.0 L 2.3 L (3.5-5.7) g/dL Pituitary panel 08/14/17 08/15/17 Range/Units 13:28 03:27 Sodium 141 139 (136-145) mEq/L Potassium 5.1 5.5 H (3.5-5.1) mEq/L Chloride 121 H 118 H (98-107) mEq/L Carbon Dioxide 16 L 13 L (23-29) mEq/L BUN 39 H 52 H (6-20) mg/dL Creatinine 1.18 1.74 H (0.70-1.30) mg/dL Glucose 204 H 182 H (70-105) mg/dL Calcium 6.3 L 7.5 L (8.6-10.3) mg/dL Adrenal panel 08/14/17 08/15/17 08/15/17 Range/Units 13:28 03:27 03:27 Sodium 141 139 (136-145) mEq/L Potassium 5.1 5.5 H (3.5-5.1) mEq/L Chloride 121 H 118 H (98-107) mEq/L Carbon Dioxide 16 L 13 L (23-29) mEq/L BUN 39 H 52 H (6-20) mg/dL Creatinine 1.18 1.74 H (0.70-1.30) mg/dL Glucose 204 H 182 H (70-105) mg/dL Calcium 6.3 L 7.5 L (8.6-10.3) mg/dL Total Bilirubin 0.7 0.4 (0.3-1.0) mg/dL AST 17 17 (13-39) Units/L ALT 11 13 (7-52) Units/L Alkaline Phosphatase 35 44 (34-104) Units/L Albumin 2.0 L 2.3 L (3.5-5.7) g/dL - VTE Documentation of Mechanical Device: Intermittent pneumatic compression device
[2017-08-15] MEDS: Fluconazole 200 MG/100 ML 200 MG/100 ML BAG IVPB SCH (08:17)
[2017-08-15 09:47] LABS: Basophils % 0.2 %; Hematocrit 25.5 % (37.5-50.1); Hemoglobin 8.6 g/dL (12.9-16.9); Immature Granulocytes % 1.4 % (0-4); Lymphocytes % 8.1 %; Mean Corpuscular HGB Conc 33.7 g/dL (31.6-35.5); Mean Corpuscular Hemoglobin 29.7 pg (28.0-33.3); Mean Corpuscular Volume 87.9 fL (83.0-100.0); Mean Platelet Volume 10.8 fL (9.4-12.4); Monocytes # 1.7 K/mcL (0.0-1.3); Neutrophils # 20.1 K/mcL (1.6-8.9); Nucleated Red Blood Cells 0.1 /100 WBC (0); Platelet Count 180 K/mcL (140-400); Red Cell Distribution Width 16.5 % (11.5-14.5); Segmented Neutrophils % 83.3 %
[2017-08-15] MEDS ORDERED: 0.9 % Sodium Chloride 500 ML IVC ONE (10:14)
[2017-08-15] MEDS ORDERED: Ringers Solution, Lactated 500 ML IVC ONE (11:27)
[2017-08-15 11:31] LABS: Hemoglobin 8.3 g/dL (12.9-16.9)
[2017-08-15] MEDS: *HR* Metoprolol 5 MG/5 ML VIAL IVP SCH ×3 (11:35→23:48)
[2017-08-15 11:51] LABS: Phosphorous 4.9 mg/dL (2.7-4.5)
[2017-08-15] MEDS ORDERED: D10% in Water 500 ML IVC PRN (12:01)
[2017-08-15 12:37] LABS: Calcium 7.4 mg/dL (8.6-10.3)
[2017-08-15] MEDS ORDERED: Ringers Solution, Lactated 1,000 ML IVC SCH (14:00)
[2017-08-15] MEDS ORDERED: Lidocaine -MPF 1% 5 ML AMPUL INFILT ONE (15:46)
[2017-08-15] MEDS ORDERED: VITAMIN K IVC SCH (17:00)
[2017-08-15] MEDS ORDERED: MVI IVC SCH (17:00)
[2017-08-15] MEDS ORDERED: CLINIMIX IVC SCH (17:00)
[2017-08-15] MEDS ORDERED: [UNRECOGNIZED DRUG - OTHER] IVC SCH (17:00)
[2017-08-15 18:09] LABS: Hematocrit 18.2 % (37.5-50.1)
[2017-08-15 18:15] LABS: Hemoglobin 6.1 g/dL (12.9-16.9)
[2017-08-15] MEDS ORDERED: 0.9 % Sodium Chloride 250 ML ONE (18:23)
[2017-08-15 18:36] LABS: Hemoglobin 6.1 g/dL (12.9-16.9)
[2017-08-16 00:34] LABS: Hematocrit 20.9 % (37.5-50.1); Hemoglobin 6.9 g/dL (12.9-16.9)
[2017-08-16 00:59] LABS: Calcium 7.4 mg/dL (8.6-10.3); Potassium 3.8 mEq/L (3.5-5.1)
[2017-08-16] MEDS ORDERED: 0.9 % Sodium Chloride 250 ML ONE (01:27)
[2017-08-16] MEDS: Pantoprazole 40 MG in 0.9 % Sodium Chloride Mini Bag 100 ML IVC SCH ×4 (03:25→20:28)
[2017-08-16] MEDS: Ipratropium/Albuterol Neb 3 ML IH SCH ×4 (04:35→21:16)
[2017-08-16 05:27] LABS: Hematocrit 22.4 % (37.5-50.1); Hemoglobin 7.6 g/dL (12.9-16.9)
[2017-08-16 05:33] LABS: INR 1.3; Prothrombin Time 13.9 Seconds (9.4-12.1)
[2017-08-16 05:44] LABS: Magnesium 1.9 mg/dL (1.6-2.6); Phosphorous 2.5 mg/dL (2.7-4.5)
[2017-08-16 05:45] LABS: BUN/Creatinine Ratio 31 (6-26); Blood Urea Nitrogen 42 mg/dL (6-20); Calcium 7.4 mg/dL (8.6-10.3); Carbon Dioxide 18 mEq/L (23-29); Chloride 116 mEq/L (98-107); Glucose 144 mg/dL (70-105); Osmolality,Calculated 299 (280-300); Potassium 3.5 mEq/L (3.5-5.1); Sodium 138 mEq/L (136-145); eGFR For African Americans > 60 (> 60); eGFR For Non-African Americans 54 (> 60)
--- NOTE | 2017-08-16 07:17 | Pulmonology Progress Note ---
<Marlon Hudson W - Last Filed: 08/16/17 11:32> Date of Encounter: 08/16/17 Assessment and Plan (1) Acute upper GI bleed Current Visit: No Status: Resolved (2) Hypertension Current Visit: No Status: Chronic Qualifiers: Hypertension type: essential hypertension Qualified Code(s): I10 - Essential (primary) hypertension (3) DVT prophylaxis Current Visit: No Status: Acute (4) COPD (chronic obstructive pulmonary disease) Current Visit: No Status: Chronic Qualifiers: COPD type: unspecified COPD Qualified Code(s): J44.9 - Chronic obstructive pulmonary disease, unspecified (5) Duodenal ulcer Current Visit: No Status: Resolved (6) Acute blood loss anemia Current Visit: Yes Status: Resolved (7) DVT prophylaxis Current Visit: Yes Status: Acute Objective PUL Vital signs: Last Vital Signs Temp 97.9 F 08/16/17 05:01 Pulse 86 08/16/17 07:00 Resp 18 08/16/17 07:00 BP 115/63 08/16/17 07:00 Pulse Ox 98 08/16/17 07:00 Results - Laboratory Findings CBC and BMP: 08/16/17 05:00 08/16/17 04:00 PT/INR, D-dimer PT 13.9 Seconds (9.4-12.1) H 08/16/17 04:00 Abnormal lab findings: Abnormal lab results WBC 24.1 K/mcL (4.3-11.1) H 08/15/17 08:58 RBC 2.90 M/mcL (4.19-5.50) L 08/15/17 08:58 Hgb 7.6 g/dL (12.9-16.9) L 08/16/17 05:00 Hct 22.4 % (37.5-50.1) L 08/16/17 05:00 RDW 16.5 % (11.5-14.5) H 08/15/17 08:58 Neutrophils # 20.1 K/mcL (1.6-8.9) H 08/15/17 08:58 Monocytes # 1.7 K/mcL (0.0-1.3) H 08/15/17 08:58 Nucleated RBCs/100 WBC 0.1 /100 WBC (0) H 08/15/17 08:58 Anisocytosis 1+ (Not Present) A 08/14/17 06:12 PT 13.9 Seconds (9.4-12.1) H 08/16/17 04:00 Chloride 116 mEq/L (98-107) H 08/16/17 04:00 Carbon Dioxide 18 mEq/L (23-29) L 08/16/17 04:00 BUN 42 mg/dL (6-20) H 08/16/17 04:00 Creatinine 1.35 mg/dL (0.70-1.30) H 08/16/17 04:00 Est GFR (Non-Af Amer) 54 (> 60) L 08/16/17 04:00 BUN/Creatinine Ratio 31 (6-26) H 08/16/17 04:00 Glucose 144 mg/dL (70-105) H 08/16/17 04:00 POC Glucose 118 mg/dL (70-99) H 08/16/17 07:36 Calcium 7.4 mg/dL (8.6-10.3) L 08/16/17 04:00 Phosphorus 2.5 mg/dL (2.7-4.5) L 08/16/17 04:00 Serum Total Protein 3.9 g/dL (6.4-8.9) L 08/15/17 03:27 Albumin 2.3 g/dL (3.5-5.7) L 08/15/17 03:27 Globulin 1.6 g/dL (2.4-3.5) L 08/15/17 03:27 - Clinical Findings Intake & Output: Intake & Output 08/15/17 08/16/17 08/16/17 23:59 07:59 15:59 Intake Total 1285 / 1285 625 / 625 Output Total 580 / 580 1200 / 1200 60 / 60 Balance 705 / 705 -575 / -575 -60 / -60 Weight 79.7 kg Consult Discharge Plan - Plan Referrals: Kyler Loyd, BISCUIT MACHINE OPERATOR [Primary Care Provider] - - Attending Attestation I examined this patient and my medical decision-making was reviewed with the Resident Physician. I agree with the documented findings, disposition and treatment plan as described except to the extent set forth below. We independently had [id number] contact with the patient Patient seen and examined at bedside Labs, radiology, chart personally reviewed. Management was reviewed during multidisciplinary critical care rounds. JACQUARD LOOM CARD CHANGER: Awake and alert no deficits Pulm: stable oxygenation on room air. Cont Incentive vazquez. Cont BDs Cards: BP monitored and stable. FEN-GI: NPO for now. cont TPN per Nutrition recs Renal: Mild prerenal azotemia s/p ID: Remains on coverage for intabdominal sepsis. Heme/Onc: SCDs for DVT prophylaxis drop in H/H ?dilution as no overt evidence of bleeding Endo: Glucose Monitored Integ/MSK: Skin Care per routine ICU Nursing Protocol to prevent ulcers. Lines: All lines examined without evidence of infection : Dispo: Stable for floor with TELE CODE: Full <Cali Johnson - Last Filed: 08/16/17 12:28> Date of Encounter: 08/16/17 Time of Encounter: 08:22 Assessment and Plan (1) Acute upper GI bleed Current Visit: No Status: Resolved History of duodenal ulcer as per EGD on 08/01/17. Presented on 08/14/17 with 2 episodes of hematemesis. Initial hemoglobin of 5.0. POD #2: Exploratory laparotomy, oversew bleeding duodenal ulcer, Heineke Micklicz pyloroplasty with omental patch Continue Protonix infusion at the recommendation of general surgery as well as Carafate. Continue Zosyn and Diflucan as per surgery. Remain NPO at this time. Received 2U PRBC overnight 08/15/18 Serial H&H every 6 hours. (2) Acute blood loss anemia Current Visit: Yes Status: Resolved Presenting hemoglobin of 5.0 with comparison roughly 2 weeks ago of 7.8. POD #2: Exploratory laparotomy, oversew bleeding duodenal ulcer, Heineke Micklicz pyloroplasty with omental patch Hgb 8.3--> 6.1 overnight given 2U PRBC. Most recent 7.6 Total transfusion 7U PRBC since admission Continue serial H&H Q6H Hold anticoagulants (3) Duodenal ulcer Current Visit: No Status: Resolved POD #2: Exploratory laparotomy, oversew bleeding duodenal ulcer, Heineke Micklicz pyloroplasty with omental patch Remains on Protonix infusion as per general surgery as well as Carafate. (4) Hypertension Current Visit: No Status: Chronic Hold antihypertensives in the setting of acute GI bleed Qualifiers: Hypertension type: essential hypertension Qualified Code(s): I10 - Essential (primary) hypertension (5) COPD (chronic obstructive pulmonary disease) Current Visit: No Status: Chronic Albuterol/DuoNeb treatments as needed Qualifiers: COPD type: unspecified COPD Qualified Code(s): J44.9 - Chronic obstructive pulmonary disease, unspecified (6) DVT prophylaxis Current Visit: No Status: Acute SCDs, Hold heparin in setting of UGIB. Subjective Principal diagnosis: Gastrointestinal hemorrhage Interval history: Patient was noted to have a hemoglobin around 6.1. 2 units of packed RBC transfused with most recent hemoglobin 7.6. Patient awake this morning with no complaints. 08/16/17: Trend hemoglobin again at noon today. If stable can likely go to limiter 4. Also given phosphate rider. Spoke with general surgery who recommends to continue Protonix infusion. Objective PUL Vital signs: Last Vital Signs Temp 97.9 F 08/16/17 05:01 Pulse 86 08/16/17 07:00 Resp 18 08/16/17 07:00 BP 115/63 08/16/17 07:00 Pulse Ox 98 08/16/17 07:00 General appearance: no acute distress Eyes: nonicteric ENT: oropharynx moist Effort: normal Auscultation: bilateral: clear Cardiovascular: regular rate and rhythm Gastrointestinal: soft, non-tender, non-distended, other (Incision clean dry intact as well as 2 REENA drains with serosanguineous output.) Integumentary: normal Extremities: no cyanosis, no edema Musculoskeletal: no deformities normal mental status mood appropriate Results - Laboratory Findings CBC and BMP: 08/16/17 05:00 08/16/17 04:00 PT/INR, D-dimer PT 13.9 Seconds (9.4-12.1) H 08/16/17 04:00 Abnormal lab findings: Abnormal lab results WBC 24.1 K/mcL (4.3-11.1) H 08/15/17 08:58 RBC 2.90 M/mcL (4.19-5.50) L 08/15/17 08:58 Hgb 7.6 g/dL (12.9-16.9) L 08/16/17 05:00 Hct 22.4 % (37.5-50.1) L 08/16/17 05:00 RDW 16.5 % (11.5-14.5) H 08/15/17 08:58 Neutrophils # 20.1 K/mcL (1.6-8.9) H 08/15/17 08:58 Monocytes # 1.7 K/mcL (0.0-1.3) H 08/15/17 08:58 Nucleated RBCs/100 WBC 0.1 /100 WBC (0) H 08/15/17 08:58 Anisocytosis 1+ (Not Present) A 08/14/17 06:12 PT 13.9 Seconds (9.4-12.1) H 08/16/17 04:00 Chloride 116 mEq/L (98-107) H 08/16/17 04:00 Carbon Dioxide 18 mEq/L (23-29) L 08/16/17 04:00 BUN 42 mg/dL (6-20) H 08/16/17 04:00 Creatinine 1.35 mg/dL (0.70-1.30) H 08/16/17 04:00 Est GFR (Non-Af Amer) 54 (> 60) L 08/16/17 04:00 BUN/Creatinine Ratio 31 (6-26) H 08/16/17 04:00 Glucose 144 mg/dL (70-105) H 08/16/17 04:00 POC Glucose 129 mg/dL (70-99) H 08/16/17 04:41 Calcium 7.4 mg/dL (8.6-10.3) L 08/16/17 04:00 Phosphorus 2.5 mg/dL (2.7-4.5) L 08/16/17 04:00 Serum Total Protein 3.9 g/dL (6.4-8.9) L 08/15/17 03:27 Albumin 2.3 g/dL (3.5-5.7) L 08/15/17 03:27 Globulin 1.6 g/dL (2.4-3.5) L 08/15/17 03:27 - Clinical Findings Intake & Output: Intake & Output 08/15/17 08/15/17 08/16/17 15:59 23:59 07:59 Intake Total 2049 / 2049 1285 / 1285 625 / 625 Output Total 815 / 815 580 / 580 1200 / 1200 Balance 1235 / 1235 705 / 705 -575 / -575 Weight 79.7 kg - VTE Documentation of Mechanical Device: Intermittent pneumatic compression device
[2017-08-16] MEDS ORDERED: Potassium Chloride 40 MEQ/200 ML BAG IVPB PRN ×2 (07:23→17:56)
[2017-08-16] MEDS ORDERED: Potassium Chloride 40 MEQ/200 ML BAG IVPB ONE (07:27)
[2017-08-16] MEDS: *HR* Metoprolol 5 MG/5 ML VIAL IVP SCH ×5 (07:37→23:38)
[2017-08-16] MEDS: Piperacillin/Tazobactam 3.375 GM in 0.9 % Sodium Chloride Mini Bag 100 ML IVPB SCH ×2 (07:38→16:53)
[2017-08-16] MEDS: Fluconazole 200 MG/100 ML 200 MG/100 ML BAG IVPB SCH (08:21)
[2017-08-16] MEDS: Acetaminophen IV 1,000 MG/100 ML INFUS..BTL IVPB SCH ×3 (08:21→23:38)
[2017-08-16 09:36] LABS: Eosinophils % 0.1 %; Immature Granulocytes % 0.5 % (0-4)
[2017-08-16 09:38] LABS: Basophils % 0.1 %; Immature Platelets 3.8 % (1.1-6.1); Lymphocytes # 1.3 K/mcL (0.6-4.6); Lymphocytes % 15.6 %; Mean Corpuscular HGB Conc 32.9 g/dL (31.6-35.5); Mean Corpuscular Hemoglobin 30.2 pg (28.0-33.3); Mean Corpuscular Volume 91.9 fL (83.0-100.0); Mean Platelet Volume 11.4 fL (9.4-12.4); Monocytes # 0.6 K/mcL (0.0-1.3); Monocytes % 7.4 %; Neutrophils # 6.4 K/mcL (1.6-8.9); Nucleated Red Blood Cells 0.4 /100 WBC (0); Red Blood Count 2.48 M/mcL (4.19-5.50); Red Cell Distribution Width 16.1 % (11.5-14.5); Segmented Neutrophils % 76.3 %
--- NOTE | 2017-08-16 11:25 | General Surgery Progress Note ---
<Jovi Meneses - Last Filed: 08/16/17 11:20> Date of Encounter: 08/16/17 Time of Encounter: 09:00 - Assessment and Plan (1) Acute upper GI bleed Current Visit: No Status: Resolved POD #2 S/P Ex Lap, with oversew of bleeding duodenal vessel, Heineke Micklicz Pyloroplasty and omental patch Pt to be kept NPO x 3 days( today is day 2 of 3) Will check UGI on day 4(). If no extravisation of contrast will advance diet to clears Continue current PRN pain regimen Contine Protonix and Crafate Continue prn antiemetics Keep NG to LIWS continue AbX continue TPN Promote OOB to chair and ambulation Hgb dropped to 6.1 yesterday evening. Pt got 2 more units of PRBC yesterday. HGb improved to 7.6 this morning. H/H q 6H (2) Upper abdominal pain Current Visit: No Status: Acute Continue Protonix, Carafate, Oxycodone oral concentrate, Ofirmev, fentanyl patch (3) Hemorrhagic shock Current Visit: Yes Status: Resolved Resolved Pt's HGB 5.5 upon admission Pt transfused 5 units PRBC Hgb dropped to 6.1 yesterday evening. Pt got 2 more units of PRBC yesterday. HGb improved to 7.6 this morning. H/H q 6H (4) Leukocytosis Current Visit: Yes Status: Acute Continue to monitor with daily labs Continue abx management per primary team Qualifiers: Leukocytosis type: unspecified Qualified Code(s): D72.829 - Elevated white blood cell count, unspecified (5) Hypertension Current Visit: No Status: Chronic Plan: Continue Lopressor and prn hydralazine continue to monitor Qualifiers: Hypertension type: essential hypertension Qualified Code(s): I10 - Essential (primary) hypertension (6) Duodenal ulcer Current Visit: No Status: Resolved Plan: Check Fecal H Pylori Antigen once patient has a Bowel movement. continue protonix and Carafate (7) Acute kidney injury Current Visit: Yes Status: Acute Continue Oshea and strict Is&Os Continue to monitor Cr. Patient was having inadequate urine out put 500cc bolus LR given UOP improved out 1100 mL yesterday already 1050mL today. Appreciate help from primary in fluid management. (8) DVT prophylaxis Current Visit: No Status: Acute Continue EPCDs in light of GI bleed. Subjective Patient reports: no new complaints, flatus, no bowel movement, afebrile Narrative: Patient seen and examined at bedside by me. Patient's Hgb dropped to 6.1 yesterday evening. He was transfused 2 units PRBC. His hgb has responded to 7.6 this morning. Patient reports minor abd pain at site of incision, but other than that has no complaints, besides wanting to eat or drink, but patient reports understanding the need to be kept NPO. Patient has good urine out put via oshea catheter. Serosanginous REENA drainage, NG draiange appears dark brown to almost black, no gross blood. Patietn denies N, V, D, F, Chills, SOB, CP. Objective Vital Signs - Last 8 Hours Temp Pulse Resp BP Pulse Ox 08/16/17 11:07 16 98 08/16/17 11:00 69 17 126/70 100 08/16/17 10:00 70 16 127/76 99 08/16/17 09:00 73 19 102/65 98 08/16/17 08:00 71 16 116/76 100 08/16/17 07:00 86 18 115/63 98 08/16/17 06:00 91 18 117/65 96 08/16/17 05:01 97.9 F 08/16/17 04:35 16 118/67 98 08/16/17 04:25 97.6 F 96 16 112/57 08/16/17 04:00 96 16 112/57 98 Intake and Output 08/15/17 08/16/17 08/16/17 23:59 07:59 15:59 Intake Total 1285 / 1285 625 / 625 100 / 100 Output Total 580 / 580 1200 / 1200 310 / 310 Balance 705 / 705 -575 / -575 -210 / -210 Intake: IV Fluids 960 / 960 300 / 300 100 / 100 0.9 % Sodium Chloride 250 ML @ 0 / 0 0 mls/hr .ROUTE .STK-MED ONE Rx #:[id number] ALBURX 5% 12.5 gm In 250 ml @ 500 / 500 60 mls/hr IVC .Q4H10M [facility] Rx#: [id number] Protonix 40 MG In 0.9 % Sodium 200 / 200 100 / 100 100 / 100 Chloride (Mini-Bag +) 100 ML @ 20 mls/hr IVC .Q5H [facility] Rx#: [id number] Lactated Ringers 1,000 ML @ 80 160 / 160 mls/hr IVC .[id number] [facility] Rx#: [id number] Ofirmev 1,000 mg/100 ml 1,000 100 / 100 mg In 100 ml @ 400 mls/hr IVPB Q8HR [facility] Rx#:[id number] Zosyn 3.375 GM In 0.9 % Sodium 100 / 100 100 / 100 Chloride (Mini-Bag +) 100 ML @ 25 mls/hr IVPB Q8HR [facility] Rx#: [id number] Blood Product 325 / 325 325 / 325 Rbcs Leuko Poor As-1 Unit 325 / 325 [id number] Rbcs Leuko Poor As-1 Unit 325 / 325 [id number] Output: Catheter 550 / 550 800 / 800 250 / 250 Gastric Drainage 250 / 250 Wound Drainage 30 / 30 150 / 150 60 / 60 REENA drain/Jason tube #1 20 / 20 50 / 50 40 / 40 REENA drain/Jason tube #2 10 / 10 100 / 100 20 / 20 Other: Weight 79.7 kg Blood Glucose* 138 129 Patient Weight 08/16/17 23:59 Weight 79.7 kg - General physical appearance well developed, well nourished, no distress - Eyes normal ocular movement - ENT normal mucosa - Neck Neck exam: trachea midline - Respiratory normal expansion, normal respiratory effort, clear to auscultation - Cardiovascular Cardiovascular exam: Present: RRR, no murmurs/rubs/gallops - Abdomen Abdomen: Present: bowel sounds present (hypoactive), non tender - Incision Incision: Present: clean and dry, intact - Integumentary no rash - Neurologic normal coordination, normal sensation - Musculoskeletal normal posture - Psychiatric oriented to time, oriented to person, oriented to place, speech is normal, memory intact - Labs 08/16/17 05:00 08/16/17 04:00 Diabetes panel 08/15/17 08/15/17 08/16/17 Range/Units 11:10 17:55 00:00 Sodium 138 137 (136-145) mEq/L Potassium 5.0 4.3 3.8 (3.5-5.1) mEq/L Chloride 116 H 115 H (98-107) mEq/L Carbon Dioxide 13 L 17 L (23-29) mEq/L BUN 55 H 46 H (6-20) mg/dL Creatinine 1.88 H 1.51 H (0.70-1.30) mg/dL Glucose 147 H 166 H (70-105) mg/dL Calcium 7.4 L 7.4 L (8.6-10.3) mg/dL Triglycerides (< 150) mg/dL 08/16/17 08/16/17 Range/Units 04:00 04:00 Sodium 138 (136-145) mEq/L Potassium 3.5 (3.5-5.1) mEq/L Chloride 116 H (98-107) mEq/L Carbon Dioxide 18 L (23-29) mEq/L BUN 42 H (6-20) mg/dL Creatinine 1.35 H (0.70-1.30) mg/dL Glucose 144 H (70-105) mg/dL Calcium 7.4 L (8.6-10.3) mg/dL Triglycerides 69 (< 150) mg/dL Calcium panel 08/15/17 08/16/17 08/16/17 Range/Units 11:10 00:00 04:00 Calcium 7.4 L 7.4 L 7.4 L (8.6-10.3) mg/dL Phosphorus 4.9 H (2.7-4.5) mg/dL 08/16/17 Range/Units 04:00 Calcium (8.6-10.3) mg/dL Phosphorus 2.5 L (2.7-4.5) mg/dL Pituitary panel 08/15/17 08/15/17 08/16/17 Range/Units 11:10 17:55 00:00 Sodium 138 137 (136-145) mEq/L Potassium 5.0 4.3 3.8 (3.5-5.1) mEq/L Chloride 116 H 115 H (98-107) mEq/L Carbon Dioxide 13 L 17 L (23-29) mEq/L BUN 55 H 46 H (6-20) mg/dL Creatinine 1.88 H 1.51 H (0.70-1.30) mg/dL Glucose 147 H 166 H (70-105) mg/dL Calcium 7.4 L 7.4 L (8.6-10.3) mg/dL 08/16/17 Range/Units 04:00 Sodium 138 (136-145) mEq/L Potassium 3.5 (3.5-5.1) mEq/L Chloride 116 H (98-107) mEq/L Carbon Dioxide 18 L (23-29) mEq/L BUN 42 H (6-20) mg/dL Creatinine 1.35 H (0.70-1.30) mg/dL Glucose 144 H (70-105) mg/dL Calcium 7.4 L (8.6-10.3) mg/dL Adrenal panel 08/15/17 08/15/17 08/16/17 Range/Units 11:10 17:55 00:00 Sodium 138 137 (136-145) mEq/L Potassium 5.0 4.3 3.8 (3.5-5.1) mEq/L Chloride 116 H 115 H (98-107) mEq/L Carbon Dioxide 13 L 17 L (23-29) mEq/L BUN 55 H 46 H (6-20) mg/dL Creatinine 1.88 H 1.51 H (0.70-1.30) mg/dL Glucose 147 H 166 H (70-105) mg/dL Calcium 7.4 L 7.4 L (8.6-10.3) mg/dL 08/16/17 Range/Units 04:00 Sodium 138 (136-145) mEq/L Potassium 3.5 (3.5-5.1) mEq/L Chloride 116 H (98-107) mEq/L Carbon Dioxide 18 L (23-29) mEq/L BUN 42 H (6-20) mg/dL Creatinine 1.35 H (0.70-1.30) mg/dL Glucose 144 H (70-105) mg/dL Calcium 7.4 L (8.6-10.3) mg/dL - VTE Documentation of Mechanical Device: Intermittent pneumatic compression device Consult Discharge Plan - Plan Referrals: Kyler Loyd, LATCHER [Primary Care Provider] - <Ally Smallwood - Last Filed: 08/17/17 07:44> Date of Encounter: 08/17/17 - Assessment and Plan (1) Acute upper GI bleed Current Visit: No Status: Resolved continue npo, ngt to liws prn pain control OOB to chair/ambulate ok to transfer from ICU to my service ugi (2) Upper abdominal pain Current Visit: No Status: Acute (3) Hemorrhagic shock Current Visit: Yes Status: Resolved vitals stable good uop Hb decreased but is likely due to equilibrium after initial bleed as ngt is bilious REENA's serous (4) Acute kidney injury Current Visit: Yes Status: Acute (5) Hypertension Current Visit: No Status: Chronic Qualifiers: Hypertension type: essential hypertension Qualified Code(s): I10 - Essential (primary) hypertension (6) DVT prophylaxis Current Visit: No Status: Acute (7) Duodenal ulcer Current Visit: No Status: Resolved (8) Leukocytosis Current Visit: Yes Status: Acute resolved, continue abx Qualifiers: Leukocytosis type: unspecified Qualified Code(s): D72.829 - Elevated white blood cell count, unspecified Subjective Patient reports: no new complaints, still having pain, flatus, no bowel movement , afebrile Objective Vital Signs - Last 8 Hours Temp Pulse Resp BP Pulse Ox 08/17/17 04:47 97.6 F 08/17/17 04:00 68 08/17/17 03:32 16 130/80 98 08/17/17 00:12 97.6 F Intake and Output 08/16/17 08/16/17 08/17/17 15:59 23:59 07:59 Intake Total 750 / 750 1084 / 1084 300 / 300 Output Total 1320 / 1320 450 / 450 1040 / 1040 Balance -570 / -570 634 / 634 -740 / -740 Intake: IV Fluids 750 / 750 100 / 100 300 / 300 Protonix 40 MG In 0.9 % Sodium 200 / 200 200 / 200 Chloride (Mini-Bag +) 100 ML @ 20 mls/hr IVC .Q5H [facility] Rx#: [id number] Ofirmev 1,000 mg/100 ml 1,000 100 / 100 100 / 100 100 / 100 mg In 100 ml @ 400 mls/hr IVPB Q8HR [facility] Rx#:[id number] Diflucan Premix 200 MG/100 ML 100 / 100 200 mg In 100 ml @ 100 mls/hr IVPB DAILY [facility] Rx#:[id number] Magnesium Sulfate Premix 2gm/ 50 / 50 50mL 2 gm In 50 ml @ 50 mls/hr IVPB ONCE ONE Rx#:[id number] Zosyn 3.375 GM In 0.9 % Sodium 100 / 100 Chloride (Mini-Bag +) 100 ML @ 25 mls/hr IVPB Q8HR [facility] Rx#: [id number] Potassium Chloride 20 mEq/100 200 / 200 mL 40 meq In 200 ml @ 100 mls/ hr IVPB Q1H [facility] Rx#:[id number] Other 984 / 984 Output: Catheter 850 / 850 300 / 300 750 / 750 Gastric Drainage 250 / 250 50 / 50 150 / 150 Wound Drainage 220 / 220 100 / 100 140 / 140 REENA drain/Jason tube #1 120 / 120 60 / 60 100 / 100 REENA drain/Jason tube #2 100 / 100 40 / 40 40 / 40 Other: Weight 78.9 kg Blood Glucose* 118 123 114 Patient Weight 08/17/17 23:59 Weight 78.9 kg - General physical appearance well developed, well nourished - Eyes normal ocular movement - ENT dry mucosa, normocephalic - Neck Neck exam: trachea midline - Respiratory normal expansion, clear to auscultation - Cardiovascular Cardiovascular exam: Present: RRR - Abdomen Abdomen: Present: bowel sounds present, soft, tender (appropriate post op tenderness) Additional Comments: NGT - bilious REEAN 1/2 serous drainage - Incision Incision: Present: clean and dry, intact - Genitourinary other (oshea with clear yellow urine) - Integumentary no rash - Neurologic normal coordination - Musculoskeletal normal posture - Psychiatric oriented to time, oriented to person, oriented to place, speech is normal, memory intact - Labs 08/17/17 04:00 08/17/17 04:00 Diabetes panel 08/16/17 08/17/17 Range/Units 12:28 04:00 Sodium 139 (136-145) mEq/L Potassium 3.9 3.7 (3.5-5.1) mEq/L Chloride 116 H (98-107) mEq/L Carbon Dioxide 21 L (23-29) mEq/L BUN 30 H (6-20) mg/dL Creatinine 0.96 (0.70-1.30) mg/dL Glucose 124 H (70-105) mg/dL Calcium 7.6 L (8.6-10.3) mg/dL Calcium panel 08/17/17 Range/Units 04:00 Calcium 7.6 L (8.6-10.3) mg/dL Phosphorus 2.8 (2.7-4.5) mg/dL Pituitary panel 08/16/17 08/17/17 Range/Units 12:28 04:00 Sodium 139 (136-145) mEq/L Potassium 3.9 3.7 (3.5-5.1) mEq/L Chloride 116 H (98-107) mEq/L Carbon Dioxide 21 L (23-29) mEq/L BUN 30 H (6-20) mg/dL Creatinine 0.96 (0.70-1.30) mg/dL Glucose 124 H (70-105) mg/dL Calcium 7.6 L (8.6-10.3) mg/dL Adrenal panel 08/16/17 08/17/17 Range/Units 12:28 04:00 Sodium 139 (136-145) mEq/L Potassium 3.9 3.7 (3.5-5.1) mEq/L Chloride 116 H (98-107) mEq/L Carbon Dioxide 21 L (23-29) mEq/L BUN 30 H (6-20) mg/dL Creatinine 0.96 (0.70-1.30) mg/dL Glucose 124 H (70-105) mg/dL Calcium 7.6 L (8.6-10.3) mg/dL - Attending Attestation I examined this patient and my medical decision-making was reviewed with the Resident Physician. I agree with the documented findings, disposition and treatment plan as described except to the extent set forth below.
[2017-08-16 11:50] LABS: Platelet Count 156 K/mcL (140-400)
[2017-08-16] MEDS: OXYCODONE Oral CONC 10 MG/0.5 ML ORAL.SYG SL PRN (12:18)
[2017-08-16 12:44] LABS: Hematocrit 23.7 % (37.5-50.1); Hemoglobin 7.8 g/dL (12.9-16.9)
[2017-08-16 13:06] LABS: Magnesium 2.4 mg/dL (1.6-2.6); Potassium 3.9 mEq/L (3.5-5.1)
--- NOTE | 2017-08-16 13:38 | Event Note ---
Date of Encounter: 08/16/17 Time of Encounter: 13:36 13:36. Repeat labs reviewed. H&H stable 7.8 (7.6). Patient deemed appropriate for transfer to telemetry floor. Case discussed with the hospitalist, Dr. Romero who accepts the patient. Awaiting bed availability.
[2017-08-16] MEDS ORDERED: Clinimix E 5%-15% SOLUTION 2,000 ML with MVI, adult with vitamin K 10 ML IVC SCH ×2 (17:00→17:56)
[2017-08-16] MEDS ORDERED: OXYCODONE Oral CONC 10 MG/0.5 ML ORAL.SYG SL PRN ×3 (17:09→17:56)
[2017-08-16] MEDS ORDERED: Naloxone 0.4 MG/ML INJ IVP PRN (17:56)
[2017-08-16] MEDS ORDERED: Ondansetron 4 MG/2 ML VIAL IVP PRN (17:56)
[2017-08-16] MEDS ORDERED: D10% in Water 500 ML IVC PRN (17:56)
[2017-08-16 20:12] LABS: Hematocrit 23.7 % (37.5-50.1); Hemoglobin 7.9 g/dL (12.9-16.9)
[2017-08-17 00:10] LABS: Hemoglobin 7.9 g/dL (12.9-16.9)
[2017-08-17] MEDS: Pantoprazole 40 MG in 0.9 % Sodium Chloride Mini Bag 100 ML IVC SCH ×6 (00:42→20:44)
[2017-08-17] MEDS: Piperacillin/Tazobactam 3.375 GM in 0.9 % Sodium Chloride Mini Bag 100 ML IVPB SCH ×2 (00:47→08:18)
[2017-08-17] MEDS: OXYCODONE Oral CONC 10 MG/0.5 ML ORAL.SYG SL PRN ×5 (00:50→22:00)
[2017-08-17] MEDS: Ipratropium/Albuterol Neb 3 ML IH SCH ×4 (03:32→22:10)
[2017-08-17 04:26] LABS: Basophils % 0.2 %; Immature Granulocytes % 0.2 % (0-4)
[2017-08-17 04:28] LABS: Eosinophils # 0.1 K/mcL (0.0-0.6); Eosinophils % 1.4 %; Hematocrit 23.3 % (37.5-50.1); Hemoglobin 7.6 g/dL (12.9-16.9); Immature Platelets 4.8 % (1.1-6.1); Lymphocytes # 1.5 K/mcL (0.6-4.6); Lymphocytes % 17.4 %; Mean Corpuscular HGB Conc 32.6 g/dL (31.6-35.5); Mean Corpuscular Hemoglobin 29.8 pg (28.0-33.3); Mean Corpuscular Volume 91.4 fL (83.0-100.0); Mean Platelet Volume 10.8 fL (9.4-12.4); Monocytes # 0.7 K/mcL (0.0-1.3); Monocytes % 8.4 %; Neutrophils # 6.2 K/mcL (1.6-8.9); Red Blood Count 2.55 M/mcL (4.19-5.50); Red Cell Distribution Width 16.5 % (11.5-14.5); Segmented Neutrophils % 72.4 %
[2017-08-17 04:36] LABS: INR 1.1; Prothrombin Time 12.1 Seconds (9.4-12.1)
[2017-08-17 04:44] LABS: Platelet Count 82 K/mcL (140-400)
[2017-08-17 04:46] LABS: BUN/Creatinine Ratio 31 (6-26); Blood Urea Nitrogen 30 mg/dL (6-20); Calcium 7.6 mg/dL (8.6-10.3); Carbon Dioxide 21 mEq/L (23-29); Chloride 116 mEq/L (98-107); Glucose 124 mg/dL (70-105); Magnesium 2.1 mg/dL (1.6-2.6); Osmolality,Calculated 296 (280-300); Phosphorous 2.8 mg/dL (2.7-4.5); Potassium 3.7 mEq/L (3.5-5.1); Sodium 139 mEq/L (136-145); eGFR For African Americans > 60 (> 60); eGFR For Non-African Americans > 60 (> 60)
[2017-08-17 04:53] LABS: Anisocytosis 1+ (Not Present); Platelet Estimate Decreased (Normal); Poikilocytosis 1+ (Not Present); Polychromasia 1+ (Not Present)
[2017-08-17] MEDS: *HR* Metoprolol 5 MG/5 ML VIAL IVP SCH ×3 (04:53→16:27)
[2017-08-17 04:54] LABS: Large Platelets Present (Not Present)
[2017-08-17] MEDS ORDERED: Fluconazole 200 MG/100 ML 200 MG/100 ML BAG IVPB SCH (09:00)
[2017-08-17] MEDS ORDERED: (Fluticasone/Vilanterol [Breo Ellipta 100-25 Mcg Inh] IH SCH (09:00)
[2017-08-17] MEDS: Acetaminophen IV 1,000 MG/100 ML INFUS..BTL IVPB SCH ×2 (09:07→16:33)
--- NOTE | 2017-08-17 11:42 | General Surgery Progress Note ---
<Jovi Meneses - Last Filed: 08/17/17 13:59> Date of Encounter: 08/17/17 Time of Encounter: 08:30 - Assessment and Plan (1) Acute upper GI bleed Current Visit: No Status: Resolved POD #3 S/P Ex Lap, with oversew of bleeding duodenal vessel, Heineke Micklicz Pyloroplasty and omental patch Pt to be kept NPO x 3 days( today is day 3 of 3) Will check UGI on day 4(tomorrow). If no extravisation of contrast will advance diet to clears Continue current PRN pain regimen Contine Protonix and Crafate Continue prn antiemetics Keep NG to LIWS Will stop Zosyn 2/2 to Drop in palettes. Start Cefepime and flagyl continue TPN Promote OOB to chair and ambulation Hgb dropped to 6.1 yesterday evening. Pt got 2 more units of PRBC yesterday. HGb improved to 7.6 yesterday. stable since Transfer to under Dr. Smallwood. (2) Upper abdominal pain Current Visit: No Status: Acute Continue Protonix, Carafate, Oxycodone oral concentrate, Ofirmev, fentanyl patch (3) Hemorrhagic shock Current Visit: Yes Status: Resolved Resolved Pt's HGB 5.5 upon admission Pt transfused 5 units PRBC Hgb dropped to 6.1 yesterday evening. Pt got 2 more units of PRBC yesterday. HGb improved to 7.6 yesterday morning stable today. (4) Leukocytosis Current Visit: Yes Status: Acute Resolved Continue to monitor with daily labs Continue abx management per primary team Qualifiers: Leukocytosis type: unspecified Qualified Code(s): D72.829 - Elevated white blood cell count, unspecified (5) Hypertension Current Visit: No Status: Chronic Plan: Continue Lopressor and prn hydralazine continue to monitor Qualifiers: Hypertension type: essential hypertension Qualified Code(s): I10 - Essential (primary) hypertension (6) Duodenal ulcer Current Visit: No Status: Resolved Plan: Check Fecal H Pylori Antigen once patient has a Bowel movement. continue protonix and Carafate (7) Acute kidney injury Current Visit: Yes Status: Acute Continue Rubio and strict Is&Os Continue to monitor Cr. Patient was having inadequate urine out put 500cc bolus LR given UOP improved out 1100 mL yesterday already 1050mL today. Appreciate help from primary in fluid management. Cr. improved today now normal. (8) DVT prophylaxis Current Visit: No Status: Acute Continue EPCDs in light of GI bleed. Subjective Patient reports: no new complaints, no bowel movement, afebrile Narrative: Pt is resting comfortably. Pain well controlled. Bilious NG drainage. Serous LUZMARIA drainage. Objective Vital Signs - Last 8 Hours Temp Pulse Resp BP Pulse Ox 08/17/17 11:24 97.7 F 71 12 111/71 99 08/17/17 09:25 17 98 08/17/17 08:45 80 08/17/17 08:39 97.8 F 75 16 133/86 99 08/17/17 08:00 97.8 F 08/17/17 04:47 97.6 F 08/17/17 04:00 68 Intake and Output 08/16/17 08/17/17 08/17/17 23:59 07:59 15:59 Intake Total 1084 / 1084 400 / 400 200 / 200 Output Total 450 / 450 1040 / 1040 1550 / 1550 Balance 634 / 634 -640 / -640 -1350 / -1350 Intake: IV Fluids 100 / 100 400 / 400 200 / 200 Protonix 40 MG In 0.9 % Sodium 200 / 200 200 / 200 Chloride (Mini-Bag +) 100 ML @ 20 mls/hr IVC .Q5H [facility] Rx#: [id number] Ofirmev 1,000 mg/100 ml 1,000 100 / 100 100 / 100 mg In 100 ml @ 400 mls/hr IVPB Q8HR [facility] Rx#:[id number] Zosyn 3.375 GM In 0.9 % Sodium 100 / 100 Chloride (Mini-Bag +) 100 ML @ 25 mls/hr IVPB Q8HR [facility] Rx#: [id number] Other 984 / 984 Output: Gastric Tube Lavage Amount 180 / 180 Right Nare 180 / 180 Catheter 300 / 300 750 / 750 1000 / 1000 Urethral (Rubio) 350 / 350 Gastric Drainage 50 / 50 150 / 150 80 / 80 Wound Drainage 100 / 100 140 / 140 290 / 290 LUZMARIA drain/Jason tube #1 60 / 60 100 / 100 190 / 190 LUZMARIA drain/Jason tube #2 40 / 40 40 / 40 100 / 100 Other: Weight 78.9 kg Blood Glucose* 123 114 110 Patient Weight 08/17/17 23:59 Weight 78.9 kg - General physical appearance well developed, well nourished, no distress - Eyes normal ocular movement - Neck Neck exam: trachea midline - Respiratory normal expansion, normal respiratory effort, clear to auscultation - Cardiovascular Cardiovascular exam: Present: RRR, no murmurs/rubs/gallops - Abdomen Abdomen: Present: bowel sounds present, soft, non tender - Incision Incision: Present: clean and dry, intact - Integumentary no rash, no abnormal pigmentation - Neurologic normal coordination, normal sensation - Musculoskeletal normal posture - Psychiatric oriented to time, oriented to person, oriented to place, speech is normal, memory intact - Labs 08/17/17 06:00 08/17/17 04:00 Diabetes panel 08/16/17 08/17/17 Range/Units 12:28 04:00 Sodium 139 (136-145) mEq/L Potassium 3.9 3.7 (3.5-5.1) mEq/L Chloride 116 H (98-107) mEq/L Carbon Dioxide 21 L (23-29) mEq/L BUN 30 H (6-20) mg/dL Creatinine 0.96 (0.70-1.30) mg/dL Glucose 124 H (70-105) mg/dL Calcium 7.6 L (8.6-10.3) mg/dL Calcium panel 08/17/17 Range/Units 04:00 Calcium 7.6 L (8.6-10.3) mg/dL Phosphorus 2.8 (2.7-4.5) mg/dL Pituitary panel 08/16/17 08/17/17 Range/Units 12:28 04:00 Sodium 139 (136-145) mEq/L Potassium 3.9 3.7 (3.5-5.1) mEq/L Chloride 116 H (98-107) mEq/L Carbon Dioxide 21 L (23-29) mEq/L BUN 30 H (6-20) mg/dL Creatinine 0.96 (0.70-1.30) mg/dL Glucose 124 H (70-105) mg/dL Calcium 7.6 L (8.6-10.3) mg/dL Adrenal panel 08/16/17 08/17/17 Range/Units 12:28 04:00 Sodium 139 (136-145) mEq/L Potassium 3.9 3.7 (3.5-5.1) mEq/L Chloride 116 H (98-107) mEq/L Carbon Dioxide 21 L (23-29) mEq/L BUN 30 H (6-20) mg/dL Creatinine 0.96 (0.70-1.30) mg/dL Glucose 124 H (70-105) mg/dL Calcium 7.6 L (8.6-10.3) mg/dL - VTE Documentation of Mechanical Device: Intermittent pneumatic compression device Consult Discharge Plan - Plan Referrals: Kyler Loyd, [facility] RES[facility]ATIONIST [Primary Care Provider] - <Ally Smallwood - Last Filed: 08/18/17 10:18> Date of Encounter: 08/17/17 - Assessment and Plan (1) Acute upper GI bleed Current Visit: Yes Status: Resolved continue npo, ngt to liws prn pain control ugi tomorrow ngt with bile drainage luzmaria drains with serous drainage OOB to chair change abx d/t platelet drop (2) Upper abdominal pain Current Visit: No Status: Acute (3) Hemorrhagic shock Current Visit: Yes Status: Resolved (4) Acute kidney injury Current Visit: Yes Status: Resolved (5) Hypertension Current Visit: Yes Status: Chronic Qualifiers: Hypertension type: essential hypertension Qualified Code(s): I10 - Essential (primary) hypertension (6) DVT prophylaxis Current Visit: No Status: Acute (7) Duodenal ulcer Current Visit: Yes Status: Acute (8) Leukocytosis Current Visit: Yes Status: Acute Qualifiers: Leukocytosis type: unspecified Qualified Code(s): D72.829 - Elevated white blood cell count, unspecified (9) Thrombocytopenia Current Visit: Yes Status: Acute monitor, change abx Subjective Narrative: pain controlled denies nausea passing flatus no bm up in chair resting comfortably Objective Vital Signs - Last 8 Hours Temp Pulse Resp BP Pulse Ox 08/18/17 06:22 98.0 F 75 16 145/84 95 08/18/17 04:30 137/73 Intake and Output 08/17/17 08/18/17 08/18/17 23:59 07:59 15:59 Intake Total 840 / 840 400 / 400 Output Total 1730 / 1730 3920 / 3920 Balance -890 / -890 -3520 / -3520 Intake: IV Fluids 210 / 210 400 / 400 Protonix 40 MG In 0.9 % Sodium 200 / 200 200 / 200 Chloride (Mini-Bag +) 100 ML @ 20 mls/hr IVC .Q5H [facility] Rx#: [id number] Maxipime 1,000 MG In Water for 10 / 10 inj. (sterile) 10 ML @ 150 mls/ hr IVP Q8H [facility] Rx#:[id number] Ofirmev 1,000 mg/100 ml 1,000 100 / 100 mg In 100 ml @ 400 mls/hr IVPB Q8HR [facility] Rx#:[id number] Flagyl Premix 500 MG/100 ML 500 100 / 100 mg In 100 ml @ 100 mls/hr IVPB Q8HR [facility] Rx#:[id number] Oral 0 / 0 Blood Product 630 / 630 Rbcs Leuko Poor As-1 Unit 330 / 330 [id number] Rbcs Leuko Poor As-1 Unit 300 / 300 [id number] Output: Urine 0 / 0 Gastric Tube Lavage Amount 0 / 0 0 / 0 Right Nare 0 / 0 0 / 0 Catheter 1650 / 1650 3550 / 3550 Urethral (Rubio) 1050 / 1050 Gastric Drainage 300 / 300 Wound Drainage 80 / 80 70 / 70 LUZMARIA drain/Jason tube #1 60 / 60 70 / 70 LUZMARIA drain/Jason tube #2 20 / 20 0 / 0 Other: Weight 78.834 kg Blood Glucose* 196 123 Patient Weight 08/18/17 23:59 Weight 78.834 kg - General physical appearance well developed, well nourished - Eyes normal ocular movement - ENT normal mucosa, normocephalic - Neck Neck exam: trachea midline - Respiratory normal expansion, normal respiratory effort - Cardiovascular Cardiovascular exam: Present: RRR - Abdomen Abdomen: Present: bowel sounds present, soft, tender (appropriate post op tenderness) - Incision Incision: Present: clean and dry, intact - Integumentary no rash - Neurologic normal sensation - Musculoskeletal normal posture - Psychiatric oriented to time, oriented to person, speech is normal, memory intact - Labs 08/18/17 03:20 08/18/17 03:20 Diabetes panel 08/18/17 Range/Units 03:20 Sodium 136 (136-145) mEq/L Potassium 3.3 L (3.5-5.1) mEq/L Chloride 109 H (98-107) mEq/L Carbon Dioxide 25 (23-29) mEq/L BUN 23 H (6-20) mg/dL Creatinine 0.81 (0.70-1.30) mg/dL Glucose 111 H (70-105) mg/dL Calcium 7.9 L (8.6-10.3) mg/dL Calcium panel 08/18/17 Range/Units 03:20 Calcium 7.9 L (8.6-10.3) mg/dL Phosphorus 3.0 (2.7-4.5) mg/dL Pituitary panel 08/18/17 Range/Units 03:20 Sodium 136 (136-145) mEq/L Potassium 3.3 L (3.5-5.1) mEq/L Chloride 109 H (98-107) mEq/L Carbon Dioxide 25 (23-29) mEq/L BUN 23 H (6-20) mg/dL Creatinine 0.81 (0.70-1.30) mg/dL Glucose 111 H (70-105) mg/dL Calcium 7.9 L (8.6-10.3) mg/dL Adrenal panel 08/18/17 Range/Units 03:20 Sodium 136 (136-145) mEq/L Potassium 3.3 L (3.5-5.1) mEq/L Chloride 109 H (98-107) mEq/L Carbon Dioxide 25 (23-29) mEq/L BUN 23 H (6-20) mg/dL Creatinine 0.81 (0.70-1.30) mg/dL Glucose 111 H (70-105) mg/dL Calcium 7.9 L (8.6-10.3) mg/dL - Attending Attestation I examined this patient and my medical decision-making was reviewed with the Resident Physician. I agree with the documented findings, disposition and treatment plan as described except to the extent set forth below.
[2017-08-17 11:56] LABS: Hematocrit 22.7 % (37.5-50.1); Hemoglobin 6.8 g/dL (12.9-16.9)
[2017-08-17] MEDS ORDERED: *HR* FentaNYL PATCH 25 MCG PATCH TD SCH (13:30)
[2017-08-17] MEDS ORDERED: Cefepime HCl 1,000 MG in Water for inj. (sterile) 20 ML 10 ML IVP SCH (14:00)
--- NOTE | 2017-08-17 15:07 | Internal Med Progress Note ---
Date of Encounter: 08/17/17 Time of Encounter: 08:45 - Assessment and plan (1) Acute upper GI bleed Current Visit: Yes Status: Resolved Assessment and plan: Patient was recently admitted with similar complaints and underwent EGD 2 weeks ago, which showed nonbleeding cratered duodenal ulcer with pigmented material. Presented with upper GI bleed and acute blood loss anemia. Surgery was consulted, underwent repeat EGD which showed one spurting cratered duodenal ulcer with a visible vessel, hemostatic clip was placed. He underwent Exploratory laparotomy, oversew bleeding duodenal ulcer, Heineke Micklicz pyloroplasty with omental patch on 08/14. Appreciate surgery recommendations. Continue bowel rest, IV PPI drip, TPN, antimicrobial coverage-Zosyn has been changed to IV cefepime and Flagyl today, Diflucan discontinued. Plan for upper GI series tomorrow. Leukocytosis resolved. Pain control with when necessary oxycodone. (2) Acute blood loss anemia Current Visit: Yes Status: Acute Assessment and plan: Patient received a total of 7 units PRBC transfusion during this admission. Hemoglobin remianed stable, at around 7.6, but noted to be 6.8 most recently. Will transfuse 2 more units of PRBC. Continue to monitor every 6 hourly hemoglobin. (3) Acute kidney injury Current Visit: Yes Status: Resolved Assessment and plan: Likely due to blood loss anemia and hypotension. Serum creatinine normalized. Continue treatment of underlying medical conditions. (4) COPD (chronic obstructive pulmonary disease) Current Visit: Yes Status: Chronic Assessment and plan: Not in acute exacerbation. Continue when necessary breathing treatments and supplemental oxygen. Qualifiers: COPD type: unspecified COPD Qualified Code(s): J44.9 - Chronic obstructive pulmonary disease, unspecified (5) Hypertension Current Visit: Yes Status: Chronic Assessment and plan: Blood pressure well controlled. Continue current management. Qualifiers: Hypertension type: essential hypertension Qualified Code(s): I10 - Essential (primary) hypertension (6) Duodenal ulcer Current Visit: Yes Status: Acute Assessment and plan: plan as above; (7) DVT prophylaxis Current Visit: Yes Status: Acute Assessment and plan: 1. EPCD's. 2. No anticoagulation due hemorrhagic shock. (8) Hemorrhagic shock Current Visit: Yes Status: Resolved - Time Spent With Patient Total time spent is greater than 50% in coordination of care (as documented) at patient's floor/unit and/or counseling patient: - Subjective Interval history: Continues to have postop abdominal pain; no nausea/emesis, on NG tube to suction ; passing flatus; on TPN; - Constitutional Vitals: Temp Pulse Resp BP Pulse Ox 97.7 F 71 12 111/71 99 08/17/17 11:24 08/17/17 11:24 08/17/17 11:24 08/17/17 11:24 08/17/17 11:24 General appearance: Present: cooperative, A&O X 3 (appears tired), answers questions appropriately - Respiratory Respiratory exam: Present: CTAB. Absent: accessory muscle use, rales, rhonchi, wheezes - Cardiovascular Cardiovascular exam: Present: RRR, +S1, +S2. Absent: diastolic murmur, gallop, rubs, systolic murmur - GI/Abdominal GI/Abdominal exam: Present: normal bowel sounds, soft (REENA drains in right abdomen; surgical dressings intact; diffuse tenderness around surgical site), no peritoneal signs. Absent: distended, tenderness - Extremities Exam Extremities exam: Present: full ROM, warm, radial pulses palpable and symmetrical. Absent: calf tenderness, cyanotic, pedal edema - Neurological Exam Neurological exam: Present: CN II-XII intact, oriented X3, no focal deficits. Absent: pronater drift, facial droop, speech deficit Internal Medicine: Result - Labs CBC & Chem 7: 08/17/17 06:00 08/17/17 04:00 Labs: Short CBC 08/16/17 08/16/17 08/17/17 Range/Units 19:12 23:45 04:00 WBC 8.6 (4.3-11.1) K/mcL Hgb 7.9 L 7.9 L 7.6 L (12.9-16.9) g/dL Hct 23.7 L 24.0 L 23.3 L (37.5-50.1) % Plt Count 82 L (140-400) K/mcL Neutrophils # 6.2 (1.6-8.9) K/mcL 08/17/17 Range/Units 06:00 WBC (4.3-11.1) K/mcL Hgb 6.8 L (12.9-16.9) g/dL Hct 22.7 L (37.5-50.1) % Plt Count (140-400) K/mcL Neutrophils # (1.6-8.9) K/mcL BMP 08/17/17 04:00 Sodium 139 Potassium 3.7 Chloride 116 H Carbon Dioxide 21 L BUN 30 H Creatinine 0.96 Glucose 124 H Calcium 7.6 L - ABG Interpretation ABG results: PT/INR, D-dimer PT 12.1 Seconds (9.4-12.1) 08/17/17 04:00 - VTE Documentation of Mechanical Device: Intermittent pneumatic compression device Consult Discharge Plan - Plan Referrals: Kyler Loyd, [employer]NER [Primary Care Provider] -
[2017-08-17] MEDS ORDERED: 0.9 % Sodium Chloride 250 ML ONE ×2 (15:50→19:51)
[2017-08-17] MEDS ORDERED: MetroNIDAZOLE 500 MG/100 ML 500 MG/100 ML BAG IVPB SCH (16:00)
[2017-08-17] MEDS ORDERED: Cefepime HCl 1,000 MG in D5% in Water (Mini-Bag+) 100 ML IVPB SCH (16:00)
[2017-08-17] MEDS ORDERED: Furosemide 20 MG/2 ML VIAL IVP ONE (16:06)
[2017-08-17] MEDS ORDERED: Clinimix E 5%-15% SOLUTION 2,000 ML with MVI, adult with vitamin K 10 ML IVC SCH ×2 (17:00→20:57)
[2017-08-17] MEDS ORDERED: D10% in Water 500 ML IVC PRN (20:57)
[2017-08-17] MEDS ORDERED: Naloxone 0.4 MG/ML INJ IVP PRN (20:57)
[2017-08-17] MEDS ORDERED: Ondansetron 4 MG/2 ML VIAL IVP PRN (20:57)
[2017-08-17] MEDS ORDERED: Budesonide/Formoterol 160/4.5 MDI IH SCH (22:00)
[2017-08-17] MEDS: Budesonide/Formoterol 160/4.5 MDI IH SCH (22:09)
[2017-08-17] MEDS: Cefepime HCl 1,000 MG in Water for inj. (sterile) 20 ML 10 ML IVP SCH (22:54)
[2017-08-18] MEDS: *HR* Metoprolol 5 MG/5 ML VIAL IVP SCH ×5 (00:02→23:09)
[2017-08-18] MEDS: MetroNIDAZOLE 500 MG/100 ML 500 MG/100 ML BAG IVPB SCH ×4 (00:03→23:10)
[2017-08-18] MEDS: Acetaminophen IV 1,000 MG/100 ML INFUS..BTL IVPB SCH ×4 (00:03→23:09)
[2017-08-18] MEDS: Pantoprazole 40 MG in 0.9 % Sodium Chloride Mini Bag 100 ML IVC SCH ×6 (01:34→21:55)
[2017-08-18] MEDS: Ipratropium/Albuterol Neb 3 ML IH SCH ×4 (03:31→21:45)
[2017-08-18 03:40] LABS: Red Cell Distribution Width 15.9 % (11.5-14.5)
[2017-08-18 03:42] LABS: Basophils % 0.5 %; Eosinophils # 0.3 K/mcL (0.0-0.6); Eosinophils % 3.3 %; Hematocrit 29.7 % (37.5-50.1); Hemoglobin 9.9 g/dL (12.9-16.9); Immature Granulocytes % 0.3 % (0-4); Immature Platelets 4.7 % (1.1-6.1); Lymphocytes # 1.1 K/mcL (0.6-4.6); Lymphocytes % 13.6 %; Mean Corpuscular HGB Conc 33.3 g/dL (31.6-35.5); Mean Corpuscular Hemoglobin 30.2 pg (28.0-33.3); Mean Corpuscular Volume 90.5 fL (83.0-100.0); Mean Platelet Volume 11.2 fL (9.4-12.4); Monocytes # 0.8 K/mcL (0.0-1.3); Monocytes % 9.7 %; Nucleated Red Blood Cells 0.4 /100 WBC (0); Red Blood Count 3.28 M/mcL (4.19-5.50); Segmented Neutrophils % 72.6 %
[2017-08-18 03:52] LABS: Neutrophils # 5.7 K/mcL (1.6-8.9)
[2017-08-18 03:53] LABS: Platelet Count 84 K/mcL (140-400)
[2017-08-18 04:03] LABS: BUN/Creatinine Ratio 28 (6-26); Blood Urea Nitrogen 23 mg/dL (6-20); Calcium 7.9 mg/dL (8.6-10.3); Carbon Dioxide 25 mEq/L (23-29); Chloride 109 mEq/L (98-107); Glucose 111 mg/dL (70-105); Magnesium 1.7 mg/dL (1.6-2.6); Osmolality,Calculated 286 (280-300); Potassium 3.3 mEq/L (3.5-5.1); Sodium 136 mEq/L (136-145); eGFR For African Americans > 60 (> 60); eGFR For Non-African Americans > 60 (> 60)
[2017-08-18] MEDS: OXYCODONE Oral CONC 10 MG/0.5 ML ORAL.SYG SL PRN ×2 (04:32→12:24)
[2017-08-18] MEDS: Cefepime HCl 1,000 MG in Water for inj. (sterile) 20 ML 10 ML IVP SCH ×3 (06:05→21:13)
[2017-08-18] MEDS: Fluconazole 200 MG/100 ML 200 MG/100 ML BAG IVPB SCH (09:34)
[2017-08-18] MEDS: Budesonide/Formoterol 160/4.5 MDI IH SCH ×2 (10:49→21:46)
--- NOTE | 2017-08-18 11:53 | General Surgery Progress Note ---
Date of Encounter: 08/18/17 Time of Encounter: 09:00 - Assessment and Plan (1) Acute upper GI bleed Current Visit: Yes Status: Resolved POD #4 Exploratory laparotomy, oversew bleeding duodenal ulcer, Heineke Micklicz pyloroplasty with omental patch with Dr. Smallwood UGI with SBFT this morning- 1. No gross evidence of a leak in the region of the duodenum. 2. Delayed emptying of the stomach with the patient subsequently vomiting. Unclear whether this is related to narrowing of the duodenum due to postsurgical edema versus gastroparesis. Continue NPO- may have 1 cup of ice and 1 popsicle every 8 hours Continue TPN therapy IV antibiotics- cefepime and flagyl; diflucan Continue REENA drain X 2 Midline dressing changes daily Supportive care and pain control Out of bed to chair TID with assistance and ambulate Continue protonix gtt Continue PO carafate Repeat am labs- CBC, BMP, Mg, Phos (2) Acute blood loss anemia Current Visit: Yes Status: Acute Hgb- 7.6>9.9 Total of 9 units of PRBC transfused (last infusion was 08/17/17- 2 units) Continue to monitor and treat as necessary (3) Thrombocytopenia Current Visit: Yes Status: Acute Plt- 82>84 Continue to monitor Repeat am labs (4) Hypokalemia Current Visit: Yes Status: Acute Potassium- 3.3 Replaced per hospitalist Repeat am labs (5) DVT prophylaxis Current Visit: No Status: Acute Apply raisa hose bilateral lower extremities Ambulate hallways TID with assistance Subjective Patient reports: no new complaints, still having pain, pain is less, flatus, no bowel movement, nausea, vomiting (this morning with UGI and SBFT (vomited up contrast)), afebrile, other (Urinary retention after oshea removed and subsequently re-inserted last night) Objective Vital Signs - Last 8 Hours Temp Pulse Resp BP Pulse Ox 08/18/17 10:52 97.9 F 70 16 143/80 98 08/18/17 06:22 98.0 F 75 16 145/84 95 08/18/17 04:30 137/73 Intake and Output 08/17/17 08/18/17 08/18/17 23:59 07:59 15:59 Intake Total 840 / 840 400 / 400 100 / 100 Output Total 1730 / 1730 3920 / 3920 620 / 620 Balance -890 / -890 -3520 / -3520 -520 / -520 Intake: IV Fluids 210 / 210 400 / 400 100 / 100 Protonix 40 MG In 0.9 % Sodium 200 / 200 200 / 200 Chloride (Mini-Bag +) 100 ML @ 20 mls/hr IVC .Q5H [facility] Rx#: [id number] Maxipime 1,000 MG In Water for 10 / 10 inj. (sterile) 10 ML @ 150 mls/ hr IVP Q8H [facility] Rx#:[id number] Ofirmev 1,000 mg/100 ml 1,000 100 / 100 100 / 100 mg In 100 ml @ 400 mls/hr IVPB Q8HR [facility] Rx#:[id number] Flagyl Premix 500 MG/100 ML 500 100 / 100 mg In 100 ml @ 100 mls/hr IVPB Q8HR [facility] Rx#:[id number] Oral 0 / 0 Blood Product 630 / 630 Rbcs Leuko Poor As-1 Unit 330 / 330 [id number] Rbcs Leuko Poor As-1 Unit 300 / 300 [id number] Output: Urine 0 / 0 Gastric Tube Lavage Amount 0 / 0 0 / 0 Right Nare 0 / 0 0 / 0 Catheter 1650 / 1650 3550 / 3550 525 / 525 Urethral ([place]) 1050 / 1050 Gastric Drainage 300 / 300 0 / 0 Wound Drainage 80 / 80 70 / 70 95 / 95 REENA drain/Jason tube #1 60 / 60 70 / 70 60 / 60 REENA drain/Jason tube #2 20 / 20 0 / 0 35 / 35 Other: Weight 78.834 kg 71.9 kg Blood Glucose* 196 123 107 Patient Weight 08/18/17 23:59 Weight 71.9 kg - General physical appearance well developed, no distress - Eyes normal ocular movement - ENT dry mucosa, atraumatic, normocephalic - Neck Neck exam: trachea midline - Respiratory normal respiratory effort, clear to auscultation, other (diminished bibasilar bases) - Abdomen Abdomen: Present: bowel sounds present, soft, tender (expected tenderness), wound (REENA drain X 2 with serousang. drainage noted; REENA #1 with 130ml noted since midnight: REENA #2 with 35ml noted since midnight; NG tube to LIWS (300ml noted since midnight)) - Incision Incision: Present: clean and dry, intact - Genitourinary other (oshea catheter to SD with clear, yellow urine noted) - Neurologic CN 2-12 grossly intact - Musculoskeletal other - Psychiatric oriented to time, oriented to person, oriented to place, speech is normal, memory intact - Labs 08/18/17 03:20 08/18/17 03:20 Diabetes panel 08/18/17 Range/Units 03:20 Sodium 136 (136-145) mEq/L Potassium 3.3 L (3.5-5.1) mEq/L Chloride 109 H (98-107) mEq/L Carbon Dioxide 25 (23-29) mEq/L BUN 23 H (6-20) mg/dL Creatinine 0.81 (0.70-1.30) mg/dL Glucose 111 H (70-105) mg/dL Calcium 7.9 L (8.6-10.3) mg/dL Calcium panel 08/18/17 Range/Units 03:20 Calcium 7.9 L (8.6-10.3) mg/dL Phosphorus 3.0 (2.7-4.5) mg/dL Pituitary panel 08/18/17 Range/Units 03:20 Sodium 136 (136-145) mEq/L Potassium 3.3 L (3.5-5.1) mEq/L Chloride 109 H (98-107) mEq/L Carbon Dioxide 25 (23-29) mEq/L BUN 23 H (6-20) mg/dL Creatinine 0.81 (0.70-1.30) mg/dL Glucose 111 H (70-105) mg/dL Calcium 7.9 L (8.6-10.3) mg/dL Adrenal panel 08/18/17 Range/Units 03:20 Sodium 136 (136-145) mEq/L Potassium 3.3 L (3.5-5.1) mEq/L Chloride 109 H (98-107) mEq/L Carbon Dioxide 25 (23-29) mEq/L BUN 23 H (6-20) mg/dL Creatinine 0.81 (0.70-1.30) mg/dL Glucose 111 H (70-105) mg/dL Calcium 7.9 L (8.6-10.3) mg/dL - VTE Documentation of Mechanical Device: Intermittent pneumatic compression device Consult Discharge Plan - Plan Referrals: [place],Ali N, [employer] [Primary Care Provider] -
[2017-08-18] MEDS ORDERED: Clinimix E 5%-15% SOLUTION 2,000 ML with MVI, adult with vitamin K 10 ML IVC SCH (17:00)
--- NOTE | 2017-08-18 17:54 | Internal Med Progress Note ---
Date of Encounter: 08/18/17 Time of Encounter: 11:40 - Assessment and plan (1) Acute upper GI bleed Current Visit: Yes Status: Resolved Assessment and plan: Patient was recently admitted with similar complaints and underwent EGD 2 weeks ago, which showed nonbleeding cratered duodenal ulcer with pigmented material. Presented with upper GI bleed and acute blood loss anemia. Surgery was consulted, underwent repeat EGD which showed one spurting cratered duodenal ulcer with a visible vessel, hemostatic clip was placed. He underwent Exploratory laparotomy, oversew bleeding duodenal ulcer, Heineke Micklicz pyloroplasty with omental patch on 08/14. Appreciate surgery recommendations. Continue bowel rest, IV PPI drip, TPN, antimicrobial coverage- IV cefepime and Flagyl, Diflucan continued. F/up upper GI series . Leukocytosis resolved. Pain control with when necessary oxycodone. Hospitalist service will sign off at this time and patient is under Surgery service; (2) Acute blood loss anemia Current Visit: Yes Status: Acute (3) Acute kidney injury Current Visit: Yes Status: Resolved (4) COPD (chronic obstructive pulmonary disease) Current Visit: Yes Status: Chronic Qualifiers: COPD type: unspecified COPD Qualified Code(s): J44.9 - Chronic obstructive pulmonary disease, unspecified (5) Hypertension Current Visit: Yes Status: Chronic Qualifiers: Hypertension type: essential hypertension Qualified Code(s): I10 - Essential (primary) hypertension (6) Duodenal ulcer Current Visit: Yes Status: Acute (7) DVT prophylaxis Current Visit: Yes Status: Acute (8) Hemorrhagic shock Current Visit: Yes Status: Resolved - Time Spent With Patient Total time spent is greater than 50% in coordination of care (as documented) at patient's floor/unit and/or counseling patient: - Subjective Interval history: Continues to have postop abdominal pain; underwent upper GI series, had an episode of emesis post-test; no fever/chills; has flatus; - Constitutional Vitals: Temp Pulse Resp BP Pulse Ox 97.9 F 68 16 143/80 97 08/18/17 15:04 08/18/17 15:04 08/18/17 15:52 08/18/17 15:04 08/18/17 15:52 General appearance: Present: cooperative, A&O X 3 (appears tired), answers questions appropriately - Respiratory Respiratory exam: Present: CTAB. Absent: accessory muscle use, rales, rhonchi, wheezes - Cardiovascular Cardiovascular exam: Present: RRR, +S1, +S2. Absent: diastolic murmur, gallop, rubs, systolic murmur - GI/Abdominal GI/Abdominal exam: Present: normal bowel sounds, soft (mild tenderness in central abdomen), no peritoneal signs. Absent: distended, tenderness Internal Medicine: Result - Labs CBC & Chem 7: 08/18/17 03:20 08/18/17 03:20 Labs: Short CBC 08/18/17 Range/Units 03:20 WBC 7.8 (4.3-11.1) K/mcL Hgb 9.9 L D (12.9-16.9) g/dL Hct 29.7 L (37.5-50.1) % Plt Count 84 L (140-400) K/mcL Neutrophils # 5.7 (1.6-8.9) K/mcL BMP 08/18/17 03:20 Sodium 136 Potassium 3.3 L Chloride 109 H Carbon Dioxide 25 BUN 23 H Creatinine 0.81 Glucose 111 H Calcium 7.9 L - ABG Interpretation ABG results: PT/INR, D-dimer PT 12.1 Seconds (9.4-12.1) 08/17/17 04:00 - Impressions Impressions Upper GI Series 08/18/17 07:00 IMPRESSION: 1. No gross evidence of a leak in the region of the duodenum. 2. Delayed emptying of the stomach with the patient subsequently vomiting. Unclear whether this is related to narrowing of the duodenum due to postsurgical edema versus gastroparesis. D/ / Vinh Hall MD / Vinh Hall MD Interpreting Provider: Vinh Hall MD - VTE Documentation of Mechanical Device: Intermittent pneumatic compression device Consult Discharge Plan - Plan Referrals: Kyler Loyd, [employer] HELPER [Primary Care Provider] -
[2017-08-19] MEDS: Pantoprazole 40 MG in 0.9 % Sodium Chloride Mini Bag 100 ML IVC SCH ×4 (03:11→19:54)
[2017-08-19] MEDS: Ipratropium/Albuterol Neb 3 ML IH SCH ×4 (03:21→22:02)
[2017-08-19 04:26] LABS: BUN/Creatinine Ratio 34 (6-26); Blood Urea Nitrogen 23 mg/dL (6-20); Calcium 7.9 mg/dL (8.6-10.3); Carbon Dioxide 25 mEq/L (23-29); Chloride 111 mEq/L (98-107); Glucose 111 mg/dL (70-105); Magnesium 1.8 mg/dL (1.6-2.6); Osmolality,Calculated 296 (280-300); Phosphorous 3.1 mg/dL (2.7-4.5); Potassium 3.6 mEq/L (3.5-5.1); Sodium 141 mEq/L (136-145); eGFR For African Americans > 60 (> 60); eGFR For Non-African Americans > 60 (> 60)
[2017-08-19] MEDS: Cefepime HCl 1,000 MG in Water for inj. (sterile) 20 ML 10 ML IVP SCH ×3 (06:38→22:37)
[2017-08-19] MEDS: *HR* Metoprolol 5 MG/5 ML VIAL IVP SCH ×3 (06:38→17:57)
[2017-08-19] MEDS: Fluconazole 200 MG/100 ML 200 MG/100 ML BAG IVPB SCH (07:28)
[2017-08-19] MEDS: MetroNIDAZOLE 500 MG/100 ML 500 MG/100 ML BAG IVPB SCH ×2 (07:29→16:21)
[2017-08-19] MEDS: Acetaminophen IV 1,000 MG/100 ML INFUS..BTL IVPB SCH ×2 (07:30→17:57)
[2017-08-19 09:18] LABS: Basophils % 0.5 %; Eosinophils # 0.3 K/mcL (0.0-0.6); Eosinophils % 4.8 %; Hematocrit 29.2 % (37.5-50.1); Hemoglobin 9.6 g/dL (12.9-16.9); Immature Granulocytes % 0.3 % (0-4); Lymphocytes # 0.8 K/mcL (0.6-4.6); Lymphocytes % 12.1 %; Mean Corpuscular HGB Conc 32.9 g/dL (31.6-35.5); Mean Corpuscular Hemoglobin 30.3 pg (28.0-33.3); Mean Corpuscular Volume 92.1 fL (83.0-100.0); Mean Platelet Volume 11.5 fL (9.4-12.4); Monocytes # 0.6 K/mcL (0.0-1.3); Neutrophils # 4.5 K/mcL (1.6-8.9); Red Blood Count 3.17 M/mcL (4.19-5.50); Red Cell Distribution Width 16.4 % (11.5-14.5); Segmented Neutrophils % 72.3 %
[2017-08-19 09:19] LABS: Platelet Count 84 K/mcL (140-400)
--- NOTE | 2017-08-19 09:27 | General Surgery Progress Note ---
Date of Encounter: 08/19/17 Time of Encounter: 09:00 - Assessment and Plan (1) Acute upper GI bleed Current Visit: Yes Status: Resolved POD #5 Exploratory laparotomy, oversew bleeding duodenal ulcer, Heineke Micklicz pyloroplasty with omental patch with Dr. Smallwood UGI with SBFT 08/18/17- 1. No gross evidence of a leak in the region of the duodenum. 2. Delayed emptying of the stomach with the patient subsequently vomiting. Unclear whether this is related to narrowing of the duodenum due to postsurgical edema versus gastroparesis. Plan to repeat UGI in the next 24-48 hours Continue NPO- may have 1 cup of ice and 1 popsicle every 8 hours Continue TPN therapy IV antibiotics- cefepime and flagyl; diflucan Continue REENA drain X 2 Midline dressing changes daily Supportive care and pain control Out of bed to chair TID with assistance and ambulate Continue protonix gtt Continue PO carafate Repeat am labs- BMP (2) Acute blood loss anemia Current Visit: Yes Status: Acute Hgb- 7.6>9.9>9.6 Total of 9 units of PRBC transfused (last infusion was 08/17/17- 2 units) Continue to monitor and treat as necessary (3) Thrombocytopenia Current Visit: Yes Status: Acute Plt- 82>84>84 Continue to monitor Repeat am labs (4) Hypokalemia Current Visit: Yes Status: Resolved Potassium- 3.3 Replaced per hospitalist Repeat am labs (5) DVT prophylaxis Current Visit: No Status: Acute Apply raisa hose bilateral lower extremities Ambulate hallways TID with assistance Subjective Patient reports: no new complaints, still having pain, pain is less, flatus, no bowel movement, afebrile Objective Vital Signs - Last 8 Hours Temp Pulse Resp BP Pulse Ox 08/19/17 07:16 97.7 F 75 18 144/81 99 08/19/17 04:29 97.7 F 78 15 136/79 97 08/19/17 03:22 16 98 Intake and Output 08/18/17 08/19/17 08/19/17 23:59 07:59 15:59 Intake Total 500 / 500 1599 / 1599 100 / 100 Output Total 1295 / 1295 1252 / 1252 Balance -795 / -795 347 / 347 100 / 100 Intake: IV Fluids 500 / 500 1599 / 1599 100 / 100 Clinimix E 5%-15% SOLUTION 2, 1039 / 1039 000 ML @ 83.3 mls/hr IVC .Q24H [facility] with M.v.i. Adult 10 ml Rx# :[id number] Protonix 40 MG In 0.9 % Sodium 200 / 200 100 / 100 100 / 100 Chloride (Mini-Bag +) 100 ML @ 20 mls/hr IVC .Q5H [facility] Rx#: [id number] Maxipime 1,000 MG In Water for 10 / 10 inj. (sterile) 10 ML @ 150 mls/ hr IVP Q8H [facility] Rx#:[id number] Ofirmev 1,000 mg/100 ml 1,000 100 / 100 100 / 100 mg In 100 ml @ 400 mls/hr IVPB Q8HR [facility] Rx#:[id number] Intralipid 20% 250 ML @ 21 mls/ 250 / 250 hr IVPB DAILY@1700 [facility] Rx#: [id number] Flagyl Premix 500 MG/100 ML 500 100 / 100 100 / 100 mg In 100 ml @ 100 mls/hr IVPB Q8HR [facility] Rx#:[id number] Potassium Chloride 10 mEq/100mL 100 / 100 10 meq In 100 ml @ 100 mls/hr IVPB Q1H [facility] Rx#:[id number] Oral 0 / 0 0 / 0 Output: Gastric Tube Lavage Amount 0 / 0 Right Nare 0 / 0 Catheter 950 / 950 1100 / 1100 Gastric Drainage 225 / 225 100 / 100 Wound Drainage 120 / 120 52 / 52 REENA drain/Jason tube #1 65 / 65 40 / 40 REENA drain/Jason tube #2 55 / 55 12 / 12 Other: Meal NPO NPO Percent of Meal Consumed 0% 0% Weight 74.8 kg Blood Glucose* 123 130 Patient Weight 08/19/17 23:59 Weight 74.8 kg - General physical appearance well developed, no distress - Eyes normal ocular movement - ENT dry mucosa, atraumatic, normocephalic - Neck Neck exam: trachea midline - Respiratory normal respiratory effort, clear to auscultation, other (diminished bibasilar bases) - Cardiovascular Cardiovascular exam: Present: RRR - Abdomen Abdomen: Present: bowel sounds present, soft, tender (Expected postoperative tenderness), wound (REENA drain #1 (50ml of serous drainage since midnight); REENA drain #2 (32ml of serous drainage since midnight)) - Incision Incision: Present: clean and dry, intact - Genitourinary other (Rubio catheter to straight drain with clear, yellow urine) - Neurologic CN 2-12 grossly intact - Musculoskeletal other (Physical deconditioning noted) - Psychiatric oriented to time, oriented to person, oriented to place, speech is normal, memory intact - Labs 08/19/17 07:52 08/19/17 03:00 Diabetes panel 08/19/17 Range/Units 03:00 Sodium 141 (136-145) mEq/L Potassium 3.6 (3.5-5.1) mEq/L Chloride 111 H (98-107) mEq/L Carbon Dioxide 25 (23-29) mEq/L BUN 23 H (6-20) mg/dL Creatinine 0.67 L (0.70-1.30) mg/dL Glucose 111 H (70-105) mg/dL Calcium 7.9 L (8.6-10.3) mg/dL Calcium panel 08/19/17 Range/Units 03:00 Calcium 7.9 L (8.6-10.3) mg/dL Phosphorus 3.1 (2.7-4.5) mg/dL Pituitary panel 08/19/17 Range/Units 03:00 Sodium 141 (136-145) mEq/L Potassium 3.6 (3.5-5.1) mEq/L Chloride 111 H (98-107) mEq/L Carbon Dioxide 25 (23-29) mEq/L BUN 23 H (6-20) mg/dL Creatinine 0.67 L (0.70-1.30) mg/dL Glucose 111 H (70-105) mg/dL Calcium 7.9 L (8.6-10.3) mg/dL Adrenal panel 08/19/17 Range/Units 03:00 Sodium 141 (136-145) mEq/L Potassium 3.6 (3.5-5.1) mEq/L Chloride 111 H (98-107) mEq/L Carbon Dioxide 25 (23-29) mEq/L BUN 23 H (6-20) mg/dL Creatinine 0.67 L (0.70-1.30) mg/dL Glucose 111 H (70-105) mg/dL Calcium 7.9 L (8.6-10.3) mg/dL - VTE Documentation of Mechanical Device: Intermittent pneumatic compression device Consult Discharge Plan - Plan Referrals: Kyler Loyd, [employer] [Primary Care Provider] -
[2017-08-19] MEDS: Budesonide/Formoterol 160/4.5 MDI IH SCH ×2 (10:21→22:02)
--- NOTE | 2017-08-19 11:54 | Electrocardiograph Report ---
[place] [id number] Test Date: 2017-08-14 Pat Name: Gopal Barrett Department: 109 Room: 3A Gender: M Bead Maker: : [id number] Requested By: Shawn Monzon MD Order Number: [id number] Reading MD: James Hernandez Measurements Intervals [place] Rate: 117 P: 70 IN: 117 QRS: 65 QRSD: 73 T: 73 QT: 325 QTc: 395 Interpretive Statements SINUS TACHYCARDIA Electronically Signed On 08-19-2017 11:52:49 EDT by James Hernandez
[2017-08-19] MEDS ORDERED: Clinimix E 5%-15% SOLUTION 2,000 ML with MVI, adult with vitamin K 10 ML IVC SCH (17:00)
[2017-08-20] MEDS: MetroNIDAZOLE 500 MG/100 ML 500 MG/100 ML BAG IVPB SCH ×3 (01:22→17:20)
[2017-08-20] MEDS: *HR* Metoprolol 5 MG/5 ML VIAL IVP SCH ×4 (01:23→19:19)
[2017-08-20] MEDS: Pantoprazole 40 MG in 0.9 % Sodium Chloride Mini Bag 100 ML IVC SCH ×4 (01:23→17:16)
[2017-08-20] MEDS: Acetaminophen IV 1,000 MG/100 ML INFUS..BTL IVPB SCH ×2 (01:31→09:55)
[2017-08-20] MEDS: Ipratropium/Albuterol Neb 3 ML IH SCH ×4 (04:45→21:02)
[2017-08-20 04:59] LABS: BUN/Creatinine Ratio 36 (6-26); Blood Urea Nitrogen 16 mg/dL (6-20); Calcium 5.8 mg/dL (8.6-10.3); Carbon Dioxide 22 mEq/L (23-29); Chloride 119 mEq/L (98-107); Glucose 94 mg/dL (70-105); Magnesium 1.3 mg/dL (1.6-2.6); Osmolality,Calculated 297 (280-300); Phosphorous 2.5 mg/dL (2.7-4.5); Potassium 2.7 mEq/L (3.5-5.1); Sodium 143 mEq/L (136-145); eGFR For African Americans > 60 (> 60); eGFR For Non-African Americans > 60 (> 60)
[2017-08-20] MEDS ORDERED: Calcium Gluconate 2,000 MG in 0.9 % Sodium Chloride 100 ML IVPB ONE (05:14)
[2017-08-20] MEDS: Cefepime HCl 1,000 MG in Water for inj. (sterile) 20 ML 10 ML IVP SCH ×2 (05:52→17:29)
[2017-08-20] MEDS ORDERED: Potassium Phosphate 44 MEQ in 0.9 % Sodium Chloride 250 ML IVPB ONE (08:15)
--- NOTE | 2017-08-20 09:47 | General Surgery Progress Note ---
Addendum entered and electronically signed by Jovi Meneses DO 08/20/17 17:35 : Pt's Thrombocyothemia improved this afternoon up to 120. Original Note: <Jovi Meneses - Last Filed: 08/20/17 16:14> Date of Encounter: 08/20/17 Time of Encounter: 09:00 - Assessment and Plan (1) Acute upper GI bleed Current Visit: Yes Status: Resolved POD #6 S/P Ex Lap, with oversew of bleeding duodenal vessel, Heineke Osielklicz Pyloroplasty and omental patch continue NPO with 1 cup of ice and 1 popsicle every 8 hrs UGI with SBFT 08/18/17- 1. No gross evidence of a leak in the region of the duodenum. 2. Delayed emptying of the stomach with the patient subsequently vomiting. Unclear whether this is related to narrowing of the duodenum due to postsurgical edema versus gastroparesis. Repeat UGI tomorrow. Continue current PRN pain regimen Contine Protonix and Crafate Continue prn antiemetics continue diflucan, Cefepime and flagyl continue TPN Promote OOB to chair and ambulation (2) Acute blood loss anemia Current Visit: Yes Status: Acute Hgb- 7.6>9.9>9.6 Total of 9 units of PRBC transfused (last infusion was 08/17/17- 2 units) Continue to monitor and treat as necessary (3) Thrombocytopenia Current Visit: Yes Status: Acute Plt- 82>84>84 Continue to monitor Repeat am labs No change despite stopping zosyn consider d/c Ofirmev as this can cause low platelets as well. (4) Hypokalemia Current Visit: Yes Status: Acute K 2.7 this morning repleted recheck ordered for 16:00 replete as necessary nutrition on board managing TPN (5) Electrolyte abnormality Current Visit: Yes Status: Acute Pt also had low magnesium, Calcium, and Phosphorus this morning repleted repeat labs at 16:00 continue to monitor replete as needed nutrition on board managing TPN (6) DVT prophylaxis Current Visit: No Status: Acute Apply raisa hose bilateral lower extremities Ambulate hallways TID with assistance Subjective Patient reports: no new complaints, flatus, no bowel movement, afebrile Narrative: Patient reports no new changes. Pain is manageable. Pt dneies Fever, Nausea, Vomiting, Diarrhea, Chest Pain, SOB. Patient had low electrolytes(K, Mg, Phos, Ca) repleted, will recheck this afternoon. Scant serosanguinous drainage in JPs. Objective Vital Signs - Last 8 Hours Temp Pulse Resp BP Pulse Ox 08/20/17 07:30 98.0 F 67 16 151/80 97 08/20/17 04:45 16 98 08/20/17 04:33 98.1 F 76 16 135/78 98 Intake and Output 08/19/17 08/20/17 08/20/17 23:59 07:59 15:59 Intake Total 310 / 310 300 / 300 0 / 0 Output Total 2620 / 2620 1090 / 1090 Balance -2310 / -2310 -790 / -790 0 / 0 Intake: IV Fluids 310 / 310 300 / 300 Protonix 40 MG In 0.9 % Sodium 100 / 100 200 / 200 Chloride (Mini-Bag +) 100 ML @ 20 mls/hr IVC .Q5H [facility] Rx#: [id number] Maxipime 1,000 MG In Water for inj. (sterile) 10 ML @ 150 mls/ hr IVP Q8H [facility] Rx#:[id number] Ofirmev 1,000 mg/100 ml 1,000 100 / 100 100 / 100 mg In 100 ml @ 400 mls/hr IVPB Q8HR [facility] Rx#:[id number] Flagyl Premix 500 MG/100 ML 500 100 / 100 mg In 100 ml @ 100 mls/hr IVPB Q8HR [facility] Rx#:[id number] Oral 0 / 0 0 / 0 0 / 0 Output: Urine 750 / 750 Emesis 350 / 350 Catheter 1400 / 1400 800 / 800 Gastric Drainage 200 / 200 Wound Drainage 120 / 120 90 / 90 REENA drain/Jason tube #1 50 / 50 40 / 40 REENA drain/Jason tube #2 70 / 70 50 / 50 Other: Meal NPO NPO npo Percent of Meal Consumed 0% 0% 0% # Bowel Movements 0 0 Weight 74.7 kg Blood Glucose* 100 128 Patient Weight 08/20/17 23:59 Weight 74.7 kg - General physical appearance well developed, no distress - Eyes normal ocular movement - ENT normal mucosa - Neck Neck exam: trachea midline - Respiratory normal expansion, normal respiratory effort, clear to auscultation - Cardiovascular Cardiovascular exam: Present: RRR, no murmurs/rubs/gallops - Abdomen Abdomen: Present: bowel sounds present, soft, non tender - Incision Incision: Present: clean and dry, intact - Integumentary no abnormal pigmentation - Neurologic CN 2-12 grossly intact - Musculoskeletal normal posture - Psychiatric oriented to time, oriented to person, oriented to place, speech is normal, memory intact - Labs 08/19/17 07:52 08/20/17 04:00 Diabetes panel 08/20/17 Range/Units 04:00 Sodium 143 (136-145) mEq/L Potassium 2.7 L (3.5-5.1) mEq/L Chloride 119 H (98-107) mEq/L Carbon Dioxide 22 L (23-29) mEq/L BUN 16 (6-20) mg/dL Creatinine 0.45 L (0.70-1.30) mg/dL Glucose 94 (70-105) mg/dL Calcium 5.8 L* (8.6-10.3) mg/dL Calcium panel 08/20/17 Range/Units 04:00 Calcium 5.8 L* (8.6-10.3) mg/dL Phosphorus 2.5 L (2.7-4.5) mg/dL Pituitary panel 08/20/17 Range/Units 04:00 Sodium 143 (136-145) mEq/L Potassium 2.7 L (3.5-5.1) mEq/L Chloride 119 H (98-107) mEq/L Carbon Dioxide 22 L (23-29) mEq/L BUN 16 (6-20) mg/dL Creatinine 0.45 L (0.70-1.30) mg/dL Glucose 94 (70-105) mg/dL Calcium 5.8 L* (8.6-10.3) mg/dL Adrenal panel 08/20/17 Range/Units 04:00 Sodium 143 (136-145) mEq/L Potassium 2.7 L (3.5-5.1) mEq/L Chloride 119 H (98-107) mEq/L Carbon Dioxide 22 L (23-29) mEq/L BUN 16 (6-20) mg/dL Creatinine 0.45 L (0.70-1.30) mg/dL Glucose 94 (70-105) mg/dL Calcium 5.8 L* (8.6-10.3) mg/dL - VTE Documentation of Mechanical Device: Intermittent pneumatic compression device Consult Discharge Plan - Plan Referrals: Kyler Loyd, HYDROLOGY PROFESSOR [Primary Care Provider] - <Marcio Cardoza - Last Filed: 08/20/17 22:43> Date of Encounter: 08/20/17 Objective Vital Signs - Last 8 Hours Temp Pulse Resp BP Pulse Ox 08/20/17 21:05 16 96 08/20/17 19:28 97.7 F 76 15 123/75 98 08/20/17 15:47 16 99 08/20/17 14:58 97.8 F 73 16 155/81 97 Intake and Output 08/20/17 08/20/17 08/20/17 07:59 15:59 23:59 Intake Total 660 / 660 300 / 300 100 / 100 Output Total 1090 / 1090 1490 / 1490 870 / 870 Balance -430 / -430 -1190 / -1190 -770 / -770 Intake: IV Fluids 660 / 660 300 / 300 100 / 100 Protonix 40 MG In 0.9 % Sodium 200 / 200 100 / 100 100 / 100 Chloride (Mini-Bag +) 100 ML @ 20 mls/hr IVC .Q5H [facility] Rx#: [id number] Maxipime 1,000 MG In Water for inj. (sterile) 10 ML @ 150 mls/ hr IVP Q8H [facility] Rx#:[id number] Ofirmev 1,000 mg/100 ml 1,000 100 / 100 100 / 100 mg In 100 ml @ 400 mls/hr IVPB Q8HR [facility] Rx#:[id number] Intralipid 20% 250 ML @ 21 mls/ 250 / 250 hr IVPB DAILY@1700 [facility] Rx#: [id number] Flagyl Premix 500 MG/100 ML 500 100 / 100 100 / 100 mg In 100 ml @ 100 mls/hr IVPB Q8HR [facility] Rx#:[id number] Oral 0 / 0 0 / 0 0 / 0 Output: Catheter 800 / 800 1350 / 1350 800 / 800 Gastric Drainage 200 / 200 100 / 100 Wound Drainage 90 / 90 40 / 40 70 / 70 REENA drain/Jason tube #1 40 / 40 20 / 20 30 / 30 REENA drain/Jason tube #2 50 / 50 20 / 20 40 / 40 Other: Meal NPO NPO NPO Percent of Meal Consumed 0% 0% 0% # Bowel Movements 0 Weight 74.7 kg Blood Glucose* 128 117 146 Patient Weight 08/20/17 23:59 Weight 74.7 kg - Labs 08/20/17 16:00 08/20/17 16:00 Diabetes panel 08/20/17 08/20/17 Range/Units 04:00 16:00 Sodium 143 141 (136-145) mEq/L Potassium 2.7 L 3.7 D (3.5-5.1) mEq/L Chloride 119 H 109 H (98-107) mEq/L Carbon Dioxide 22 L 26 (23-29) mEq/L BUN 16 19 (6-20) mg/dL Creatinine 0.45 L 0.66 L (0.70-1.30) mg/dL Glucose 94 111 H (70-105) mg/dL Calcium 5.8 L* 8.0 L (8.6-10.3) mg/dL Calcium panel 08/20/17 08/20/17 Range/Units 04:00 16:00 Calcium 5.8 L* 8.0 L (8.6-10.3) mg/dL Phosphorus 2.5 L 4.3 (2.7-4.5) mg/dL Pituitary panel 08/20/17 08/20/17 Range/Units 04:00 16:00 Sodium 143 141 (136-145) mEq/L Potassium 2.7 L 3.7 D (3.5-5.1) mEq/L Chloride 119 H 109 H (98-107) mEq/L Carbon Dioxide 22 L 26 (23-29) mEq/L BUN 16 19 (6-20) mg/dL Creatinine 0.45 L 0.66 L (0.70-1.30) mg/dL Glucose 94 111 H (70-105) mg/dL Calcium 5.8 L* 8.0 L (8.6-10.3) mg/dL Adrenal panel 08/20/17 08/20/17 Range/Units 04:00 16:00 Sodium 143 141 (136-145) mEq/L Potassium 2.7 L 3.7 D (3.5-5.1) mEq/L Chloride 119 H 109 H (98-107) mEq/L Carbon Dioxide 22 L 26 (23-29) mEq/L BUN 16 19 (6-20) mg/dL Creatinine 0.45 L 0.66 L (0.70-1.30) mg/dL Glucose 94 111 H (70-105) mg/dL Calcium 5.8 L* 8.0 L (8.6-10.3) mg/dL - Attending Attestation Patient seen and examined. I have reviewed all imaging, labs, and notes including this one. I agree with the assessment and plan above and with to add the following... cont with current pain control no cardiac/pulm issues; cont IS usage keep NPO ppi gtt, TPN - imaging shows no retention of contrast; will plan for repeat in AM; if no issues, then may start diet replete lyes; cont with oshea 2/2 urinary retention; will need flomax once NG tube removed restart dvt prophylaxis if no evidence of bleeding ambulate/activity as tolerated
[2017-08-20] MEDS: Fluconazole 200 MG/100 ML 200 MG/100 ML BAG IVPB SCH (10:02)
[2017-08-20] MEDS: Budesonide/Formoterol 160/4.5 MDI IH SCH ×2 (10:32→21:03)
[2017-08-20] MEDS: OXYCODONE Oral CONC 10 MG/0.5 ML ORAL.SYG SL PRN (11:25)
[2017-08-20] MEDS ORDERED: *HR* FentaNYL PATCH 25 MCG PATCH TD SCH (13:30)
[2017-08-20] MEDS ORDERED: Clinimix E 5%-15% SOLUTION 2,000 ML with MVI, adult with vitamin K 10 ML IVC SCH (17:00)
[2017-08-20 17:13] LABS: Basophils % 0.5 %; Eosinophils # 0.3 K/mcL (0.0-0.6); Eosinophils % 4.4 %; Hematocrit 31.9 % (37.5-50.1); Hemoglobin 10.4 g/dL (12.9-16.9); Immature Granulocytes % 0.4 % (0-4); Lymphocytes # 1.2 K/mcL (0.6-4.6); Lymphocytes % 15.3 %; Mean Corpuscular HGB Conc 32.6 g/dL (31.6-35.5); Mean Corpuscular Hemoglobin 30.4 pg (28.0-33.3); Mean Corpuscular Volume 93.3 fL (83.0-100.0); Monocytes # 0.9 K/mcL (0.0-1.3); Monocytes % 11.3 %; Neutrophils # 5.1 K/mcL (1.6-8.9); Platelet Count 120 K/mcL (140-400); Red Blood Count 3.42 M/mcL (4.19-5.50); Red Cell Distribution Width 16.1 % (11.5-14.5); Segmented Neutrophils % 68.1 %
[2017-08-20 17:23] LABS: VBG Ionized Calcium 1.13 mmol/L (1.15-1.35)
[2017-08-20 17:43] LABS: BUN/Creatinine Ratio 29 (6-26); Blood Urea Nitrogen 19 mg/dL (6-20); Carbon Dioxide 26 mEq/L (23-29); Chloride 109 mEq/L (98-107); Glucose 111 mg/dL (70-105); Magnesium 2.1 mg/dL (1.6-2.6); Osmolality,Calculated 295 (280-300); Phosphorous 4.3 mg/dL (2.7-4.5); Potassium 3.7 mEq/L (3.5-5.1); Sodium 141 mEq/L (136-145); eGFR For African Americans > 60 (> 60); eGFR For Non-African Americans > 60 (> 60)
[2017-08-21] MEDS: Acetaminophen IV 1,000 MG/100 ML INFUS..BTL IVPB SCH ×4 (00:05→19:50)
[2017-08-21] MEDS: Cefepime HCl 1,000 MG in Water for inj. (sterile) 20 ML 10 ML IVP SCH ×4 (00:10→23:37)
[2017-08-21] MEDS: *HR* Metoprolol 5 MG/5 ML VIAL IVP SCH ×4 (00:10→17:21)
[2017-08-21] MEDS: MetroNIDAZOLE 500 MG/100 ML 500 MG/100 ML BAG IVPB SCH ×4 (00:10→23:38)
[2017-08-21] MEDS: Pantoprazole 40 MG in 0.9 % Sodium Chloride Mini Bag 100 ML IVC SCH ×5 (00:13→19:23)
[2017-08-21] MEDS: OXYCODONE Oral CONC 10 MG/0.5 ML ORAL.SYG SL PRN ×2 (00:31→05:23)
[2017-08-21] MEDS: Ipratropium/Albuterol Neb 3 ML IH SCH ×4 (03:50→22:50)
[2017-08-21 03:52] LABS: Basophils # 0.1 K/mcL (0.0-0.2); Basophils % 0.8 %; Eosinophils # 0.5 K/mcL (0.0-0.6); Eosinophils % 7.2 %; Hematocrit 31.1 % (37.5-50.1); Hemoglobin 9.9 g/dL (12.9-16.9); Immature Granulocytes % 0.6 % (0-4); Lymphocytes # 1.1 K/mcL (0.6-4.6); Lymphocytes % 17.4 %; Mean Corpuscular HGB Conc 31.8 g/dL (31.6-35.5); Mean Corpuscular Hemoglobin 30.2 pg (28.0-33.3); Mean Corpuscular Volume 94.8 fL (83.0-100.0); Mean Platelet Volume 11.5 fL (9.4-12.4); Monocytes # 0.8 K/mcL (0.0-1.3); Monocytes % 11.7 %; Platelet Count 125 K/mcL (140-400); Red Blood Count 3.28 M/mcL (4.19-5.50); Red Cell Distribution Width 16.3 % (11.5-14.5); Segmented Neutrophils % 62.3 %
[2017-08-21 03:58] LABS: BUN/Creatinine Ratio 29 (6-26); Blood Urea Nitrogen 19 mg/dL (6-20); Calcium 7.9 mg/dL (8.6-10.3); Carbon Dioxide 28 mEq/L (23-29); Chloride 108 mEq/L (98-107); Glucose 128 mg/dL (70-105); Magnesium 1.9 mg/dL (1.6-2.6); Osmolality,Calculated 292 (280-300); Phosphorous 3.8 mg/dL (2.7-4.5); Potassium 3.8 mEq/L (3.5-5.1); Sodium 139 mEq/L (136-145); eGFR For African Americans > 60 (> 60); eGFR For Non-African Americans > 60 (> 60)
[2017-08-21] MEDS: *HR* Heparin 5,000 UNIT/ML VIAL SQ SCH ×2 (05:24→14:41)
[2017-08-21] MEDS ORDERED: *HR* Etomidate 20 MG/10 ML AMPUL IVP ONE (08:02)
[2017-08-21] MEDS ORDERED: *HR* Midazolam HCl 5 MG/5 ML VIAL IVP ONE (08:02)
[2017-08-21] MEDS ORDERED: *HR* Midazolam HCl 2 MG/2 ML VIAL IV ONE (08:02)
[2017-08-21] MEDS: Fluconazole 200 MG/100 ML 200 MG/100 ML BAG IVPB SCH (09:54)
[2017-08-21] MEDS: Budesonide/Formoterol 160/4.5 MDI IH SCH ×2 (10:45→22:50)
--- NOTE | 2017-08-21 11:17 | General Surgery Progress Note ---
<Jovi Meneses - Last Filed: 08/21/17 14:49> Date of Encounter: 08/21/17 Time of Encounter: 08:15 - Assessment and Plan (1) Acute upper GI bleed Current Visit: Yes Status: Resolved POD #7 S/P Ex Lap, with oversew of bleeding duodenal vessel, Heloree Cartagenaklicz Pyloroplasty and omental patch continue NPO with 1 cup of ice and 1 popsicle every 8 hrs UGI with SBFT 08/18/17- 1. No gross evidence of a leak in the region of the duodenum. 2. Delayed emptying of the stomach with the patient subsequently vomiting. Unclear whether this is related to narrowing of the duodenum due to postsurgical edema versus gastroparesis. Repeat UGI tomorrow. If contrast passes easily and no leak will advance diet Continue current PRN pain regimen Contine Protonix and Crafate Continue prn antiemetics continue diflucan, Cefepime and flagyl continue TPN Promote OOB to chair and ambulation Encourage IS (2) Acute blood loss anemia Current Visit: Yes Status: Acute Hgb- 7.6>9.9>9.6>10.4> 9,9 Total of 9 units of PRBC transfused (last infusion was 08/17/17- 2 units) Continue to monitor and treat as necessary (3) Thrombocytopenia Current Visit: Yes Status: Acute Improved Plt- 82>84>84>120>125 Continue to monitor Repeat am labs (4) Hypokalemia Current Visit: Yes Status: Acute K 2.7 yesterday improved to 3.7 yesterday s/p repletion 3.8 today continue to monitor replete as necessary nutrition on board managing TPN (5) Electrolyte abnormality Current Visit: Yes Status: Acute Pt also had low magnesium, Calcium, and Phosphorus yesterday morning repleted repeat labs at 16:00 showed return to normal values Today electrolytes remained within range continue to monitor replete as needed nutrition on board managing TPN (6) DVT prophylaxis Current Visit: No Status: Acute SQ Heparin Q8H Subjective Patient reports: no new complaints, flatus, no bowel movement, afebrile Narrative: Patient stable, no new complaints. Scant serosanguinous drainage in JPs. Patient 's abd x ray showed no retained contrast. Will obtain Upper GI series tomorrow and if contrast passes with no extravization will advance diet. Objective Vital Signs - Last 8 Hours Temp Pulse Resp BP Pulse Ox 08/21/17 07:33 97.8 F 73 14 145/84 97 08/21/17 04:35 97.7 F 82 15 140/75 96 08/21/17 03:50 16 98 Intake and Output 08/20/17 08/21/17 08/21/17 23:59 07:59 15:59 Intake Total 310 / 310 220 / 220 Output Total 1720 / 1720 620 / 620 Balance -1410 / -1410 -400 / -400 Intake: IV Fluids 310 / 310 220 / 220 Protonix 40 MG In 0.9 % Sodium 200 / 200 Chloride (Mini-Bag +) 100 ML @ 20 mls/hr IVC .Q5H [facility] Rx#: [id number] Maxipime 1,000 MG In Water for inj. (sterile) 10 ML @ 150 mls/ hr IVP Q8H [facility] Rx#:[id number] Ofirmev 1,000 mg/100 ml 1,000 100 / 100 mg In 100 ml @ 400 mls/hr IVPB Q8HR [facility] Rx#:[id number] Flagyl Premix 500 MG/100 ML 500 100 / 100 100 / 100 mg In 100 ml @ 100 mls/hr IVPB Q8HR [facility] Rx#:[id number] Oral 0 / 0 0 / 0 Output: Catheter 1600 / 1600 600 / 600 Wound Drainage 120 / 120 20 / 20 REENA drain/Jason tube #1 55 / 55 REENA drain/Jason tube #2 65 / 65 20 / 20 Other: Meal NPO Percent of Meal Consumed 0% Weight 74.5 kg Blood Glucose* 112 135 Patient Weight 08/21/17 23:59 Weight 74.5 kg - General physical appearance well developed, no distress - Eyes normal ocular movement - ENT no hearing loss - Neck Neck exam: trachea midline - Respiratory normal expansion, normal respiratory effort, clear to auscultation - Cardiovascular Cardiovascular exam: Present: RRR, no murmurs/rubs/gallops - Abdomen Abdomen: Present: bowel sounds present, soft, non tender - Integumentary no abnormal pigmentation - Neurologic CN 2-12 grossly intact - Musculoskeletal normal posture - Psychiatric oriented to time, oriented to person, oriented to place, speech is normal, memory intact - Labs 08/21/17 03:24 08/21/17 03:24 Diabetes panel 08/20/17 08/21/17 Range/Units 16:00 03:24 Sodium 141 139 (136-145) mEq/L Potassium 3.7 D 3.8 (3.5-5.1) mEq/L Chloride 109 H 108 H (98-107) mEq/L Carbon Dioxide 26 28 (23-29) mEq/L BUN 19 19 (6-20) mg/dL Creatinine 0.66 L 0.66 L (0.70-1.30) mg/dL Glucose 111 H 128 H (70-105) mg/dL Calcium 8.0 L 7.9 L (8.6-10.3) mg/dL Calcium panel 08/20/17 08/21/17 Range/Units 16:00 03:24 Calcium 8.0 L 7.9 L (8.6-10.3) mg/dL Phosphorus 4.3 3.8 (2.7-4.5) mg/dL Pituitary panel 08/20/17 08/21/17 Range/Units 16:00 03:24 Sodium 141 139 (136-145) mEq/L Potassium 3.7 D 3.8 (3.5-5.1) mEq/L Chloride 109 H 108 H (98-107) mEq/L Carbon Dioxide 26 28 (23-29) mEq/L BUN 19 19 (6-20) mg/dL Creatinine 0.66 L 0.66 L (0.70-1.30) mg/dL Glucose 111 H 128 H (70-105) mg/dL Calcium 8.0 L 7.9 L (8.6-10.3) mg/dL Adrenal panel 08/20/17 08/21/17 Range/Units 16:00 03:24 Sodium 141 139 (136-145) mEq/L Potassium 3.7 D 3.8 (3.5-5.1) mEq/L Chloride 109 H 108 H (98-107) mEq/L Carbon Dioxide 26 28 (23-29) mEq/L BUN 19 19 (6-20) mg/dL Creatinine 0.66 L 0.66 L (0.70-1.30) mg/dL Glucose 111 H 128 H (70-105) mg/dL Calcium 8.0 L 7.9 L (8.6-10.3) mg/dL - VTE Documentation of Mechanical Device: Intermittent pneumatic compression device Consult Discharge Plan - Plan Referrals: Kyler Loyd, PIERCING ARTIST [Primary Care Provider] - <Marcio Cardoza - Last Filed: 08/21/17 15:55> Date of Encounter: 08/21/17 Objective Vital Signs - Last 8 Hours Temp Pulse Resp BP Pulse Ox 08/21/17 11:58 97.9 F 75 16 141/84 96 08/21/17 10:45 18 98 Intake and Output 08/20/17 08/21/17 08/21/17 23:59 07:59 15:59 Intake Total 310 / 310 320 / 320 10 / 10 Output Total 1720 / 1720 620 / 620 1100 / 1100 Balance -1410 / -1410 -300 / -300 -1090 / -1090 Intake: IV Fluids 310 / 310 320 / 320 10 / 10 Protonix 40 MG In 0.9 % Sodium 200 / 200 100 / 100 Chloride (Mini-Bag +) 100 ML @ 20 mls/hr IVC .Q5H [facility] Rx#: [id number] Maxipime 1,000 MG In Water for 20 20 10 / 10 inj. (sterile) 10 ML @ 150 mls/ hr IVP Q8H [facility] Rx#:[id number] Ofirmev 1,000 mg/100 ml 1,000 100 / 100 mg In 100 ml @ 400 mls/hr IVPB Q8HR [facility] Rx#:[id number] Flagyl Premix 500 MG/100 ML 500 100 / 100 100 / 100 mg In 100 ml @ 100 mls/hr IVPB Q8HR [facility] Rx#:[id number] Oral 0 / 0 0 / 0 Output: Catheter 1600 / 1600 600 / 600 1100 / 1100 Wound Drainage 120 / 120 20 / 20 REENA drain/Jason tube #1 55 / 55 REENA drain/Jason tube #2 65 / 65 20 / 20 Other: Meal NPO Percent of Meal Consumed 0% Weight 74.5 kg Blood Glucose* 112 135 Patient Weight 08/21/17 23:59 Weight 74.5 kg - Labs 08/21/17 03:24 08/21/17 03:24 Diabetes panel 08/20/17 08/21/17 Range/Units 16:00 03:24 Sodium 141 139 (136-145) mEq/L Potassium 3.7 D 3.8 (3.5-5.1) mEq/L Chloride 109 H 108 H (98-107) mEq/L Carbon Dioxide 26 28 (23-29) mEq/L BUN 19 19 (6-20) mg/dL Creatinine 0.66 L 0.66 L (0.70-1.30) mg/dL Glucose 111 H 128 H (70-105) mg/dL Calcium 8.0 L 7.9 L (8.6-10.3) mg/dL Calcium panel 08/20/17 08/21/17 Range/Units 16:00 03:24 Calcium 8.0 L 7.9 L (8.6-10.3) mg/dL Phosphorus 4.3 3.8 (2.7-4.5) mg/dL Pituitary panel 08/20/17 08/21/17 Range/Units 16:00 03:24 Sodium 141 139 (136-145) mEq/L Potassium 3.7 D 3.8 (3.5-5.1) mEq/L Chloride 109 H 108 H (98-107) mEq/L Carbon Dioxide 26 28 (23-29) mEq/L BUN 19 19 (6-20) mg/dL Creatinine 0.66 L 0.66 L (0.70-1.30) mg/dL Glucose 111 H 128 H (70-105) mg/dL Calcium 8.0 L 7.9 L (8.6-10.3) mg/dL Adrenal panel 08/20/17 08/21/17 Range/Units 16:00 03:24 Sodium 141 139 (136-145) mEq/L Potassium 3.7 D 3.8 (3.5-5.1) mEq/L Chloride 109 H 108 H (98-107) mEq/L Carbon Dioxide 26 28 (23-29) mEq/L BUN 19 19 (6-20) mg/dL Creatinine 0.66 L 0.66 L (0.70-1.30) mg/dL Glucose 111 H 128 H (70-105) mg/dL Calcium 8.0 L 7.9 L (8.6-10.3) mg/dL - Attending Attestation I have personally seen and examined the patient. I have reviewed pertinent labs , imaging, progress notes, including this one. I agree with the above assessment and plan.
[2017-08-21] MEDS ORDERED: Pantoprazole 40 MG in 0.9 % Sodium Chloride Mini Bag 100 ML IVC SCH (15:15)
[2017-08-21] MEDS ORDERED: Clinimix E 5%-15% SOLUTION 2,000 ML with MVI, adult with vitamin K 10 ML IVC SCH (17:00)
[2017-08-21] MEDS ORDERED: 0.9 % Sodium Chloride 1,000 ML ONE ×2 (18:15→18:20)
[2017-08-21 18:34] LABS: Basophils % 0.5 %; Eosinophils # 0.5 K/mcL (0.0-0.6); Eosinophils % 6.2 %; Hematocrit 18.6 % (37.5-50.1); Immature Granulocytes % 0.8 % (0-4); Lymphocytes % 25.8 %; Mean Corpuscular HGB Conc 29.6 g/dL (31.6-35.5); Mean Corpuscular Hemoglobin 29.6 pg (28.0-33.3); Monocytes # 0.9 K/mcL (0.0-1.3); Monocytes % 11.2 %; Neutrophils # 4.2 K/mcL (1.6-8.9); Platelet Count 141 K/mcL (140-400); Red Blood Count 1.86 M/mcL (4.19-5.50); Red Cell Distribution Width 16.1 % (11.5-14.5); Segmented Neutrophils % 55.5 %
[2017-08-21 18:40] LABS: INR 1.8; Prothrombin Time 19.3 Seconds (9.4-12.1)
--- NOTE | 2017-08-21 18:44 | Event Note ---
Date of Encounter: 08/21/17 Time of Encounter: 18:42 Patient seen and examined; Called due to sudden hematemesis; was hypotensive on the floor; transferred to the ICU; receiving blood transfusion; currently HDS with HR @ 84, SBP ~ 90s; patient mental status appropriate, just fearful; called OR and endoscopy; will intubate patient in ICU, plan for endoscopy in the OR with intervention and possible re-exploration.
[2017-08-21 18:47] LABS: Hemoglobin 5.5 g/dL (12.9-16.9)
[2017-08-21] MEDS ORDERED: *HR* Norepinephrine 4 MG/4 ML VIAL IVC ONE ×2 (18:48→18:52)
[2017-08-21] MEDS ORDERED: D5% in Water 250 ML ONE ×2 (18:48→18:52)
[2017-08-21] MEDS ORDERED: *HR* FentaNYL (PF) 100 MCG/2 ML VIAL ONE (18:49)
--- NOTE | 2017-08-21 18:59 | Anesthesia Evaluation PreOp ---
Date of Encounter: 08/21/17 Time of Encounter: 18:56 - Past History Planned Operation: Endoscopy/Expl Lap Cardiac History: HTN Pulmonary History: COPD [employer] History: Other (Anxiety/Depression) Other Medical History: Thyroid, GERD (REcent duodenal ulcer GIB s/p clipping and oversewing of bleeding duodenal ulcer/Omental Patch. Rapid REsponse called 20minutes ago [approx 1840 on 08/21/2017 re: Acute Hematemesis of nearly 1L shireen Blood]) Anesthesia History: Past Anesthesia (Appy, orthopedic surgeries, L-arm surgery) Alcohol Use: none Drug use: marijuana Medications and Allergies Albuterol Sulfate [Proair Hfa] 1 puff IH Q4-6H PRN 09/06/16 [History] Quetiapine Fumarate [Seroquel] 200 mg PO HS 04/06/17 [History] Ondansetron [Zofran ODT] 8 mg SL Q8HR PRN 07/18/17 [History] Fluticasone/Vilanterol [Breo Ellipta 100-25 Mcg INH] 1 puff IH DAILY 07/29/17 [ History] Lisinopril [Zestril] 20 mg PO DAILY 07/29/17 [History] Sertraline [Zoloft] 50 mg PO DAILY 07/29/17 [History] Tamsulosin [Flomax] 0.4 mg PO DAILY 07/29/17 [History] Omeprazole [PriLOSEC] 40 mg PO BID #60 cap 08/03/17 [Rx] Sucralfate [Carafate] 1 gm PO QIDAC #60 tablet 08/03/17 [Rx] Ferrous Sulfate [Iron] 325 mg PO DAILY 08/14/17 [History] 3 Allergy/AdvReac Type Severity Reaction Status Date / Time prednisone Allergy Swelling Verified 07/29/17 09:40 of the Eye - Meds/Allergy Pre-op Review Medications Reviewed: Yes Allergies Reviewed: Yes Beta Blockers on Current Med List: No Anesthesia Results - Labs 08/21/17 18:25 08/21/17 18:25 Laboratory Results Impressions KUB X-Ray 08/14/17 13:43 IMPRESSION: Enteric tube in the stomach as above. No evidence of bowel obstruction. D/ / Soy Mejia MD / Soy Mejia MD Interpreting Provider: Soy Mejia MD Upper GI Series 08/18/17 07:00 IMPRESSION: 1. No gross evidence of a leak in the region of the duodenum. 2. Delayed emptying of the stomach with the patient subsequently vomiting. Unclear whether this is related to narrowing of the duodenum due to postsurgical edema versus gastroparesis. D/ / Vinh Hall MD / Vinh Hall MD Interpreting Provider: Vinh Hall MD Chest/Abdomen X-ray 08/20/17 11:45 IMPRESSION: No residual contrast from prior upper GI. The bowel gas pattern is unremarkable on the current study. Appropriate positioning of NGT. D/ / George Puente MD / George Puente MD Interpreting Provider: George Puente MD Anesthesia Exam Vital Signs Temp Pulse Resp BP Pulse Ox 08/21/17 16:38 97.9 F 76 14 154/80 98 08/21/17 16:04 16 98 08/21/17 11:58 97.9 F 75 16 141/84 96 08/21/17 10:45 18 98 08/21/17 07:33 97.8 F 73 14 145/84 97 08/21/17 04:35 97.7 F 82 15 140/75 96 08/21/17 03:50 16 98 08/20/17 21:05 16 96 08/20/17 19:28 97.7 F 76 15 123/75 98 Intake and Output 08/21/17 08/21/17 08/21/17 07:59 15:59 23:59 Intake Total 570 / 570 110 / 110 Output Total 620 / 620 1100 / 1100 500 / 500 Balance -50 / -50 -990 / -990 -500 / -500 Intake: IV Fluids 570 / 570 110 / 110 Protonix 40 MG In 0.9 % Sodium 100 / 100 Chloride (Mini-Bag +) 100 ML @ 20 mls/hr IVC .Q5H [facility] Rx#: [id number] Maxipime 1,000 MG In Water for inj. (sterile) 10 ML @ 150 mls/ hr IVP Q8H [facility] Rx#:[id number] Ofirmev 1,000 mg/100 ml 1,000 100 / 100 mg In 100 ml @ 400 mls/hr IVPB Q8HR [facility] Rx#:[id number] Intralipid 20% 250 ML @ 21 mls/ 250 / 250 hr IVPB DAILY@1700 [facility] Rx#: [id number] Flagyl Premix 500 MG/100 ML 500 100 / 100 100 / 100 mg In 100 ml @ 100 mls/hr IVPB Q8HR [facility] Rx#:[id number] Oral 0 / 0 Output: Catheter 600 / 600 1100 / 1100 500 / 500 Wound Drainage REENA drain/Jason tube #2 Other: Weight 74.5 kg Blood Glucose* 135 114 Patient Weight 08/21/17 23:59 Weight 74.5 kg Height: 5'9" Weight: 164# BMI = 24 - HEENT Pupil (Motor): Pupils equal, EOMI Mallampati: Intubated (Intubated in ICU immediately after acute GIB approx at 1945 on 08/21/2017)
[2017-08-21 19:00] LABS: Alanine Aminotransferase 5 Units/L (7-52); Albumin < 1.5 g/dL (3.5-5.7); Alkaline Phosphatase 21 Units/L (34-104); Aspartate Amino Transferase 7 Units/L (13-39); BUN/Creatinine Ratio 44 (6-26); Bilirubin,Total 0.2 mg/dL (0.3-1.0); Blood Urea Nitrogen 11 mg/dL (6-20); Calcium < 4.0 mg/dL (8.6-10.3); Carbon Dioxide 12 mEq/L (23-29); Chloride 132 mEq/L (98-107); Glucose 71 mg/dL (70-105); Osmolality,Calculated 302 (280-300); Potassium 2.2 mEq/L (3.5-5.1); Sodium 147 mEq/L (136-145); Total Protein < 3.0 g/dL (6.4-8.9); eGFR For African Americans > 60 (> 60); eGFR For Non-African Americans > 60 (> 60)
[2017-08-21] MEDS ORDERED: CALCIUM GLUCONATE IVPB ONE (19:10)
[2017-08-21] MEDS ORDERED: SODIUM CHLORIDE 0.9% IVPB ONE (19:10)
[2017-08-21] MEDS ORDERED: Calcium Gluconate 1,000 MG/10 ML VIAL IVPB ONE (19:12)
[2017-08-21 19:15] LABS: Anisocytosis 2+ (Not Present); Hypochromasia Present (Not Present); Macrocytosis Present (Not Present)
--- NOTE | 2017-08-21 19:15 | Procedure Note ---
Date of procedure: 08/21/17 Pre-op diagnosis: Active GI bleed Post-op diagnosis: same Procedure: Energency intubation was intitiated to protect the airway in the setting of massive hematemesis. The patient was placed in a flat position. Sedation was obtained using Versed 4mg, Fentanyl 50mg, and additionally with Etomidate 10mg. The patient was easily ventilated using an ambu bag. The C-MAC BLADE was used and inserted into the oropharynx at which time there was a Grade 1 view of the vocal cords. A 7.5-grenadian endotracheal tube was inserted and visualized going through the vocal cords. The stylette was removed. Colorimetric change was visualized on the CO2 meter. Breath sounds were heard in both lung malagon equally. The endotracheal tube was placed at 24 cm, measured at the teeth. Attending, Dr. Hadley was present for the entire procedure. A chest x-ray was ordered to assess for pneumothorax and verify endotracheal tube placement. Anesthesia: IV sedation Surgeon: Moustapha Hidalgo Was there an senior court office assistant present: Yes Complex [employer] Paralegal: Renetta Hadley Estimated blood loss (cc): 1,000 IV fluids (cc): 2,000 Specimen: None Pathology: none sent Condition: critical Disposition: ICU (Emergency surgery)
[2017-08-21 19:16] LABS: Ovalocytes 1+ (Not Present); Polychromasia 1+ (Not Present)
[2017-08-21 19:17] LABS: Platelet Estimate Normal (Normal); Tear Drop Cells 1+ (Not Present)
[2017-08-21] MEDS ORDERED: *HR* Rocuronium Bromide 50 MG/5 ML VIAL ONE ×2 (19:28→20:52)
[2017-08-21] MEDS ORDERED: *HR* Etomidate 40 MG/20 ML VIAL IVP ONE (19:28)
[2017-08-21] MEDS ORDERED: *HR* PHENYLEPHRINE 1,000 MCG/10 ML SYRINGE IVP ONE ×2 (19:40→21:01)
[2017-08-21] MEDS ORDERED: CefOXitin 2,000 MG VIAL ONE (19:46)
[2017-08-21 19:59] LABS: Magnesium 0.9 mg/dL (1.6-2.6)
--- NOTE | 2017-08-21 20:43 | Event Note ---
Date of Encounter: 08/21/17 Time of Encounter: 20:17 And approximately 1820 a rapid response was called to 3 day 31 Mr. Gopal Barrett. Upon arrival the patient was in severe distress with massive amounts of hematemesis. On 08/14/17 the patient underwent exploratory lap with oversew of bleeding duodenal vessel with a Heineke Micklicz pyloroplasty and omental patch. Additionally, the patient underwent an UGI with SBFT on 08/18/17. Vitals were obtained and he was found to be hypotensive 71/82, pulse 80, 96% on RA and 2- 1liter pressure bags of NS was started. At approximately [address] Cardoza was called and informed that the patient was experiencing massive amounts of hematemesis. He informed the staff that he was on his way. At this time GI was also called and informed of the patients declining condition and hematemesis. Blood bank was called and informed that the patient would need trauma blood x4 units PRBC's and labs, coags, CBC were obtained. The patient was then moved to ICU at approximately 1830 for closer monitoring and for rapid transfusion and anticipation of the need to go to the OR. While in the ICU pressure boluses of NS were continued but his hemodynamic status continued to decline. He was placed on Levophed at this time for hemodynamic support. It was determined that d/t his declining condition that the patient would benefit from intubation to protect the airway. Advanced airway placed by Dr. Hidalgo.The patient was placed in a flat position. Sedation was obtained using Versed 4mg, Fentanyl 50mg, and additionally with Etomidate 10mg. The patient was easily ventilated using an ambu bag. The C-MAC BLADE was used and inserted into the oropharynx at which time there was a Grade 1 view of the vocal cords. A 7.5-cit[place] endotracheal tube was inserted and visualized going through the vocal cords. The stylette was removed. Colorimetric change was visualized on the CO2 meter. Breath sounds were heard in both lung malagon equally. The endotracheal tube was placed at 24 cm, measured at the teeth. Attending, Dr. Hadley was present for the entire procedure. ET tube placement was confirmed with CXR, no pneumothorax noted per my review of CXR. Trauma blood arrived from the blood bank and 2units PRBC's were hung 1844. Pressure bag IVF boluses continued. All medications and IVF were given through a left upper arm 3-lumen PICC. During this time Dr. Cardoza arrived and informed keeley staff that the OR was being prepped. During this time the patients pulmonary status continued to be poor. Levophed was maxed out at 20 mcg/min. saline boluses were continued, rapid transfusion were continued, hemodynamic status still critical. Prior to leaving for the OR Dr. Cardoza ordered to 6 packs of platelets and 2 units of FFP to be sent to the OR. Additionally, I ordered 2 additional units of PRBCs for a total of 6. Due to original units were still running in as the patient left the OR and the for additional units were sent to the OR the patient. The patient was then transferred under the care of myself, ICU staff and Dr. Cardoza to the OR. The OR handoff was completed with Dr. Cardoza taking over. The plan is for the patient to return to the ICU following surgery.
[2017-08-21 22:43] LABS: Basophils # 0.1 K/mcL (0.0-0.2); Basophils % 0.4 %; Eosinophils # 0.4 K/mcL (0.0-0.6); Eosinophils % 1.5 %; Hematocrit 37.6 % (37.5-50.1); Immature Granulocytes % 1.9 % (0-4); Lymphocytes # 1.6 K/mcL (0.6-4.6); Lymphocytes % 6.6 %; Mean Corpuscular Hemoglobin 30.2 pg (28.0-33.3); Mean Platelet Volume 10.9 fL (9.4-12.4); Monocytes # 2.4 K/mcL (0.0-1.3); Monocytes % 10.1 %; Neutrophils # 18.9 K/mcL (1.6-8.9); Platelet Count 127 K/mcL (140-400); Red Cell Distribution Width 15.5 % (11.5-14.5); Segmented Neutrophils % 79.5 %
[2017-08-21 22:44] LABS: Hemoglobin 12.4 g/dL (12.9-16.9); Mean Corpuscular Volume 91.7 fL (83.0-100.0)
[2017-08-21] MEDS ORDERED: 0.9 % Sodium Chloride 250 ML ONE (22:47)
[2017-08-21 22:48] LABS: INR 1.6
[2017-08-21] MEDS ORDERED: Potassium Chloride 40 MEQ/200 ML BAG IVPB PRN (22:59)
[2017-08-21] MEDS ORDERED: Potassium Phosphate 44 MEQ in 0.9 % Sodium Chloride 250 ML IVPB PRN (23:01)
[2017-08-21 23:02] LABS: Magnesium 1.6 mg/dL (1.6-2.6); Phosphorous 4.3 mg/dL (2.7-4.5)
[2017-08-21 23:20] LABS: BUN/Creatinine Ratio 28 (6-26); Blood Urea Nitrogen 22 mg/dL (6-20); Calcium 5.9 mg/dL (8.6-10.3); Carbon Dioxide 20 mEq/L (23-29); Chloride 117 mEq/L (98-107); Glucose 148 mg/dL (70-105); Osmolality,Calculated 292 (280-300); Potassium 4.7 mEq/L (3.5-5.1); Sodium 138 mEq/L (136-145); eGFR For African Americans > 60 (> 60); eGFR For Non-African Americans > 60 (> 60)
[2017-08-22] MEDS: Acetaminophen IV 1,000 MG/100 ML INFUS..BTL IVPB SCH ×4 (00:08→23:50)
[2017-08-22 00:27] LABS: VBG Ionized Calcium 1.17 mmol/L (1.15-1.35); VBG PH 7.32 pH Units (7.32-7.42)
[2017-08-22] MEDS: Norepinephrine 4 MG in D5% in Water 250 ML IVC SCH ×2 (00:35→05:04)
--- NOTE | 2017-08-22 00:48 | Operative Note ---
Date of procedure: 08/22/17 Pre-op diagnosis: hematemesis 2/2 bleeding duodenal ulcer Post-op diagnosis: same Procedure: esophagogastroduodenoscopy, exploratory laparotomy; Implants: none Complications: none Anesthesia: PAULA Surgeon: Marcio Cardoza Was there an medical claims assistant present: Yes Siderographer: Dionne Menodza Estimated blood loss (cc): 20 Specimen: none Condition: critical Disposition: ICU Procedure in Detail: Patient was brought into the operating room suite. Underwent smooth induction of anesthesia. Prepped and draped in the usual fashion. A timeout was held Identifying correct patient, pathology, physician, and procedure. I started by performing an exploratory laparotomy. The patient had a fountain of blood coming from his mouth and nose. In addition I felt as if his abdomen was becoming more distended even while intubated and under sedation. Although his drains did not have shireen blood, his hemodynamic status and distended abdomen were concerning. Plus I was concerned that his drains may have become clogged by the blood. i then opened the abdomen. There was no blood in the abdomen. His prior repair at the duodenum was intact. I then broke scrub and performed an EGD. Immediately upon entrance There was blood within the esophagus as well as clot. I was able to navigate into the stomach and I saw a clot at the entrance of the pylorus. I called my partner for assistance. We both determined that the close was over the repair and there was no active bleeding at or beyond the 1st part of the duodenum. The decision was then made to close and send the patient to the ICU for resuscitation and warming. I closed the fascia with 0 looped PDS suture in a running fashion. I then used skin staplers to close the skin. The patient was in critical condition and was escorted to the ICU.
[2017-08-22] MEDS ORDERED: 0.9 % Sodium Chloride 250 ML ONE (00:55)
--- NOTE | 2017-08-22 02:51 | Anesthesia Evaluation Post Op ---
Date of Encounter: 08/22/17 Time of Encounter: 11:00 - Vital Signs Vital Signs: Vital Signs/O2 Sat/Glucose, Most Current Temp Pulse Resp BP Pulse Ox 08/22/17 02:15 24 98/61 100 08/22/17 02:00 98 23 90/62 100 08/22/17 01:16 96.5 F L 99 22 104/61 100 08/22/17 01:01 96.1 F L 96 25 100/67 100 08/22/17 01:00 96 25 100/67 100 08/22/17 00:16 96.2 F L 08/22/17 00:09 96.2 F L 95 20 99/62 100 08/22/17 00:00 91 19 108/63 100 08/21/17 23:34 26 86/57 99 08/21/17 23:30 73 19 132/74 100 08/21/17 23:11 86 20 116/69 99 08/21/17 23:00 82 37 80/59 97 08/21/17 22:56 103 28 92/64 98 - Lungs Lungs: Clear Ascult./Percussion - Airway Airway: Intubated - Cardiovascular Baseline Rhythm - Mental Status Mental Status: Asleep without brisk response to light stimulation - Pain Pain Scale: 0 - Nausea Vomiting Nausea Vomiting: Not Present - Hydration Hydration: NPO, Unable to tolerate oral fluids, Rubio catheter - Discharge PostOp Status: Transfer Patient to floor
[2017-08-22] MEDS: Ipratropium/Albuterol Neb 3 ML IH SCH ×4 (03:29→21:32)
[2017-08-22] MEDS: Pantoprazole 40 MG in 0.9 % Sodium Chloride Mini Bag 100 ML IVC SCH ×5 (03:59→20:55)
[2017-08-22 05:07] LABS: ABG Base Excess -2 mEq/L (-2 to 3); ABG HCO3 24 mEq/L (21-27); ABG Oxygen Saturation 99 % (95-98); ABG PCO2 44 mmHg (35-45); ABG PH 7.35 pH Units (7.32-7.45); ABG PO2 169 mmHg (85-104); ABG TCO2 26 mEq/L (20-26); Blood Gas Modality ASSIST CONTROL; Blood Gas PEEP 5 cm H2O; Blood Gas Respiration Rate 16; Blood Gas VT 450 cc
[2017-08-22] MEDS: Cefepime HCl 1,000 MG in Water for inj. (sterile) 20 ML 10 ML IVP SCH ×3 (05:34→20:57)
[2017-08-22 06:30] LABS: VBG Ionized Calcium 1.12 mmol/L (1.15-1.35); VBG PH 7.43 pH Units (7.32-7.42)
[2017-08-22 06:33] LABS: INR 1.3; Prothrombin Time 14.4 Seconds (9.4-12.1)
[2017-08-22 06:48] LABS: BUN/Creatinine Ratio 32 (6-26); Blood Urea Nitrogen 30 mg/dL (6-20); Calcium 7.7 mg/dL (8.6-10.3); Carbon Dioxide 23 mEq/L (23-29); Chloride 112 mEq/L (98-107); Glucose 124 mg/dL (70-105); Magnesium 1.7 mg/dL (1.6-2.6); Osmolality,Calculated 296 (280-300); Phosphorous 2.7 mg/dL (2.7-4.5); Potassium 4.6 mEq/L (3.5-5.1); Sodium 139 mEq/L (136-145); eGFR For African Americans > 60 (> 60); eGFR For Non-African Americans > 60 (> 60)
[2017-08-22 06:56] LABS: Basophils # 0.1 K/mcL (0.0-0.2); Basophils % 0.4 %; Eosinophils # 0.6 K/mcL (0.0-0.6); Eosinophils % 3.3 %; Hematocrit 29.2 % (37.5-50.1); Immature Granulocytes % 1.1 % (0-4); Lymphocytes # 1.2 K/mcL (0.6-4.6); Lymphocytes % 7.4 %; Mean Corpuscular HGB Conc 34.2 g/dL (31.6-35.5); Mean Corpuscular Hemoglobin 29.5 pg (28.0-33.3); Mean Corpuscular Volume 86.1 fL (83.0-100.0); Mean Platelet Volume 11.1 fL (9.4-12.4); Monocytes # 1.8 K/mcL (0.0-1.3); Monocytes % 10.8 %; Platelet Count 152 K/mcL (140-400); Red Blood Count 3.39 M/mcL (4.19-5.50); Red Cell Distribution Width 16.6 % (11.5-14.5)
[2017-08-22] MEDS: MetroNIDAZOLE 500 MG/100 ML 500 MG/100 ML BAG IVPB SCH ×2 (07:15→15:00)
[2017-08-22] MEDS: Fluconazole 200 MG/100 ML 200 MG/100 ML BAG IVPB SCH (08:00)
--- NOTE | 2017-08-22 08:21 | Pulmonology Progress Note ---
<SialemuelLykrystle M - Last Filed: 08/22/17 10:14> Date of Encounter: 08/22/17 Objective PUL Vital signs: Last Vital Signs Temp 98 F 08/22/17 05:33 Pulse 84 08/22/17 10:00 Resp 18 08/22/17 10:00 BP 129/56 08/22/17 10:00 Pulse Ox 100 08/22/17 10:00 Ventilator Settings Ventilator Settings: Ventilator Settings, Last 8 Hours Ventilator Mode VC+ Ventilator Mode VC+ Ventilator Mode VC+ Ventilator Mode A/C Ventilator Mode A/C Ventilator Mode A/C Ventilator Mode A/C Ventilator Mode A/C Ventilator Mode A/C Ventilator Mode A/C Ventilator Mode A/C Ventilator Tidal Volume 450 Setting Ventilator Tidal Volume 450 Setting Ventilator Tidal Volume 450 Setting Ventilator Tidal Volume 450 Setting Ventilator Tidal Volume 450 Setting Ventilator Tidal Volume 500 Setting Ventilator Tidal Volume 450 Setting Ventilator Tidal Volume 450 Setting Ventilator Tidal Volume 450 Setting Ventilator Tidal Volume 450 Setting Ventilator Tidal Volume 450 Setting Ventilator Respiratory Rate 16 Setting Ventilator Respiratory Rate 16 Setting Ventilator Respiratory Rate 16 Setting Ventilator Respiratory Rate 16 Setting Ventilator Respiratory Rate 16 Setting Ventilator Respiratory Rate 16 Setting Ventilator Respiratory Rate 16 Setting Ventilator Respiratory Rate 16 Setting Ventilator Respiratory Rate 16 Setting Ventilator Respiratory Rate 16 Setting Ventilator Respiratory Rate 16 Setting Actual Respiratory Rate 18 Actual Respiratory Rate 18 Actual Respiratory Rate 19 Actual Respiratory Rate 24 Actual Respiratory Rate 27 Actual Respiratory Rate 25 Actual Respiratory Rate 27 Actual Respiratory Rate 26 Actual Respiratory Rate 25 Actual Respiratory Rate 23 Positive End Expiratory 5 Pressure Positive End Expiratory 5 Pressure Positive End Expiratory 5 Pressure Positive End Expiratory 5 Pressure Positive End Expiratory 5 Pressure Positive End Expiratory 5 Pressure Positive End Expiratory 5 Pressure Positive End Expiratory 5 Pressure Positive End Expiratory 5 Pressure Positive End Expiratory 5 Pressure Positive End Expiratory 5 Pressure Peak Inspiratory Airway 11 Pressure Peak Inspiratory Airway 11 Pressure Peak Inspiratory Airway 13 Pressure Peak Inspiratory Airway 15 Pressure Peak Inspiratory Airway 15 Pressure Peak Inspiratory Airway 14 Pressure Peak Inspiratory Airway 13 Pressure Peak Inspiratory Airway 12 Pressure Peak Inspiratory Airway 12 Pressure Peak Inspiratory Airway 14 Pressure Results - Laboratory Findings CBC and BMP: 08/22/17 04:00 08/22/17 04:00 ABG ABG pH 7.35 pH Units (7.32-7.45) 08/22/17 05:03 ABG pCO2 44 mmHg (35-45) 08/22/17 05:03 ABG pO2 169 mmHg (85-104) H 08/22/17 05:03 ABG O2 Saturation 99 % (95-98) H 08/22/17 05:03 PT/INR, D-dimer PT 14.4 Seconds (9.4-12.1) H 08/22/17 04:00 Abnormal lab findings: Abnormal lab results WBC 16.9 K/mcL (4.3-11.1) H 08/22/17 04:00 RBC 3.39 M/mcL (4.19-5.50) L 08/22/17 04:00 Hgb 10.0 g/dL (12.9-16.9) L D 08/22/17 04:00 Hct 29.2 % (37.5-50.1) L 08/22/17 04:00 RDW 16.6 % (11.5-14.5) H 08/22/17 04:00 Neutrophils # 13.0 K/mcL (1.6-8.9) H 08/22/17 04:00 Monocytes # 1.8 K/mcL (0.0-1.3) H 08/22/17 04:00 Nucleated RBCs/100 WBC 0.4 /100 WBC (0) H 08/18/17 03:20 Large Platelets Present (Not Present) A 08/17/17 04:00 Polychromasia 1+ (Not Present) A 08/21/17 18:25 Hypochromasia Present (Not Present) A 08/21/17 18:25 Poikilocytosis 1+ (Not Present) A 08/17/17 04:00 Anisocytosis 2+ (Not Present) A 08/21/17 18:25 Macrocytosis Present (Not Present) A 08/21/17 18:25 Tear Drop Cells 1+ (Not Present) A 08/21/17 18:25 Ovalocytes 1+ (Not Present) A 08/21/17 18:25 PT 14.4 Seconds (9.4-12.1) H 08/22/17 04:00 ABG pO2 169 mmHg (85-104) H 08/22/17 05:03 ABG O2 Saturation 99 % (95-98) H 08/22/17 05:03 VBG pH 7.43 pH Units (7.32-7.42) H 08/22/17 06:28 Chloride 112 mEq/L (98-107) H 08/22/17 04:00 BUN 30 mg/dL (6-20) H 08/22/17 04:00 BUN/Creatinine Ratio 32 (6-26) H 08/22/17 04:00 Glucose 124 mg/dL (70-105) H 08/22/17 04:00 POC Glucose 127 mg/dL (70-99) H 08/21/17 22:15 Calcium 7.7 mg/dL (8.6-10.3) L 08/22/17 04:00 Venous Ioniz Calcium 1.12 mmol/L (1.15-1.35) L 08/22/17 06:28 Total Bilirubin 0.2 mg/dL (0.3-1.0) L 08/21/17 18:25 AST 7 Units/L (13-39) L 08/21/17 18:25 ALT 5 Units/L (7-52) L 08/21/17 18:25 Alkaline Phosphatase 21 Units/L (34-104) L 08/21/17 18:25 Serum Total Protein < 3.0 g/dL (6.4-8.9) L 08/21/17 18:25 Albumin < 1.5 g/dL (3.5-5.7) L 08/21/17 18:25 Prealbumin 13.1 mg/dL (17.0-34.0) L 08/19/17 03:20 - Clinical Findings Intake & Output: Intake & Output 08/21/17 08/22/17 08/22/17 23:59 07:59 15:59 Intake Total 1710 / 1710 2300 / 2300 275 / 275 Output Total 1120 / 1120 450 / 450 580 / 580 Balance 590 / 590 1850 / 1850 -305 / -305 Consult Discharge Plan - Plan Referrals: Kyler Loyd, FACILITY SECURITY OFFICER [Primary Care Provider] - - Attending Attestation I examined this patient and my medical decision-making was reviewed with the Resident Physician. I agree with the documented findings, disposition and treatment plan as described except to the extent set forth below. Patient seen and examined. Labs, radiology, chart personally reviewed. 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 Due to his unstable condition will keep on the vent. Cardiovascular: Continue monitoring for now GI: Nutrition per dietary and GI prophylaxis per routine. Discussed with surgery Heme: DVT prophylaxis per routine. Patient will be on mechanical DVT prophylaxis ID: Continue antibiotics and plan to de-escalation. Will check with surgery regarding antibiotics. Renal; urine out put and renal funtion reviewed Endorcine: blood glucose is monitored Lines: all lines checked and no evidence of infections Skin: skin care to prevent pressure ulcers per nursing routine care <Tu Stone - Last Filed: 08/22/17 11:19> Date of Encounter: 08/22/17 Time of Encounter: 08:45 Assessment and Plan (1) Acute upper GI bleed Current Visit: Yes Status: Resolved POD #8 S/P Ex Lap, with oversew of bleeding duodenal vessel, Heineke Micklicz Pyloroplasty and omental patch - Surgery following - Nutrition onboard for TPN management - Continue to closely monitor electrolytes - Cefepime 1000 mg IV every 8 hours - Fluconazole 200 mg IV daily - Zofran 4 mg IV every 6 when necessary - Flagyl 500 mg IV every 8 (2) Hematemesis Current Visit: Yes Status: Acute Patient developed massive hematemesis on the evening of 08/21/17 - Rapid response called; patient was in severe distress blood coming from mouth and nose - Was hemodynamically unstable - A total of 6 packed red blood cells were ordered - Patient was placed on levophed for pressure support - Was intubated for protection of airway - Surgery was notified; patient was taken in for EGD and exploratory laparotomy - No active bleeding source was found - Vital signs this morning are within normal limits; continue to monitor Qualifiers: Qualified Code(s): K92.0 - Hematemesis (3) Acute blood loss anemia Current Visit: Yes Status: Acute Patient has received a total of 11 units of packed red blood cells - Hemoglobin has decreased from yesterday from 12.4-10.0. - Trend hemoglobin; transfuse if less than 7 (4) Thrombocytopenia Current Visit: Yes Status: Resolved Patients normocytic anemia has improved; platelets of bone from 127 to 152 - Continue to monitor - Repeat a.m. labs (5) Hypokalemia Current Visit: Yes Status: Resolved Resolved; potassium this morning was 4.6 Repeat a.m. labs (6) Electrolyte abnormality Current Visit: Yes Status: Resolved Pt also had low magnesium, Calcium, and Phosphorus yesterday morning - Electrolytes appear to be improving - Continue to monitor and replete as needed - Attrition onboard; managing TPN. PICC team has been consulted (7) DVT prophylaxis Current Visit: Yes Status: Acute - SQ Heparin Q8H Subjective Principal diagnosis: Gastrointestinal hemorrhage Interval history: Patient was seen and examined at bedside this morning. Currently intubated and sedated. Blood visible from NG tube. Patient will be kept on the ventilator due to his unstable condition. Nutrition for dietary and GI prophylaxis will be continued per routine. We will discuss with surgery. He is currently on mechanical DVT prophylaxis due to his GI bleed. Continue antibiotics; plan to de-escalate. We will clarify with surgery today. Objective PUL Vital signs: Last Vital Signs Temp 98 F 08/22/17 05:33 Pulse 94 08/22/17 07:15 Resp 24 08/22/17 07:00 BP 119/57 08/22/17 07:00 Pulse Ox 98 08/22/17 07:00 General appearance: asleep Eyes: nonicteric ENT: oropharynx moist Neck: supple Effort: normal Auscultation: bilateral: clear Percussion: bilateral: not dull Tactile fremitus: bilateral: normal Cardiovascular: regular rate and rhythm Gastrointestinal: normoactive bowel sounds, non-distended Integumentary: normal Extremities: no cyanosis, no edema, no clubbing Musculoskeletal: no deformities, ROM normal normal mental status, non-focal exam mood appropriate, affect normal Ventilator Settings Ventilator Settings: Ventilator Settings, Last 8 Hours Ventilator Mode A/C Ventilator Mode A/C Ventilator Mode A/C Ventilator Mode A/C Ventilator Mode A/C Ventilator Mode A/C Ventilator Mode A/C Ventilator Mode A/C Ventilator Mode A/C Ventilator Mode A/C Ventilator Tidal Volume 450 Setting Ventilator Tidal Volume 450 Setting Ventilator Tidal Volume 500 Setting Ventilator Tidal Volume 450 Setting Ventilator Tidal Volume 450 Setting Ventilator Tidal Volume 450 Setting Ventilator Tidal Volume 450 Setting Ventilator Tidal Volume 450 Setting Ventilator Tidal Volume 450 Setting Ventilator Tidal Volume 450 Setting Ventilator Respiratory Rate 16 Setting Ventilator Respiratory Rate 16 Setting Ventilator Respiratory Rate 16 Setting Ventilator Respiratory Rate 16 Setting Ventilator Respiratory Rate 16 Setting Ventilator Respiratory Rate 16 Setting Ventilator Respiratory Rate 16 Setting Ventilator Respiratory Rate 16 Setting Ventilator Respiratory Rate 16 Setting Ventilator Respiratory Rate 16 Setting Actual Respiratory Rate 24 Actual Respiratory Rate 27 Actual Respiratory Rate 25 Actual Respiratory Rate 27 Actual Respiratory Rate 26 Actual Respiratory Rate 25 Actual Respiratory Rate 23 Actual Respiratory Rate 23 Actual Respiratory Rate 25 Positive End Expiratory 5 Pressure Positive End Expiratory 5 Pressure Positive End Expiratory 5 Pressure Positive End Expiratory 5 Pressure Positive End Expiratory 5 Pressure Positive End Expiratory 5 Pressure Positive End Expiratory 5 Pressure Positive End Expiratory 5 Pressure Positive End Expiratory 5 Pressure Positive End Expiratory 5 Pressure Peak Inspiratory Airway 15 Pressure Peak Inspiratory Airway 15 Pressure Peak Inspiratory Airway 14 Pressure Peak Inspiratory Airway 13 Pressure Peak Inspiratory Airway 12 Pressure Peak Inspiratory Airway 12 Pressure Peak Inspiratory Airway 14 Pressure Peak Inspiratory Airway 13 Pressure Peak Inspiratory Airway 16 Pressure Results - Laboratory Findings CBC and BMP: 08/22/17 10:00 08/22/17 04:00 ABG ABG pH 7.35 pH Units (7.32-7.45) 08/22/17 05:03 ABG pCO2 44 mmHg (35-45) 08/22/17 05:03 ABG pO2 169 mmHg (85-104) H 08/22/17 05:03 ABG O2 Saturation 99 % (95-98) H 08/22/17 05:03 PT/INR, D-dimer PT 14.4 Seconds (9.4-12.1) H 08/22/17 04:00 Abnormal lab findings: Abnormal lab results WBC 16.9 K/mcL (4.3-11.1) H 08/22/17 04:00 RBC 3.39 M/mcL (4.19-5.50) L 08/22/17 04:00 Hgb 10.0 g/dL (12.9-16.9) L D 08/22/17 04:00 Hct 29.2 % (37.5-50.1) L 08/22/17 04:00 RDW 16.6 % (11.5-14.5) H 08/22/17 04:00 Neutrophils # 13.0 K/mcL (1.6-8.9) H 08/22/17 04:00 Monocytes # 1.8 K/mcL (0.0-1.3) H 08/22/17 04:00 Nucleated RBCs/100 WBC 0.4 /100 WBC (0) H 08/18/17 03:20 Large Platelets Present (Not Present) A 08/17/17 04:00 Polychromasia 1+ (Not Present) A 08/21/17 18:25 Hypochromasia Present (Not Present) A 08/21/17 18:25 Poikilocytosis 1+ (Not Present) A 08/17/17 04:00 Anisocytosis 2+ (Not Present) A 08/21/17 18:25 Macrocytosis Present (Not Present) A 08/21/17 18:25 Tear Drop Cells 1+ (Not Present) A 08/21/17 18:25 Ovalocytes 1+ (Not Present) A 08/21/17 18:25 PT 14.4 Seconds (9.4-12.1) H 08/22/17 04:00 ABG pO2 169 mmHg (85-104) H 08/22/17 05:03 ABG O2 Saturation 99 % (95-98) H 08/22/17 05:03 VBG pH 7.43 pH Units (7.32-7.42) H 08/22/17 06:28 Chloride 112 mEq/L (98-107) H 08/22/17 04:00 BUN 30 mg/dL (6-20) H 08/22/17 04:00 BUN/Creatinine Ratio 32 (6-26) H 08/22/17 04:00 Glucose 124 mg/dL (70-105) H 08/22/17 04:00 POC Glucose 127 mg/dL (70-99) H 08/21/17 22:15 Calcium 7.7 mg/dL (8.6-10.3) L 08/22/17 04:00 Venous Ioniz Calcium 1.12 mmol/L (1.15-1.35) L 08/22/17 06:28 Total Bilirubin 0.2 mg/dL (0.3-1.0) L 08/21/17 18:25 AST 7 Units/L (13-39) L 08/21/17 18:25 ALT 5 Units/L (7-52) L 08/21/17 18:25 Alkaline Phosphatase 21 Units/L (34-104) L 08/21/17 18:25 Serum Total Protein < 3.0 g/dL (6.4-8.9) L 08/21/17 18:25 Albumin < 1.5 g/dL (3.5-5.7) L 08/21/17 18:25 Prealbumin 13.1 mg/dL (17.0-34.0) L 08/19/17 03:20 - Clinical Findings Intake & Output: Intake & Output 08/21/17 08/22/1718 23:59 07:59 15:59 Intake Total 1710 / 1710 2300 / 2300 Output Total 1120 / 1120 450 / 450 Balance 590 / 590 1850 / 1850 - VTE Documentation of Mechanical Device: Intermittent pneumatic compression device
--- NOTE | 2017-08-22 08:49 | General Surgery Progress Note ---
<Jovi Meneses - Last Filed: 08/22/17 10:28> Date of Encounter: 08/22/17 Time of Encounter: 08:00 - Assessment and Plan (1) Acute upper GI bleed Current Visit: Yes Status: Resolved POD #8 S/P Ex Lap, with oversew of bleeding duodenal vessel, Heineke Micklicz Pyloroplasty and omental patch POD #1 S/P Ex Lap, EGD s/p hematemesis. Patient experienced hematemesis yesterday taken emergently to the OR for Ex lap and EGD. See event note for full details. Patient is intubated and sedated on vent in ICU after operation Patient received 2 units PRBC, 1 unit plasma, 1 unit platelets Plan: NPO except carafate through NG tube keep NG tube to LIWS continue Serial H/H transfuse as needed strict Is&Os continue protonix gtt repeat EGD in 24-48hrs if stable If re-bleeds we will consult IR EPCDs no blood thinners. continue TPN (2) Acute blood loss anemia Current Visit: Yes Status: Acute (3) Upper abdominal pain Current Visit: No Status: Acute (4) Duodenal ulcer Current Visit: Yes Status: Acute (5) DVT prophylaxis Current Visit: No Status: Acute SQ Heparin Q8H (6) Acute kidney injury Current Visit: Yes Status: Resolved (7) Hypokalemia Current Visit: Yes Status: Resolved (8) Electrolyte abnormality Current Visit: Yes Status: Resolved (9) Thrombocytopenia Current Visit: Yes Status: Resolved Improved Plt- 82>84>84>120>125>152 Continue to monitor Repeat am labs (10) Hemorrhagic shock Current Visit: Yes Status: Resolved Subjective Narrative: Patient sedated on ventilator s/p emergent ex lap and EGD. Patient opens eyes to voice. Patient off pressors at this time. See event notes for full details of events over night. Objective Vital Signs - Last 8 Hours Temp Pulse Resp BP Pulse Ox 08/22/17 08:00 90 19 126/55 99 08/22/17 07:15 94 08/22/17 07:00 92 24 119/57 98 08/22/17 06:00 94 27 105/52 98 08/22/17 05:33 98 F 95 27 123/59 99 08/22/17 05:00 101 25 113/60 100 08/22/17 04:13 97.9 F 99 24 86/52 100 08/22/17 04:00 97.9 F 106 27 102/59 98 08/22/17 03:58 97.9 F 105 25 100/59 100 08/22/17 03:54 97.9 F 100 25 99/58 100 08/22/17 03:29 25 101/59 100 08/22/17 03:00 101 25 112/62 100 08/22/17 02:15 24 98/61 100 08/22/17 02:00 98 23 90/62 100 08/22/17 01:16 96.5 F L 99 22 104/61 100 08/22/17 01:01 96.1 F L 96 25 100/67 100 08/22/17 01:00 96 25 100/67 100 Intake and Output 08/21/17 08/22/17 08/22/17 23:59 07:59 15:59 Intake Total 1710 / 1710 2300 / 2300 125 / 125 Output Total 1120 / 1120 450 / 450 190 / 190 Balance 590 / 590 1850 / 1850 -65 / -65 Intake: IV Fluids 310 / 310 1433 / 1433 100 / 100 Levophed 4 MG In Dextrose 5% 353 / 353 250 ML @ 8 MCG/MIN 30.48 mls/hr IVC CONT [facility] Rx#:[id number] Protonix 40 MG In 0.9 % Sodium 100 / 100 200 / 200 Chloride (Mini-Bag +) 100 ML @ 20 mls/hr IVC .Q5H [facility] Rx#: [id number] Diprivan 1,000 mg In 100 ml @ 5 100 / 100 MCG/KG/MIN 2.235 mls/hr IVC . Q24H [facility] Rx#:[id number] Maxipime 1,000 MG In Water for inj. (sterile) 10 ML @ 150 mls/ hr IVP Q8H [facility] Rx#:[id number] Ofirmev 1,000 mg/100 ml 1,000 200 / 200 mg In 100 ml @ 400 mls/hr IVPB Q8HR [facility] Rx#:[id number] Intralipid 20% 250 ML @ 21 mls/ 250 / 250 hr IVPB DAILY@1700 [facility] Rx#: [id number] Flagyl Premix 500 MG/100 ML 500 100 / 100 100 / 100 100 / 100 mg In 100 ml @ 100 mls/hr IVPB Q8HR [facility] Rx#:[id number] Potassium Chloride 20 mEq/100 100 / 100 100 / 100 mL 40 meq In 200 ml @ 100 mls/ hr IVPB Q1H PRN Rx#:[id number] Blood Product 1400 / 1400 867 / 867 Plasma Unit [id number] 287 / 287 Platelet Pheresis Lp Irr 1st 293 / 293 Unit [id number] Rbcs Leuko Poor As-1 Unit 1400 / 1400 287 / 287 [id number] Rbcs Leuko Poor As-1 Unit 0 / 0 [id number] Free Water 25 / Output: Estimated Blood Loss 20 / 20 Catheter 850 / 850 175 / 175 150 / 150 Gastric Drainage 90 / 90 0 / 0 Wound Drainage 250 / 250 185 / 185 40 / 40 REENA drain/Jason tube #1 150 / 150 100 / 100 20 / 20 REENA drain/Jason tube #2 100 / 100 85 / 85 20 / 20 Other: Blood Glucose* 127 157 - General physical appearance well developed, no distress - Eyes PERRL - ENT dry mucosa - Neck Neck exam: trachea midline - Respiratory other (On ventilator) rales: bilateral - Cardiovascular Cardiovascular exam: Present: RRR, no murmurs/rubs/gallops - Abdomen Abdomen: Present: soft, tender. Absent: guarding, rebound - Incision Incision: Present: clean and dry, intact - Genitourinary other - Integumentary no growths - Neurologic other - Psychiatric other - Labs 08/22/17 10:00 08/22/17 04:00 Diabetes panel 08/21/17 08/21/17 08/22/17 Range/Units 18:25 22:10 04:00 Sodium 147 H 138 D 139 (136-145) mEq/L Potassium 2.2 L* D 4.7 D 4.6 (3.5-5.1) mEq/L Chloride 132 H 117 H 112 H (98-107) mEq/L Carbon Dioxide 12 L 20 L 23 (23-29) mEq/L BUN 11 22 H 30 H (6-20) mg/dL Creatinine 0.25 L 0.79 0.95 (0.70-1.30) mg/dL Glucose 71 148 H 124 H (70-105) mg/dL Calcium < 4.0 L* 5.9 L* 7.7 L (8.6-10.3) mg/dL AST 7 L (13-39) Units/L ALT 5 L (7-52) Units/L Alkaline Phosphatase 21 L (34-104) Units/L Albumin < 1.5 L (3.5-5.7) g/dL Calcium panel 08/21/17 08/21/17 08/21/17 Range/Units 18:25 22:10 22:28 Calcium < 4.0 L* 5.9 L* (8.6-10.3) mg/dL Phosphorus 4.3 (2.7-4.5) mg/dL Albumin < 1.5 L (3.5-5.7) g/dL 08/22/17 Range/Units 04:00 Calcium 7.7 L (8.6-10.3) mg/dL Phosphorus 2.7 (2.7-4.5) mg/dL Albumin (3.5-5.7) g/dL Pituitary panel 08/21/17 08/21/17 08/22/17 Range/Units 18: 22:10 04:00 Sodium 147 H 138 D 139 (136-145) mEq/L Potassium 2.2 L* D 4.7 D 4.6 (3.5-5.1) mEq/L Chloride 132 H 117 H 112 H (98-107) mEq/L Carbon Dioxide 12 L 20 L 23 (23-29) mEq/L BUN 11 22 H 30 H (6-20) mg/dL Creatinine 0.25 L 0.79 0.95 (0.70-1.30) mg/dL Glucose 71 148 H 124 H (70-105) mg/dL Calcium < 4.0 L* 5.9 L* 7.7 L (8.6-10.3) mg/dL Adrenal panel 08/21/17 08/21/17 08/22/17 Range/Units 18:25 22:10 04:00 Sodium 147 H 138 D 139 (136-145) mEq/L Potassium 2.2 L* D 4.7 D 4.6 (3.5-5.1) mEq/L Chloride 132 H 117 H 112 H (98-107) mEq/L Carbon Dioxide 12 L 20 L 23 (23-29) mEq/L BUN 11 22 H 30 H (6-20) mg/dL Creatinine 0.25 L 0.79 0.95 (0.70-1.30) mg/dL Glucose 71 148 H 124 H (70-105) mg/dL Calcium < 4.0 L* 5.9 L* 7.7 L (8.6-10.3) mg/dL Total Bilirubin 0.2 L (0.3-1.0) mg/dL AST 7 L (13-39) Units/L ALT 5 L (7-52) Units/L Alkaline Phosphatase 21 L (34-104) Units/L Albumin < 1.5 L (3.5-5.7) g/dL - VTE Documentation of Mechanical Device: Intermittent pneumatic compression device Consult Discharge Plan - Plan Referrals: Kyler Loyd, [facility] [Primary Care Provider] - <Ally Smallwood - Last Filed: 08/22/17 11:15> Date of Encounter: 08/22/17 - Assessment and Plan (1) Acute upper GI bleed Current Visit: Yes Status: Resolved patient is intubated on vent and only po allowed to have is carafate through ngt npo, ngt LIWS prn pain control will keep intubated next 24 hrs serial H/H continue art line for monitoring continue oshea for accurate I/O's if rebleeds will send to IR for possible coil of GDA transfuse and support as needed continue protonix gtt and carafate will plan repeat EGD in 24-48 hrs EPCD's. no heparin or lovenox continue PICC/TPN (2) Upper abdominal pain Current Visit: No Status: Acute continue prn pain control (3) Hemorrhagic shock Current Visit: Yes Status: Acute transfused 6 units prbc, 1 ffp, 1 pck plts, off pressors, trend H/H (4) DVT prophylaxis Current Visit: No Status: Acute (5) Duodenal ulcer Current Visit: Yes Status: Acute (6) Leukocytosis Current Visit: Yes Status: Acute elvated after reintervention, continue antibiotics, trend Qualifiers: Leukocytosis type: unspecified Qualified Code(s): D72.829 - Elevated white blood cell count, unspecified (7) Thrombocytopenia Current Visit: Yes Status: Resolved received 1 pack platelets yesterday Subjective Narrative: sedated on vent, responds with eye opening to verbal Objective Vital Signs - Last 8 Hours Temp Pulse Resp BP Pulse Ox 08/22/17 09:00 87 18 133/59 100 08/22/17 08:00 90 19 126/55 99 08/22/17 07:15 94 08/22/17 07:00 92 24 119/57 98 08/22/17 06:00 94 27 105/52 98 08/22/17 05:33 98 F 95 27 123/59 99 08/22/17 05:00 101 25 113/60 100 08/22/17 04:13 97.9 F 99 24 86/52 100 08/22/17 04:00 97.9 F 106 27 102/59 98 08/22/17 03:58 97.9 F 105 25 100/59 100 08/22/17 03:54 97.9 F 100 25 99/58 100 08/22/17 03:29 25 101/59 100 08/22/17 03:00 101 25 112/62 100 08/22/17 02:15 24 98/61 100 08/22/17 02:00 98 23 90/62 100 Intake and Output 08/21/17 08/22/17 08/22/17 23:59 07:59 15:59 Intake Total 1710 / 1710 2300 / 2300 275 / 275 Output Total 1120 / 1120 450 / 450 580 / 580 Balance 590 / 590 1850 / 1850 -305 / -305 Intake: IV Fluids 310 / 310 1433 / 1433 250 / 250 Levophed 4 MG In Dextrose 5% 353 / 353 250 ML @ 8 MCG/MIN 30.48 mls/hr IVC CONT [facility] Rx#:[id number] Protonix 40 MG In 0.9 % Sodium 100 / 100 200 / 200 Chloride (Mini-Bag +) 100 ML @ 20 mls/hr IVC .Q5H [facility] Rx#: [id number] Diprivan 1,000 mg In 100 ml @ 5 100 / 100 MCG/KG/MIN 2.235 mls/hr IVC . Q24H [facility] Rx#:[id number] Maxipime 1,000 MG In Water for 10 / 10 inj. (sterile) 10 ML @ 150 mls/ hr IVP Q8H [facility] Rx#:[id number] Ofirmev 1,000 mg/100 ml 1,000 200 / 200 mg In 100 ml @ 400 mls/hr IVPB Q8HR [facility] Rx#:[id number] Intralipid 20% 250 ML @ 21 mls/ 250 / 250 hr IVPB DAILY@1700 [facility] Rx#: [id number] Diflucan Premix 200 MG/100 ML 100 / 100 200 mg In 100 ml @ 100 mls/hr IVPB DAILY [facility] Rx#:[id number] Flagyl Premix 500 MG/100 ML 500 100 / 100 100 / 100 100 / 100 mg In 100 ml @ 100 mls/hr IVPB Q8HR [facility] Rx#:[id number] Potassium Chloride 20 mEq/100 100 / 100 100 / 100 50 / 50 mL 40 meq In 200 ml @ 100 mls/ hr IVPB Q1H PRN Rx#:[id number] Blood Product 1400 / 1400 867 / 867 Plasma Unit [id number] 287 / 287 Platelet Pheresis Lp Irr 1st 293 / 293 Unit [id number] Rbcs Leuko Poor As-1 Unit 1400 / 1400 287 / 287 [id number] Rbcs Leuko Poor As-1 Unit 0 / 0 [id number] Free Water 25 / 25 Output: Estimated Blood Loss 20 / 20 Catheter 850 / 850 175 / 175 150 / 150 Gastric Drainage 90 / 90 350 / 350 Wound Drainage 250 / 250 185 / 185 80 / 80 REENA drain/Jason tube #1 150 / 150 100 / 100 30 / 30 REENA drain/Jason tube #2 100 / 100 85 / 85 50 / 50 Other: Blood Glucose* 127 157 - General physical appearance well developed, no distress - Eyes PERRL - ENT dry mucosa, normocephalic - Neck Neck exam: trachea midline - Respiratory rales: bilateral - Cardiovascular Cardiovascular exam: Present: RRR, no murmurs/rubs/gallops - Abdomen Abdomen: Present: soft, tender. Absent: guarding, rebound Additional Comments: REENA drains with serous drainage - Incision Incision: Present: clean and dry, intact - Genitourinary other (foely wiht clear yellow urine) - Integumentary no growths - Neurologic other (sedated) - Psychiatric other (sedated) - Labs 08/22/17 10:00 08/22/17 04:00 Diabetes panel 08/21/17 08/21/17 08/22/17 Range/Units 18:25 22:10 04:00 Sodium 147 H 138 D 139 (136-145) mEq/L Potassium 2.2 L* D 4.7 D 4.6 (3.5-5.1) mEq/L Chloride 132 H 117 H 112 H (98-107) mEq/L Carbon Dioxide 12 L 20 L 23 (23-29) mEq/L BUN 11 22 H 30 H (6-20) mg/dL Creatinine 0.25 L 0.79 0.95 (0.70-1.30) mg/dL Glucose 71 148 H 124 H (70-105) mg/dL Calcium < 4.0 L* 5.9 L* 7.7 L (8.6-10.3) mg/dL AST 7 L (13-39) Units/L ALT 5 L (7-52) Units/L Alkaline Phosphatase 21 L (34-104) Units/L Albumin < 1.5 L (3.5-5.7) g/dL Calcium panel 08/21/17 08/21/17 08/21/17 Range/Units 18:25 22:10 22:28 Calcium < 4.0 L* 5.9 L* (8.6-10.3) mg/dL Phosphorus 4.3 (2.7-4.5) mg/dL Albumin < 1.5 L (3.5-5.7) g/dL 08/22/17 Range/Units 04:00 Calcium 7.7 L (8.6-10.3) mg/dL Phosphorus 2.7 (2.7-4.5) mg/dL Albumin (3.5-5.7) g/dL Pituitary panel 08/21/17 08/21/17 08/22/17 Range/Units 18:25 22:10 04:00 Sodium 147 H 138 D 139 (136-145) mEq/L Potassium 2.2 L* D 4.7 D 4.6 (3.5-5.1) mEq/L Chloride 132 H 117 H 112 H (98-107) mEq/L Carbon Dioxide 12 L 20 L 23 (23-29) mEq/L BUN 11 22 H 30 H (6-20) mg/dL Creatinine 0.25 L 0.79 0.95 (0.70-1.30) mg/dL Glucose 71 148 H 124 H (70-105) mg/dL Calcium < 4.0 L* 5.9 L* 7.7 L (8.6-10.3) mg/dL Adrenal panel 08/21/17 08/21/17 08/22/17 Range/Units 18:25 22:10 04:00 Sodium 147 H 138 D 139 (136-145) mEq/L Potassium 2.2 L* D 4.7 D 4.6 (3.5-5.1) mEq/L Chloride 132 H 117 H 112 H (98-107) mEq/L Carbon Dioxide 12 L 20 L 23 (23-29) mEq/L BUN 11 22 H 30 H (6-20) mg/dL Creatinine 0.25 L 0.79 0.95 (0.70-1.30) mg/dL Glucose 71 148 H 124 H (70-105) mg/dL Calcium < 4.0 L* 5.9 L* 7.7 L (8.6-10.3) mg/dL Total Bilirubin 0.2 L (0.3-1.0) mg/dL AST 7 L (13-39) Units/L ALT 5 L (7-52) Units/L Alkaline Phosphatase 21 L (34-104) Units/L Albumin < 1.5 L (3.5-5.7) g/dL - Attending Attestation I examined this patient and my medical decision-making was reviewed with the Resident Physician. I agree with the documented findings, disposition and treatment plan as described except to the extent set forth below.
--- NOTE | 2017-08-22 09:52 | Event Note ---
Date of Encounter: 08/21/17 Time of Encounter: 20:25 Was called from home into OR to assist with case. Patient had become hypotensive on floor with hematemesis. Hb was found to be 5.5. Dr Simon had begun performing EGD and found blood in stomach and clot in duodenum. I then took over the EGD. Was able to pass scope into duodenum and past clot to the left. No obvious welling of blood from underneath and no obvious blood distal to clot. No obvious bleeding or welling up of blood proximal, lateral to or distal to blood clot in duodenum. He is getting fourth unit of blood currently in OR. On initial presentation to OR HR was "one hundred teens" per anesthesia and currently is 83. Still on pressors but less than when presented to OR. Rubio is showing he is making clear yellow urine. Scope was removed and Dr Cardoza scrubbed in to close patients abdomen. Recommendation - leave clot on duodenum alone as no obvious continued bleeding. Replace NGT, close abdomen leaving christopher drains in place. Transfuse 2 more units PRBC and 1 pack platelets. If has rebleed episode will send down to IR for possible coil of GDA. Will plan to rescope in next 2-3 days.
[2017-08-22 10:12] LABS: Hematocrit 27.6 % (37.5-50.1); Hemoglobin 9.3 g/dL (12.9-16.9)
[2017-08-22] MEDS: Budesonide/Formoterol 160/4.5 MDI IH SCH ×2 (11:01→21:32)
[2017-08-22] MEDS ORDERED: Lacri-Lube 3.5 GM TUBE BOTH EYES PRN (11:12)
[2017-08-22] MEDS: Lacri-Lube 3.5 GM TUBE BOTH EYES SCH ×4 (11:24→23:59)
[2017-08-22] MEDS: FentaNYL (PF) 1,000 MCG in 0.9 % Sodium Chloride 80 ML IVC SCH ×2 (12:40→23:05)
[2017-08-22 16:01] LABS: Hemoglobin 9.4 g/dL (12.9-16.9)
[2017-08-22] MEDS ORDERED: Clinimix E 5%-15% SOLUTION 2,000 ML with MVI, adult with vitamin K 10 ML IVC SCH (17:00)
[2017-08-22] MEDS: Chlorhexidine Rinse 15 ML MOUTHWASH MM SCH (20:57)
[2017-08-23] MEDS: Pantoprazole 40 MG in 0.9 % Sodium Chloride Mini Bag 100 ML IVC SCH ×5 (01:55→21:28)
--- NOTE | 2017-08-23 02:18 | Pulmonology Progress Note ---
<Cali Johnson - Last Filed: 08/23/17 07:19> Date of Encounter: 08/23/17 Time of Encounter: 05:36 Assessment and Plan (1) Acute upper GI bleed Current Visit: Yes Status: Resolved History of duodenal ulcer as per EGD on 08/01/17. POD #9: Exploratory laparotomy, oversew bleeding duodenal ulcer, Heineke Micklicz pyloroplasty with omental patch POD #1 S/P Ex Lap, EGD s/p hematemesis Hgb 8.8 (9.4) Protonix infusion Carafate 4 times daily NPO with the exception of Carafate TPN with nutrition following. Continue cefepime, Flagyl, Diflucan Anticipate repeat EGD if hemodynamically stable. Plan is potential embolization with interventional radiology if recurrence of hematemesis. (2) Acute blood loss anemia Current Visit: Yes Status: Resolved Secondary to duodenal ulcer. POD #9: Exploratory laparotomy, oversew bleeding duodenal ulcer, Heineke Micklicz pyloroplasty with omental patch Continue daily CBCs Hold anticoagulants (3) Duodenal ulcer Current Visit: Yes Status: Acute POD #9: Exploratory laparotomy, oversew bleeding duodenal ulcer, Heineke Micklicz pyloroplasty with omental patch Protonix infusion Carafate 4 times daily Repeat EGD if remains hemodynamically stable as per surgery Consult to interventional radiology if recurrence of hematemesis (4) Hypertension Current Visit: Yes Status: Chronic Hold antihypertensives in the setting of acute GI bleed Qualifiers: Hypertension type: essential hypertension Qualified Code(s): I10 - Essential (primary) hypertension (5) COPD (chronic obstructive pulmonary disease) Current Visit: Yes Status: Chronic Albuterol/DuoNeb treatments as needed Qualifiers: COPD type: unspecified COPD Qualified Code(s): J44.9 - Chronic obstructive pulmonary disease, unspecified (6) Hypocalcemia Current Visit: Yes Status: Acute Ionized 1.12. Following previous blood transfusion. Replace as per electrolyte protocol (7) DVT prophylaxis Current Visit: No Status: Acute SCDs, Hold heparin in setting of UGIB. Subjective Principal diagnosis: Gastrointestinal hemorrhage Interval history: No acute events overnight. Remains intubated with plans for repeat EGD in 24- 48 hours. No blood products required overnight. Objective PUL Vital signs: Last Vital Signs Temp 97.5 F L 08/23/17 00:38 Pulse 108 08/23/17 02:00 Resp 22 08/23/17 02:00 BP 105/52 08/23/17 02:00 Pulse Ox 99 08/23/17 02:00 General appearance: no acute distress, other (Intubated and sedated) Eyes: nonicteric ENT: other (ET tube in place) Neck: supple Effort: other (Mechanically ventilated) Auscultation: bilateral: clear Cardiovascular: other (Tachycardic, regular rhythm) Gastrointestinal: soft, non-distended, other (Midline surgical incision covered with dressing. 2 right-sided REENA drains with serosanguineous output.) Integumentary: normal Extremities: no cyanosis, no edema Musculoskeletal: no deformities other (Intubated and sedated) Ventilator Settings Ventilator Settings: Ventilator Settings, Last 8 Hours Ventilator Mode VC+ Ventilator Mode VC+ Ventilator Mode VC+ Ventilator Mode VC+ Ventilator Mode A/C Ventilator Mode VC+ Ventilator Mode VC+ Ventilator Mode VC+ Ventilator Mode VC+ Ventilator Mode VC+ Ventilator Mode VC+ Ventilator Mode VC+ Ventilator Tidal Volume 450 Setting Ventilator Tidal Volume 450 Setting Ventilator Tidal Volume 450 Setting Ventilator Tidal Volume 450 Setting Ventilator Tidal Volume 450 Setting Ventilator Tidal Volume 450 Setting Ventilator Tidal Volume 450 Setting Ventilator Tidal Volume 450 Setting Ventilator Tidal Volume 450 Setting Ventilator Tidal Volume 450 Setting Ventilator Tidal Volume 450 Setting Ventilator Tidal Volume 450 Setting Ventilator Respiratory Rate 16 Setting Ventilator Respiratory Rate 16 Setting Ventilator Respiratory Rate 16 Setting Ventilator Respiratory Rate 16 Setting Ventilator Respiratory Rate 16 Setting Ventilator Respiratory Rate 16 Setting Ventilator Respiratory Rate 16 Setting Ventilator Respiratory Rate 16 Setting Ventilator Respiratory Rate 16 Setting Ventilator Respiratory Rate 16 Setting Ventilator Respiratory Rate 16 Setting Ventilator Respiratory Rate 16 Setting Actual Respiratory Rate 22 Actual Respiratory Rate 22 Actual Respiratory Rate 19 Actual Respiratory Rate 22 Actual Respiratory Rate 22 Actual Respiratory Rate 17 Actual Respiratory Rate 18 Actual Respiratory Rate 20 Actual Respiratory Rate 22 Actual Respiratory Rate 21 Actual Respiratory Rate 19 Actual Respiratory Rate 24 Positive End Expiratory 5 Pressure Positive End Expiratory 5 Pressure Positive End Expiratory 5 Pressure Positive End Expiratory 5 Pressure Positive End Expiratory 5 Pressure Positive End Expiratory 5 Pressure Positive End Expiratory 5 Pressure Positive End Expiratory 5 Pressure Positive End Expiratory 5 Pressure Positive End Expiratory 5 Pressure Positive End Expiratory 5 Pressure Positive End Expiratory 5 Pressure Peak Inspiratory Airway 20 Pressure Peak Inspiratory Airway 16 Pressure Peak Inspiratory Airway 17 Pressure Peak Inspiratory Airway 12 Pressure Peak Inspiratory Airway 10 Pressure Peak Inspiratory Airway 13 Pressure Peak Inspiratory Airway 11 Pressure Peak Inspiratory Airway 13 Pressure Peak Inspiratory Airway 17 Pressure Peak Inspiratory Airway 23 Pressure Peak Inspiratory Airway 25 Pressure Results - Laboratory Findings CBC and BMP: 08/23/17 03:55 08/23/17 03:55 ABG ABG pH 7.35 pH Units (7.32-7.45) 08/22/17 05:03 ABG pCO2 44 mmHg (35-45) 08/22/17 05:03 ABG pO2 169 mmHg (85-104) H 08/22/17 05:03 ABG O2 Saturation 99 % (95-98) H 08/22/17 05:03 PT/INR, D-dimer PT 14.4 Seconds (9.4-12.1) H 08/22/17 04:00 Abnormal lab findings: Abnormal lab results WBC 16.9 K/mcL (4.3-11.1) H 08/22/17 04:00 RBC 3.39 M/mcL (4.19-5.50) L 08/22/17 04:00 Hgb 9.4 g/dL (12.9-16.9) L 08/22/17 15:45 Hct 28.0 % (37.5-50.1) L 08/22/17 15:45 RDW 16.6 % (11.5-14.5) H 08/22/17 04:00 Neutrophils # 13.0 K/mcL (1.6-8.9) H 08/22/17 04:00 Monocytes # 1.8 K/mcL (0.0-1.3) H 08/22/17 04:00 Nucleated RBCs/100 WBC 0.4 /100 WBC (0) H 08/18/17 03:20 Large Platelets Present (Not Present) A 08/17/17 04:00 Polychromasia 1+ (Not Present) A 08/21/17 18:25 Hypochromasia Present (Not Present) A 08/21/17 18:25 Poikilocytosis 1+ (Not Present) A 08/17/17 04:00 Anisocytosis 2+ (Not Present) A 08/21/17 18:25 Macrocytosis Present (Not Present) A 08/21/17 18:25 Tear Drop Cells 1+ (Not Present) A 08/21/17 18:25 Ovalocytes 1+ (Not Present) A 08/21/17 18:25 PT 14.4 Seconds (9.4-12.1) H 08/22/17 04:00 ABG pO2 169 mmHg (85-104) H 08/22/17 05:03 ABG O2 Saturation 99 % (95-98) H 08/22/17 05:03 VBG pH 7.43 pH Units (7.32-7.42) H 08/22/17 06:28 Chloride 112 mEq/L (98-107) H 08/22/17 04:00 BUN 30 mg/dL (6-20) H 08/22/17 04:00 BUN/Creatinine Ratio 32 (6-26) H 08/22/17 04:00 Glucose 124 mg/dL (70-105) H 08/22/17 04:00 POC Glucose 137 mg/dL (70-99) H 08/23/17 00:10 Calcium 7.7 mg/dL (8.6-10.3) L 08/22/17 04:00 Venous Ioniz Calcium 1.12 mmol/L (1.15-1.35) L 08/22/17 06:28 Total Bilirubin 0.2 mg/dL (0.3-1.0) L 08/21/17 18:25 AST 7 Units/L (13-39) L 08/21/17 18:25 ALT 5 Units/L (7-52) L 08/21/17 18:25 Alkaline Phosphatase 21 Units/L (34-104) L 08/21/17 18:25 Serum Total Protein < 3.0 g/dL (6.4-8.9) L 08/21/17 18:25 Albumin < 1.5 g/dL (3.5-5.7) L 08/21/17 18:25 Prealbumin 13.1 mg/dL (17.0-34.0) L 08/19/17 03:20 - Clinical Findings Intake & Output: Intake & Output 08/22/17 08/22/17 08/23/17 15:59 23:59 07:59 Intake Total 963 / 963 1720 / 1720 100 / 100 Output Total 1045 / 1045 515 / 515 330 / 330 Balance -82 / -82 1205 / 1205 -230 / -230 Weight 80.7 kg - VTE Documentation of Mechanical Device: Intermittent pneumatic compression device Consult Discharge Plan - Plan Referrals: Kyler Loyd, [facility] [Primary Care Provider] - <SusielindaGriffin hdez M - Last Filed: 08/23/17 07:44> Date of Encounter: 08/23/17 Objective PUL Vital signs: Last Vital Signs Temp 98.9 F 08/23/17 04:37 Pulse 106 08/23/17 07:15 Resp 14 08/23/17 07:29 BP 129/55 08/23/17 07:29 Pulse Ox 100 08/23/17 07:29 Ventilator Settings Ventilator Settings: Ventilator Settings, Last 8 Hours Ventilator Mode CPAP Ventilator Mode CPAP Ventilator Mode CPAP Ventilator Mode VC+ Ventilator Mode VC+ Ventilator Mode VC+ Ventilator Mode VC+ Ventilator Mode VC+ Ventilator Mode VC+ Ventilator Mode VC+ Ventilator Mode VC+ Ventilator Mode VC+ Ventilator Mode VC+ Ventilator Mode VC+ Ventilator Tidal Volume 450 Setting Ventilator Tidal Volume 450 Setting Ventilator Tidal Volume 450 Setting Ventilator Tidal Volume 450 Setting Ventilator Tidal Volume 450 Setting Ventilator Tidal Volume 450 Setting Ventilator Tidal Volume 450 Setting Ventilator Tidal Volume 450 Setting Ventilator Tidal Volume 450 Setting Ventilator Tidal Volume 450 Setting Ventilator Tidal Volume 450 Setting Ventilator Respiratory Rate 16 Setting Ventilator Respiratory Rate 16 Setting Ventilator Respiratory Rate 16 Setting Ventilator Respiratory Rate 16 Setting Ventilator Respiratory Rate 16 Setting Ventilator Respiratory Rate 16 Setting Ventilator Respiratory Rate 16 Setting Ventilator Respiratory Rate 16 Setting Ventilator Respiratory Rate 16 Setting Ventilator Respiratory Rate 16 Setting Ventilator Respiratory Rate 16 Setting Actual Respiratory Rate 17 Actual Respiratory Rate 16 Actual Respiratory Rate 14 Actual Respiratory Rate 22 Actual Respiratory Rate 20 Actual Respiratory Rate 22 Actual Respiratory Rate 18 Actual Respiratory Rate 19 Actual Respiratory Rate 21 Actual Respiratory Rate 22 Actual Respiratory Rate 22 Actual Respiratory Rate 19 Actual Respiratory Rate 22 Positive End Expiratory 5 Pressure Positive End Expiratory 5 Pressure Positive End Expiratory 5 Pressure Positive End Expiratory 5 Pressure Positive End Expiratory 5 Pressure Positive End Expiratory 5 Pressure Positive End Expiratory 5 Pressure Positive End Expiratory 5 Pressure Positive End Expiratory 5 Pressure Positive End Expiratory 5 Pressure Positive End Expiratory 5 Pressure Positive End Expiratory 5 Pressure Positive End Expiratory 5 Pressure Positive End Expiratory 5 Pressure Peak Inspiratory Airway 11 Pressure Peak Inspiratory Airway 11 Pressure Peak Inspiratory Airway 11 Pressure Peak Inspiratory Airway 16 Pressure Peak Inspiratory Airway 10 Pressure Peak Inspiratory Airway 15 Pressure Peak Inspiratory Airway 11 Pressure Peak Inspiratory Airway 20 Pressure Peak Inspiratory Airway 20 Pressure Peak Inspiratory Airway 16 Pressure Peak Inspiratory Airway 17 Pressure Peak Inspiratory Airway 12 Pressure Results - Laboratory Findings CBC and BMP: 08/23/17 03:55 08/23/17 03:55 ABG ABG pH 7.38 pH Units (7.32-7.45) 08/23/17 04:33 ABG pCO2 41 mmHg (35-45) 08/23/17 04:33 ABG pO2 85 mmHg (85-104) 08/23/17 04:33 ABG O2 Saturation 96 % (95-98) 08/23/17 04:33 PT/INR, D-dimer PT 15.2 Seconds (9.4-12.1) H 08/23/17 03:55 Abnormal lab findings: Abnormal lab results WBC 15.1 K/mcL (4.3-11.1) H 08/23/17 03:55 RBC 2.87 M/mcL (4.19-5.50) L 08/23/17 03:55 Hgb 8.8 g/dL (12.9-16.9) L 08/23/17 03:55 Hct 25.8 % (37.5-50.1) L 08/23/17 03:55 RDW 16.7 % (11.5-14.5) H 08/23/17 03:55 Plt Count 125 K/mcL (140-400) L 08/23/17 03:55 Neutrophils # 11.2 K/mcL (1.6-8.9) H 08/23/17 03:55 Monocytes # 1.4 K/mcL (0.0-1.3) H 08/23/17 03:55 Nucleated RBCs/100 WBC 0.4 /100 WBC (0) H 08/18/17 03:20 Large Platelets Present (Not Present) A 08/17/17 04:00 Polychromasia 1+ (Not Present) A 08/21/17 18:25 Hypochromasia Present (Not Present) A 08/21/17 18:25 Poikilocytosis 1+ (Not Present) A 08/17/17 04:00 Anisocytosis 2+ (Not Present) A 08/21/17 18:25 Macrocytosis Present (Not Present) A 08/21/17 18:25 Tear Drop Cells 1+ (Not Present) A 08/21/17 18:25 Ovalocytes 1+ (Not Present) A 08/21/17 18:25 PT 15.2 Seconds (9.4-12.1) H 08/23/17 03:55 VBG pH 7.43 pH Units (7.32-7.42) H 08/22/17 06:28 Chloride 112 mEq/L (98-107) H 08/23/17 03:55 Carbon Dioxide 21 mEq/L (23-29) L 08/23/17 03:55 BUN 37 mg/dL (6-20) H 08/23/17 03:55 BUN/Creatinine Ratio 44 (6-26) H 08/23/17 03:55 Glucose 131 mg/dL (70-105) H 08/23/17 03:55 POC Glucose 137 mg/dL (70-99) H 08/23/17 00:10 Calcium 7.7 mg/dL (8.6-10.3) L 08/23/17 03:55 Total Bilirubin 0.2 mg/dL (0.3-1.0) L 08/21/17 18:25 AST 7 Units/L (13-39) L 08/21/17 18:25 ALT 5 Units/L (7-52) L 08/21/17 18:25 Alkaline Phosphatase 21 Units/L (34-104) L 08/21/17 18:25 Serum Total Protein < 3.0 g/dL (6.4-8.9) L 08/21/17 18:25 Albumin < 1.5 g/dL (3.5-5.7) L 08/21/17 18:25 Prealbumin 13.1 mg/dL (17.0-34.0) L 08/19/17 03:20 - Clinical Findings Intake & Output: Intake & Output 08/22/17 08/22/17 08/23/17 15:59 23:59 07:59 Intake Total 963 / 963 1730 / 1730 939 / 939 Output Total 1045 / 1045 515 / 515 900 / 900 Balance -82 / -82 1215 / 1215 39 / 39 Weight 80.7 kg - Attending Attestation I examined this patient and my medical decision-making was reviewed with the Resident Physician. I agree with the documented findings, disposition and treatment plan as described except to the extent set forth below. Patient seen and examined. Labs, radiology, chart personally reviewed. Agree with resident's history and physical, assessment, plan with following comments: [employer]: Patient follows commands, Pulmonary: Acceptable oxygenation and ventilation. Patient is tolerating spontaneous breathing trial. And discussed with Dr. Smallwood and since there is no plan for endoscopy will plan to extubate. Cardiovascular: stable GI: Nutrition per dietary and GI prophylaxis per routine. Heme: DVT prophylaxis per routine. Monitor H&H ID: Antibiotics per surgeon Renal; urine out put and renal funtion reviewed Endorcine: blood glucose is monitored Lines: all lines checked and no evidence of infections Skin: skin care to prevent pressure ulcers per nursing routine care
[2017-08-23] MEDS: Ipratropium/Albuterol Neb 3 ML IH SCH ×4 (03:30→21:34)
[2017-08-23 04:12] LABS: Basophils # 0.1 K/mcL (0.0-0.2); Basophils % 0.5 %; Eosinophils # 0.6 K/mcL (0.0-0.6); Hematocrit 25.8 % (37.5-50.1); Hemoglobin 8.8 g/dL (12.9-16.9); Immature Granulocytes % 1.1 % (0-4); Lymphocytes # 1.7 K/mcL (0.6-4.6); Mean Corpuscular HGB Conc 34.1 g/dL (31.6-35.5); Mean Corpuscular Hemoglobin 30.7 pg (28.0-33.3); Mean Corpuscular Volume 89.9 fL (83.0-100.0); Mean Platelet Volume 11.3 fL (9.4-12.4); Monocytes # 1.4 K/mcL (0.0-1.3); Monocytes % 9.3 %; Neutrophils # 11.2 K/mcL (1.6-8.9); Platelet Count 125 K/mcL (140-400); Red Blood Count 2.87 M/mcL (4.19-5.50); Red Cell Distribution Width 16.7 % (11.5-14.5); Segmented Neutrophils % 74.1 %
[2017-08-23] MEDS: Lacri-Lube 3.5 GM TUBE BOTH EYES SCH ×4 (04:14→13:02)
[2017-08-23 04:21] LABS: INR 1.4; Prothrombin Time 15.2 Seconds (9.4-12.1)
[2017-08-23 04:37] LABS: ABG Base Excess -1 mEq/L (-2 to 3); ABG HCO3 25 mEq/L (21-27); ABG Oxygen Saturation 96 % (95-98); ABG PCO2 41 mmHg (35-45); ABG PH 7.38 pH Units (7.32-7.45); ABG PO2 85 mmHg (85-104); ABG TCO2 26 mEq/L (20-26)
[2017-08-23 04:40] LABS: BUN/Creatinine Ratio 44 (6-26); Blood Urea Nitrogen 37 mg/dL (6-20); Calcium 7.7 mg/dL (8.6-10.3); Carbon Dioxide 21 mEq/L (23-29); Chloride 112 mEq/L (98-107); Glucose 131 mg/dL (70-105); Magnesium 1.8 mg/dL (1.6-2.6); Osmolality,Calculated 294 (280-300); Phosphorous 2.9 mg/dL (2.7-4.5); Potassium 4.6 mEq/L (3.5-5.1); Sodium 137 mEq/L (136-145); Triglycerides 66 mg/dL (< 150); eGFR For African Americans > 60 (> 60); eGFR For Non-African Americans > 60 (> 60)
[2017-08-23 04:58] LABS: VBG Ionized Calcium 1.19 mmol/L (1.15-1.35)
[2017-08-23] MEDS: Cefepime HCl 1,000 MG in Water for inj. (sterile) 20 ML 10 ML IVP SCH ×3 (05:15→20:50)
[2017-08-23] MEDS: MetroNIDAZOLE 500 MG/100 ML 500 MG/100 ML BAG IVPB SCH ×4 (06:54→23:32)
[2017-08-23] MEDS: Acetaminophen IV 1,000 MG/100 ML INFUS..BTL IVPB SCH ×3 (06:55→23:31)
[2017-08-23] MEDS: Fluconazole 200 MG/100 ML 200 MG/100 ML BAG IVPB SCH (07:49)
[2017-08-23] MEDS: Chlorhexidine Rinse 15 ML MOUTHWASH MM SCH ×2 (07:49→20:50)
[2017-08-23] MEDS ORDERED: Chloraseptic Spray 177 ML BOTTLE MM PRN (08:38)
[2017-08-23] MEDS: Budesonide/Formoterol 160/4.5 MDI IH SCH ×2 (09:47→21:34)
--- NOTE | 2017-08-23 10:36 | General Surgery Progress Note ---
<Jovi Meneses - Last Filed: 08/23/17 10:33> Date of Encounter: 08/23/17 Time of Encounter: 08:30 - Assessment and Plan (1) Acute upper GI bleed Current Visit: Yes Status: Resolved POD #9 S/P Ex Lap, with oversew of bleeding duodenal vessel, Heineke Micklicz Pyloroplasty and omental patch POD #2 S/P Ex Lap, EGD s/p hematemesis. Patient has been off pressors for over 24 hours Patient successfully extubated this morning. Patient opens eyes spontaneously, follows commands Hgb 8.8 this morning. Pulmonology, GI, and Nutrition on board Plan: NPO except carafate and biaxin through NG tube keep NG tube to LIWS Q12H H/H transfuse as needed strict Is&Os change oshea bag to urometer continue protonix gtt To have EGD tomorrow with Dr. Sr. If re-bleeds we will consult IR EPCDs no blood thinners. continue TPN Nutrition is on board for management pull artline as malfunctioning and no longer needed. Start choralseptic spray prn (2) Acute blood loss anemia Current Visit: Yes Status: Resolved (3) Upper abdominal pain Current Visit: No Status: Acute (4) Duodenal ulcer Current Visit: Yes Status: Acute Plan: cont. Empiric treatment for h. Pylori (5) DVT prophylaxis Current Visit: No Status: Acute raisa stockings, (6) Acute kidney injury Current Visit: Yes Status: Resolved Resolved (7) Hypokalemia Current Visit: Yes Status: Resolved Resolved (8) Electrolyte abnormality Current Visit: Yes Status: Resolved Resolved (9) Thrombocytopenia Current Visit: Yes Status: Resolved Resolved (10) Hemorrhagic shock Current Visit: Yes Status: Acute Resolved Subjective Narrative: Patient just recently extubated prior to exam. Patient's voice still recovering from intubation. Patient breathing on own now. NG tube with Dark Maroon output , JPs with serosanguinous output. Objective Vital Signs - Last 8 Hours Temp Pulse Resp BP Pulse Ox 08/23/17 10:00 92 20 100 08/23/17 09:47 18 100 08/23/17 09:00 96 20 97/58 100 08/23/17 08:05 14 86/57 100 08/23/17 08:00 98 18 121/65 100 08/23/17 07:58 99.2 F 08/23/17 07:29 14 129/55 100 08/23/17 07:15 106 08/23/17 07:00 105 16 129/57 100 08/23/17 06:46 14 124/53 100 08/23/17 06:00 107 22 120/53 100 08/23/17 05:21 20 111/53 99 08/23/17 05:00 112 22 99/48 99 08/23/17 04:37 98.9 F 08/23/17 04:00 117 18 91/48 97 08/23/17 03:30 19 96/51 100 08/23/17 03:00 108 21 95/50 99 Intake and Output 08/22/17 08/23/17 08/23/17 23:59 07:59 15:59 Intake Total 1730 / 1730 1039 / 1039 100 / 100 Output Total 515 / 515 1337 / 1337 200 / 200 Balance 1215 / 1215 -298 / -298 -100 / -100 Intake: IV Fluids 1730 / 1730 1039 / 1039 100 / 100 FentaNYL (PF) 1,000 MCG In 0.9 77 / 77 100 / 100 % Sodium Chloride 80 ML @ 25 MCG/HR 2.5 mls/hr IVC CONT [facility] Rx#:[id number] Clinimix E 5%-15% SOLUTION 2, 1458 / 1458 000 ML @ 83.3 mls/hr IVC .Q24H [facility] with M.v.i. Adult 10 ml Rx# :[id number] Versed 50 MG In 0.9 % Sodium 79 / 79 0 / 0 Chloride 90 ML @ 2 MG/HR 4 mls/ hr IVC CONT [facility] Rx#:[id number] Levophed 4 MG In Dextrose 5% 0 / 0 250 ML @ 8 MCG/MIN 30.48 mls/hr IVC CONT [facility] Rx#:[id number] Protonix 40 MG In 0.9 % Sodium 100 / 100 200 / 200 Chloride (Mini-Bag +) 100 ML @ 20 mls/hr IVC .Q5H [facility] Rx#: [id number] Diprivan 1,000 mg In 100 ml @ 5 85 / 85 MCG/KG/MIN 2.235 mls/hr IVC . Q24H [facility] Rx#:[id number] Maxipime 1,000 MG In Water for 10 inj. (sterile) 10 ML @ 150 mls/ hr IVP Q8H [facility] Rx#:[id number] Ofirmev 1,000 mg/100 ml 1,000 200 / 200 mg In 100 ml @ 400 mls/hr IVPB Q8HR [facility] Rx#:[id number] Intralipid 20% 250 ML @ 21 mls/ 250 / 250 hr IVPB DAILY@1700 [facility] Rx#: [id number] Diflucan Premix 200 MG/100 ML 100 / 100 200 mg In 100 ml @ 100 mls/hr IVPB DAILY [facility] Rx#:[id number] Flagyl Premix 500 MG/100 ML 500 200 / 200 mg In 100 ml @ 100 mls/hr IVPB Q8HR [facility] Rx#:[id number] Oral 0 / 0 Output: Catheter 475 / 475 1250 / 1250 Gastric Drainage 200 / 200 Wound Drainage 40 / 40 87 / 87 REENA drain/Jason tube #1 20 35 / 35 REENA drain/Jason tube #2 20 / 20 52 / 52 Other: Weight 80.7 kg 80 kg Blood Glucose* 127 119 Patient Weight 08/23/17 23:59 Weight 80 kg - General physical appearance no distress - Eyes normal ocular movement - ENT dry mucosa - Neck Neck exam: trachea midline - Respiratory clear to auscultation - Cardiovascular Cardiovascular exam: Present: RRR, no murmurs/rubs/gallops - Abdomen Abdomen: Present: bowel sounds present, soft. Absent: distended Additional Comments: midline incision covered in dressing. 2 REENA drains with Serosanguinous output, NG tube with Dark maroon out put - Incision Incision: Present: clean and dry, intact - Neurologic other (follows commands opens eyes spontaneously) - Labs 08/23/17 03:55 08/23/17 03:55 Diabetes panel 08/23/17 Range/Units 03:55 Sodium 137 (136-145) mEq/L Potassium 4.6 (3.5-5.1) mEq/L Chloride 112 H (98-107) mEq/L Carbon Dioxide 21 L (23-29) mEq/L BUN 37 H (6-20) mg/dL Creatinine 0.84 (0.70-1.30) mg/dL Glucose 131 H (70-105) mg/dL Calcium 7.7 L (8.6-10.3) mg/dL Triglycerides 66 (< 150) mg/dL Calcium panel 08/23/17 Range/Units 03:55 Calcium 7.7 L (8.6-10.3) mg/dL Phosphorus 2.9 (2.7-4.5) mg/dL Pituitary panel 08/23/17 Range/Units 03:55 Sodium 137 (136-145) mEq/L Potassium 4.6 (3.5-5.1) mEq/L Chloride 112 H (98-107) mEq/L Carbon Dioxide 21 L (23-29) mEq/L BUN 37 H (6-20) mg/dL Creatinine 0.84 (0.70-1.30) mg/dL Glucose 131 H (70-105) mg/dL Calcium 7.7 L (8.6-10.3) mg/dL Adrenal panel 08/23/17 Range/Units 03:55 Sodium 137 (136-145) mEq/L Potassium 4.6 (3.5-5.1) mEq/L Chloride 112 H (98-107) mEq/L Carbon Dioxide 21 L (23-29) mEq/L BUN 37 H (6-20) mg/dL Creatinine 0.84 (0.70-1.30) mg/dL Glucose 131 H (70-105) mg/dL Calcium 7.7 L (8.6-10.3) mg/dL - VTE Documentation of Mechanical Device: Intermittent pneumatic compression device Consult Discharge Plan - Plan Referrals: Kyler Loyd, CLINIC OFFICE ASSISTANT [Primary Care Provider] - <Ally Smallwood - Last Filed: 08/23/17 16:11> Date of Encounter: 08/23/17 Time of Encounter: 13:00 - Assessment and Plan (1) Acute upper GI bleed Current Visit: Yes Status: Resolved GI to do EGD tomorrow monitor Hb, trending down, will transfuse as needed vitals stable currently continue PPI/carafate continue treatment for Hpylori emperically npo TPN ngt to liws (2) Upper abdominal pain Current Visit: No Status: Acute prn pain control (3) DVT prophylaxis Current Visit: No Status: Acute (4) Duodenal ulcer Current Visit: Yes Status: Acute (5) Leukocytosis Current Visit: Yes Status: Acute continue antibiotics trend Qualifiers: Leukocytosis type: unspecified Qualified Code(s): D72.829 - Elevated white blood cell count, unspecified (6) Thrombocytopenia Current Visit: Yes Status: Resolved Subjective Narrative: still sleepy, arouses to verbal, pain well controlled Objective Vital Signs - Last 8 Hours Temp Pulse Resp BP Pulse Ox 08/23/17 16:00 90 22 115/66 100 08/23/17 15:00 98 20 119/58 96 08/23/17 14:00 100 22 107/62 100 08/23/17 13:00 95 22 119/61 100 08/23/17 12:27 97.3 F L 08/23/17 12:00 94 20 120/74 100 08/23/17 11:00 104 20 110/62 100 08/23/17 10:00 92 20 100 08/23/17 09:47 18 100 08/23/17 09:00 96 20 97/58 100 Intake and Output 08/23/17 08/23/17 08/23/17 07:59 15:59 23:59 Intake Total 1039 / 1039 310 / 310 Output Total 1337 / 1337 960 / 960 350 / 350 Balance -298 / -298 -650 / -650 -350 / -350 Intake: IV Fluids 1039 / 1039 310 / 310 FentaNYL (PF) 1,000 MCG In 0.9 100 / 100 % Sodium Chloride 80 ML @ 25 MCG/HR 2.5 mls/hr IVC CONT [facility] Rx#:[id number] Versed 50 MG In 0.9 % Sodium 79 / 79 0 / 0 Chloride 90 ML @ 2 MG/HR 4 mls/ hr IVC CONT [facility] Rx#:[id number] Levophed 4 MG In Dextrose 5% 0 / 0 250 ML @ 8 MCG/MIN 30.48 mls/hr IVC CONT [facility] Rx#:[id number] Protonix 40 MG In 0.9 % Sodium 200 / 200 100 / 100 Chloride (Mini-Bag +) 100 ML @ 20 mls/hr IVC .Q5H [facility] Rx#: [id number] Maxipime 1,000 MG In Water for 10 inj. (sterile) 10 ML @ 150 mls/ hr IVP Q8H [facility] Rx#:[id number] Ofirmev 1,000 mg/100 ml 1,000 200 / 200 100 / 100 mg In 100 ml @ 400 mls/hr IVPB Q8HR [facility] Rx#:[id number] Intralipid 20% 250 ML @ 21 mls/ 250 / 250 hr IVPB DAILY@1700 [facility] Rx#: [id number] Diflucan Premix 200 MG/100 ML 100 / 100 200 mg In 100 ml @ 100 mls/hr IVPB DAILY [facility] Rx#:[id number] Flagyl Premix 500 MG/100 ML 500 200 / 200 mg In 100 ml @ 100 mls/hr IVPB Q8HR [facility] Rx#:[id number] Oral 0 / 0 Output: Catheter 1250 / 1250 700 / 700 350 / 350 Gastric Drainage 200 / 200 Wound Drainage 87 / 87 60 / 60 REENA drain/Jason tube #1 35 / 35 20 / 20 REENA drain/Jason tube #2 52 / 52 40 / 40 Other: Weight 80.7 kg 80 kg Blood Glucose* 119 114 Patient Weight 08/23/17 23:59 Weight 80 kg - General physical appearance well developed, no distress - Eyes PERRL, normal ocular movement - ENT dry mucosa, atraumatic - Neck Neck exam: trachea midline - Respiratory rales: bilateral - Cardiovascular Cardiovascular exam: Present: RRR - Abdomen Abdomen: Present: bowel sounds present, soft, tender (appropriate post op tenderness) Additional Comments: REENA's both serous ngt dark maroon - Genitourinary other (clear yellow urine in oshea) - Neurologic CN 2-12 grossly intact - Musculoskeletal normal posture - Psychiatric oriented to time, oriented to person, oriented to place, speech is normal, memory intact - Labs 08/23/17 03:55 08/23/17 03:55 Diabetes panel 08/23/17 Range/Units 03:55 Sodium 137 (136-145) mEq/L Potassium 4.6 (3.5-5.1) mEq/L Chloride 112 H (98-107) mEq/L Carbon Dioxide 21 L (23-29) mEq/L BUN 37 H (6-20) mg/dL Creatinine 0.84 (0.70-1.30) mg/dL Glucose 131 H (70-105) mg/dL Calcium 7.7 L (8.6-10.3) mg/dL Triglycerides 66 (< 150) mg/dL Calcium panel 08/23/17 Range/Units 03:55 Calcium 7.7 L (8.6-10.3) mg/dL Phosphorus 2.9 (2.7-4.5) mg/dL Pituitary panel 08/23/17 Range/Units 03:55 Sodium 137 (136-145) mEq/L Potassium 4.6 (3.5-5.1) mEq/L Chloride 112 H (98-107) mEq/L Carbon Dioxide 21 L (23-29) mEq/L BUN 37 H (6-20) mg/dL Creatinine 0.84 (0.70-1.30) mg/dL Glucose 131 H (70-105) mg/dL Calcium 7.7 L (8.6-10.3) mg/dL Adrenal panel 08/23/17 Range/Units 03:55 Sodium 137 (136-145) mEq/L Potassium 4.6 (3.5-5.1) mEq/L Chloride 112 H (98-107) mEq/L Carbon Dioxide 21 L (23-29) mEq/L BUN 37 H (6-20) mg/dL Creatinine 0.84 (0.70-1.30) mg/dL Glucose 131 H (70-105) mg/dL Calcium 7.7 L (8.6-10.3) mg/dL - Attending Attestation I examined this patient and my medical decision-making was reviewed with the Resident Physician. I agree with the documented findings, disposition and treatment plan as described except to the extent set forth below.
[2017-08-23] MEDS: OXYCODONE Oral CONC 10 MG/0.5 ML ORAL.SYG SL PRN ×4 (11:06→23:42)
--- NOTE | 2017-08-23 11:20 | Gastroenterology Progress Note ---
Date of Encounter: 08/23/17 Time of Encounter: 09:15 - Time Spent With Patient Total time spent is greater than 50% in coordination of care (as documented) at patient's floor/unit and/or counseling patient: - Subjective Interval history: Patient is a 57-year-old male with a PMH of GERD, COPD, hyperlipidemia and hypertension. He had an EGD on 07/30/17 which showed a non-bleeding duodenal ulcer. He was treated with PPI therapy and Carafate and discharge. He has been complaining of complains of having epigastric abdominal pain and has since his first scope. The pain has been getting worse. Patient presented to [facility] ED with hematemesis. He received 1 unit of blood and was transferred here to the ICU. He became unstable, hypotensive and tachycardic. The patient previously had a CT scan within the last 12 hours which demonstrates no free air. POD #9 S/ P Ex Lap, with oversew of bleeding duodenal vessel, Heineke Micklicz Pyloroplasty and omental patch. On 08/21 he had hematemesis and was taken emergently to the OR for exp lap and EGD. He has been transfused a total of 11 units prbcs, 1 FFP and 1 platelets, INR is 1.4, platelets 125 and Hgb 8.8. Pt was extubated this morning. He is lethargic but awakens. He denies alcohol use at home but states he had been taking ibuprofen for gen aches and pains. He has dark red blood noted in NGT. 08/22/17 blood in the esophagus as well as clot, clot at the entrance of the pylorus08/14/17 one spurting cratered duodenal ulcer with a visible vessel in the duodenal bulb, clip was placed 08/01/17 nonbleeding duodenal ulcer NSAIDS: ibuprofen at home anticoagulants: denies - Constitutional Vitals: Temp Pulse Resp BP Pulse Ox 99.2 F 94 20 110/62 100 08/23/17 07:58 08/23/17 11:00 08/23/17 11:00 08/23/17 11:00 08/23/17 11:00 Results - Labs CBC & Chem 7: 08/23/17 03:55 08/23/17 03:55 Labs: Last Result Calcium 7.7 mg/dL (8.6-10.3) L 08/23/17 03:55 Triglycerides 66 mg/dL (< 150) 08/23/17 03:55 Entire Visit Hgb 8.8 g/dL (12.9-16.9) L 08/23/17 03:55 Hct 25.8 % (37.5-50.1) L 08/23/17 03:55 PT 15.2 Seconds (9.4-12.1) H 08/23/17 03:55 Total Bilirubin 0.2 mg/dL (0.3-1.0) L 08/21/17 18:25 AST 7 Units/L (13-39) L 08/21/17 18:25 ALT 5 Units/L (7-52) L 08/21/17 18:25 - ABG ABG results: ABG ABG pH 7.38 pH Units (7.32-7.45) 08/23/17 04:33 ABG pCO2 41 mmHg (35-45) 08/23/17 04:33 ABG pO2 85 mmHg (85-104) 08/23/17 04:33 ABG O2 Saturation 96 % (95-98) 08/23/17 04:33 PT/INR, D-dimer PT 15.2 Seconds (9.4-12.1) H 08/23/17 03:55 - VTE Documentation of Mechanical Device: Intermittent pneumatic compression device Consult Discharge Plan - Plan Referrals: Kyler Loyd, VACUUM TECHNICIAN [Primary Care Provider] -
--- NOTE | 2017-08-23 11:24 | Gastroenterology Consult Note ---
<Kari Glez - Last Filed: 08/23/17 11:21> Date of Encounter: 08/23/17 Time of Encounter: 09:00 - Assessment and plan (1) Duodenal ulcer Current Visit: Yes Status: Acute Assessment and plan: Pt is status post EGD and exploratory lap for spurting duodenal ulcer. He has been transfused. He has been extubated. H&H is being monitored q6 hours. Will repeat EGD tomorrow. Continue PPI and carafate. - Time Spent With Patient Total time spent is greater than 50% in coordination of care (as documented) at patient's floor/unit and/or counseling patient: GI History of Present Illness - Data of Consult Patient: new to practice Consult date: 08/23/17 Requesting Physician: Ally Smallwood MD - Consult Narrative Reason for consult: bleeding duodenal ulcer History of present illness: Patient is a 57-year-old male with a PMH of GERD, COPD, hyperlipidemia and hypertension. He had an EGD on 07/30/17 which showed a non-bleeding duodenal ulcer. He was treated with PPI therapy and Carafate and discharge. He has been complaining of complains of having epigastric abdominal pain and has since his first scope. The pain has been getting worse. Patient presented to [facility] ED with hematemesis. He received 1 unit of blood and was transferred here to the ICU. He became unstable, hypotensive and tachycardic. The patient previously had a CT scan within the last 12 hours which demonstrates no free air. POD #9 S/ P Ex Lap, with oversew of bleeding duodenal vessel, Heineke Micklicz Pyloroplasty and omental patch. On 08/21 he had hematemesis and was taken emergently to the OR for exp lap and EGD. He has been transfused a total of 11 units prbcs, 1 FFP and 1 platelets, INR is 1.4, platelets 125 and Hgb 8.8. Pt was extubated this morning. He is lethargic but awakens. He denies alcohol use at home but states he had been taking ibuprofen for gen aches and pains. He has dark red blood noted in NGT. 08/22/17 blood in the esophagus as well as clot, clot at the entrance of the pylorus08/14/17 one spurting cratered duodenal ulcer with a visible vessel in the duodenal bulb, clip was placed 08/01/17 nonbleeding duodenal ulcer NSAIDS: ibuprofen at home anticoagulants: denies Past Med Surg Social Fam HX - Past Medical History Medical history: COPD, GERD, GI bleed (12 days ago), hyperlipidemia, hypertension Psychiatric history: anxiety - Past Surgical History Surgical History: appendectomy, orthopedic, other - Social History Smoking Status: Current every day smoker Smokeless Tobacco Status: No Alcohol use: none Drug use: marijuana - Family History Mother Hx Family GI Disorders: No Father Hx Family GI Disorders: No ROS unobtainable: due to mental status - Constitutional Vitals: Temp Pulse Resp BP Pulse Ox 99.2 F 104 20 110/62 100 08/23/17 07:58 08/23/17 11:00 08/23/17 11:00 08/23/17 11:00 08/23/17 11:00 Exam: CONSTITUTIONAL:~alert, oriented to person only, ~HEAD:~normocephalic.~EYES:~no jaundice.~NECK:~no obvious swelling.~HEART:~regular rate and rhythm, no murmurs. ~LUNGS:~bilateral fair air entry.~ABDOMEN:~softly distended, BS very hypoactive , midline abdominal incision well approximated, no redness or drainage noted, ~ RECTAL EXAM:~Deferred.~EXTREMITIES:~no clubbing, cyanosis, 2+ pedal edema.~SKIN: ~pallor noted, no stigmata of chronic liver disease.~NEUROLOGIC:~no obvious focal defect.~~~~ Results - Labs CBC & Chem 7: 08/23/17 03:55 08/23/17 03:55 Labs: Last Result Calcium 7.7 mg/dL (8.6-10.3) L 08/23/17 03:55 Triglycerides 66 mg/dL (< 150) 08/23/17 03:55 Entire Visit Hgb 8.8 g/dL (12.9-16.9) L 08/23/17 03:55 Hct 25.8 % (37.5-50.1) L 08/23/17 03:55 PT 15.2 Seconds (9.4-12.1) H 08/23/17 03:55 Total Bilirubin 0.2 mg/dL (0.3-1.0) L 08/21/17 18:25 AST 7 Units/L (13-39) L 08/21/17 18:25 ALT 5 Units/L (7-52) L 08/21/17 18:25 - ABG ABG results: ABG ABG pH 7.38 pH Units (7.32-7.45) 08/23/17 04:33 ABG pCO2 41 mmHg (35-45) 08/23/17 04:33 ABG pO2 85 mmHg (85-104) 08/23/17 04:33 ABG O2 Saturation 96 % (95-98) 08/23/17 04:33 PT/INR, D-dimer PT 15.2 Seconds (9.4-12.1) H 08/23/17 03:55 Consult Discharge Plan - Plan Referrals: Kyler Loyd, TUBE MAKER [Primary Care Provider] - <Diane Sr - Last Filed: 08/23/17 21:10> Date of Encounter: 08/23/17 Time of Encounter: 17:00 - Time Spent With Patient Total time spent is greater than 50% in coordination of care (as documented) at patient's floor/unit and/or counseling patient: GI History of Present Illness - Data of Consult Requesting Physician: Ally Smallwood MD - Consult Narrative History of present illness: Mr. Barrett is a 57 year old male - Constitutional Vitals: Temp Pulse Resp BP Pulse Ox 97.9 F 96 20 125/68 98 08/23/17 19:42 08/23/17 21:00 08/23/17 21:00 08/23/17 21:00 08/23/17 21:00 Results - Labs CBC & Chem 7: 08/23/17 16:21 08/23/17 03:55 Labs: Last Result Calcium 7.7 mg/dL (8.6-10.3) L 08/23/17 03:55 Triglycerides 66 mg/dL (< 150) 08/23/17 03:55 Entire Visit Hgb 8.0 g/dL (12.9-16.9) L 08/23/17 16:21 Hct 24.3 % (37.5-50.1) L 08/23/17 16:21 PT 15.2 Seconds (9.4-12.1) H 08/23/17 03:55 Total Bilirubin 0.2 mg/dL (0.3-1.0) L 08/21/17 18:25 AST 7 Units/L (13-39) L 08/21/17 18:25 ALT 5 Units/L (7-52) L 08/21/17 18:25 - ABG ABG results: ABG ABG pH 7.38 pH Units (7.32-7.45) 08/23/17 04:33 ABG pCO2 41 mmHg (35-45) 08/23/17 04:33 ABG pO2 85 mmHg (85-104) 08/23/17 04:33 ABG O2 Saturation 96 % (95-98) 08/23/17 04:33 PT/INR, D-dimer PT 15.2 Seconds (9.4-12.1) H 08/23/17 03:55 - Attending Attestation I have personally performed a face to face evaluation on this patient. I have reviewed and agree with the care plan. History and Exam by me shows: Pt seen s/p extubation, still has NG with old dark blood. pt with bleeding DU s/ p exp lap. Still with slow decline in H/H Rec: Cont PPI infusion. EGD am
[2017-08-23] MEDS ORDERED: *HR* FentaNYL (PF) 100 MCG/2 ML VIAL IVP ONE (13:08)
[2017-08-23 16:10] LABS: Hematocrit 24.3 % (37.5-50.1)
[2017-08-23] MEDS ORDERED: Dexmedetomidine HCl 400 MCG/100 ML MLS IVC ONE (16:24)
[2017-08-23] MEDS ORDERED: Clinimix E 5%-15% SOLUTION 2,000 ML with MVI, adult with vitamin K 10 ML IVC SCH (17:00)
[2017-08-23] MEDS: Norepinephrine 4 MG in D5% in Water 250 ML IVC SCH (22:49)
[2017-08-24] MEDS: Pantoprazole 40 MG in 0.9 % Sodium Chloride Mini Bag 100 ML IVC SCH ×4 (02:11→16:52)
[2017-08-24] MEDS: Ipratropium/Albuterol Neb 3 ML IH SCH ×3 (03:41→16:19)
--- NOTE | 2017-08-24 03:44 | Pulmonology Progress Note ---
<Cali Johnson - Last Filed: 08/24/17 06:16> Date of Encounter: 08/24/17 Time of Encounter: 04:25 Assessment and Plan (1) Acute upper GI bleed Current Visit: Yes Status: Resolved History of duodenal ulcer as per EGD on 08/01/17. POD #10: Exploratory laparotomy, oversew bleeding duodenal ulcer, Heineke Micklicz pyloroplasty with omental patch POD #2 S/P Ex Lap, EGD s/p hematemesis Hemoglobin continues to progressively downtrend. Protonix infusion Carafate 4 times daily NPO with the exception of Carafate TPN with nutrition following. Continue cefepime, Flagyl, Diflucan EGD today with gastroenterology. Plan is potential embolization with interventional radiology if recurrence of hematemesis. (2) Acute blood loss anemia Current Visit: Yes Status: Resolved Secondary to duodenal ulcer. POD #10: Exploratory laparotomy, oversew bleeding duodenal ulcer, Heineke Micklicz pyloroplasty with omental patch Continue daily CBCs Hold anticoagulants Hemoglobin 7.7. Plan to transfuse this morning with expected EGD today. (3) Duodenal ulcer Current Visit: Yes Status: Acute POD #10: Exploratory laparotomy, oversew bleeding duodenal ulcer, Heineke Micklicz pyloroplasty with omental patch Protonix infusion Carafate 4 times daily EGD today with gastroenterology. Consult to interventional radiology if recurrence of hematemesis (4) Hypertension Current Visit: Yes Status: Chronic Hold antihypertensives. Qualifiers: Hypertension type: essential hypertension Qualified Code(s): I10 - Essential (primary) hypertension (5) COPD (chronic obstructive pulmonary disease) Current Visit: Yes Status: Chronic Albuterol/DuoNeb treatments as needed Qualifiers: COPD type: unspecified COPD Qualified Code(s): J44.9 - Chronic obstructive pulmonary disease, unspecified (6) Hypocalcemia Current Visit: Yes Status: Acute Replace as per electrolyte protocol. (7) DVT prophylaxis Current Visit: Yes Status: Acute SCDs, Hold heparin in setting of UGIB. Subjective Principal diagnosis: Gastrointestinal hemorrhage Interval history: Extubated yesterday. No events overnight. He voices no complaints this morning. Plan is to have an EGD this morning. Hemoglobin 7.7. We will transfuse given upcoming procedure. Objective PUL Vital signs: Last Vital Signs Temp 97.7 F 08/24/17 03:34 Pulse 87 08/24/17 03:00 Resp 18 08/24/17 03:42 BP 143/76 08/24/17 03:42 Pulse Ox 100 08/24/17 03:42 General appearance: no acute distress Eyes: nonicteric ENT: oropharynx moist Neck: supple Effort: normal Auscultation: bilateral: clear Cardiovascular: regular rate and rhythm Gastrointestinal: soft, tender (Mild generalized tenderness), non-distended, other (Postsurgical dressing intact. 2 right-sided REENA drains with serosanguineous output.) Integumentary: normal Extremities: no cyanosis, no edema Musculoskeletal: no deformities non-focal exam Results - Laboratory Findings CBC and BMP: 08/24/17 04:00 08/24/17 04:00 ABG ABG pH 7.38 pH Units (7.32-7.45) 08/23/17 04:33 ABG pCO2 41 mmHg (35-45) 08/23/17 04:33 ABG pO2 85 mmHg (85-104) 08/23/17 04:33 ABG O2 Saturation 96 % (95-98) 08/23/17 04:33 PT/INR, D-dimer PT 15.2 Seconds (9.4-12.1) H 08/23/17 03:55 Abnormal lab findings: Abnormal lab results WBC 15.1 K/mcL (4.3-11.1) H 08/23/17 03:55 RBC 2.87 M/mcL (4.19-5.50) L 08/23/17 03:55 Hgb 8.0 g/dL (12.9-16.9) L 08/23/17 16:21 Hct 24.3 % (37.5-50.1) L 08/23/17 16:21 RDW 16.7 % (11.5-14.5) H 08/23/17 03:55 Plt Count 125 K/mcL (140-400) L 08/23/17 03:55 Neutrophils # 11.2 K/mcL (1.6-8.9) H 08/23/17 03:55 Monocytes # 1.4 K/mcL (0.0-1.3) H 08/23/17 03:55 Nucleated RBCs/100 WBC 0.4 /100 WBC (0) H 08/18/17 03:20 Large Platelets Present (Not Present) A 08/17/17 04:00 Polychromasia 1+ (Not Present) A 08/21/17 18:25 Hypochromasia Present (Not Present) A 08/21/17 18:25 Poikilocytosis 1+ (Not Present) A 08/17/17 04:00 Anisocytosis 2+ (Not Present) A 08/21/17 18:25 Macrocytosis Present (Not Present) A 08/21/17 18:25 Tear Drop Cells 1+ (Not Present) A 08/21/17 18:25 Ovalocytes 1+ (Not Present) A 08/21/17 18:25 PT 15.2 Seconds (9.4-12.1) H 08/23/17 03:55 VBG pH 7.43 pH Units (7.32-7.42) H 08/22/17 06:28 Chloride 112 mEq/L (98-107) H 08/23/17 03:55 Carbon Dioxide 21 mEq/L (23-29) L 08/23/17 03:55 BUN 37 mg/dL (6-20) H 08/23/17 03:55 BUN/Creatinine Ratio 44 (6-26) H 08/23/17 03:55 Glucose 131 mg/dL (70-105) H 08/23/17 03:55 POC Glucose 120 mg/dL (70-99) H 08/23/17 23:45 Calcium 7.7 mg/dL (8.6-10.3) L 08/23/17 03:55 Total Bilirubin 0.2 mg/dL (0.3-1.0) L 08/21/17 18:25 AST 7 Units/L (13-39) L 08/21/17 18:25 ALT 5 Units/L (7-52) L 08/21/17 18:25 Alkaline Phosphatase 21 Units/L (34-104) L 08/21/17 18:25 Serum Total Protein < 3.0 g/dL (6.4-8.9) L 08/21/17 18:25 Albumin < 1.5 g/dL (3.5-5.7) L 08/21/17 18:25 Prealbumin 13.1 mg/dL (17.0-34.0) L 08/19/17 03:20 - Clinical Findings Intake & Output: Intake & Output 08/23/17 08/23/17 08/24/17 15:59 23:59 07:59 Intake Total 410 / 410 2320 / 2320 200 / 200 Output Total 960 / 960 2380 / 2380 1110 / 1110 Balance -550 / -550 -60 / -60 -910 / -910 Weight 80 kg 80.6 kg - VTE Documentation of Mechanical Device: Graduated compression elastic hosiery Consult Discharge Plan - Plan Referrals: Kyler Loyd, SERVICER [Primary Care Provider] - <Griffin Davis - Last Filed: 08/24/17 08:07> Date of Encounter: 08/24/17 Objective PUL Vital signs: Last Vital Signs Temp 97.7 F 08/24/17 03:34 Pulse 83 08/24/17 06:00 Resp 16 08/24/17 06:00 BP 119/77 08/24/17 06:00 Pulse Ox 97 08/24/17 06:00 Results - Laboratory Findings CBC and BMP: 08/24/17 04:00 08/24/17 04:00 ABG ABG pH 7.38 pH Units (7.32-7.45) 08/23/17 04:33 ABG pCO2 41 mmHg (35-45) 08/23/17 04:33 ABG pO2 85 mmHg (85-104) 08/23/17 04:33 ABG O2 Saturation 96 % (95-98) 08/23/17 04:33 PT/INR, D-dimer PT 13.7 Seconds (9.4-12.1) H 08/24/17 04:00 Abnormal lab findings: Abnormal lab results RBC 2.61 M/mcL (4.19-5.50) L 08/24/17 04:00 Hgb 7.7 g/dL (12.9-16.9) L 08/24/17 04:00 Hct 24.0 % (37.5-50.1) L 08/24/17 04:00 RDW 16.2 % (11.5-14.5) H 08/24/17 04:00 Plt Count 106 K/mcL (140-400) L 08/24/17 04:00 Nucleated RBCs/100 WBC 0.4 /100 WBC (0) H 08/18/17 03:20 Large Platelets Present (Not Present) A 08/17/17 04:00 Polychromasia 1+ (Not Present) A 08/21/17 18:25 Hypochromasia Present (Not Present) A 08/21/17 18:25 Poikilocytosis 1+ (Not Present) A 08/17/17 04:00 Anisocytosis 2+ (Not Present) A 08/21/17 18:25 Macrocytosis Present (Not Present) A 08/21/17 18:25 Tear Drop Cells 1+ (Not Present) A 08/21/17 18:25 Ovalocytes 1+ (Not Present) A 08/21/17 18:25 PT 13.7 Seconds (9.4-12.1) H 08/24/17 04:00 VBG pH 7.43 pH Units (7.32-7.42) H 08/22/17 06:28 Chloride 110 mEq/L (98-107) H 08/24/17 04:00 BUN 27 mg/dL (6-20) H 08/24/17 04:00 Creatinine 0.64 mg/dL (0.70-1.30) L 08/24/17 04:00 BUN/Creatinine Ratio 42 (6-26) H 08/24/17 04:00 Glucose 136 mg/dL (70-105) H 08/24/17 04:00 POC Glucose 120 mg/dL (70-99) H 08/23/17 23:45 Calcium 7.8 mg/dL (8.6-10.3) L 08/24/17 04:00 Venous Ioniz Calcium 1.11 mmol/L (1.15-1.35) L 08/24/17 05:25 Total Bilirubin 0.2 mg/dL (0.3-1.0) L 08/21/17 18:25 AST 7 Units/L (13-39) L 08/21/17 18:25 ALT 5 Units/L (7-52) L 08/21/17 18:25 Alkaline Phosphatase 21 Units/L (34-104) L 08/21/17 18:25 Serum Total Protein < 3.0 g/dL (6.4-8.9) L 08/21/17 18:25 Albumin < 1.5 g/dL (3.5-5.7) L 08/21/17 18:25 Prealbumin 13.1 mg/dL (17.0-34.0) L 08/19/17 03:20 - Clinical Findings Intake & Output: Intake & Output 08/23/17 08/24/17 08/24/17 23:59 07:59 15:59 Intake Total 2320 / 2320 1638 / 1638 Output Total 2380 / 2380 2210 / 2210 Balance -60 / -60 -572 / -572 Weight 80.6 kg - Attending Attestation I examined this patient and my medical decision-making was reviewed with the Resident Physician. I agree with the documented findings, disposition and treatment plan as described except to the extent set forth below. Patient seen and examined. Labs, radiology, chart personally reviewed. Agree with resident's history and physical, assessment, plan with following comments: MANAGER TECHNICAL: Patient follows commands, Pulmonary: Acceptable oxygenation and ventilation Cardiovascular: stable GI: Nutrition per dietary and GI prophylaxis per routine and patient is planned to have EGD today and his hemoglobin is slowly dropping and proactively I will transfuse him a unit of packed RBC Heme: DVT prophylaxis per routine. Continue monitoring H&H ID: Continue antibiotics and plan to de-escalation Renal; urine out put and renal funtion reviewed Endorcine: blood glucose is monitored Lines: all lines checked and no evidence of infections Skin: skin care to prevent pressure ulcers per nursing routine care
[2017-08-24] MEDS: OXYCODONE Oral CONC 10 MG/0.5 ML ORAL.SYG SL PRN ×2 (04:00→11:44)
[2017-08-24] MEDS: Cefepime HCl 1,000 MG in Water for inj. (sterile) 20 ML 10 ML IVP SCH (05:04)
[2017-08-24 05:27] LABS: Basophils % 0.4 %; Eosinophils # 0.3 K/mcL (0.0-0.6); Eosinophils % 3.8 %; Hemoglobin 7.7 g/dL (12.9-16.9); Immature Granulocytes % 0.8 % (0-4); Lymphocytes # 1.3 K/mcL (0.6-4.6); Lymphocytes % 15.9 %; Mean Corpuscular HGB Conc 32.1 g/dL (31.6-35.5); Mean Corpuscular Hemoglobin 29.5 pg (28.0-33.3); Mean Platelet Volume 11.6 fL (9.4-12.4); Monocytes # 0.8 K/mcL (0.0-1.3); Monocytes % 9.4 %; Neutrophils # 5.8 K/mcL (1.6-8.9); Platelet Count 106 K/mcL (140-400); Red Blood Count 2.61 M/mcL (4.19-5.50); Red Cell Distribution Width 16.2 % (11.5-14.5); Segmented Neutrophils % 69.7 %
[2017-08-24 05:28] LABS: VBG Ionized Calcium 1.11 mmol/L (1.15-1.35)
[2017-08-24 05:31] LABS: INR 1.3; Prothrombin Time 13.7 Seconds (9.4-12.1)
[2017-08-24 05:40] LABS: BUN/Creatinine Ratio 42 (6-26); Blood Urea Nitrogen 27 mg/dL (6-20); Calcium 7.8 mg/dL (8.6-10.3); Carbon Dioxide 27 mEq/L (23-29); Chloride 110 mEq/L (98-107); Glucose 136 mg/dL (70-105); Magnesium 1.8 mg/dL (1.6-2.6); Osmolality,Calculated 293 (280-300); Phosphorous 2.8 mg/dL (2.7-4.5); Sodium 138 mEq/L (136-145); eGFR For African Americans > 60 (> 60); eGFR For Non-African Americans > 60 (> 60)
[2017-08-24] MEDS: Budesonide/Formoterol 160/4.5 MDI IH SCH (09:21)
[2017-08-24] MEDS ORDERED: 0.9 % Sodium Chloride 250 ML ONE ×2 (09:24→13:43)
[2017-08-24] MEDS: MetroNIDAZOLE 500 MG/100 ML 500 MG/100 ML BAG IVPB SCH ×2 (09:46→16:14)
[2017-08-24] MEDS: Acetaminophen IV 1,000 MG/100 ML INFUS..BTL IVPB SCH (09:52)
[2017-08-24] MEDS: Chlorhexidine Rinse 15 ML MOUTHWASH MM SCH (09:52)
--- NOTE | 2017-08-24 11:10 | General Surgery Progress Note ---
<Jovi Meneses - Last Filed: 08/24/17 11:06> Date of Encounter: 08/24/17 Time of Encounter: 08:00 - Assessment and Plan (1) Acute upper GI bleed Status: Resolved POD #10 S/P Ex Lap, with oversew of bleeding duodenal vessel, Heineke Micklicz Pyloroplasty and omental patch POD #2 S/P Ex Lap, EGD s/p hematemesis. Patient has been off pressors for over 24 hours Patient successfully extubated yesterday. Hgb 7.7 this morning. being transfused 1 unit PRBC. Pulmonology, GI, and Nutrition on board Plan: NPO except carafate and biaxin through NG tube keep NG tube to LIWS Q12H H/H transfuse as needed strict Is&Os continue protonix gtt To have EGD today with GI If re-bleeds we will consult IR EPCDs no blood thinners. continue TPN Nutrition is on board for management Stopped Cefepime and Diflucan today. Continue flagyl. (2) Acute blood loss anemia Status: Resolved (3) Upper abdominal pain Status: Acute prn pain control (4) Duodenal ulcer Status: Acute Plan: cont. Empiric treatment for h. Pylori (5) DVT prophylaxis Status: Acute raisa stockings, (6) Thrombocytopenia Status: Resolved Resolved (7) Leukocytosis Status: Resolved Resolved WBC 8.4 today Continue to monitor with daily labs Continue abx Qualifiers: Leukocytosis type: unspecified Qualified Code(s): D72.829 - Elevated white blood cell count, unspecified Subjective Patient reports: no new complaints, still having pain, flatus, afebrile Narrative: Pt is resting in bed. Patient has dark maroon output form NG 150 since midnight. REENA drains Serosanguinous out put JP1 30 and REENA 2 80 since midnight. Patient still having abd pain. Patient awake alert oriented. Patient to have EGD with GI today. Got 1 unit PRBC this morning pre procedure. Objective Vital Signs - Last 8 Hours Temp Pulse Resp BP Pulse Ox 08/24/17 10:00 93 16 121/73 98 08/24/17 09:50 97.7 F 93 16 126/71 98 08/24/17 09:35 97.9 F 91 18 126/78 98 04/25/18 09:22 16 98 08/24/17 09:00 90 16 117/72 98 08/24/17 08:00 98.0 F 90 16 122/76 100 08/24/17 07:00 89 18 119/88 99 08/24/17 06:00 83 16 119/77 97 08/24/17 05:12 84 16 132/73 98 08/24/17 04:00 88 16 134/72 99 08/24/17 03:42 18 143/76 100 08/24/17 03:34 97.7 F Intake and Output 08/23/17 08/24/17 08/24/17 23:59 07:59 15:59 Intake Total 2320 / 2320 1638 / 1638 0 / 0 Output Total 2380 / 2380 2210 / 2210 Balance -60 / -60 -572 / -572 0 / 0 Intake: IV Fluids 2320 / 2320 1638 / 1638 Clinimix E 5%-15% SOLUTION 2009 1078 / 1078 000 ML @ 83.3 mls/hr IVC .Q24H [facility] with M.v.i. Adult 10 ml Rx# :[id number] Protonix 40 MG In 0.9 % Sodium 200 / 200 200 / 200 Chloride (Mini-Bag +) 100 ML @ 20 mls/hr IVC .Q5H [facility] Rx#: [id number] Maxipime 1,000 MG In Water for inj. (sterile) 10 ML @ 150 mls/ hr IVP Q8H [facility] Rx#:[id number] Ofirmev 1,000 mg/100 ml 1,000 100 / 100 mg In 100 ml @ 400 mls/hr IVPB Q8HR [facility] Rx#:[id number] Intralipid 20% 250 ML @ 21 mls/ 250 / 250 hr IVPB DAILY@1700 [facility] Rx#: [id number] Flagyl Premix 500 MG/100 ML 500 100 / 100 mg In 100 ml @ 100 mls/hr IVPB Q8HR [facility] Rx#:[id number] Oral 0 / 0 Blood Product 0 / 0 Rbcs Leuko Poor As-1 Unit 0 / 0 [id number] Output: Catheter 2049 1950 / 1949 Gastric Drainage 200 / 200 150 / 150 Wound Drainage 130 / 130 110 / 110 REENA drain/Jason tube #1 30 / 30 30 / 30 REENA drain/Jason tube #2 100 / 100 80 / 80 Other: Weight 80.6 kg 80 kg Blood Glucose* 120 125 Patient Weight 08/24/17 23:59 Weight 80 kg - General physical appearance well developed, no distress, moderate pain - Eyes normal ocular movement - ENT no hearing loss - Neck Neck exam: trachea midline - Respiratory normal expansion, normal respiratory effort, clear to auscultation - Cardiovascular Cardiovascular exam: Present: RRR, no murmurs/rubs/gallops - Abdomen Abdomen: Present: bowel sounds present (very hypoactive), soft, tender Abdominal Tenderness: diffusely - Incision Incision: Present: clean and dry, intact - Integumentary no abnormal pigmentation - Neurologic CN 2-12 grossly intact - Psychiatric oriented to time, oriented to person, oriented to place - Labs 08/24/17 04:00 08/24/17 04:00 Diabetes panel 08/24/17 Range/Units 04:00 Sodium 138 (136-145) mEq/L Potassium 4.0 (3.5-5.1) mEq/L Chloride 110 H (98-107) mEq/L Carbon Dioxide 27 (23-29) mEq/L BUN 27 H (6-20) mg/dL Creatinine 0.64 L (0.70-1.30) mg/dL Glucose 136 H (70-105) mg/dL Calcium 7.8 L (8.6-10.3) mg/dL Calcium panel 08/24/17 Range/Units 04:00 Calcium 7.8 L (8.6-10.3) mg/dL Phosphorus 2.8 (2.7-4.5) mg/dL Pituitary panel 08/24/17 Range/Units 04:00 Sodium 138 (136-145) mEq/L Potassium 4.0 (3.5-5.1) mEq/L Chloride 110 H (98-107) mEq/L Carbon Dioxide 27 (23-29) mEq/L BUN 27 H (6-20) mg/dL Creatinine 0.64 L (0.70-1.30) mg/dL Glucose 136 H (70-105) mg/dL Calcium 7.8 L (8.6-10.3) mg/dL Adrenal panel 08/24/17 Range/Units 04:00 Sodium 138 (136-145) mEq/L Potassium 4.0 (3.5-5.1) mEq/L Chloride 110 H (98-107) mEq/L Carbon Dioxide 27 (23-29) mEq/L BUN 27 H (6-20) mg/dL Creatinine 0.64 L (0.70-1.30) mg/dL Glucose 136 H (70-105) mg/dL Calcium 7.8 L (8.6-10.3) mg/dL - VTE Documentation of Mechanical Device: Graduated compression elastic hosiery Consult Discharge Plan - Plan Referrals: Kyler Loyd, [facility] [Primary Care Provider] - <Ally Smallwood - Last Filed: 08/25/17 17:34> Date of Encounter: 08/24/17 Time of Encounter: 12:00 - Assessment and Plan (1) Acute upper GI bleed Status: Resolved have stopped cefepime and diflucan as patient has been treated with 10 days for spillage of gastric and duodenal contents during operative procedure. He is on flagyl and biaxin and PPI for emperic treatment of hpylori have previously asked IR to emperically coil GDA and they have declined, transfusing 2 units prbc today patient was to have EGD by GI today but family refuses to allow patient to have this done and patient defers to their wishes. continue protonix and carafate tpn for nutrition as pt is npo discussed patient with accepting physician at [place] - he states we have done everything appropriately for patient care from our standpoint and although patient does not necessarily need transferred for care as we are doing appropriate therapy here he will accept patient because family that showed up today is unhappy (2) Upper abdominal pain Status: Acute (3) DVT prophylaxis Status: Acute (4) Duodenal ulcer Status: Acute (5) Leukocytosis Status: Resolved Qualifiers: Leukocytosis type: unspecified Qualified Code(s): D72.829 - Elevated white blood cell count, unspecified Subjective Patient reports: still having pain, pain is less, flatus, no bowel movement, afebrile Narrative: patients family - aunt who he lives with and a 9 years who lives near [facility] showed up today (first time seen by myself) and have demanded patient be transferred to [place] because "they know more about what they are doing". Objective - General physical appearance well developed, no distress, moderate pain - Eyes PERRL, normal ocular movement - ENT normal mucosa, normocephalic - Neck Neck exam: trachea midline - Respiratory normal expansion, clear to auscultation - Cardiovascular Cardiovascular exam: Present: RRR - Abdomen Abdomen: Present: bowel sounds present, soft, tender - Incision Incision: Present: clean and dry, intact - Integumentary no growths, no abnormal pigmentation - Neurologic CN 2-12 grossly intact - Musculoskeletal normal posture - Psychiatric oriented to time, oriented to person, oriented to place, memory intact - Labs 08/24/17 04:00 08/24/17 04:00 - Attending Attestation I examined this patient and my medical decision-making was reviewed with the Resident Physician. I agree with the documented findings, disposition and treatment plan as described except to the extent set forth below.
[2017-08-24] MEDS ORDERED: Acetaminophen 325 MG TABLET PO ONE (13:13)
--- NOTE | 2017-08-24 15:26 | Discharge Summary ---
<ChaseTu - Last Filed: 08/24/17 15:23> Orders not resulted at time of discharge: Pending orders 08/21/17 18:40 PLASMA [BBK] Stat Platelets [BBK] Stat Red Blood Cells [BBK] Stat Type and Screen [BBK] Stat 08/24/17 09:45 Hemoglobin and Hematocrit [HEME] Q6H 08/24/17 11:15 Arterial Blood Gas DAILY 08/24/17 15:45 Hemoglobin and Hematocrit [HEME] Q6H 08/24/17 21:45 Hemoglobin and Hematocrit [HEME] Q6H 08/25/17 03:45 Hemoglobin and Hematocrit [HEME] Q6H 08/25/17 04:00 Comprehensive Metabolic Panel AM 0400 08/25/17 09:45 Hemoglobin and Hematocrit [HEME] Q6H 08/25/17 11:15 Arterial Blood Gas DAILY 08/25/17 15:45 Hemoglobin and Hematocrit [HEME] Q6H 08/26/17 11:15 Arterial Blood Gas DAILY 08/27/17 11:15 Arterial Blood Gas DAILY 08/28/17 11:15 Arterial Blood Gas DAILY 08/29/17 11:15 Arterial Blood Gas DAILY 08/30/17 11:15 Arterial Blood Gas DAILY 08/31/17 11:15 Arterial Blood Gas DAILY Date of Encounter: 08/24/17 Time of Encounter: 15:24 - Discharge Diagnosis (1) Acute upper GI bleed Priority: Primary Status: Resolved (2) Hematemesis Priority: Secondary Status: Acute Qualifiers: Qualified Code(s): K92.0 - Hematemesis (3) Acute blood loss anemia Priority: Secondary Status: Resolved (4) Thrombocytopenia Priority: Secondary Status: Resolved (5) Hypokalemia Priority: Secondary Status: Resolved (6) Electrolyte abnormality Priority: Secondary Status: Resolved (7) DVT prophylaxis Priority: Secondary Status: Acute - Discharge Medications Home Medications: Albuterol Sulfate [Proair Hfa] 1 puff IH Q4-6H PRN 09/06/16 [History] Quetiapine Fumarate [Seroquel] 200 mg PO HS 04/06/17 [History] Ondansetron [Zofran ODT] 8 mg SL Q8HR PRN 07/18/17 [History] Fluticasone/Vilanterol [Breo Ellipta 100-25 Mcg INH] 1 puff IH DAILY 07/29/17 [ History] Lisinopril [Zestril] 20 mg PO DAILY 07/29/17 [History] Sertraline [Zoloft] 50 mg PO DAILY 07/29/17 [History] Tamsulosin [Flomax] 0.4 mg PO DAILY 07/29/17 [History] Omeprazole [PriLOSEC] 40 mg PO BID #60 cap 08/03/17 [Rx] Sucralfate [Carafate] 1 gm PO QIDAC #60 tablet 08/03/17 [Rx] Ferrous Sulfate [Iron] 325 mg PO DAILY 08/14/17 [History] Allergies/Adverse Reactions: 3 Allergy/AdvReac Type Severity Reaction Status Date / Time prednisone Allergy Swelling Verified 07/29/17 09:40 of the Eye Labs on day of discharge: Labs from last 24 hours 08/24/17 08/24/17 08/24/17 05:25 04:00 04:00 WBC 8.4 RBC 2.61 L Hgb 7.7 L Hct 24.0 L MCV 92.0 MCH 29.5 MCHC 32.1 RDW 16.2 H Plt Count 106 L MPV 11.6 Immature Gran % 0.8 Seg Neutrophils % 69.7 Lymphocytes % 15.9 Monocytes % 9.4 Eosinophils % 3.8 Basophils % 0.4 Neutrophils # 5.8 Lymphocytes # 1.3 Monocytes # 0.8 Eosinophils # 0.3 Basophils # 0.0 PT INR Sodium 138 Potassium 4.0 Chloride 110 H Carbon Dioxide 27 BUN 27 H Creatinine 0.64 L Est GFR ( Amer) > 60 Est GFR (Non-Af Amer) > 60 BUN/Creatinine Ratio 42 H Glucose 136 H POC Glucose Calculated Osmolality 293 Calcium 7.8 L Venous Ioniz Calcium 1.11 L Phosphorus 2.8 Magnesium 1.8 Blood Type Antibody Screen Crossmatch 08/24/17 08/23/17 08/23/17 04:00 23:45 19:45 WBC RBC Hgb Hct MCV MCH MCHC RDW Plt Count MPV Immature Gran % Seg Neutrophils % Lymphocytes % Monocytes % Eosinophils % Basophils % Neutrophils # Lymphocytes # Monocytes # Eosinophils # Basophils # PT 13.7 H INR 1.3 Sodium Potassium Chloride Carbon Dioxide BUN Creatinine Est GFR ( Amer) Est GFR (Non-Af Amer) BUN/Creatinine Ratio Glucose POC Glucose 120 H 102 H Calculated Osmolality Calcium Venous Ioniz Calcium Phosphorus Magnesium Blood Type Antibody Screen Crossmatch 08/23/17 08/23/17 08/23/17 16:21 11:55 07:23 WBC RBC Hgb 8.0 L Hct 24.3 L MCV MCH MCHC RDW Plt Count MPV Immature Gran % Seg Neutrophils % Lymphocytes % Monocytes % Eosinophils % Basophils % Neutrophils # Lymphocytes # Monocytes # Eosinophils # Basophils # PT INR Sodium Potassium Chloride Carbon Dioxide BUN Creatinine Est GFR ( Amer) Est GFR (Non-Af Amer) BUN/Creatinine Ratio Glucose POC Glucose 114 H 119 H Calculated Osmolality Calcium Venous Ioniz Calcium Phosphorus Magnesium Blood Type Antibody Screen Crossmatch 08/23/17 08/21/17 04:01 18:40 WBC RBC Hgb Hct MCV MCH MCHC RDW Plt Count MPV Immature Gran % Seg Neutrophils % Lymphocytes % Monocytes % Eosinophils % Basophils % Neutrophils # Lymphocytes # Monocytes # Eosinophils # Basophils # PT INR Sodium Potassium Chloride Carbon Dioxide BUN Creatinine Est GFR ( Amer) Est GFR (Non-Af Amer) BUN/Creatinine Ratio Glucose POC Glucose 119 H Calculated Osmolality Calcium Venous Ioniz Calcium Phosphorus Magnesium Blood Type O POSITIVE Antibody Screen NEGATIVE Crossmatch See Detail - Impressions ITS Impressions KUB X-Ray 08/14/17 13:28 IMPRESSION: Enteric tube in the stomach as above. Recommend advancement. D/ / Soy Mejia MD / Soy Mejia MD Interpreting Provider: Soy Mejia MD X-Ray 08/14/17 13:40 IMPRESSION: Enteric tube in the stomach as above. Recommend advancement. D/ / Soy Mejia MD / Soy Mejia MD Interpreting Provider: Soy Mejia MD X-Ray 08/14/17 13:43 IMPRESSION: Enteric tube in the stomach as above. No evidence of bowel obstruction. D/ / Soy Mejia MD / Soy Mejia MD Interpreting Provider: Soy Mejia MD Upper GI Series 08/18/17 07:00 IMPRESSION: 1. No gross evidence of a leak in the region of the duodenum. 2. Delayed emptying of the stomach with the patient subsequently vomiting. Unclear whether this is related to narrowing of the duodenum due to postsurgical edema versus gastroparesis. D/ / Vinh Hall MD / Vinh Hall MD Interpreting Provider: Vinh Hall MD Chest/Abdomen X-ray 08/20/17 11:45 IMPRESSION: No residual contrast from prior upper GI. The bowel gas pattern is unremarkable on the current study. Appropriate positioning of NGT. D/ / George Puente MD / George Puente MD Interpreting Provider: George Puente MD Chest X-Ray 08/21/17 19:18 IMPRESSION: The endotracheal tube tip 5 cm above the kya. NG tube tip in the mid thoracic esophagus repositioning recommended. Probable small right pleural effusion with minimal bibasilar atelectasis. D/ / 08/21/2017 19:29:20 Dennis Haywood MD / Susan Mansfield Interpreting Provider: Dennis Haywood MD Date of admission: 08/14/17 05:36 Primary care physician: Kyler Loyd CNP Consults: 08/14/17 05:54 Consult to Surgery [CONS] Routine Consulting Provider: Ally Smallwood Reason for Consult: GI bleed Call Completed: Yes 08/14/17 06:03 Consult to Pulmonology [CONS] Routine Consulting Provider: [facility] Reason for Consult: ICU management Call Completed: No 08/15/17 10:26 Consult to Nutrition [CONS] Routine Comment: Consulting Provider: NUTRITION Reason for Dietary Consult: TPN Start and Manage Consult to PICC team [Consult to Invasive Line Access Team] [CONS] Routine Reason for Consult: need PICC for TPN Line Type: PICC Time Notified: 10:26 Call Completed: No 08/15/17 15:46 Consult to Invasive Line Access Team [CONS] Routine Reason for Consult: Picc Line Insertion Line Type: PICC 08/22/17 05:36 Consult to Critical Care [CONS] Routine Consulting Provider: [facility] Reason for Consult: vent management Call Completed: No 08/22/17 12:50 Consult to Gastroenterology [CONS] Routine Consulting Provider: [facility] Reason for Consult: EGD in 48 hrs Call Completed: Yes Discharging clinician: Tu Stone Anticipated date of discharge: 08/24/17 - Patient Status Disposition: Transfer Other Condition: Fair Overall status at discharge: patient is progressing back to baseline - Discharge Instructions Follow Up With: Kyler Loyd, [employer] [Primary Care Provider] - - Diet and Activity Activity: increase activity as tolerated Diet: advance to your usual diet - Hospital Course Hospital course: Mr. Barrett is a 57 year old male who presented to [facility] on 08/14/17. Patient was a transfer from [facility]. He presented with hemorrhagic shock, GI bleeding, hypotension, and lactic acidosis. While he was at play, he was fluid resuscitated and received transfusion of packed red blood cells. [facility] requested that patient be transferred to [facility] ICU. Patient had been followed by GI at it due to previous to admission. He had an EGD done approximately 12 days prior, which noted that he had a cratered duodenal ulcer. Upon arrival to the ICU, patient was pale, weak, and short of breath. He was hemodynamically unstable. At that time, he received fluid resuscitation. His initial hemoglobin was 5.0. Patient had no history of anticoagulant use. Surgery was consulted and an EGD was performed. Per the endoscopy report, one spurting cratered duodenal ulcer with a visible vessel was found in the duodenal bulb. For hemostasis, one hemostatic clip was successfully placed. By the end of the procedure, there was no bleeding. Patient continued to be managed by the surgery team. His diet was advanced from nothing by mouth to clear liquids. He was kept on Protonix drip and Carafate. He was also given prophylactic antibiotics cefepime and Flagyl. His hemoglobin stabilized to approximately 9-10. Patient's condition was stabilizing. On 08/21/17, patient developed massive hematemesis. Per the event note, blood was coming from patient's mouth and nose, and he was in severe distress. He was hemodynamically unstable at that time. A total of 6 packed red blood cells were ordered. Patient was placed on Levothroid for pressure support. He was intubated for the protection of his airway. Surgery was then notified, and patient was taken down for an EGD and an exploratory laparotomy. Per the report , no active bleeding source was found. He was given a total of 6 units of packed red blood cells. Patient was successfully extubated the next day. After this, patient did not have any more episodes of hematemesis. Hemoglobin after this episode has been between 8 and 9. On the morning of discharge, patient was seen and examined at bedside. NG tube was in place. There was maroon colored blood unchanged from previous day. Patient denied having any hematemesis since the . His vital signs on date of discharge are as follows : Temperature 97.8, pulse 87, respiratory rate 18, blood pressure 116/75, and O2 saturation 97. Hemoglobin was 7.7. Patient's family was at bedside this morning and requested transfer to [facility]. The patient's family seems to be distressed over the fact that patient was not getting better. They also did not seem to be happy about the risks of doing another EGD. Plan was to take patient down for another EGD to verify that there were no active sites of bleeding. After explaining the benefits and risks of EGD, the patient's family was still adamant that the patient be transferred. The transfer center was contacted, and [place] agreed to accept the patient. - Time Spent with Patient Total time spent providing and/or coordinating discharge services: Greater than 30 minutes (41 minutes) Physical Examination Vital Signs: Vital Signs, Last 4 Hours Temp Pulse Resp BP Pulse Ox 08/24/17 14:08 98.0 F 86 18 138/73 97 08/24/17 14:00 87 18 115/64 97 08/24/17 13:53 97.8 F 86 18 137/75 99 08/24/17 13:00 87 20 119/73 97 08/24/17 12:00 97.8 F 87 18 116/75 97 General appearance: no acute distress Eyes: nonicteric ENT: oropharynx moist Neck: supple Effort: normal Inspection: normal Auscultation: bilateral: clear Percussion: bilateral: not dull Tactile fremitus: bilateral: normal Cardiovascular: regular rate and rhythm Gastrointestinal: tender Integumentary: normal Musculoskeletal: no deformities mood appropriate, affect normal - VTE Documentation of Mechanical Device: Graduated compression elastic hosiery <Griffin Davis M - Last Filed: 08/24/17 15:58> Orders not resulted at time of discharge: Pending orders 08/21/17 18:40 PLASMA [BBK] Stat Platelets [BBK] Stat Red Blood Cells [BBK] Stat Type and Screen [BBK] Stat 08/24/17 09:45 Hemoglobin and Hematocrit [HEME] Q6H 08/24/17 11:15 Arterial Blood Gas DAILY 08/24/17 15:45 Hemoglobin and Hematocrit [HEME] Q6H 08/24/17 21:45 Hemoglobin and Hematocrit [HEME] Q6H 08/25/17 03:45 Hemoglobin and Hematocrit [HEME] Q6H 08/25/17 04:00 Comprehensive Metabolic Panel AM 0400 08/25/17 09:45 Hemoglobin and Hematocrit [HEME] Q6H 08/25/17 11:15 Arterial Blood Gas DAILY 08/25/17 15:45 Hemoglobin and Hematocrit [HEME] Q6H 08/26/17 11:15 Arterial Blood Gas DAILY 08/27/17 11:15 Arterial Blood Gas DAILY 08/28/17 11:15 Arterial Blood Gas DAILY 08/29/17 11:15 Arterial Blood Gas DAILY 08/30/17 11:15 Arterial Blood Gas DAILY 08/31/17 11:15 Arterial Blood Gas DAILY Date of Encounter: 08/24/17 Labs on day of discharge: Labs from last 24 hours 08/24/17 08/24/17 08/24/17 05:25 04:00 04:00 WBC 8.4 RBC 2.61 L Hgb 7.7 L Hct 24.0 L MCV 92.0 MCH 29.5 MCHC 32.1 RDW 16.2 H Plt Count 106 L MPV 11.6 Immature Gran % 0.8 Seg Neutrophils % 69.7 Lymphocytes % 15.9 Monocytes % 9.4 Eosinophils % 3.8 Basophils % 0.4 Neutrophils # 5.8 Lymphocytes # 1.3 Monocytes # 0.8 Eosinophils # 0.3 Basophils # 0.0 PT INR Sodium 138 Potassium 4.0 Chloride 110 H Carbon Dioxide 27 BUN 27 H Creatinine 0.64 L Est GFR ( Amer) > 60 Est GFR (Non-Af Amer) > 60 BUN/Creatinine Ratio 42 H Glucose 136 H POC Glucose Calculated Osmolality 293 Calcium 7.8 L Venous Ioniz Calcium 1.11 L Phosphorus 2.8 Magnesium 1.8 Blood Type Antibody Screen Crossmatch 08/24/17 08/23/17 08/23/17 04:00 23:45 19:45 WBC RBC Hgb Hct MCV MCH MCHC RDW Plt Count MPV Immature Gran % Seg Neutrophils % Lymphocytes % Monocytes % Eosinophils % Basophils % Neutrophils # Lymphocytes # Monocytes # Eosinophils # Basophils # PT 13.7 H INR 1.3 Sodium Potassium Chloride Carbon Dioxide BUN Creatinine Est GFR ( Amer) Est GFR (Non-Af Amer) BUN/Creatinine Ratio Glucose POC Glucose 120 H 102 H Calculated Osmolality Calcium Venous Ioniz Calcium Phosphorus Magnesium Blood Type Antibody Screen Crossmatch 08/23/17 08/23/17 08/23/17 16:21 11:55 07:23 WBC RBC Hgb 8.0 L Hct 24.3 L MCV MCH MCHC RDW Plt Count MPV Immature Gran % Seg Neutrophils % Lymphocytes % Monocytes % Eosinophils % Basophils % Neutrophils # Lymphocytes # Monocytes # Eosinophils # Basophils # PT INR Sodium Potassium Chloride Carbon Dioxide BUN Creatinine Est GFR ( Amer) Est GFR (Non-Af Amer) BUN/Creatinine Ratio Glucose POC Glucose 114 H 119 H Calculated Osmolality Calcium Venous Ioniz Calcium Phosphorus Magnesium Blood Type Antibody Screen Crossmatch 08/23/17 08/21/17 04:01 18:40 WBC RBC Hgb Hct MCV MCH MCHC RDW Plt Count MPV Immature Gran % Seg Neutrophils % Lymphocytes % Monocytes % Eosinophils % Basophils % Neutrophils # Lymphocytes # Monocytes # Eosinophils # Basophils # PT INR Sodium Potassium Chloride Carbon Dioxide BUN Creatinine Est GFR ( Amer) Est GFR (Non-Af Amer) BUN/Creatinine Ratio Glucose POC Glucose 119 H Calculated Osmolality Calcium Venous Ioniz Calcium Phosphorus Magnesium Blood Type O POSITIVE Antibody Screen NEGATIVE Crossmatch See Detail - Impressions ITS Impressions KUB X-Ray 08/14/17 13:28 IMPRESSION: Enteric tube in the stomach as above. Recommend advancement. D/ / Soy Mejia MD / Soy Mejia MD Interpreting Provider: Soy Mejia MD X-Ray 08/14/17 13:40 IMPRESSION: Enteric tube in the stomach as above. Recommend advancement. D/ / Soy Mejia MD / Soy Mejia MD Interpreting Provider: Soy Mejia MD X-Ray 08/14/17 13:43 IMPRESSION: Enteric tube in the stomach as above. No evidence of bowel obstruction. D/ / Soy Mejia MD / Soy Mejia MD Interpreting Provider: Soy Mejia MD Upper GI Series 08/18/17 07:00 IMPRESSION: 1. No gross evidence of a leak in the region of the duodenum. 2. Delayed emptying of the stomach with the patient subsequently vomiting. Unclear whether this is related to narrowing of the duodenum due to postsurgical edema versus gastroparesis. D/ / Vinh Hall MD / Vinh Hall MD Interpreting Provider: Vinh Hall MD Chest/Abdomen X-ray 08/20/17 11:45 IMPRESSION: No residual contrast from prior upper GI. The bowel gas pattern is unremarkable on the current study. Appropriate positioning of NGT. D/ / George Puente MD / George Puente MD Interpreting Provider: George Puente MD Chest X-Ray 08/21/17 19:18 IMPRESSION: The endotracheal tube tip 5 cm above the kya. NG tube tip in the mid thoracic esophagus repositioning recommended. Probable small right pleural effusion with minimal bibasilar atelectasis. D/ / 08/21/2017 19:29:20 Dennis Haywood MD / Susan Mansfield Interpreting Provider: Dennis Haywood MD Date of admission: 08/14/17 05:36 Primary care physician: Kyler Loyd CNP Consults: 08/14/17 05:54 Consult to Surgery [CONS] Routine Consulting Provider: Ally Smallwood Reason for Consult: GI bleed Call Completed: Yes 08/14/17 06:03 Consult to Pulmonology [CONS] Routine Consulting Provider: [facility] Reason for Consult: ICU management Call Completed: No 08/15/17 10:26 Consult to Nutrition [CONS] Routine Comment: Consulting Provider: NUTRITION Reason for Dietary Consult: TPN Start and Manage Consult to PICC team [Consult to Invasive Line Access Team] [CONS] Routine Reason for Consult: need PICC for TPN Line Type: PICC Time Notified: 10:26 Call Completed: No 08/15/17 15:46 Consult to Invasive Line Access Team [CONS] Routine Reason for Consult: Picc Line Insertion Line Type: PICC 08/22/17 05:36 Consult to Critical Care [CONS] Routine Consulting Provider: [facility] Reason for Consult: vent management Call Completed: No 08/22/17 12:50 Consult to Gastroenterology [CONS] Routine Consulting Provider: [facility] Reason for Consult: EGD in 48 hrs Call Completed: Yes - Hospital Course Hospital course: Mr. Barrett is a 57 year old male - Time Spent with Patient Total time spent providing and/or coordinating discharge services: Physical Examination Vital Signs: Vital Signs, Last 4 Hours Temp Pulse Resp BP Pulse Ox 08/24/17 15:00 85 20 141/82 100 08/24/17 14:08 98.0 F 86 18 138/73 97 08/24/17 14:00 87 18 115/64 97 08/24/17 13:53 97.8 F 86 18 137/75 99 04/25/18 13:00 87 20 119/73 97 08/24/17 12:00 97.8 F 87 18 116/75 97 - Attending Attestation I examined this patient and my medical decision-making was reviewed with the Resident Physician. I agree with the documented findings, disposition and treatment plan as described except to the extent set forth below. Patient has significant hospital course with bleeding and endoscopy as well as surgery. Patient was plan to have endoscopy by ceramist, however family requested transfer patient.
[2017-08-24 16:27] VITALS: BP 137/85
[2017-08-24] MEDS ORDERED: Clinimix 5%-20% SOLUTION 2,000 ML with MVI, adult with vitamin K 10 ML, Sodium Acetat... IVC SCH (17:00)
[2017-08-24] MEDS ORDERED: Clinimix E 5%-15% SOLUTION 2,000 ML, Parenteral Amino Acid 10% 0 ML with MVI, adult wi... IVC SCH (17:00)
== END 2017-08-24 18:01 | disposition other institution (70) | DRG 220 ==
LOC: ICNU 05:36 → 3ANU 08-17 18:52 → ICNU 08-21 18:44
PROVIDERS: ADMIT Pediatrics; ATTEND Surgery